=== PATIENT | male | born 1965 | race American Indian/Alaskan Native ===

== ENCOUNTER 2020-07-20 12:54 | Outpatient (REF) | payer OTHER, SELFPAY ==
--- NOTE | 2020-07-20 13:08 | XR_ITS ---
EXAMINATION: XR BILATERAL HIPS WITH AP PELVIS CLINICAL INFORMATION: Sacroiliac joint dysfunction of left side. COMPARISON: Lumbar spine x-rays of 03/18/2020, pelvic x-ray of 12/07/2019 and 08/21/2019. TECHNIQUE: AP view of the pelvis and AP and frog-lateral views of each hip were obtained. FINDINGS: Surgical hardware bridging the left sacroiliac joint is stable in appearance without evidence of hardware loosening or fracture. Right sacroiliac joint is stable in appearance without significant abnormality. Symphysis pubis is intact. Femoral heads are well seated in the respective acetabula. Hip joint spaces are preserved. Subarticular sclerosis is noted in the bilateral femoral heads, right greater than left, similar to previous studies. XR/XR hip BI w PEL1V IMPRESSION: Stable appearance of the surgical hardware along the left sacroiliac joint without evidence of loosening or hardware fracture. No acute osseous abnormality in the pelvis and bilateral hips. Bilateral hip degenerative changes, right greater than left.
== END 2020-07-20 12:55 | disposition home or self-care (01) ==
LOC: HO.XRAY 12:54
PROVIDERS: Visit Provider Physician Assistant
DX: M53.3 Sacrococcygeal disorders, not elsewhere classified (principal)
CPT/HCPCS: 73521

== ENCOUNTER 2021-01-08 10:45 | Emergency (ER) | payer OTHER, SELFPAY ==
[2021-01-08 11:49] VITALS: BP 172/78; PULSE 73; RESP 18; TEMP 36.7; O2SAT 97; BMI 28.6
--- NOTE | 2021-01-08 13:49 | ED.GENADULT ---
HPI - General Adult General Chief complaint: Back Pain/Injury Stated complaint: LOWER BACK PAIN - WORK RELATED Time Seen by Provider: 01/08/21 13:26 Source: patient Mode of arrival: ambulatory Limitations: no limitations History of Present Illness HPI narrative: 55-year-old male who presents emergency department for evaluation of lower back pain. Patient states that he has chronic back pain secondary to work related injury 3 years prior. 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 He states that before he started working was having pain but the pain got worse by the end of his workday. Since that time he has been having constant, twisting pain in his left lower back which is 10/10. The pain is worse with movement. He states the pain does radiate to his left hip into his left thigh. He denies any numbness or weakness. Denies any loss of bowel or bladder control. Patient states that he has seen Dr. Brett Mackenzie in the past for his back pain. He states that he has had left SI joint effusion, L4-L5 disc disease and cervical disc disease. He denied fever, chills, chest pain, shortness of breath. He states that in the past he has gotten relief his pain with Toradol and Robaxin. He states that NSAIDs hurt his stomach but he can take Tylenol for pain. Related Data Previous Rx's Medication Instructions Recorded methocarbamol [Robaxin-750] 750 mg PO BID #20 tab 01/08/21 tramadol 50 mg PO Q4-6H PRN 3 Days #14 tab 01/08/21 Allergies Allergy/AdvReac Type Severity Reaction Status Date / Time codeine [Codeine] AdvReac Unknown HEADACHE Unverified 06/16/20 17:25 Review of Systems Review of Systems: Yes all other systems are reviewed and are negative [facility] Past Medical History [facility] Narrative: Patient has a history of diabetes mellitus and chronic neck and back pain. He denies tobacco, alcohol and drug use. Medical History (Updated 01/08/21 @ 13:58 by Gabe Jolly MD) Back injury Diabetes Fusion of joint Social History Social History Advance Directives: No Advance Directives Information Provided: Yes Physical Exam Vital Signs: Vital Signs: Last Vital Signs Temp 98.1 F 01/08/21 11:49 Pulse 73 01/08/21 11:49 Resp 18 01/08/21 11:49 BP 172/78 H 01/08/21 11:49 Pulse Ox 97 01/08/21 11:49 Body Mass Index 28.6 Const: General: cooperative Orientation/consciousness: oriented to person and oriented to place Limitations: no limitations HENMT: Head: Yes normal to inspection, Yes normocephalic and Yes atraumatic Ears: external ears normal General nose exam: Normal external nose present Face and sinus: Yes normal facial exam Mouth: Normal oral and palatal mucosa present Throat: Yes posterior oropharynx normal Eyes: Periorbital: periorbital findings normal Eyelids: Yes eyelids normal Conjunctivae: conjunctivae normal Sclerae: sclerae normal Corneas: corneas normal Pupils: Equal, round and reactive pupils present Direct Ophthalmoscopy: normal light reflex Neck: Neck: Yes full ROM, Yes no lymphadenopathy, Yes no meningeal signs, Yes trachea midline and Yes supple Chest: Chest palpation & inspection: normal inspection of the chest and normal palpation of entire chest wall Resp: Effort & Inspection: normal respiratory effort and able to speak in complete sentences Auscultation: clear to auscultation bilaterally Cardio: Rate: regular rate Rhythm: regular rhythm Heart sounds: S1 normal heart sound present, S2 normal heart sound present and no murmurs GI: Inspection: Yes normal to inspection Palpation (GI): Soft to palpation, nontender, no guarding, not rigid and No hepatosplenomegaly present : General: Yes no CVA tenderness Back/Spine/Pelvis: Back: no CVA tenderness Cervical Spine: normal cervical lordosis Thoracic/Lumbar Spine: thoracic and lumbar spine normal to inspection, paraspinal muscle tenderness (Left lumbar sacral paraspinal muscle tenderness) on the left (Moderate), thoraco-lumbar spasm on the left (Moderate) and lumbar spinal tenderness at L1, at L2, at L3, at L4 and at L5 Skin: Lesions: no lesions Rashes: no rashes Wounds: no wounds Neuro: General: oriented to person, oriented to place and no meningeal signs Cranial nerves: Yes CN's II-XII intact bilaterally and Yes Equal, round and reactive pupils present Cognition (Neuro): normal cognition Motor exam (neuro): 5/5 motor strength present throughout Extrem: General: Yes normal to inspection and Yes full ROM Psych: Appearance: well kempt Mental Status: mental status grossly normal Speech and movement: Normal speech and movement present Affect: normal affect Attitude: cooperative Thought process: Normal thought process present Thought content: Normal thought content present Course Course Course Narrative: 55-year-old male who presents emergency department for evaluation of left lower back pain x3 days. 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 The patient's examination did reveal tenderness with palpation of his lumbar cervical spine and lumbar sacral paraspinal muscles. Neurologic exam is otherwise unremarkable. Patient's presentation is consistent with musculoskeletal strain. The patient was advised to take Tylenol for his pain. He is also given a prescription for Robaxin 750 mg twice a day and tramadol 50 mg, 1 pill every 4-6 hours as needed for pain. I did discuss the use and side effects these medications with the patient. The patient will be given time off from work until he can be re-evaluated by his occupational health physician to determine when he can return to work safely. Discharge Plan Discharge Clinical Impression: Strain of lumbar region Patient Disposition: Home, Self-Care Instructions: Low Back Strain (ED) Additional Instructions: Back Pain Discharge Instructions: Take Tyleno(acetaminophen) 325 mg pills, 2 pills every 4 hours as needed for pain. Take Robaxin 750 mg, 1 pill every 12 hours as needed for pain or muscle spasm. This is a prescription medication. This medication will make you sleepy, therefore do not drive or work while taking this medication. Take tramadol 50 mg pills, 1 pill every 4-6 hours as needed for pain. This medication will make you sleepy. This medication can be addicting and if you worried about addiction do not get this pain medication filled or ask the pharmacist for less pills than prescribed. Apply ice for 15 minutes to the area that hurts on your back, then apply a heating a pad on low for 15 minutes. Do this 4-6 times a day to help reduce the pain in your back. Continue with normal activities as tolerated since staying in bed and not moving around will make your pain worse. You can also try over the counter lidocaine patches as directed on the box to help with the pain. Please return to the Emergency Department or see your doctor immediately if your symptoms get worse or if you develop any new symptoms that are concerning you. Follow up with Dr. Brett Mackenzie within 3 days for re-evaluation to determine when you can return to work.. Please read the other printed discharge instructions on back pain. Prescriptions: New methocarbamol [Robaxin-750] 750 mg tablet 750 mg PO BID Qty: 20 RF: 0 tramadol 50 mg tablet 50 mg PO Q4-6H PRN (Reason: pain) 3 Days Qty: 14 RF: 0
== END 2021-01-08 14:12 | disposition home or self-care (01) ==
PROVIDERS: Emergency Provider Emergency Medicine Emergency Medical Services
DX: S39.012A Strain of muscle, fascia and tendon of lower back, initial encounter (principal); X50.1XXA Overexertion from prolonged static or awkward postures, initial encounter; Y93.H3 Activity, building and construction; Y92.61 Building [any] under construction as the place of occurrence of the external cause; Y99.0 Civilian activity done for income or pay
CPT/HCPCS: 99283

== ENCOUNTER 2021-07-13 12:10 | Outpatient (REF) | payer OTHER, SELFPAY ==
[2021-07-13 13:56] LABS: Estimated Average Glucose 203 mg/dL; Hemoglobin A1c % 8.7 %
[2021-07-13 14:19] LABS: Creatinine Urine 25.63 mg/dL; Microalbumin Urine < 5.0 mg/L
[2021-07-13 14:24] LABS: Alanine Aminotransferase 96 U/L (0-40); Albumin Level 4.1 g/dL (3.5-5.0); Alkaline Phosphatase 208 U/L (39-117); Anion Gap 20 (12-20); Aspartate Amino Transferase 51 U/L (5-37); Bilirubin Total 0.7 mg/dL (0.0-1.0); Blood Urea Nitrogen 13 mg/dL (9-16); Calcium 9.7 mg/dL (8.4-10.2); Carbon Dioxide 22 mmol/L (22-29); Chloride 101 mmol/L (96-108); Cholesterol 270 mg/dL; Estimated Glomerular Filt Rate > 60; Glucose Fasting 279 mg/dL (60-99); HDL Cholesterol 74 mg/dL; LDL Cholesterol Calculated 159 mg/dl; Potassium 4.7 mmol/L (3.3-5.1); Sodium 138 mmol/L (135-145); Triglycerides 187 mg/dL
[2021-07-13 15:21] LABS: Prostate Specific Antigen Scr 2.22 ng/mL (<0.05-4.0)
== END 2021-07-13 12:11 | disposition home or self-care (01) ==
LOC: HO.HMGCLDS 12:10
PROVIDERS: PCP Nurse Practitioner Family; Visit Provider Nurse Practitioner Family
DX: E10.9 Type 1 diabetes mellitus without complications (principal); Z12.5 Encounter for screening for malignant neoplasm of prostate
CPT/HCPCS: 36415; 80053; 80061; 82043; 83036; 84153; 84443

== ENCOUNTER 2021-08-02 08:21 | Outpatient (REF) | payer OTHER, SELFPAY ==
--- NOTE | ~2021-08-02 | US_ITS ---
EXAMINATION: US ABDOMEN COMPLETE CLINICAL INFORMATION: Elevated liver enzymes. COMPARISON: None TECHNIQUE: Real-time imaging of the abdominal viscera. FINDINGS: PANCREAS: Normal. ABDOMINAL AORTA: The proximal, mid, and distal segments are normal in caliber. INFERIOR VENA CAVA: Visualized portions are normal. LIVER: Liver echotexture is increased. The liver is normal in size. The liver contour is normal. No focal hepatic lesion. There is no intrahepatic biliary duct dilatation seen. GALLBLADDER: Normal The gallbladder is physiologically distended without evidence of stones, sludge, polyps, wall thickening or pericholecystic fluid. COMMON BILE DUCT: Normal in caliber measuring 0.5 cm in diameter. RIGHT KIDNEY: Normal. No hydronephrosis. No renal calculi or focal parenchymal lesions. The kidney measures 12 cm in maximum dimension. LEFT KIDNEY: There are 3 stones, largest measuring 8 x 4 x 4 mm in the lower pole. No hydronephrosis. No renal calculi or focal parenchymal lesions. The kidney measures cm in maximum dimension. SPLEEN: Normal. The spleen measures 11 cm in maximum dimension. FREE FLUID: None. US/US abdomen complete IMPRESSION: Echogenic liver. Left renal stones.
[2021-08-02 12:22] LABS: Gamma Glutamyl Transpeptidase 94 U/L (11-51)
[2021-08-03 04:32] LABS: HBS Num1 1.01 mIU/mL (0-7.99); HBsAGNum1 0.16 S/CO (0.00-0.99); Hepatitis B Core Antibody Nonreactive (Nonreactive); Hepatitis B Surface Antigen Negative (Negative); ~HepC Num1 0.16 S/CO (0.00-0.79); ~Hepatitis B Surface Antibody NONREACTIVE (Nonreactive); ~Hepatitis C Antibody Nonreactive (Nonreactive)
[2021-08-04 03:59] LABS: Hepatitis A Antibody IgM 0.11 Index (0-0.79); ~Hepatitis A Antibody IgM Nonreactive (Nonreactive)
== END 2021-08-02 08:22 | disposition home or self-care (01) ==
LOC: HO.HMGCX 08:21
PROVIDERS: PCP Nurse Practitioner Family; Visit Provider Nurse Practitioner Family
DX: R74.8 Abnormal levels of other serum enzymes (principal)
CPT/HCPCS: 36415; 76700; 82977; 86704; 86706; 86709; 86803; 87340

== ENCOUNTER 2021-11-05 20:39 | Emergency (ER) | payer SELFPAY ==
--- NOTE | ~2021-11-05 | CT_ITS ---
EXAMINATION: CT ABDOMEN AND PELVIS WITH CONTRAST CLINICAL INFORMATION: Abdominal pain COMPARISON: Abdominal ultrasound 08/02/2021, CT abdomen 01/22/2010 TECHNIQUE: Multidetector volumetric images were obtained from the superior aspect of the liver through the pubic symphysis following administration 85 mL of Omnipaque 350 intravenous contrast. Sagittal and coronal reformatted images were obtained on the technologist's workstation. Oral contrast: No This CT examination was performed using dose optimization techniques as appropriate, variously including the following: *Automated exposure control *Adjustment of mA and/or kV according to patient size (this includes techniques or standardized protocols for targeted exams where dose is matched to indication/reason for exam; i.e. extremities or head) *Use of iterative reconstruction technique DLP: 514 mGy-cm FINDINGS: LUNG BASES: The visualized lung bases are unremarkable. LIVER, GALLBLADDER, AND BILIARY TREE: The liver is normal in size, shape, and attenuation. No focal hepatic lesion or biliary ductal dilatation is present. The gallbladder is unremarkable with no evidence of radiopaque gallstones, gallbladder wall thickening, or obvious pericholecystic inflammatory changes. PANCREAS: Unremarkable. SPLEEN: Unremarkable. ADRENAL GLANDS: Unremarkable. KIDNEYS AND URETERS: The kidneys are normal in size, shape, and attenuation. Some tiny subcentimeter hypodensities are seen the largest measuring 4 mm at the left lower pole measuring water density. These are all probably benign Bosniak class I renal cysts but most are indeterminate because of their small size. No suspicious solid renal masses are seen. No hydronephrosis, hydroureter, or calculi seen. No perinephric stranding. BLADDER: Unremarkable. GASTROINTESTINAL TRACT: Significant fluid is present in the colon especially on the right. No definite evidence of structure and is seen. No small bowel dilatation is present. The appendix is normal. ABDOMINAL WALL: Small inguinal hernias are present containing only fat. There is some mild diastases of the rectus muscles above the umbilicus. LYMPH NODES: No retroperitoneal lymphadenopathy. VASCULAR: Calcific atherosclerotic plaque present in the infrarenal aorta and iliofemoral vessels without aneurysm. PELVIC VISCERA: No gross prostatic enlargement. OSSEOUS STRUCTURES: Mild degenerative changes seen most prominent at L4-L5. CT/CT abdomen pelvis w con IMPRESSION: A cause for the patient's abdominal pain is not seen with certainty. Fluid and air-fluid levels is present in the colon without evidence of obstruction. Findings could represent colitis. Fleischner guidelines were followed.
[2021-11-05 20:42] VITALS: BP 148/87; PULSE 100; RESP 18; TEMP 36.9; O2SAT 98; BMI 27.4
[2021-11-05 20:53] LABS: Glucose, Whole Blood 124 mg/dL (60-115)
[2021-11-05 21:07] VITALS: BP 171/76; PULSE 98; RESP 22; TEMP 36.9; O2SAT 100
--- NOTE | 2021-11-05 21:50 | ECG_ITS ---
Test Reason : SOB Blood Pressure : / mmHG Vent. Rate : 085 BPM Atrial Rate : 085 BPM P-R Int : 128 ms QRS Dur : 086 ms QT Int : 370 ms P-R-T Axes : 073 064 047 degrees QTc Int : 440 ms Normal sinus rhythm Normal ECG When compared with ECG of 16-JUN-2010 18:06, T wave amplitude has decreased in Anterolateral leads Referred By: Margo Garces Electronically Signed By:Tyree Kessler
--- NOTE | 2021-11-05 21:52 | ED_ITS ---
HPI - General Adult General Chief complaint: General Medical Stated complaint: low blood sugar, constipated, severe pain Time Seen by Provider: 11/05/21 21:34 History of Present Illness HPI narrative: Patient is a 56-year-old male presented today with having diffuse abdominal pain, no bowel movement for the last 5 days. Passing gas. No abdominal surgery in the past. No fever no chills. No coughing or congestion or upper respiratory symptoms. Patient immunized for COVID. Positive nausea. Positive generalized malaise. no actual vomiting. Related Data Home Medications Medication Instructions Recorded Confirmed fluoxetine 40 mg capsule 40 mg PO DAILY 04/13/21 07/13/21 Previous Rx's Medication Instructions Recorded tramadol 50 mg tablet 50 mg PO Q4-6H PRN 3 Days #14 tab 01/08/21 insulin glargine 100 unit/mL (3 36 unit (0.36 mL) SUBCUT QAM 30 07/13/21 mL) subcutaneous pen (Basaglar Days #10.8 ml KwikPen U-100 Insulin) insulin lispro 100 unit/mL 12 unit (0.12 mL) SUBCUT TID 30 07/13/21 subcutaneous pen (Humalog KwikPen Days #10.8 ml (U-100) Insulin) Allergies Allergy/AdvReac Type Severity Reaction Status Date / Time latex AdvReac Mild skin Verified 07/13/21 11:24 bubbles codeine [Codeine] AdvReac Unknown HEADACHE Verified 07/13/21 11:24 Review of Systems Verdana 4l Review of Systems: Verdana 4d Positive abdominal Verdana 4d pain Positive nausea All system reviewed otherwise negative Verdana 4d Yes all other systems are reviewed and are negative [facility] Past Medical History Attestation statement: The following information was validated with the patient. Medical History Back injury Diabetes Fusion of joint Surgical History History of shoulder surgery Family History Family History Father Diabetes Brother Diabetes Other Mental health disorder Social History Social History Housing: [facility] Alcohol intake: current Alcohol intake frequency: holidays/special occasions only Alcohol type: beer Patient Tobacco Use Status: Former Tobacco user Quit Date: 2009 Tobacco use type: Cigarette Years Smoked: since age 16 Advance Directives: No Advance Directives Information Provided: No Current occupational status: unemployed Physical Exam Verdana 4l Vital Signs: Verdana 4d Verdana 4d Vital Signs: Verdana 4d Verdana 4Bd Last Vital Signs Verdana 4d Material Damage Appraiser New 4d Material Damage Appraiser New 4d Temp 98.4 F 11/05/21 21:07 Material Damage Appraiser New 4d Pulse 98 11/05/21 21:07 Material Damage Appraiser New 4d Resp 22 H 11/05/21 21:07 BP 171/76 H 11/05/21 21:07 Pulse Ox 100 11/05/21 21:07 BMI result Body Mass Index 27.4 Appearance: Alert. Oriented X3. No acute distress. Eyes: Pupils equal, round and reactive to light. ENT: Pharynx normal. Neck: Normal inspection. Neck supple. No lymph nodes noted. No crepitus CVS: Normal heart rate and rhythm. Pulses normal. Normal S1 and S2 Respiratory: No respiratory distress. Breath sounds normal. No Wheezing. No rales Abdomen: Soft and nontender. No rigidity. No distention. good BS x4 Skin: Skin warm and dry. Normal skin color. Normal skin turgor. Extremities: No lower extremity edema. Neurovascular intact to all extremities. No Lacerations. No Rash Neuro: Oriented X 3. No motor deficit. No sensory deficit. Moving all extermities. No slurred speech Medical Decision Making MDM Narrative Medical decision making narrative: Rectal exam done with nursing present. Large amount of impacted stool. Patient was manually disimpacted by myself. Moderate amount of stool resulted. A Fleet enema was given. Moderate results. Will get labs and CT scan of the abdomen. Patient's symptom improved after disimpaction. CT scan of the abdomen showed no overt obstruction no abscess no perforation no evidence for diverticulitis. Electrolytes are baseline. CBC was drawn after the disimpaction could be secondary to stress causing the elevated white count in the setting of negative CT findings symptom improving will discharge patient home. Told to use MiraLax, lots of vegetables. Currently in stable condition with discharge Patient's EKG showed a sinus pattern heart rate is 90 KS QRS QT within normal limits, no acute ST segment elevation. Lab Data Lab results reviewed: Yes I reviewed the patient's lab results. Result diagrams: 11/05/21 22:00 11/05/21 22:00 Labs: Lab Results 11/05/21 11/05/21 11/05/21 Range/Units 20:43 22:00 22:00 WBC 14.8 H (4.8-10.8) X10*3/uL RBC 4.55 L (4.60-5.80) X10*6/uL Hgb 15.0 (14.0-18.0) g/dl Hct 43.6 (42.0-52.0) % MCV 95.8 (80.0-98.0) fL MCH 33.0 (27.0-33.0) pg MCHC 34.4 (31.0-36.0) g/dl RDW 12.2 (11.0-16.0) % Plt Count 370 (160-400) X10*3/uL MPV 9.2 L (9.4-12.4) fL Immature Gran % (Auto) 0.3 (0.0-0.4) % Neut % (Auto) 87.8 H (45-73) % Lymph % (Auto) 5.9 L (20-40) % Cla[place]orne % (Auto) 5.5 (2-11) % Eos % (Auto) 0.1 (0-4) % Baso % (Auto) 0.4 (0-2) % Lymph # (Auto) 0.9 L (1.2-4.9) X10*3/uL [place]orne # (Auto) 0.8 (0.1-1.2) X10*3/uL Eos # (Auto) 0.0 (0.0-0.4) X10*3/uL Baso # (Auto) 0.1 (0.0-0.2) X10*3/uL Abs Immat Gran (auto) 0.05 H (0.00-0.03) X10*3/uL Absolute Neuts (auto) 13.0 H (2.0-8.3) x10*3/uL Absolute Nucleated RBC 0.000 (0.0-0.012) X10*3/uL Nucleated RBC % (auto) 0.0 (0.0-0.2) /100WBC Sodium 140 (135-145) mmol/L Potassium 4.6 (3.3-5.1) mmol/L Chloride 102 (96-108) mmol/L Carbon Dioxide 25 (22-29) mmol/L Anion Gap 18 (12-20) BUN 12 (9-16) mg/dL Creatinine 1.00 (0.5-1.4) mg/dL Estim Creat Clear Calc 76.2 Estimated GFR > 60 POC Glucose 124 H (60-115) mg/dL Random Glucose 192 H (60-115) mg/dL Calcium 9.7 (8.4-10.2) mg/dL Magnesium 2.3 (1.6-2.6) mg/dL Total Bilirubin 0.9 (0.0-1.0) mg/dL Direct Bilirubin 0.3 (0.0-0.5) mg/dL AST 27 D (5-37) U/L ALT 63 H (0-40) U/L Alkaline Phosphatase 143 H D (39-117) U/L Total Protein 7.3 (6.5-8.0) g/dL Albumin 4.2 (3.5-5.0) g/dL Lipase 5 L (8-78) U/L 11/05/21 Range/Units 22:00 WBC (4.8-10.8) X10*3/uL RBC (4.60-5.80) X10*6/uL Hgb (14.0-18.0) g/dl Hct (42.0-52.0) % MCV (80.0-98.0) fL MCH (27.0-33.0) pg MCHC (31.0-36.0) g/dl RDW (11.0-16.0) % Plt Count (160-400) X10*3/uL MPV (9.4-12.4) fL Immature Gran % (Auto) (0.0-0.4) % Neut % (Auto) (45-73) % Lymph % (Auto) (20-40) % Claiborne % (Auto) (2-11) % Eos % (Auto) (0-4) % Baso % (Auto) (0-2) % Lymph # (Auto) (1.2-4.9) X10*3/uL [place] # (Auto) (0.1-1.2) X10*3/uL Eos # (Auto) (0.0-0.4) X10*3/uL Baso # (Auto) (0.0-0.2) X10*3/uL Abs Immat Gran (auto) (0.00-0.03) X10*3/uL Absolute Neuts (auto) (2.0-8.3) x10*3/uL Absolute Nucleated RBC (0.0-0.012) X10*3/uL Nucleated RBC % (auto) (0.0-0.2) /100WBC Sodium (135-145) mmol/L Potassium (3.3-5.1) mmol/L Chloride (96-108) mmol/L Carbon Dioxide (22-29) mmol/L Anion Gap (12-20) BUN (9-16) mg/dL Creatinine (0.5-1.4) mg/dL Estim Creat Clear Calc Estimated GFR POC Glucose (60-115) mg/dL Random Glucose (60-115) mg/dL Calcium 10.0 (8.4-10.2) mg/dL Magnesium (1.6-2.6) mg/dL Total Bilirubin (0.0-1.0) mg/dL Direct Bilirubin (0.0-0.5) mg/dL AST (5-37) U/L ALT (0-40) U/L Alkaline Phosphatase (39-117) U/L Total Protein (6.5-8.0) g/dL Albumin (3.5-5.0) g/dL Lipase (8-78) U/L Discharge Plan Discharge Clinical Impression: Constipation Patient Disposition: Home, Self-Care Prescriptions: No Action tramadol 50 mg tablet 50 mg PO Q4-6H PRN (Reason: pain) 3 Days Qty: 14 0RF Rx Instructions: Patient may request partial fill fluoxetine 40 mg capsule 40 mg PO DAILY 0RF insulin lispro [Humalog KwikPen Insulin] 100 unit/mL insulin pen 12 unit subcut TID 30 Days Qty: 10.8 3RF Rx Instructions: 13-16 units daily Basaglar KwikPen U-100 Insulin 100 unit/mL (3 mL) insulin pen 36 unit subcut QAM 30 Days Qty: 10.8 2RF Referrals: Mariano Smith, [facility] [Primary Care Provider] - 2 days (Please use the MiraLax twice a day. Lots of vegetables.)
[2021-11-05] MEDS: 0.9 % Sodium Chloride 500 ML 999 ML IV (22:01)
[2021-11-05] MEDS: Sodium Phosphate,Mono-Dibasic 133 ML ENEMA PR (22:02)
[2021-11-05 22:06] LABS: MANUAL DIFF FLAG NO
[2021-11-05 22:09] LABS: Basophils Absolute Auto 0.1 X10*3/uL (0.0-0.2); Basophils Percent Auto 0.4 % (0-2); Eosinophils Percent Auto 0.1 % (0-4); Hematocrit 43.6 % (42.0-52.0); Imm Gran Abs Auto 0.05 X10*3/uL (0.00-0.03); Imm Gran Pct Auto 0.3 % (0.0-0.4); Lymphocytes Absolute Auto 0.9 X10*3/uL (1.2-4.9); Lymphocytes Percent Auto 5.9 % (20-40); Mean Corpuscular HGB Conc 34.4 g/dl (31.0-36.0); Mean Corpuscular Volume 95.8 fL (80.0-98.0); Mean Platelet Volume 9.2 fL (9.4-12.4); Monocytes Absolute Auto 0.8 X10*3/uL (0.1-1.2); Monocytes Percent Auto 5.5 % (2-11); Neutrophils Percent Auto 87.8 % (45-73); Platelet Count 370 X10*3/uL (160-400); Red Blood Count 4.55 X10*6/uL (4.60-5.80); Red Cell Distribution Width 12.2 % (11.0-16.0); White Blood Count 14.8 X10*3/uL (4.8-10.8)
[2021-11-05 22:22] LABS: Alanine Aminotransferase 63 U/L (0-40); Albumin Level 4.2 g/dL (3.5-5.0); Alkaline Phosphatase 143 U/L (39-117); Anion Gap 18 (12-20); Aspartate Amino Transferase 27 U/L (5-37); Bilirubin Direct 0.3 mg/dL (0.0-0.5); Bilirubin Total 0.9 mg/dL (0.0-1.0); Blood Urea Nitrogen 12 mg/dL (9-16); Calcium 9.7 mg/dL (8.4-10.2); Carbon Dioxide 25 mmol/L (22-29); Chloride 102 mmol/L (96-108); Creatinine Clr Calc Pharmacy 76.2; Estimated Glomerular Filt Rate > 60; Glucose Random 192 mg/dL (60-115); Lipase 5 U/L (8-78); Magnesium 2.3 mg/dL (1.6-2.6); Potassium 4.6 mmol/L (3.3-5.1); Sodium 140 mmol/L (135-145); Total Protein 7.3 g/dL (6.5-8.0)
[2021-11-05] MEDS: iohexoL 350 MG/ML 100 ML INFUS..BTL 85 ML IV (23:32)
== END 2021-11-06 00:18 | disposition home or self-care (01) ==
PROVIDERS: Emergency Provider Emergency Medicine Emergency Medical Services; PCP Nurse Practitioner Family
DX: K59.00 Constipation, unspecified (principal); R06.02 Shortness of breath; Z79.899 Other long term (current) drug therapy; Z87.891 Personal history of nicotine dependence
CPT/HCPCS: 36415; 74177; 80048; 80076; 82310; 82947; 83690; 83735; 85025; 93005; 99284; Q9967

== ENCOUNTER 2022-05-24 08:30 | Outpatient (REF) | payer OTHER, SELFPAY ==
[2022-05-24 11:21] LABS: MANUAL DIFF FLAG NO
[2022-05-24 11:34] LABS: Basophils Absolute Auto 0.1 X10*3/uL (0.0-0.2); Basophils Percent Auto 1.3 % (0-2); Eosinophils Absolute Auto 0.3 X10*3/uL (0.0-0.4); Eosinophils Percent Auto 4.1 % (0-4); Hemoglobin 15.1 g/dl (14.0-18.0); Imm Gran Abs Auto 0.02 X10*3/uL (0.00-0.03); Imm Gran Pct Auto 0.3 % (0.0-0.4); Lymphocytes Absolute Auto 1.6 X10*3/uL (1.2-4.9); Lymphocytes Percent Auto 23.4 % (20-40); Mean Corpuscular HGB Conc 34.3 g/dl (31.0-36.0); Mean Corpuscular Hemoglobin 32.4 pg (27.0-33.0); Mean Corpuscular Volume 94.4 fL (80.0-98.0); Mean Platelet Volume 10.2 fL (9.4-12.4); Monocytes Absolute Auto 0.7 X10*3/uL (0.1-1.2); Monocytes Percent Auto 9.7 % (2-11); Neutrophils Absolute Auto 4.3 x10*3/uL (2.0-8.3); Neutrophils Percent Auto 61.2 % (45-73); Platelet Count 329 X10*3/uL (160-400); Red Blood Count 4.66 X10*6/uL (4.60-5.80)
[2022-05-24 11:39] LABS: Estimated Average Glucose 183 mg/dL
[2022-05-24 12:11] LABS: Alanine Aminotransferase 13 U/L (0-40); Albumin Level 4.2 g/dL (3.5-5.0); Alkaline Phosphatase 72 U/L (39-117); Anion Gap 17 (12-20); Aspartate Amino Transferase 16 U/L (5-37); Bilirubin Total 0.7 mg/dL (0.0-1.0); Blood Urea Nitrogen 25 mg/dL (9-16); Calcium 9.7 mg/dL (8.4-10.2); Carbon Dioxide 28 mmol/L (22-29); Chloride 99 mmol/L (96-108); Cholesterol 197 mg/dL; Estimated Glomerular Filt Rate > 60; Glucose Fasting 195 mg/dL (60-99); HDL Cholesterol 60 mg/dL; LDL Cholesterol Calculated 114 mg/dl; Potassium 5.2 mmol/L (3.3-5.1); Sodium 139 mmol/L (135-145); Total Protein 7.2 g/dL (6.5-8.0); Triglycerides 119 mg/dL
[2022-05-24 12:12] LABS: Prostate Specific Antigen Scr 1.41 ng/mL (<0.05-4.0); TSH reflex Free T4 4.36 uIU/mL (0.32-4.0)
[2022-05-24 12:29] LABS: Creatinine Urine 165.22 mg/dL; Microalbum/Creatinine Ratio Ur 13.3 ug/mg cr
[2022-05-24 14:49] LABS: Free T4 (Free Thyroxine) 0.98 ng/dL (0.71-1.85)
[2022-05-24 16:21] LABS: Appearance Urine Clear; Color Urine Dark Yellow; Glucose Urine UA Negative (Negative); Leukocyte Esterase Urine Negative (Negative); Nitrite Urine Negative (Negative); PH 5.5 (5.0-8.0); Urine Blood Negative (Negative); Urine Ketones Negative (Negative); Urine Protein Negative (Neg-Trace)
== END 2022-05-24 08:31 | disposition home or self-care (01) ==
LOC: HO.HMGCLDS 08:30
PROVIDERS: PCP Nurse Practitioner Family; Visit Provider Nurse Practitioner Family
DX: Z12.5 Encounter for screening for malignant neoplasm of prostate (principal); E10.9 Type 1 diabetes mellitus without complications
CPT/HCPCS: 36415; 80053; 80061; 81003; 82043; 83036; 84153; 84439; 84443; 85025

== ENCOUNTER 2022-06-15 10:42 | Outpatient (REF) | payer OTHER, SELFPAY ==
[2022-06-15 14:14] LABS: Anion Gap 14 (12-20); Carbon Dioxide 28 mmol/L (22-29); Chloride 103 mmol/L (96-108); Potassium 4.9 mmol/L (3.3-5.1); Sodium 140 mmol/L (135-145)
[2022-06-15 14:41] LABS: TSH reflex Free T4 2.11 uIU/mL (0.32-4.0)
[2022-06-18 21:57] LABS: Thyroid Peroxidase Antibodies 4 IU/mL (<9)
== END 2022-06-15 10:43 | disposition home or self-care (01) ==
LOC: HO.HMGCLDS 10:42
PROVIDERS: PCP Nurse Practitioner Family; Visit Provider Nurse Practitioner Family
DX: R79.89 Other specified abnormal findings of blood chemistry (principal); E87.5 Hyperkalemia
CPT/HCPCS: 36415; 80051; 84443; 86376

== ENCOUNTER → 2022-07-27 10:34 | Outpatient (BNVA) | payer OTHER, SELFPAY | PROVIDERS: PCP Nurse Practitioner Family; Visit Provider Internal Medicine Endocrinology, Diabetes & Metabolism | DX: E10.9 Type 1 diabetes mellitus without complications (principal) | CPT/HCPCS: 82947 ==

== ENCOUNTER 2022-08-24 08:32 | Outpatient (REF) | payer OTHER, SELFPAY ==
--- NOTE | ~2022-08-24 | MR_ITS ---
EXAMINATION: MR LUMBAR SPINE WITHOUT CONTRAST CLINICAL INFORMATION: Low back pain. COMPARISON: MRI dated 12/17/2019 and x-ray of the lumbar spine from 03/18/2020. TECHNIQUE: Multiplanar, multisequence imaging was obtained. FINDINGS: VERTEBRAL BODIES AND PARASPINAL STRUCTURES: Following the counting on prior imaging studies, there are hypoplastic riblets at what is considered the T12 level. No marrow or soft tissue edema identified. Mild disc space narrowing again evident at the L4-L5 level. There are no compression fractures or new subluxations. The paraspinal soft tissues are unremarkable. Fusion hardware results in susceptibility artifacts in the left aspect of the pelvis across the sacroiliac joint. CONUS MEDULLARIS AND CAUDA EQUINE: The distal cord, conus tip, and cauda equina nerve roots are normal. SPINAL LEVELS: L1-L2: No significant disc pathology, central canal stenosis, or foraminal narrowing. L2-L3: Mild diffuse disc bulge without central canal stenosis or significant foraminal encroachment. L3-L4: Diffuse disc bulge with a small central disc protrusion, also visible on prior imaging. Mild facet arthropathy slightly encroaching upon the central canal. Bulging disc also results in mild bilateral foraminal encroachment, similar to prior imaging. L4-L5: Very mild anterior subluxation and diffuse disc bulge again evident with a broad-based central disc protrusion in combination with hypertrophic facet arthropathy encroaching upon the subarticular zones with chronic mass effect upon both L5 nerve roots. A previous left-sided disc extrusion has otherwise resorbed. Stable [id number] central canal stenosis. Very mild left foraminal narrowing. Right foraminal disc protrusion with further encroachment and mass effect upon the exiting right L4 nerve root. L5-S1: No disc pathology, central canal stenosis, or foraminal narrowing. MR/MR lumbar spine wo con IMPRESSION: 1. 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 If future surgery or a percutaneous procedure is contemplated, recommend correlation with plain film evaluation in order to ensure correct enumeration. 2. Stable mild anterolisthesis at the L4-L5 level with a broad-based central disc protrusion and facet arthropathy encroaching upon the subarticular zones with chronic mass effect upon both L5 nerve roots. [id number] central canal stenosis. Right foraminal disc protrusion with further encroachment and mass effect upon the right L4 nerve root.
== END 2022-08-24 08:33 | disposition home or self-care (01) ==
LOC: HO.MRI 08:32
PROVIDERS: Visit Provider Nurse Practitioner Family
DX: G89.29 Other chronic pain (principal); M54.16 Radiculopathy, lumbar region; M54.50 Low back pain, unspecified
CPT/HCPCS: 72148

== ENCOUNTER → 2022-10-19 09:01 | Outpatient (BNVA) | payer OTHER, SELFPAY | PROVIDERS: PCP Nurse Practitioner Family; Visit Provider Registered Nurse Diabetes Educator | DX: Z13.89 Encounter for screening for other disorder (principal) ==

== ENCOUNTER 2022-10-29 14:53 | Outpatient (REF) | payer OTHER, SELFPAY ==
[2022-10-29 16:38] LABS: MANUAL DIFF FLAG NO
[2022-10-29 16:47] LABS: Basophils Absolute Auto 0.1 X10*3/uL (0.0-0.2); Basophils Percent Auto 1.3 % (0-2); Eosinophils Absolute Auto 0.3 X10*3/uL (0.0-0.4); Eosinophils Percent Auto 3.1 % (0-4); Hematocrit 43.3 % (42.0-52.0); Hemoglobin 14.8 g/dl (14.0-18.0); Imm Gran Abs Auto 0.02 X10*3/uL (0.00-0.03); Imm Gran Pct Auto 0.2 % (0.0-0.4); Lymphocytes Absolute Auto 1.8 X10*3/uL (1.2-4.9); Lymphocytes Percent Auto 21.5 % (20-40); Mean Corpuscular HGB Conc 34.2 g/dl (31.0-36.0); Mean Corpuscular Hemoglobin 31.6 pg (27.0-33.0); Mean Corpuscular Volume 92.5 fL (80.0-98.0); Monocytes Absolute Auto 0.6 X10*3/uL (0.1-1.2); Monocytes Percent Auto 7.2 % (2-11); Neutrophils Absolute Auto 5.5 x10*3/uL (2.0-8.3); Neutrophils Percent Auto 66.7 % (45-73); Platelet Count 262 X10*3/uL (160-400); Red Blood Count 4.68 X10*6/uL (4.60-5.80); Red Cell Distribution Width 12.3 % (11.0-16.0); White Blood Count 8.3 X10*3/uL (4.8-10.8)
[2022-10-29 16:55] LABS: Appearance Urine Clear; Color Urine Yellow; Glucose Urine UA 100 mg/dL (Negative); Leukocyte Esterase Urine Negative (Negative); Nitrite Urine Negative (Negative); Urine Blood Negative (Negative); Urine Ketones Negative (Negative); Urine Protein Negative (Neg-Trace)
[2022-10-29 17:19] LABS: Alanine Aminotransferase 25 U/L (0-40); Albumin Level 4.2 g/dL (3.5-5.0); Alkaline Phosphatase 81 U/L (39-117); Anion Gap 14 (12-20); Aspartate Amino Transferase 28 U/L (5-37); Bilirubin Total 0.7 mg/dL (0.0-1.0); Blood Urea Nitrogen 16 mg/dL (9-16); Calcium 9.7 mg/dL (8.4-10.2); Carbon Dioxide 29 mmol/L (22-29); Chloride 105 mmol/L (96-108); Cholesterol 175 mg/dL; Estimated Glomerular Filt Rate > 60; Glucose Fasting 178 mg/dL (60-99); HDL Cholesterol 55 mg/dL; LDL Cholesterol Calculated 88 mg/dl; Potassium 5.1 mmol/L (3.3-5.1); Sodium 143 mmol/L (135-145); Total Protein 6.9 g/dL (6.5-8.0); Triglycerides 163 mg/dL
[2022-10-29 17:47] LABS: TSH reflex Free T4 3.37 uIU/mL (0.32-4.0)
== END 2022-10-29 14:54 | disposition home or self-care (01) ==
LOC: HO.HMGCLDS 14:53
PROVIDERS: Absent Provider Internal Medicine Endocrinology, Diabetes & Metabolism; Visit Provider Nurse Practitioner Family
DX: Z00.00 Encounter for general adult medical examination without abnormal findings (principal); E10.9 Type 1 diabetes mellitus without complications
CPT/HCPCS: 36415; 80053; 80061; 81003; 84443; 85025

== ENCOUNTER → 2022-10-31 09:41 | Outpatient (BNVA) | payer OTHER, SELFPAY | PROVIDERS: PCP Nurse Practitioner Family; Visit Provider Internal Medicine Endocrinology, Diabetes & Metabolism | DX: E10.9 Type 1 diabetes mellitus without complications (principal) ==

== ENCOUNTER → 2022-11-14 09:09 | Outpatient (BNVA) | payer OTHER, SELFPAY | PROVIDERS: PCP Nurse Practitioner Family; Visit Provider Dietitian, Registered | DX: E10.9 Type 1 diabetes mellitus without complications (principal) | CPT/HCPCS: 97802 ==

== ENCOUNTER 2023-05-03 10:01 | Outpatient (AMB) | payer OTHER, SELFPAY ==
--- NOTE | 2023-05-03 10:10 | MHC.OFFVIS ---
Intake Vital Signs 05/03/23 10:14 Height 5 ft 4 in Weight 174 lb 6.17 oz BMI 29.9 BP 122/58 L Blood Pressure Location Lt brachial Position Sitting Pulse 80 Intake Visit Reasons: DM Intake Note: Patient present today to follow up on Type 2 Diabetes Mellitus. Last Diabetic Eye exam: Last Podiatry Visit: Random Glucose: 243mg/dl HgA1C: 6.7 Healthcare Account Manager Required: No Accompanied by: Self / Same As Patient Allergies latex Adverse Reaction (Mild, Verified 05/03/23 10:18) skin bubbles codeine [Codeine] Adverse Reaction (Unknown, Verified 05/03/23 10:18) HEADACHE HPI HPI Comments History of Present Illness Details 58 YO M with is seen in consultation for T1DM at the request of PCP. Initially diagnosed with T1DM in age 5 when presented with illness . Was initially started on treatment with insulin . Currently being managed with AT-slim pump with control IQ Pump settings 00:00 basal equals 2 units/hour Insulin: Equals 01:50 Sensitivity is 37. Target range is 00:00 120 Total daily dose is 67.4 with 75% basal and 25% bolus. There is 5.3 suspensions per day for total of 2 hours and 44 minutes Control IQ is being used 89% of the time Sensor download shows average glucose to be 174 with G mi of 7.5%. 51% range with 43% hyperglycemia, 5% hypoglycemia and 1% very hyperglycemic. Hypoglycemia is occurring overnight and between meals with trend for post-meal hyperglycemia Has hypos after dinner occasionally and overnight Family history of autoimmunity in Type 1 DM Has eyes checked yearly,has optho in 11/2022 , has retinopathy. Denies neuropathy, Not sees podiatry. Denies nephropathy, Not on PENNIE/ARB. Not Has HLD,Not on statin. Denies history of CAD. 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 Diet/Carb counting: No Denies prior episodes of DKA. had prior severe episodes of hypoglycemia requiring help or hospitalization yrs ago Labs: [facility] Medical History (Updated 09/12/22 @ 18:20 by Mariano Smith [facility]) Back injury Diabetes Fusion of joint Surgical History History of shoulder surgery History of surgery Family History Father Diabetes Brother Diabetes Other Mental health disorder Social History Household Members: Spouse and Family Household Members Other:: , grandchild Housing: Condominium Alcohol intake: current Alcohol intake frequency: holidays/special occasions only Alcohol type: beer Patient Tobacco Use Status: Former Tobacco user Quit Date: 2009 Tobacco use type: Cigarette Years Smoked: since age 16 e-Cigarette/Vaping Use: Never Used Second Hand Smoke Exposure: No Substance Use Type: Marijuana Current occupational status: unemployed Cognitive needs: No Hearing needs: No Vision needs: No Physical Exam Vital Signs: Last Vital Signs Pulse 80 05/03/23 10:14 BP 122/58 L 05/03/23 10:14 BMI result Body Mass Index 29.9 Absence of Cushingoid features. Absence of acromegalic features. Neck exam reveals nl size thyroid about 15 gms. No thyroid nodules palpable. No carotid bruits present. Lungs CTA. Heart S1 S2, Reg R/R. No M/R/ G. Skin exam reveals absence of vitiligo or acanthosis nigricans. Abdominal exam reveals Soft NT/ND with NA BS. No organomegaly present. Extrem Other: Visual exam of foot performed. No ulcerations or open lesions. No onchomycosis, no callouses.Pulses 2 + distally. Sensation intact to monofilament exam. Vibratory sensation sensed 10 seconds in right, 10 seconds in left with 128 Hz tuning fork Results AMB Hemoglobin A1c AMB Hemoglobin A1c 6.7 % Last Edit by Karen Rios on 05/03/23 10:35 Results Reviewed Results Reviewed: 05/03/23 10:22 Glucose, Whole Blood Routine Laboratory Last Values Glucose (Clinic) 243 mg/dL (60-115) H 05/03/23 10:22 Assessment & Plan Assessment & Plan (1) Type 1 diabetes: Code(s): E10.9 - Type 1 diabetes mellitus without complications Plan: This 58-year-old white male with a history of type 1 diabetes being treated with basal-bolus insulin with excellent improved glycemic control and no known microvascular or macrovascular complications. He is also having morning hypoglycemia as well as late afternoon hypoglycemia. Plan is decrease the overnight basal from 2 units per hour to 1.6 units/hour from 00:00AM to 6 AM. Patient should follow-up with the pen or pencil assembly machine operator and motel maid to fine tune carbohydrate counting. He will be with the pen or pencil assembly machine operator next week to make a adjustments to overnight basal. Would also suggest possibly using a 2nd basal rate in the afternoon when patient is engaging in heavy exertion for work. Orders: Orders AMB Hemoglobin A1c Today E11.9 - Type 2 diabetes mellitus without complications Coding Level of Care Code Est Pt Level 4 (60574) Diagnoses Type 1 diabetes E10.9
[2023-05-03 10:14] VITALS: BP 122/58; PULSE 80; BMI 29.9
[2023-05-03 10:27] LABS: Glucose, Whole Blood 243 mg/dL (60-115)
== END 2023-05-03 11:05 | disposition home or self-care (01) ==
PROVIDERS: PCP Nurse Practitioner Family; Visit Provider Internal Medicine Endocrinology, Diabetes & Metabolism
DX: E11.9 Type 2 diabetes mellitus without complications (principal); E10.9 Type 1 diabetes mellitus without complications
CPT/HCPCS: 99214

== ENCOUNTER → 2023-05-03 10:01 | Outpatient (BNVA) | payer OTHER, SELFPAY | PROVIDERS: Visit Provider Internal Medicine Endocrinology, Diabetes & Metabolism | DX: E10.9 Type 1 diabetes mellitus without complications (principal); Z86.73 Personal history of transient ischemic attack (TIA), and cerebral infarction without residual deficits; Z96.41 Presence of insulin pump (external) (internal); Z79.4 Long term (current) use of insulin | CPT/HCPCS: 82947; 83036 ==

== ENCOUNTER 2023-05-13 07:41 | Outpatient (AMB) | payer OTHER, SELFPAY ==
--- NOTE | 2023-05-13 08:41 | MHC.AMDMED ---
Intake Intake Visit Reasons: DM, reset pump Referral Manager Required: No Accompanied by: Self / Same As Patient Allergies latex Adverse Reaction (Mild, Verified 05/03/23 10:18) skin bubbles codeine [Codeine] Adverse Reaction (Unknown, Verified 05/03/23 10:18) HEADACHE HPI Comprehensive Diabetes Asmnt Most Recent Diabetes Results: Cholesterol 175 mg/dL 10/29/22 HDL Cholesterol 55 mg/dL 10/29/22 Triglycerides 163 mg/dL 10/29/22 Creatinine 1.02 mg/dL (0.5-1.4) 10/29/22 Blood Urea Nitrogen 16 mg/dL (9-16) 10/29/22 Sodium 143 mmol/L (135-145) 10/29/22 Potassium 5.1 mmol/L (3.3-5.1) 10/29/22 Chloride 105 mmol/L (96-108) 10/29/22 Carbon Dioxide 29 mmol/L (22-29) 10/29/22 Calcium 9.7 mg/dL (8.4-10.2) 10/29/22 AST 28 U/L (5-37) 10/29/22 ALT 25 U/L (0-40) 10/29/22 Total Protein 6.9 g/dL (6.5-8.0) 10/29/22 Albumin 4.2 g/dL (3.5-5.0) 10/29/22 [facility] Medical History (Updated 09/12/22 @ 18:20 by Mariano Smith, [facility]) Back injury Diabetes Fusion of joint Surgical History History of shoulder surgery History of surgery Family History Father Diabetes Brother Diabetes Other Mental health disorder Social History Household Members: Spouse and Family Household Members Other:: , grandchild Housing: Condominium Alcohol intake: current Alcohol intake frequency: holidays/special occasions only Alcohol type: beer Patient Tobacco Use Status: Former Tobacco user Quit Date: 2009 Tobacco use type: Cigarette Years Smoked: since age 16 e-Cigarette/Vaping Use: Never Used Second Hand Smoke Exposure: No Substance Use Type: Marijuana Current occupational status: unemployed Cognitive needs: No Hearing needs: No Vision needs: No Assessment & Plan Assessment & Plan (1) Type 1 diabetes: Code(s): E10.9 - Type 1 diabetes mellitus without complications Plan: Patient presents for pump training for T-Slim pump and CGM training today. The following topics were reviewed today: -Pump therapy basic concepts: Basal/bolus, insulin to carb ratio, correction factor, insulin on board -Device settings: Bluetooth/mobile connection (if applicable), correct date and time, sound volume -CGM settings(if integrated system): CGM graft views and trend arrows, alerts and alarms, Start new sensor ??? High Alert: 310 mg/dl ??? Low Alert: 60 mg/dl Patient's average blood sugar for the past 2 weeks 178 mg/dL Patient above target 43% Patient in range 53% Patient below target 4% Patient set up 2nd profile in pump set, programmed insulin to carb ratio 1-50, programmed sensitivity factor 522 mg/dL This led patient to start adding between 200-500 carbs per meal in order to get adequate mealtime insulin Insulin delivery settings Changed profile back to profile 1, with original pump setting Inserting infusion set or starting pod Troubleshooting after starting new pod or inserting new insulin set: Occlusion, adhesive tape sensitivity, redness Check BG 2 hours after site change Patient was able to insert insulin set today without difficulty. Patient understands the basic concepts of pump therapy, how to give insulin for meals and snacks, how to troubleshoot for hyper and hypoglycemia. Setting verified by CDCES Basal rate(s) (units/hour) : 12 AM to 12 AM? 0.97 units / hr Bolus setting Insulin Carbohydrate Ratio (s) 12 AM to 12 AM 1:9.7 Correction Factor / Sensitivity Factor 12 AM to 12 AM? 1:37 Active Insulin Time:? 5 hours Target(s): 12 AM to 12 AM 110 mg/dL Patient will follow up with CDE as instructed Patient will contact CDE with questions or concerns, patient given IT number to support in any technical issues related to insulin pump Patient Instructions: Patient will follow-up with tobacco educator in 1 month Coding Level of Care Code Est Pt Level 1 (74930) Diagnoses Type 1 diabetes E10.9
== END 2023-05-13 09:03 | disposition home or self-care (01) ==
PROVIDERS: PCP Nurse Practitioner Family; Visit Provider Registered Nurse Diabetes Educator
DX: E10.9 Type 1 diabetes mellitus without complications (principal)
CPT/HCPCS: 99211

== ENCOUNTER → 2023-05-13 07:41 | Outpatient (BNVA) | payer OTHER, SELFPAY | PROVIDERS: PCP Nurse Practitioner Family; Visit Provider Registered Nurse Diabetes Educator ==

== ENCOUNTER 2023-07-19 12:22 | Outpatient (AMB) | payer OTHER, SELFPAY ==
[2023-07-19 13:38] VITALS: BP 132/60; PULSE 68; TEMP 36.6; O2SAT 98; BMI 28.1
--- NOTE | 2023-07-19 13:38 | AM.OFFWIN_ITS ---
Intake Vital Signs 07/19/23 13:38 Height 5 ft 4 in Weight 164 lb BMI 28.1 BP 132/60 Blood Pressure Location Lt brachial Position Sitting Pulse 68 Pulse Source Pulse Oximeter Temp 97.9 F Temp Source Temporal Artery Scan Pulse Oximetry (%) 98 Oxygen Delivery Method Room Air Intake Visit Reasons: back pain, tetanus shot Intake Note: pt is here for c/o back pain, requesting tetanus shot, last tetanus was 2013 Patient Tobacco Use Status: Former Tobacco user Quit Date: 2009 Allergies latex Adverse Reaction (Mild, Verified 07/19/23 13:38) skin bubbles codeine [Codeine] Adverse Reaction (Unknown, Verified 07/19/23 13:38) HEADACHE Do you need a note to return to daycare/school/sports/work: Yes HPI back pain, tetanus shot HPI Details 58-year-old male presents to the office for a sick visit. Patient has chronic pain and is seeing Interventional Pain Management at [facility]. According to the patient and according to the note, narcotic prescriptions are not filled by them. Patient is having lower back pain and would like a refill on his tramadol. The last refill for tramadol came from his pain doctor in [place] who has since retired. Patient would like some tramadol till the next procedure. [facility] Medical History (Updated 09/12/22 @ 18:20 by Mariano Smith [facility]) Fusion of joint Diabetes Back injury Surgical History History of shoulder surgery History of surgery Family History Father Diabetes Brother Diabetes Other Mental health disorder Social History Household Members: Spouse and Family Household Members Other:: , grandchild Housing: Condominium Alcohol intake: current Alcohol intake frequency: holidays/special occasions only Alcohol type: beer Patient Tobacco Use Status: Former Tobacco user Quit Date: 2009 Tobacco use type: Cigarette Years Smoked: since age 16 e-Cigarette/Vaping Use: Never Used Second Hand Smoke Exposure: No Substance Use Type: Marijuana Current occupational status: unemployed Cognitive needs: No Hearing needs: No Vision needs: No Physical Exam Vital Signs: Last Vital Signs Temp 97.9 F 07/19/23 13:38 Pulse 68 07/19/23 13:38 BP 132/60 07/19/23 13:38 Pulse Ox 98 07/19/23 13:38 Oxygen Delivery Method Room Air 07/19/23 13:38 BMI result Body Mass Index 28.1 Const General: cooperative and healthy appearing Nutritional Appearance: well nourished Orientation/consciousness: patient oriented x3 Limitations: no limitations HEENT Head: Yes normal to inspection Eyes General: appearance normal, both eyes and all related structures Neck Neck: Yes normal visual inspection Chest Chest palpation & inspection: normal palpation of entire chest wall Resp Effort & Inspection: normal respiratory effort Neuro General: patient oriented x3 Assessment & Plan Assessment & Plan (1) Lumbar back pain with radiculopathy affecting lower extremity: Code(s): M54.16 - Radiculopathy, lumbar region Plan: Pain note from the clinic reviewed. Tramadol for 7 days has been prescribed. Tramadol has been prescribed at 50 mg once a day. A note to his primary care provider has been sent suggesting further management. Medications: New tramadol 50 mg PO DAILY 7 tabs 0RF Coding Level of Care Code Est Pt Level 3 (25326) Diagnoses Lumbar back pain with radiculopathy affecting lower extremity M54.16
== END 2023-07-19 14:29 | disposition home or self-care (01) ==
PROVIDERS: PCP Nurse Practitioner Family; Visit Provider Internal Medicine
DX: M54.16 Radiculopathy, lumbar region (principal)
CPT/HCPCS: 99213

== ENCOUNTER 2023-08-17 09:09 | Outpatient (AMB) | payer OTHER, SELFPAY ==
--- NOTE | 2023-08-17 09:10 | MHC.OFFWIV ---
Intake Vital Signs 08/17/23 09:24 BP 130/60 Blood Pressure Location Rt brachial Position Sitting Pulse 76 Pulse Source Pulse Oximeter Temp 98.1 F Temp Source Oral Pulse Oximetry (%) 98 Oxygen Delivery Method Room Air Intake Visit Reasons: EST/sinus head ache/congestion [id number] Intake Note: Pt c/o of headache and sinus pain x 3 weeks that has become progressively worse. Has been coughing and difficulty sleeping. Patient Tobacco Use Status: Former Tobacco user Quit Date: 2009 Allergies latex Adverse Reaction (Mild, Verified 09/03/23 08:07) skin bubbles codeine [Codeine] Adverse Reaction (Unknown, Verified 09/03/23 08:07) HEADACHE HPI EST/sinus head ache/congestion [id number] HPI Details Patient is a 58-year-old male comes to the walk-in clinic complaining of 3 weeks of respiratory complaints including postnasal drip and nasal congestion, cough, and now with headache and sinus pressure. He states that his cough is aggravated when he lies supine, and he has trouble breathing until he sits up again. He had multiple sick contacts at work. Takes NyQuil with limited relief. Initial home COVID test negative [facility] Medical History Fusion of joint Diabetes Back injury Surgical History History of surgery History of shoulder surgery Family History Father Diabetes Brother Diabetes Other Mental health disorder Social History Household Members: Spouse and Family Household Members Other:: , grandchild Housing: Condominium Alcohol intake: current Alcohol intake frequency: holidays/special occasions only Alcohol type: beer Patient Tobacco Use Status: Former Tobacco user Quit Date: 2009 Tobacco use type: Cigarette Years Smoked: since age 16 e-Cigarette/Vaping Use: Never Used Second Hand Smoke Exposure: No Substance Use Type: Marijuana Current occupational status: unemployed Cognitive needs: No Hearing needs: No Vision needs: No Physical Exam Vital Signs: Last Vital Signs Temp 98.1 F 08/17/23 09:24 Pulse 76 08/17/23 09:24 BP 130/60 08/17/23 09:24 Pulse Ox 98 08/17/23 09:24 Oxygen Delivery Method Room Air 08/17/23 09:24 Const General: cooperative, healthy appearing, comfortable, no acute distress, alert, awake, Physically active and well groomed; No anxious, diaphoretic, intoxicated appearing, poor hygiene or tired appearing Nutritional Appearance: average body habitus Orientation/consciousness: oriented to person Limitations: no limitations HEENT Head: Yes normal to inspection, Yes normocephalic and Yes atraumatic Ears: hearing grossly normal bilaterally and external ears normal General nose exam: Normal external nose present, No nasal polyps present, Abnormal mucous membranes and turbinates present and Nasal discharge present Face and sinus: Yes face symmetric, No erythema, No edema, No fluctuance and Yes sinus tenderness Mouth: Normal oral and palatal mucosa present, lip normal and tongue normal Throat: Yes abnormal tonsil (mildly erythematous bilaterally), No peritonsillar mass, No uvular edema and No cobblestoning Eyes General: appearance normal, both eyes and all related structures Neck Neck: Yes normal visual inspection, Yes trachea midline, Yes supple and No anterior neck swelling Chest Chest palpation & inspection: normal palpation of entire chest wall Resp Effort & Inspection: normal respiratory effort, able to speak in complete sentences (Coughing caused disjointed sentences at times), Actively coughing (Frequent reactive cough), no grunting, not labored, no nasal flaring, no respiratory distress, no retractions, no stridor, not tachypneic, no tripod positioning, no use of accessory muscles and symmetric chest movement Auscultation: clear to auscultation bilaterally, no crackles, no rales, no rhonchi, no wheezes and lung sounds not diminished Cardio Palpation: normal PMI Rate: regular rate Rhythm: regular rhythm Heart sounds: S1 normal heart sound present and S2 normal heart sound present Skin Other: Good color, warm and dry Neuro General: oriented to person Psych Appearance: grossly normal Mental Status: mental status grossly normal Speech and movement: Normal speech and movement present Affect: normal affect Attitude: cooperative Thought process: Normal thought process present Insight: Good insight present (Psych) Judgement: Good judgement present (Psych) Results Reviewed Results Reviewed: Two-view plain film chest x-ray today shows some haziness on wet read, but no obvious acute cardiopulmonary disease. Assessment & Plan Assessment & Plan (1) Viral syndrome: Code(s): B34.9 - Viral infection, unspecified Plan: Patient likely with recurrence viral syndromes, and now having reactive cough and some shortness of breath when supine. Two-view chest x-ray today shows no obvious acute cardiopulmonary disease. Rapid testing today shows. Pending flu COVID and RSV PCR testing. Discussed with patient that likely his infection is starting to aggravate his lower airways, and he is getting a reactive cough that I think would benefit with moderate course of oral steroids. I will also write him for a course of antibiotics. He knows to follow up if symptoms persist or worsen, or go to the emergency department with worrisome symptoms. Orders: Orders XR chest 2V 08/17/23 R05.9 - Cough, unspecified [employer] Covid-19 Ag 08/17/23 Z20.822 - Contact with and (suspected) exposure to COVID-19 SARS-CoV2/FLU/RSV 08/17/23 R05.9 - Cough, unspecified Medications: New doxycycline hyclate 100 mg PO BID 20 caps 0RF 10 days prednisone then take 2 and half tabs daily for 3 days, then take 2 tabs daily for 3 days, then take 1 and half tabs daily for 3 days, and then take 1 tab daily for 3 days 60 mg (3 x 20 mg) PO DAILY 30 tabs 0RF 3 days Coding Level of Care Code Est Pt Level 4 (48628) Diagnoses Viral syndrome B34.9
[2023-08-17 09:24] VITALS: BP 130/60; PULSE 76; TEMP 36.7; O2SAT 98
== END 2023-08-17 11:21 | disposition home or self-care (01) ==
PROVIDERS: PCP Nurse Practitioner Family; Visit Provider Physician Assistant Medical
DX: B34.9 Viral infection, unspecified (principal)
CPT/HCPCS: 99051; 99214

== ENCOUNTER 2023-08-17 09:51 | Outpatient (REF) | payer OTHER, SELFPAY ==
--- NOTE | ~2023-08-17 | XR_ITS ---
EXAMINATION: XR CHEST CLINICAL INFORMATION: Cough COMPARISON: Chest x-ray of 06/17/2010 TECHNIQUE: 2 views of the chest were obtained. FINDINGS: Cardiomediastinal silhouette is normal. No abnormal tracheal deviation is seen. The lungs are mildly hyperinflated. No focal consolidation, changes of congestion, pleural effusions or pneumothorax are seen. Regional skeleton is intact. Visualized upper abdomen is unremarkable. XR/XR chest 2V IMPRESSION: No radiographic evidence of pneumonia. No acute pulmonary process.
[2023-08-17 10:32] LABS: Binax Internal Control QC Valid; Binax Now Covid-19 Ag Negative (Negative); Binax Performed by: PAULP
== END 2023-08-17 09:52 | disposition home or self-care (01) ==
LOC: HO.HMGCX 09:51
PROVIDERS: PCP Nurse Practitioner Family; Visit Provider Physician Assistant Medical
DX: R05.9 Cough, unspecified (principal); Z20.822 Contact with and (suspected) exposure to COVID-19
CPT/HCPCS: 71046; 87811; C9803

== ENCOUNTER 2023-08-17 09:57 | Outpatient (REF) | payer OTHER, SELFPAY ==
[2023-08-17 12:09] LABS: Influenza A PCR NEGATIVE (Negative); Influenza B PCR NEGATIVE (Negative); Resp Syncy Virus RNA Qual PCR NEGATIVE (Negative); SARS COV2 PCR INHOUSE NEGATIVE (Negative)
== END 2023-08-17 09:58 | disposition home or self-care (01) ==
LOC: HO.LAB 09:57
PROVIDERS: Visit Provider Physician Assistant Medical
DX: R05.9 Cough, unspecified (principal); Z11.52 Encounter for screening for COVID-19
CPT/HCPCS: 0241U

== ENCOUNTER 2023-09-03 08:03 | Outpatient (AMB) | payer OTHER, SELFPAY ==
[2023-09-03 08:07] VITALS: BP 170/70; PULSE 68; TEMP 36.4; O2SAT 98; BMI 29.0
--- NOTE | 2023-09-03 08:07 | AM.OFFWIN_ITS ---
Intake Vital Signs 09/03/23 08:07 Height 5 ft 4 in Weight 76.657 kg BMI 29.0 BP 170/70 H Blood Pressure Location Rt brachial Position Sitting Pulse 68 Pulse Source Pulse Oximeter Temp 97.6 F Temp Source Temporal Artery Scan Pulse Oximetry (%) 98 Oxygen Delivery Method Room Air Intake Visit Reasons: EP ?Cough, Mucus (Masked) Intake Note: pt is here for c/o cough and mucus Patient Tobacco Use Status: Former Tobacco user Quit Date: 2009 Allergies latex Adverse Reaction (Mild, Verified 09/03/23 08:07) skin bubbles codeine [Codeine] Adverse Reaction (Unknown, Verified 09/03/23 08:07) HEADACHE Do you need a note to return to daycare/school/sports/work: Yes HPI HPI Comments History of Present Illness Details [id number] 58-year-old male presents with fatigue, malaise, shortness of breath, cough with productive white/yellow/ frothy stuff , sinus congestion, myalgias times 2-3 weeks not improving. Patient reports he was seen here on 08/17/2023 was prescribed doxycycline and prednisone he took these conditions in a few days ago however still not much improvement. He reports multiple sick contacts. He has a past medical history of diabetes. He denies chest pain, nausea, vomiting, abdominal pain, diarrhea, chest vision changes, dizziness, weakness, headache. Physical exam sinus pressure to face with forward bending and discomfort with palpation of facial sinuses Concern for sinusitis versus bronchitis versus viral illness versus pneumonia. Unlikely pulmonary embolism, ACS, dissection, acute respiratory distress. Plan at this time antibiotics, chest x-ray, viral testing. Educated patient on diagnosis and treatment plan, answered all question, patient verbalizes understanding. At this time patient will be discharged home, advised to return with new or worsening symptoms. Educated on worrisome signs and symptoms and when to return. At this time I feel comfortable discharge home. [facility] Medical History Fusion of joint Diabetes Back injury Surgical History History of surgery History of shoulder surgery Family History Father Diabetes Brother Diabetes Other Mental health disorder Social History Household Members: Spouse and Family Household Members Other:: , grandchild Housing: Condominium Alcohol intake: current Alcohol intake frequency: holidays/special occasions only Alcohol type: beer Patient Tobacco Use Status: Former Tobacco user Quit Date: 2009 Tobacco use type: Cigarette Years Smoked: since age 16 e-Cigarette/Vaping Use: Never Used Second Hand Smoke Exposure: No Substance Use Type: Marijuana Current occupational status: unemployed Cognitive needs: No Hearing needs: No Vision needs: No Review of Systems Const Details: Constitutional : No Weight loss, No Fever, No Chills, + Fatigue, + Malaise ENT/Mouth : No sore throat, No Rhinorrhea, + congestion Eyes: No Eye Pain, No Swelling, No Redness Cardiovascular : No Chest Pain, No SOB, No Dyspnea on Exertion, No Orthopnea, No Edema, No Palpitations Respiratory : + Cough, + Sputum, No Wheezing Gastrointestinal : No Nausea, No Vomiting, No Diarrhea, No Constipation, No abdominal Pain, No Hematochezia, No Melena Genitourinary : No Dysuria, No Urinary Frequency, No Hematuria, Musculoskeletal : No joint pain, No Myalgias, No Joint Swelling Skin : No Skin Lesions, No rash Neuro : No Weakness, No Numbness, No Dizziness, No Headache Psych : No Anxiety/Panic, No Depression All other systems reviewed and are negative All systems reviewed & are unremarkable except as noted in HPI and below Physical Exam Vital Signs: Last Vital Signs Temp 97.6 F 09/03/23 08:07 Pulse 68 09/03/23 08:07 BP 170/70 H 09/03/23 08:07 Pulse Ox 98 09/03/23 08:07 Oxygen Delivery Method Room Air 09/03/23 08:07 BMI result Body Mass Index 29.0 vss Appearance: Alert.? Oriented X3.? No acute distress.? Head: Normocephalic, atraumatic, no step-offs or deformities + discomfort with palpation of facial sinuses and pressure to face with forward bending. Eyes: Pupils equal, round and reactive to light.? Neck: Normal inspection.? Neck supple.? CVS: Normal heart rate and rhythm.? Pulses normal.? Respiratory: No respiratory distress.? Breath sounds normal.? Abdomen: Soft and nontender.? Skin: Skin warm and dry.? Normal skin color.? Normal skin turgor.? Extremities: No lower extremity edema.? No calf ttp. 5/5 strength to bilateral upper and lower extremities Neuro: Oriented X 3.? No motor deficit.? No sensory deficit. CN 2-12 intact Assessment & Plan Assessment & Plan (1) Bronchitis: Code(s): J40 - Bronchitis, not specified as acute or chronic (2) Sinusitis: Code(s): J32.9 - Chronic sinusitis, unspecified Plan Take your medications as prescribed. If you were prescribed antibiotics today, it is important that you take your medication to their entirety, do not skip any doses, do not finish them early. Follow-up with your primary care provider this week. Return to the emergency department with new or worsening symptoms. Such as fevers, chills, chest pain, shortness of breath, nausea, vomiting, dizziness, headache, vision changes, lethargy In case of emergency call 911 Orders: Orders SARS-CoV2/FLU/RSV Today J40 - Bronchitis, not specified as acute or chronic Medications: New amoxicillin-pot clavulanate 875-125 mg 1 tab PO BID 10 days 20 tabs 0RF albuterol sulfate 90 mcg/actuation 2 puffs inhalation Q6H PRN 6.7 grams 0RF shortness of breath or wheezing prednisone 20 mg PO DAILY 5 days 5 tabs 0RF benzonatate 100 mg PO BID PRN 14 caps 0RF cough Coding Level of Care Code Est Pt Level 4 (35585) Diagnoses Bronchitis J40 Sinusitis J32.9
== END 2023-09-03 09:17 | disposition home or self-care (01) ==
PROVIDERS: PCP Nurse Practitioner Family; Visit Provider Physician Assistant
DX: J40 Bronchitis, not specified as acute or chronic (principal); J32.9 Chronic sinusitis, unspecified
CPT/HCPCS: 99214

== ENCOUNTER 2023-09-03 08:39 | Outpatient (REF) | payer OTHER, SELFPAY ==
--- NOTE | ~2023-09-03 | XR_ITS ---
EXAMINATION: XR CHEST 2 VIEW CLINICAL INFORMATION: Bronchitis COMPARISON: 08/17/2023 TECHNIQUE: PA and lateral views of the chest obtained. FINDINGS: The lungs are clear. There are no pleural effusions. The cardiomediastinal silhouette is normal. XR/XR chest 2V IMPRESSION: No acute cardiopulmonary disease or interval change.
== END 2023-09-03 08:40 | disposition home or self-care (01) ==
LOC: HO.HMGCX 08:39
PROVIDERS: Visit Provider Physician Assistant
DX: J40 Bronchitis, not specified as acute or chronic (principal)
CPT/HCPCS: 71046

== ENCOUNTER 2023-10-15 09:20 | Outpatient (AMB) | payer OTHER, SELFPAY ==
--- NOTE | 2023-10-15 09:09 | MHC.PC.OV ---
Vital Signs 10/15/23 09:11 Height 5 ft 4 in Weight 171 lb BMI 29.3 BP 132/78 Blood Pressure Location Rt brachial Position Sitting Pulse 88 Pulse Source Pulse Oximeter Pulse Oximetry (%) 98 Oxygen Delivery Method Room Air Intake Visit Reasons: PE Intake Note: Patient here for physical exam. Pt states his back is still in pain and would like to talk about getting Tramadol again. Cologuard: 2022 Allergies latex Adverse Reaction (Mild, Verified 10/15/23 09:18) skin bubbles codeine [Codeine] Adverse Reaction (Unknown, Verified 10/15/23 09:18) HEADACHE Medication List - Last Reconciled 10/15/23 by Mariano Smith, COMPUTER TRAINING SPECIALIST-BC albuterol sulfate 90 mcg/actuation 2 puffs inhalation Q6H PRN amoxicillin-pot clavulanate 875-125 mg 1 tab PO BID 10 days blood sugar diagnostic (FreeStyle Lite Strips) test blood sugar 4 times per day blood-glucose meter,continuous (Dexcom G6 Government Teacher) As directed blood-glucose sensor (Dexcom G6 Sensor device) As directed blood-glucose transmitter (Dexcom G6 Transmitter device) As directed FreeStyle Gwendolyn 2 [place] (flash glucose scanning reader) QID testing NS FreeStyle Gwendolyn 2 Sensor (flash glucose sensor) QID testing NS Humalog U-100 Insulin (insulin lispro) 70 units (0.7 mL) subcut DAILY NS insulin glargine (Lantus U-100 Insulin) 36 units (0.36 mL) subcut DAILY 30 days insulin glargine (Lantus Solostar U-100 Insulin) 36 units (0.36 mL) subcut DAILY insulin lispro (Humalog KwikPen (U-100) Insulin) 13-16 units daily subcutaneously 3 times a day 30 days insulin syringe-needle U-100 As directed four times a day lancets (FreeStyle Lancets) As directed four times a day omeprazole 20 mg PO DAILY pen needle, diabetic use to inject insulin 4 times per day tramadol 50 mg PO DAILY Tobacco use date assessed: 10/15/23 Dental Screening Dental Screen Date: 10/15/23 Did you have a dental visit in the last 12 months?: Yes Did you have a dental problem in the last 6 months where you did not have access to dental care?: No Was dental information given to patient?: Patient has dentist HPI PE HPI Details Pt is here for a PE. Will order labs. Cologuard is up to date. Due for PSA, will order. Denies dribbling with urination and frequent nocturia, does report intermittent weal stream. Pt is a type 1 diabetic, sees endo. Chronic lower back pain: Sending tramadol, cannot take everyday, only prn for severe pain. Educated pt on risk of addiction, this is not a long-term med. Pt understands that they can not drive while taking this med, share this med, and to only take as prescribed. Pt c/o intermittent upper chest discomfort. He reports that this mostly happens when he lies down. ? GERD. Will send omeprazole. Will also do an EKG in office. [facility] Medical History Fusion of joint Diabetes Back injury Surgical History History of surgery History of shoulder surgery Family History Father Diabetes Brother Diabetes Other Mental health disorder Social History Household Members: Spouse and Family Household Members Other:: , grandchild Housing: Condominium Alcohol intake: current Alcohol intake frequency: holidays/special occasions only Alcohol type: beer Patient Tobacco Use Status: Former Tobacco user Quit Date: 2009 Tobacco use type: Cigarette Years Smoked: since age 16 e-Cigarette/Vaping Use: Never Used Second Hand Smoke Exposure: No Substance Use Type: Marijuana Current occupational status: unemployed Cognitive needs: No Hearing needs: No Vision needs: No Questionnaire Thrive Questionnaire Date Thrive assessed: 05/24/22 HUEY-7 AMB Questionnaire HUEY-7 Date HUEY - 7 assessed: 05/24/22 Source: Developed by Drs. Travis Booth, Hattie Patel, Be Hernández and colleagues, with an educational camryn from [employer]. Review of Systems Const Denies chills and Denies fever(s) Eyes Denies blurry vision ENT Denies vertigo, Denies dizziness and Denies sore throat Card Reports chest pain, Denies diaphoresis, Denies dyspnea and Denies dyspnea on exertion Resp Denies cough, Denies dyspnea, Denies dyspnea on exertion and Denies wheezing GI Denies abdominal pain, Denies melena, Denies hematochezia, Denies constipation, Denies diarrhea and Denies loose stools Denies hematuria Musc Denies numbness and Denies tingling Skin/Breast Denies lesions Neuro Denies vertigo, Denies dizziness, Denies numbness and Denies tingling Psych Denies anxiety, Denies depression, Denies homicidal ideation, Denies suicidal ideation and Denies other (substance abuse) Aller/Immun Denies wheezing Physical exam (Primary Care) Vital Signs: Last Vital Signs Pulse 88 10/15/23 09:11 BP 132/78 10/15/23 09:11 Pulse Ox 98 10/15/23 09:11 Oxygen Delivery Method Room Air 10/15/23 09:11 BMI result Body Mass Index 29.3 Tobacco/Smoking Status: Tobacco use Status Tobacco use date assessed 10/15/23 10/15/23 09:22 Patient Tobacco Use Status Former Tobacco user 10/15/23 09:10 Tobacco use type Cigarette 10/15/23 09:10 e-Cigarette/Vaping Use Never Used 10/15/23 09:10 Thrive Assessment: Date of Thrive Assessment Date Thrive assessed 05/24/22 10/15/23 09:10 Const General: cooperative Nutritional Appearance: well nourished Orientation/consciousness: patient oriented x3 HENMT Head: Yes normal to inspection, Yes normocephalic and Yes atraumatic Ears: TM's normal bilaterally Eyes General: appearance normal, both eyes and all related structures Alignment and Position: alignment normal and position normal Neck Neck: Yes normal visual inspection and Yes no lymphadenopathy Thyroid: Thyroid normal Resp Effort & Inspection: normal respiratory effort Auscultation: clear to auscultation bilaterally Cardio Rate: regular rate Rhythm: regular rhythm Heart sounds: S1 normal heart sound present, S2 normal heart sound present and no murmurs GI Palpation (GI): Soft to palpation and nontender Auscultation: normal bowel sounds Male General Exam: Yes normal external exam Penis: normal penis Scrotum: scrotum normal, testes descended bilaterally and no inguinal hernias Testes: no testicular mass Skin Rashes: no rashes Neuro General: patient oriented x3, moves all extremities, no focal motor deficits and deep tendon reflexes 2+ bilaterally Romberg Test: Negative Extrem Other: bilat feet: + sensation with use of monofilament Psych Appearance: grossly normal Mental Status: mental status grossly normal Speech and movement: Normal speech and movement present Affect: normal affect Attitude: cooperative Thought process: Normal thought process present Thought content: Normal thought content present Insight: Good insight present (Psych) Judgement: Good judgement present (Psych) Immunizations pneumoc 20-sol conj-dip cr(PF) 0.5 mL IM syringe Performing Provider: CASSANDRA Prater Performing Location: [facility] Administered by: MYLES Cullen on 10/15/23 09:58 Dose Route Admin Location Dispensed Lot Number Expiration Date NDC Graphite Grinder 0.5 mL IM Right Deltoid 0.5 mL [id number] 11/28/24 9696-7325-31 [employer] VIS Given Date VIS Provided VIS Publication Date 10/15/23 Single Vaccine 21 Eligibility Eligibility Date Funding Source Not [facility] Eligible 10/15/23 Private Assessment and Plan Assessment & Plan (1) Screening PSA (prostate specific antigen): Code(s): Z12.5 - Encounter for screening for malignant neoplasm of prostate Plan: PSA ordered (2) Chest discomfort: Code(s): R07.89 - Other chest pain Plan: EKG was NSR, ? GERD, omeprazole sent, knows to go to the ER with worsening symptoms (3) Encounter for routine adult physical exam with abnormal findings: Code(s): Z00.01 - Encounter for general adult medical examination with abnormal findings Plan: Labs ordered (4) Chronic lower back pain: Code(s): M54.50 - Low back pain, unspecified; G89.29 - Other chronic pain Plan: tramadol, prn, not to be used daily Plan The patient agreed to the use of a medical transcription radiology for this encounter. Scribed for CASSANDRA Panchal by Alexandra Zambrano medical transcription radiology, on 10/15/2023 at 09:30 EST. Orders: Orders Comprehensive [place]. Panel Fast Today Z00.00 - Encounter for general adult medical examination without abnormal findings UA CC w/rflx Micro + Cult Today Z00.00 - Encounter for general adult medical examination without abnormal findings Lipid Panel Today Z00.00 - Encounter for general adult medical examination without abnormal findings Pneumococcal 20 Immunization Today Z23 - Encounter for immunization Complete Blood Count Auto Diff Today Z00.00 - Encounter for general adult medical examination without abnormal findings TSH reflex Free T4 Today Z00.00 - Encounter for general adult medical examination without abnormal findings Prostate Specific Antigen Scr Today Z12.5 - Encounter for screening for malignant neoplasm of prostate AMB EKG-In Office Today R07.89 - Other chest pain Medications: New omeprazole 20 mg PO DAILY 90 caps 0RF Changed From tramadol 50 mg PO DAILY 7 tabs 0RF To tramadol 50 mg PO DAILY 20 days 20 tabs 0RF Coding Level of Care Code Est Pt Prev Care 40-64y(74671) Diagnoses Screening PSA (prostate specific antigen) Z12.5 Chest discomfort R07.89 Encounter for routine adult physical exam with abnormal findings Z00.01 Chronic lower back pain M54.50; G89.29
[2023-10-15 09:11] VITALS: BP 132/78; PULSE 88; O2SAT 98; BMI 29.3
== END 2023-10-15 10:08 | disposition home or self-care (01) ==
PROVIDERS: Visit Provider Nurse Practitioner Family
DX: Z00.01 Encounter for general adult medical examination with abnormal findings (principal); R07.89 Other chest pain; M54.50 Low back pain, unspecified; Z23 Encounter for immunization; G89.29 Other chronic pain
CPT/HCPCS: 90471; 90677; 93000; 99213; 99396

== ENCOUNTER 2023-12-24 07:27 | Outpatient (AMB) | payer OTHER, SELFPAY ==
[2023-12-24 07:50] VITALS: BP 120/72; PULSE 71; BMI 29.7
--- NOTE | 2023-12-24 07:50 | A.OFFVIS_ITS ---
Intake Vital Signs 12/24/23 07:50 Height 5 ft 4 in Weight 173 lb 1.006 oz BMI 29.7 BP 120/72 Blood Pressure Location Lt brachial Position Sitting Pulse 71 Pulse Source Pulse Oximeter Intake Visit Reasons: DM-confirmed Intake Note: Patient present today to follow up on Type 2 Diabetes Mellitus. Patient receives DME supplies through: [employer] Last Diabetic Eye exam: Patient is unsure Last Podiatry Visit: Doesn't have one Random Glucose: 191 mg/dl HgA1C: 7.2% Tire Mounter Required: No Accompanied by: Self / Same As Patient Allergies latex Adverse Reaction (Mild, Verified 12/24/23 07:55) skin bubbles codeine [Codeine] Adverse Reaction (Unknown, Verified 12/24/23 07:55) HEADACHE HPI HPI Comments History of Present Illness Details 58 YO M with is seen in consultation fo r T1DM at the request of PCP. Initially diagnosed with T1DM in age 5 when presented with illness . Was initially started on treatment with insulin . Currently being managed with AT-slim pump with control IQ Pump settings Basal rate(s) (units/hour) : 12 AM to 12 AM? 0.97 units / hr Bolus setting Insulin Carbohydrate Ratio (s) 12 AM to 12 AM 1:9.7 Correction Factor / Sensitivity Factor 12 AM to 12 AM? 1:37 Active Insulin Time:? 5 hours Target(s): 12 AM to 12 AM 110 mg/dL Control IQ is being used 93% of the time Total daily dose of insulin is 51.5 units with 54% basal and 46% bolus. Sensor download shows average glucose to be179 with G mi of 7.6 %. 55% range with 52% hyperglycemia, 2% hypoglycemia and 1% very hyperglycemic. Hypoglycemia is occurring overnight and between meals with trend for post-meal hyperglycemia after lunch Has hypos after breakfast Family history of autoimmunity in Type 1 DM Has eyes checked yearly,has optho needs to make appt , has retinopathy. Denies neuropathy, Not sees podiatry. Denies nephropathy, Not on PENNIE/ARB. Not Has HLD,Not on statin. Denies history of CAD. 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 Diet/Carb counting: No Denies prior episodes of DKA. had prior severe episodes of hypoglycemia requiring help or hospitalization yrs ago Labs: Receiving steroid injections for past 2 mos . Steroid injections are chronic . Eating overnight [facility] Medical History Fusion of joint Diabetes Back injury Surgical History History of surgery History of shoulder surgery Family History Father Diabetes Brother Diabetes Other Mental health disorder Social History Household Members: Spouse and Family Household Members Other:: , grandchild Housing: Condominium Alcohol intake: current Alcohol intake frequency: holidays/special occasions only Alcohol type: beer Patient Tobacco Use Status: Former Tobacco user Quit Date: 2009 Tobacco use type: Cigarette Years Smoked: since age 16 e-Cigarette/Vaping Use: Never Used Second Hand Smoke Exposure: No Substance Use Type: Marijuana Current occupational status: unemployed Cognitive needs: No Hearing needs: No Vision needs: No Physical Exam Absence of Cushingoid features. Absence of acromegalic features. Neck exam reveals nl size thyroid about 15 gms. No thyroid nodules palpable. No carotid bruits present. Lungs CTA. Heart S1 S2, Reg R/R. No M/R/ G. Skin exam reveals absence of vitiligo or acanthosis nigricans. Abdominal exam reveals Soft NT/ND with NA BS. No organomegaly present. Extrem Other: Visual exam of foot performed. No ulcerations or open lesions. No onchomycosis, no callouses.Pulses 2 + distally. Sensation intact to monofilament exam. Vibratory sensation sensed 10 seconds in right, 10 seconds in left with 128 Hz tuning fork Results AMB Hemoglobin A1c AMB Hemoglobin A1c 7.2 % Last Edit by NE Garcia on 12/24/23 08:09 Assessment & Plan Assessment & Plan (1) Type 1 diabetes: Code(s): E10.9 - Type 1 diabetes mellitus without complications Plan: This 58-year-old white male with a history of type 1 diabetes being treated with with excellent improved glycemic control and no known microvascular or macrovascular complications. He is also having morning hypoglycemia as well as late afternoon hypoglycemia. Plan is tighten the insulin: Carbohydrate to 1:9 while patient receiving steroid boluses. Will have patient bolus overnight when eating. Will also set a alternate basal at 0.9 units/hour while patient was working and active Patient should follow-up with the telehealth nurse educator and park maintenance technician to fine tune carbohydrate counting. . Will check lipid profile microalbumin to creat inine ratio. Patient will alert us as to what channel man he wants to use and will make a referral once known Orders: Orders Microalbumin, Random (w Creat) Today E10.9 - Type 1 diabetes mellitus without complications AMB Hemoglobin A1c Today E10.9 - Type 1 diabetes mellitus without complications, Z13.9 - Encounter for screening, unspecified Lipid Panel Today E10.9 - Type 1 diabetes mellitus without complications Medications: Refilled Humalog U-100 Insulin (insulin lispro) 70 units (0.7 mL) subcut DAILY 30 mL 3RF NS E10.9 - Type 1 diabetes mellitus without complications Coding Level of Care Code Est Pt Level 4 (72078) Diagnoses Type 1 diabetes E10.9
[2023-12-24 08:03] LABS: Glucose, Whole Blood 191 mg/dL (60-115)
== END 2023-12-24 08:38 | disposition home or self-care (01) ==
PROVIDERS: PCP Nurse Practitioner Family; Visit Provider Internal Medicine Endocrinology, Diabetes & Metabolism
DX: Z13.9 Encounter for screening, unspecified (principal); E10.9 Type 1 diabetes mellitus without complications
CPT/HCPCS: 99214

== ENCOUNTER → 2023-12-24 07:27 | Outpatient (BNVA) | payer OTHER, SELFPAY | PROVIDERS: PCP Nurse Practitioner Family; Visit Provider Internal Medicine Endocrinology, Diabetes & Metabolism | DX: E10.9 Type 1 diabetes mellitus without complications (principal) | CPT/HCPCS: 82947; 83036 ==

== ENCOUNTER 2024-01-07 07:01 | Outpatient (AMB) | payer OTHER, SELFPAY ==
--- NOTE | 2024-01-07 07:36 | MHC.AMDMED ---
Intake Intake Visit Reasons: f/u Type 1 DM Flowers Salesperson Required: No Accompanied by: Self / Same As Patient Allergies latex Adverse Reaction (Mild, Verified 12/24/23 07:55) skin bubbles codeine [Codeine] Adverse Reaction (Unknown, Verified 12/24/23 07:55) HEADACHE HPI Comprehensive Diabetes Asmnt Most Recent Diabetes Results: No Data to Display [facility] Medical History Fusion of joint Diabetes Back injury Surgical History History of surgery History of shoulder surgery Family History Father Diabetes Brother Diabetes Other Mental health disorder Social History Household Members: Spouse and Family Household Members Other:: , grandchild Housing: Condominium Alcohol intake: current Alcohol intake frequency: holidays/special occasions only Alcohol type: beer Patient Tobacco Use Status: Former Tobacco user Quit Date: 2009 Tobacco use type: Cigarette Years Smoked: since age 16 e-Cigarette/Vaping Use: Never Used Second Hand Smoke Exposure: No Substance Use Type: Marijuana Current occupational status: unemployed Cognitive needs: No Hearing needs: No Vision needs: No Assessment & Plan Assessment & Plan (1) Type 1 diabetes: Code(s): E10.9 - Type 1 diabetes mellitus without complications Plan: Patient presents for pump training for T-Slim pump and CGM training today. The following topics were reviewed today: -Pump therapy basic concepts: Basal/bolus, insulin to carb ratio, correction factor, insulin on board -Device settings: Bluetooth/mobile connection (if applicable), correct date and time, sound volume -CGM settings(if integrated system): CGM graft views and trend arrows, alerts and alarms, Start new sensor ??? High Alert: 310 mg/dl ??? Low Alert: 60 mg/dl Patient's average blood sugar for the past 2 weeks 214 mg/dL Patient above target 54% Patient in range 45% Patient below target 1% Insulin delivery settings Patient has been entering phantom carbs in order to try and bring glucose levels down, ask patient to try and be as accurate as possible with carb counting. If glucose levels are high take manual correction, do not wait for pump to give automated correction. Pump only gives 60% for automated corrections of what is necessary. Inserting infusion set or starting pod Troubleshooting after starting new pod or inserting new insulin set: Occlusion, adhesive tape sensitivity, redness Check BG 2 hours after site change Patient was able to insert insulin set today without difficulty. Patient understands the basic concepts of pump therapy, how to give insulin for meals and snacks, how to troubleshoot for hyper and hypoglycemia. Setting verified by CDCES Basal rate(s) (units/hour) : 12 AM to 12 AM? 0.97 units / hr New 12 AM to 12 AM? 1.1 units / hr Bolus setting Insulin Carbohydrate Ratio (s) 12 AM to 12 AM 1:9 Correction Factor / Sensitivity Factor 12 AM to 12 AM? 1:37 New 12 AM to 12 AM? 1:25 Active Insulin Time:? 5 hours Target(s): 12 AM to 12 AM 110 mg/dL Patient will follow up with CDE as instructed Patient will contact CDE with questions or concerns, patient given IT number to support in any technical issues related to insulin pump Patient Instructions: Patient will follow-up with certified diabetes educator in 2 weeks Coding Level of Care Code Est Pt Level 1 (14730) Diagnoses Type 1 diabetes E10.9
== END 2024-01-07 07:56 | disposition home or self-care (01) ==
PROVIDERS: PCP Nurse Practitioner Family; Visit Provider Registered Nurse Diabetes Educator
DX: E10.9 Type 1 diabetes mellitus without complications (principal)

== ENCOUNTER → 2024-01-07 07:01 | Outpatient (BNVA) | payer OTHER, SELFPAY | PROVIDERS: PCP Nurse Practitioner Family; Visit Provider Registered Nurse Diabetes Educator | DX: Z46.81 Encounter for fitting and adjustment of insulin pump (principal); E10.9 Type 1 diabetes mellitus without complications | CPT/HCPCS: 99211 ==

== ENCOUNTER 2024-01-21 06:56 | Outpatient (AMB) | payer OTHER, SELFPAY ==
--- NOTE | 2024-01-21 07:26 | A.OFFVIS_ITS ---
Intake Intake Visit Reasons: DM Magnetic Prospecting Supervisor Required: No Accompanied by: Self / Same As Patient Allergies latex Adverse Reaction (Mild, Verified 12/24/23 07:55) skin bubbles codeine [Codeine] Adverse Reaction (Unknown, Verified 12/24/23 07:55) HEADACHE HPI Comprehensive Diabetes Asmnt Most Recent Diabetes Results: Microalb/Creat Ratio 13.3 ug/mg cr 05/24/22 Cholesterol 175 mg/dL 10/29/22 HDL Cholesterol 55 mg/dL 10/29/22 Triglycerides 163 mg/dL 10/29/22 Creatinine 1.02 mg/dL (0.5-1.4) 10/29/22 Blood Urea Nitrogen 16 mg/dL (9-16) 10/29/22 Sodium 143 mmol/L (135-145) 10/29/22 Potassium 5.1 mmol/L (3.3-5.1) 10/29/22 Chloride 105 mmol/L (96-108) 10/29/22 Carbon Dioxide 29 mmol/L (22-29) 10/29/22 Calcium 9.7 mg/dL (8.4-10.2) 10/29/22 AST 28 U/L (5-37) 10/29/22 ALT 25 U/L (0-40) 10/29/22 Total Protein 6.9 g/dL (6.5-8.0) 10/29/22 Albumin 4.2 g/dL (3.5-5.0) 10/29/22 [facility] Medical History Fusion of joint Diabetes Back injury Surgical History History of surgery History of shoulder surgery Family History Father Diabetes Brother Diabetes Other Mental health disorder Social History Household Members: Spouse and Family Household Members Other:: , grandchild [facility] Alcohol intake: current Alcohol intake frequency: holidays/special occasions only Alcohol type: beer Patient Tobacco Use Status: Former Tobacco user Quit Date: 2009 Tobacco use type: Cigarette Years Smoked: since age 16 e-Cigarette/Vaping Use: Never Used Second Hand Smoke Exposure: No Substance Use Type: Marijuana Current occupational status: unemployed Cognitive needs: No Hearing needs: No Vision needs: No Assessment & Plan Assessment & Plan (1) Type 1 diabetes: Code(s): E10.9 - Type 1 diabetes mellitus without complications Plan: Patient presents for pump training for T-Slim pump and CGM training today. The following topics were reviewed today: -Pump therapy basic concepts: Basal/bolus, insulin to carb ratio, correction factor, insulin on board -Device settings: Bluetooth/mobile connection (if applicable), correct date and time, sound volume -CGM settings(if integrated system): CGM graft views and trend arrows, alerts and alarms, Start new sensor ??? High Alert: 310 mg/dl ??? Low Alert: 60 mg/dl Limited data at today's visit due to patient's T connect goldie losing connection with insulin pump Patient has stopped entering phantom carbs in order to try and bring glucose levels down. Reiterated if glucose levels are high take manual correction, do not wait for pump to give automated correction. Pump only gives 60% for automated corrections of what is necessary. Inserting infusion set or starting pod Troubleshooting after starting new pod or inserting new insulin set: Occlusion, adhesive tape sensitivity, redness Check BG 2 hours after site change Patient understands the basic concepts of pump therapy, how to give insulin for meals and snacks, how to troubleshoot for hyper and hypoglycemia. Setting verified by CDCES, no changes made to pump settings at today's visit Basal rate(s) (units/hour) : 12 AM to 12 AM? 1.1 units / hr Bolus setting Insulin Carbohydrate Ratio (s) 12 AM to 12 AM 1:9 Correction Factor / Sensitivity Factor 12 AM to 12 AM? 1:25 Active Insulin Time:? 5 hours Target(s): 12 AM to 12 AM 110 mg/dL Patient will follow up with CDE as instructed Patient will contact CDE with questions or concerns, patient given IT number to support in any technical issues related to insulin pump Patient Instructions: Patient will follow-up with personal development educator in 3 months Coding Level of Care Code Est Pt Level 1 (64143) Diagnoses Type 1 diabetes E10.9
== END 2024-01-21 08:46 | disposition home or self-care (01) ==
PROVIDERS: PCP Nurse Practitioner Family; Visit Provider Registered Nurse Diabetes Educator
DX: E10.9 Type 1 diabetes mellitus without complications (principal)

== ENCOUNTER → 2024-01-21 06:56 | Outpatient (BNVA) | payer OTHER, SELFPAY | PROVIDERS: PCP Nurse Practitioner Family; Visit Provider Registered Nurse Diabetes Educator | DX: Z46.81 Encounter for fitting and adjustment of insulin pump (principal); E10.9 Type 1 diabetes mellitus without complications | CPT/HCPCS: 99211 ==

== ENCOUNTER 2024-03-19 06:25 | Outpatient (REF) | payer OTHER, SELFPAY ==
[2024-03-19 10:27] LABS: Appearance Urine Turbid; Color Urine Dark Yellow; Glucose Urine UA Negative (Negative); Leukocyte Esterase Urine Negative (Negative); Nitrite Urine Negative (Negative); PH 5.5 (5.0-9.0); Specific Gravity - Urine 1.025 (1.005-1.025); Urine Blood Negative (Negative); Urine Ketones Negative (Negative); Urine Protein Negative (Neg-Trace)
[2024-03-19 10:28] LABS: MANUAL DIFF FLAG NO
[2024-03-19 10:35] LABS: Basophils Absolute Auto 0.1 X10*3/uL (0.0-0.2); Basophils Percent Auto 1.8 % (0-2); Eosinophils Absolute Auto 0.5 X10*3/uL (0.0-0.4); Eosinophils Percent Auto 6.6 % (0-4); Hematocrit 44.5 % (42.0-52.0); Hemoglobin 15.6 g/dl (14.0-18.0); Imm Gran Abs Auto 0.01 X10*3/uL (0.00-0.03); Imm Gran Pct Auto 0.1 % (0.0-0.4); Lymphocytes Absolute Auto 1.6 X10*3/uL (1.2-4.9); Lymphocytes Percent Auto 22.7 % (20-40); Mean Corpuscular HGB Conc 35.1 g/dl (31.0-36.0); Mean Corpuscular Hemoglobin 33.1 pg (27.0-33.0); Mean Corpuscular Volume 94.3 fL (80.0-98.0); Mean Platelet Volume 10.3 fL (9.4-12.4); Monocytes Absolute Auto 0.8 X10*3/uL (0.1-1.2); Monocytes Percent Auto 10.5 % (2-11); Neutrophils Absolute Auto 4.2 x10*3/uL (2.0-8.3); Neutrophils Percent Auto 58.3 % (45-73); Platelet Count 285 X10*3/uL (160-400); Red Blood Count 4.72 X10*6/uL (4.60-5.80); Red Cell Distribution Width 12.2 % (11.0-16.0); White Blood Count 7.1 X10*3/uL (4.8-10.8)
[2024-03-19 10:46] LABS: Alanine Aminotransferase 20 U/L (0-40); Albumin Level 4.1 g/dL (3.5-5.0); Alkaline Phosphatase 65 U/L (39-117); Anion Gap 10 (12-20); Aspartate Amino Transferase 23 U/L (5-37); Bilirubin Total 0.6 mg/dL (0.0-1.0); Blood Urea Nitrogen 28 mg/dL (9-16); Calcium 8.9 mg/dL (8.4-10.2); Carbon Dioxide 28 mmol/L (22-29); Chloride 104 mmol/L (96-108); Cholesterol 190 mg/dL (<200); Estimated Glomerular Filt Rate > 60; Glucose Fasting 110 mg/dL (60-99); HDL Cholesterol 62 mg/dL (>40); LDL Cholesterol Calculated 113 mg/dL (<100); Potassium 4.3 mmol/L (3.3-5.1); Sodium 138 mmol/L (135-145); Triglycerides 75 mg/dL (<150)
[2024-03-19 11:01] LABS: Prostate Specific Antigen Scr 1.88 ng/mL (<0.05-4.0)
[2024-03-19 11:05] LABS: TSH reflex Free T4 4.09 uIU/mL (0.32-4.0)
[2024-03-19 11:38] LABS: Creatinine Urine 223.68 mg/dL; Microalbum/Creatinine Ratio Ur 12.5 ug/mg cr (<30)
== END 2024-03-19 06:26 | disposition home or self-care (01) ==
LOC: HO.HMGCLDS 06:25
PROVIDERS: PCP Nurse Practitioner Family; Referring Provider Internal Medicine Endocrinology, Diabetes & Metabolism; Visit Provider Nurse Practitioner Family
DX: Z00.00 Encounter for general adult medical examination without abnormal findings (principal); E10.9 Type 1 diabetes mellitus without complications; Z12.5 Encounter for screening for malignant neoplasm of prostate
CPT/HCPCS: 36415; 80053; 80061; 81003; 82043; 82570; 84153; 84439; 84443; 85025

== ENCOUNTER 2024-04-09 07:18 | Outpatient (AMB) | payer OTHER, SELFPAY ==
[2024-04-09 07:52] VITALS: BP 120/62; PULSE 62; BMI 28.6
--- NOTE | 2024-04-09 07:52 | MHC.OFFVIS ---
Vital Signs 04/09/24 07:52 Height 5 ft 4 in Weight 166 lb 14.239 oz BMI 28.6 BP 120/62 Blood Pressure Location Lt brachial Position Sitting Pulse 62 Pulse Source Pulse Oximeter Intake Visit Reasons: f/u Type 1 DM-confirmed Intake Note: Patient presents today to follow up on D1MT. Last Diabetic Eye exam: Over one year ago. Last Podiatry Visit: Doesn't have one Random Glucose: 158 mg/dl HgA1c: 7.0% Financial Compliance Examiner Required: No Accompanied by: Self / Same As Patient Allergies latex Adverse Reaction (Mild, Verified 04/09/24 07:58) skin bubbles codeine [Codeine] Adverse Reaction (Unknown, Verified 04/09/24 07:58) HEADACHE HPI Comments Details: 59 YO M with is seen in consultation for T1DM at the request of PCP. Initially diagnosed with T1DM in age 5 when presented with illness . Was initially started on treatment with insulin . Currently being managed with AT-slim pump with control IQ Pump settings Basal rate(s) (units/hour) : 12 AM to 12 AM? 1.2 units / hr Bolus setting Insulin Carbohydrate Ratio (s) 12 AM to 12 AM 1:9.0 Correction Factor / Sensitivity Factor 12 AM to 12 AM? 1:25 Active Insulin Time:? 5 hours Target(s): 12 AM to 12 AM 110 mg/dL Control IQ is being used 93% of the time Total daily dose of insulin is 46.43 units with 59% basal and 41% bolus. Sensor download shows average glucose to be151 with G mi of 6.9 %. 65% range with 29.3% hyperglycemia, 2.9% hypoglycemia and 1.9% very hyperglycemic. Hypoglycemia is occurring overnight and between meals with trend for post-meal hyperglycemia after lunch. Has hypos afterlunch seems be bolusing after meal at dinner causing post-dinner hypoglycemia Family history of autoimmunity in Type 1 DM Has eyes checked yearly, last appt last yr has optho needs to make appt , has retinopathy. Denies neuropathy, Not sees podiatry. Denies nephropathy, Not on PENNIE/ARB. Not Has HLD,Not on statin. Denies history of CAD. 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 Diet/Carb counting: No Denies prior episodes of DKA. had prior severe episodes of hypoglycemia requiring help or hospitalization yrs ago Labs: Receiving steroid injections for past 2 mos . Steroid injections are chronic . Eating overnight [facility] Medical History Fusion of joint Diabetes Back injury Surgical History History of surgery History of shoulder surgery Family History Father Diabetes Brother Diabetes Other Mental health disorder Social History Household Members: Spouse and Family Household Members Other:: , grandchild Housing: Condominium Alcohol intake: current Alcohol intake frequency: holidays/special occasions only Alcohol type: beer Patient Tobacco Use Status: Former Tobacco user Tobacco use type: Cigarette Years Smoked: since age 16 e-Cigarette/Vaping Use: Never Used Second Hand Smoke Exposure: No Substance Use Type: Marijuana Current occupational status: unemployed Cognitive needs: No Hearing needs: No Vision needs: No Physical Exam Vital Signs: Last Vital Signs Pulse 62 04/09/24 07:52 BP 120/62 04/09/24 07:52 BMI result Body Mass Index 28.6 Absence of Cushingoid features. Absence of acromegalic features. Neck exam reveals nl size thyroid about 15 gms. No thyroid nodules palpable. No carotid bruits present. Lungs CTA. Heart S1 S2, Reg R/R. No M/R/ G. Skin exam reveals absence of vitiligo or acanthosis nigricans. Abdominal exam reveals Soft NT/ND with NA BS. No organomegaly present. Extrem Other: Visual exam of foot performed. No ulcerations or open lesions. No onchomycosis, no callouses.Pulses 2 + distally. Sensation intact to monofilament exam. Vibratory sensation sensed 10 seconds in right, 10 seconds in left with 128 Hz tuning fork Results AMB Hemoglobin A1c AMB Hemoglobin A1c 7.0 % Last Edit by NE Garcia on 04/09/24 08:11 Results Reviewed Results Reviewed: Laboratory Last Values Glucose (Clinic) 158 mg/dL (60-115) H 04/09/24 08:00 Assessment & Plan Assessment & Plan (1) Type 1 diabetes: Code(s): E10.9 - Type 1 diabetes mellitus without complications Category: Medical Plan: This 58-year-old white male with a history of type 1 diabetes being treated with with excellent improved glycemic control and no known microvascular or macrovascular complications. He is also having overnight hypoglycemia which we think may be a reflection of bolusing after meal initiation at dinner and strong correction factor Plan is stressed to the patient to bolus prior to dinner. If they are still result in hypoglycemia post-dinner, correction factor dinner may need to be adjusted. Orders: Orders AMB Hemoglobin A1c Today E10.9 - Type 1 diabetes mellitus without complications, Z13.9 - Encounter for screening, unspecified Lipid Panel 2 Months E78.5 - Hyperlipidemia, unspecified Medications: New atorvastatin 10 mg PO DAILY 30 tabs 5RF Coding Level of Care Code Est Pt Level 4 (21288) Diagnoses Type 1 diabetes E10.9
[2024-04-09 08:04] LABS: Glucose, Whole Blood 158 mg/dL (60-115)
== END 2024-04-09 09:22 | disposition home or self-care (01) ==
PROVIDERS: PCP Nurse Practitioner Family; Visit Provider Internal Medicine Endocrinology, Diabetes & Metabolism
DX: Z13.9 Encounter for screening, unspecified (principal); E10.9 Type 1 diabetes mellitus without complications
CPT/HCPCS: 99214

== ENCOUNTER → 2024-04-09 07:18 | Outpatient (BNVA) | payer OTHER, SELFPAY | PROVIDERS: PCP Nurse Practitioner Family; Visit Provider Internal Medicine Endocrinology, Diabetes & Metabolism | DX: E10.9 Type 1 diabetes mellitus without complications (principal); Z96.41 Presence of insulin pump (external) (internal) | CPT/HCPCS: 82947; 83036; 99212 ==

== ENCOUNTER 2024-04-14 07:43 | Outpatient (AMB) | payer OTHER, SELFPAY ==
--- NOTE | 2024-04-14 08:16 | A.OFFPC_ITS ---
Vital Signs 04/14/24 08:19 Height 5 ft 4 in Weight 164 lb 8 oz BMI 28.2 BP 130/78 Blood Pressure Location Lt brachial Position Sitting Pulse 62 Pulse Source Pulse Oximeter Pulse Oximetry (%) 98 Oxygen Delivery Method Room Air Intake Visit Reasons: 6 Month follow up Intake Note: Patient here to follow up on bilat shoulder pain and pain & numbness in bilat hands. Allergies latex Adverse Reaction (Mild, Verified 04/14/24 08:20) skin bubbles codeine [Codeine] Adverse Reaction (Unknown, Verified 04/14/24 08:20) HEADACHE Medication List - Last Reconciled 04/14/24 by CASSANDRA Prater atorvastatin 10 mg PO DAILY blood sugar diagnostic (FreeStyle Lite Strips) test blood sugar 4 times per day blood-glucose meter,continuous (DexA2B G6 [facility]) As directed blood-glucose sensor (Dexcom G6 Sensor device) USE DIRECTED FOR CONTINUOUS BLOOD GLUCOSE MONITORING CHANGE EVERY 10 DAYS blood-glucose transmitter (Dexcom G6 Transmitter device) USE DIRECTED FreeStyle Gwendolyn 2 New Era (flash glucose scanning reader) QID testing NS FreeStyle Gwendolyn 2 Sensor (flash glucose sensor) QID testing NS Humalog U-100 Insulin (insulin lispro) 70 units (0.7 mL) subcut DAILY NS insulin syringe-needle U-100 As directed four times a day lancets (FreeStyle Lancets) As directed four times a day omeprazole 20 mg PO DAILY pen needle, diabetic use to inject insulin 4 times per day tramadol 50 mg PO DAILY 20 days Tobacco use date assessed: 10/15/23 Dental Screening Dental Screen Date: 10/15/23 HPI 6 Month follow up HPI Details right hand, 4th finger, trigger finger described, snaps back , describing extension. Will refer to ortho. Dyslipidemia: recently sent atorvastatin, pt will pick this up in the near future. Denies any CP, SOB, N/V, PALMA, or blurred vision. WIll cont to monitor lipids. Pt goes to [facility] pain management and also to [facility] for diabetes. [facility] Medical History Hyperlipemia Fusion of joint Diabetes Back injury Surgical History History of surgery History of shoulder surgery Family History (Reviewed 04/14/24 @ 09:[address] [facility] [place]) Father Diabetes Brother Diabetes Other Mental health disorder Social History (Reviewed 04/14/24 @ 09:[address] [facility] [place]) Household Members: Spouse and Family Household Members Other:: , grandchild Housing: Condominium Alcohol intake: current Alcohol intake frequency: holidays/special occasions only Alcohol type: beer Patient Tobacco Use Status: Former Tobacco user Tobacco use type: Cigarette Years Smoked: since age 16 e-Cigarette/Vaping Use: Never Used Second Hand Smoke Exposure: No Substance Use Type: Marijuana Current occupational status: unemployed Cognitive needs: No Hearing needs: No Vision needs: No Questionnaire PHQ-9 Over the last 2 weeks, how often have you been bothered by any of the following problems? 10029 - PHQ-9 Billing: Patient declined-do not bill Source: Developed by Drs. Travis Booth, Hattie Patel, Be Hernández and colleagues, with an educational camryn from [employer]. Thrive Questionnaire Date Thrive assessed: 04/14/24 I am a: Patient What is your living situation today?: I choose not to answer this question Within the past 12 months, did the food you bought not last and you didn't have the money to get more?: I choose not to answer this question Within the past 12 months, did you worry whether your food would run out before you got money to buy more?: I choose not to answer this question Do you have trouble paying for medicines?: I choose not to answer this question Do you have trouble getting transportation to medical appointments?: I choose not to answer this question Do you have trouble paying your heating and electricity bill?: I choose not to answer this question Do you have trouble taking care of your child, family member or friend?: I choose not to answer this question Do you have trouble with day-to-day activities such as bathing, preparing meals, shopping, managing finances, etc.?: I choose not to answer this question Are you currently unemployed and looking for a job?: I choose not to answer this question Are you interested in more education?: I choose not to answer this question Currently or been in a relationship where the following occur: I choose not to answer THRIVE Score: 0 HUEY-7 AMB Questionnaire HUEY-7 Date HUEY - 7 assessed: 04/14/24 Source: Developed by Drs. Travis Booth, Hattie Patel, Be Hernández and colleagues, with an educational camryn from [employer]. HUEY-7 Assessment Billing HUEY-7 Assessment Tool: pt declined-do not bill Physical exam (Primary Care) Vital Signs: Last Vital Signs Pulse 62 04/14/24 08:19 BP 130/78 04/14/24 08:19 Pulse Ox 98 04/14/24 08:19 Oxygen Delivery Method Room Air 04/14/24 08:19 BMI result Body Mass Index 28.2 Tobacco/Smoking Status: Tobacco use Status Tobacco use date assessed 10/15/23 04/14/24 08:18 Patient Tobacco Use Status Former Tobacco user 04/14/24 08:18 Tobacco use type Cigarette 04/14/24 08:18 e-Cigarette/Vaping Use Never Used 04/14/24 08:18 Thrive Assessment: Date of Thrive Assessment Date Thrive assessed 04/14/24 04/14/24 08:24 Currently or been in a relationship where the following occur: I choose not to answer Resp Effort & Inspection: normal respiratory effort Auscultation: clear to auscultation bilaterally Cardio Rate: regular rate Rhythm: regular rhythm Heart sounds: S1 normal heart sound present and S2 normal heart sound present Neuro Cranial nerves: Yes CN's II-XII intact bilaterally Assessment and Plan Assessment & Plan (1) Trigger finger: Code(s): M65.30 - Trigger finger, unspecified finger Plan: referred to ortho (2) Hyperlipemia: Code(s): E78.5 - Hyperlipidemia, unspecified Plan: starting atorvastatin, repeat lipids in 2 months Plan referred to ortho. Orders: Orders Lipid Panel 2 Months E78.5 - Hyperlipidemia, unspecified Complete Blood Count Auto Diff 2 Months E78.5 - Hyperlipidemia, unspecified Comprehensive [place]. Panel Fast 2 Months E78.5 - Hyperlipidemia, unspecified Referrals Orthopedics Referral M65.30 - Trigger finger, unspecified finger Coding Level of Care Code Est Pt Level 3 (02978) Diagnoses Trigger finger M65.30 Hyperlipemia E78.5
[2024-04-14 08:19] VITALS: BP 130/78; PULSE 62; O2SAT 98; BMI 28.2
== END 2024-04-14 10:46 | disposition home or self-care (01) ==
PROVIDERS: Visit Provider Nurse Practitioner Family
DX: M65.30 Trigger finger, unspecified finger (principal); E78.5 Hyperlipidemia, unspecified
CPT/HCPCS: 99213

== ENCOUNTER 2024-05-04 07:37 | Outpatient (AMB) | payer OTHER, SELFPAY ==
--- NOTE | 2024-05-04 07:58 | A.OFFVIS_ITS ---
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 No hx of previous treatment. He states that his hand hand pain/right ring trigger finger has been going on for many months. He has a hard time to gripping small things. He mentioned his right hand is worse than the left. He notices a lump on his left middle finger knuckle for about 3 months ago and he tried popping it and clear liquid came out. 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 Patient reports that these symptoms have been ongoing since approximately August of 2023. The patient reports that he has noticed that the locking and catching has gotten much more consistent since this time, and is now accompanied by significant pain when he attempts to release the trigger finger. The patient also complains of bilateral numbness and tingling in his hands, worse at night, that has been ongoing for ?years?. Patient previously had a nerve conduction study done at [facility] ?a few years ago? that revealed bilateral carpal tunnel syndrome, but he does not have access to those results. Patient reports no numbness or tingling at this time. Of note, the patient also has a significant history of cervical radiculopathy, which may also be contributing to his numbness and tingling, per the patient. The patient also reports stiffness and pain in the volar aspect of the left 3rd and 4th MCP joints. Lastly, the patient also reports that he has a small bump on the 3rd MCP joint of the left hand, which he has previously lanced and clear fluid was removed from it. The patient reports that this does not bother him at this time, and then he feels no discomfort in this area [facility] Medical History Hyperlipemia Fusion of joint Diabetes Back injury Surgical History History of surgery History of shoulder surgery Family History Father Diabetes Brother Diabetes Other Mental health disorder Social History (Updated 05/04/24 @ 08:04 by Millie Doe) Household Members: Spouse and Family Household Members Other:: , grandchild Housing: Condominium Alcohol intake: current Alcohol intake frequency: holidays/special occasions only Alcohol type: beer Patient Tobacco Use Status: Former Tobacco user Tobacco use type: Cigarette Years Smoked: since age 16 e-Cigarette/Vaping Use: Never Used Second Hand Smoke Exposure: No Substance Use Type: Marijuana Current occupational status: employed 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 Neuro: Median, ulnar, radial nerves motor and sensory intact and sensation is normal to the tips of all digits at this time. Vascular: Cap refill brisk Pain: Patient reports significant pain to palpation of the A1 kathy of the right hand Patient reports significant pain with release of caught right ring finger trigger finger No tenderness to palpation of small mass of the left dorsal 3rd MCP joint Pain with range of motion testing of the volar aspect of the 3rd and 4th MCP joints of the left hand ROM: Visible and palpable locking and catching of the right ring finger Range of motion of all other digits full and intact Skin: No lacerations or abrasions. General: No ecchymosis, erythema, or evidence of infection. Small, approximately 0.5 cm fluid filled mass noted on the dorsal aspect of the left 3rd MCP joint and webspace Negative bilateral Tinel's at the wrist. Psych: Appears grossly normal Affect normal Attitude cooperative Assessment & Plan Assessment & Plan (1) Numbness and tingling in both hands: Code(s): R20.0 - Anesthesia of skin; R20.2 - Paresthesia of skin Category: Medical (2) Stiffness of left hand joint: Code(s): M25.642 - Stiffness of left hand, not elsewhere classified Category: Medical (3) Left hand pain: Code(s): M79.642 - Pain in left hand Category: Medical (4) Trigger finger, right ring finger: Code(s): M65.341 - Trigger finger, right ring finger Category: Medical (5) Ganglion cyst of finger of left hand: Code(s): M67.442 - Ganglion, left hand Category: Medical Plan 1. Numbness and tingling of bilateral hands Symptoms intermittent, but daily, worse at night No current EMG or nerve conduction study done New nerve conduction study ordered today Patient will follow-up after nerve conduction study for discussion of further treatment options at that time 2. Right ring finger trigger finger Patient would like to proceed with surgical intervention at this time, as he would rather have a more definitive option as opposed to injections We will defer scheduling right ring finger trigger finger release until we have the results of nerve conduction study, as we could potentially perform both trigger finger release and carpal tunnel release on the same day if necessary Patient is amenable to this plan Patient will follow-up after nerve conduction study for discussion of treatment options of both trigger finger and numbness and tingling of bilateral hands 3. Ganglion cyst of left 3rd MCP joint Cyst is not bothersome to the patient at this time Patient reports he would like to defer any further treatment of this mass at this time 4. Pain and stiffness of 3rd and 4th MCP joints of left hand Patient referred to occupational hand therapy for strengthening and range of motion of the left hand Patient is amenable to this plan At follow-up appointment after nerve conduction study, we will discuss if he is noticing any relief with occupational hand therapy, and can discuss further treatment options if necessary at that time Orders: Orders NE electromyogram (EMG) Today R20.0 - Anesthesia of skin, R20.2 - Paresthesia of skin OT Evaluation and Treatment Today M25.642 - Stiffness of left hand, not elsewhere classified, M79.642 - Pain in left hand NE nerve conduction velocity Today R20.0 - Anesthesia of skin, R20.2 - Paresthesia of skin Coding Level of Care Code New Pt Level 4 (66014) Diagnoses Numbness and tingling in both hands R20.0; R20.2 Stiffness of left hand joint M25.642 Left hand pain M79.642 Trigger finger, right ring finger M65.341 Ganglion cyst of finger of left hand M67.442
[2024-05-04 08:06] VITALS: BMI 28.1
== END 2024-05-04 08:31 | disposition home or self-care (01) ==
PROVIDERS: PCP Nurse Practitioner Family
DX: R20.0 Anesthesia of skin (principal); R20.2 Paresthesia of skin; M65.341 Trigger finger, right ring finger; M25.642 Stiffness of left hand, not elsewhere classified; M79.642 Pain in left hand; M67.442 Ganglion, left hand
CPT/HCPCS: 99204

== ENCOUNTER → 2024-05-04 07:37 | Outpatient (BNVA) | payer OTHER, SELFPAY | PROVIDERS: PCP Nurse Practitioner Family | DX: M79.642 Pain in left hand (principal); M79.641 Pain in right hand; M65.341 Trigger finger, right ring finger; N20.0 Calculus of kidney; R20.2 Paresthesia of skin; M25.642 Stiffness of left hand, not elsewhere classified; M67.442 Ganglion, left hand | CPT/HCPCS: 99202 ==

== ENCOUNTER 2024-05-08 09:13 | Outpatient (REF) | payer OTHER, SELFPAY ==
--- NOTE | 2024-05-08 09:17 | EMG_ITS ---
Chief complaint: Bilateral hand numbness, trigger finger, history of type 1 diabetes, denies history of neuropathy Reason for referral: Evaluate for Carpal Tunnel Syndrome Referred by: Mariusz FLORES Procedure done: Bilateral upper extremities NCS/EMG Precautions and/or limitations: None The limb temperature was monitored continuously and remained between 32-36 degrees C during the performance of the NCS. Nerve Conduction Studies Anti Sensory Summary Table ?Stim Site NR Onset (ms) Norm Onset (ms) Peak (ms) Norm Peak (ms) O-P Amp (?V) Norm O-P Amp Site1 Site2 Delta-0 (ms) Dist (cm) Wilfrido (m/s) Norm Wilfrido (m/s) Left Median Anti Sensory (2nd Digit) Wrist ? 3.4 4.0 <3.6 11.5 >10 Wrist 2nd Digit 3.4 14.0 41 Right Median Anti Sensory (2nd Digit) Wrist NR <3.6 >10 Wrist 2nd Digit 14.0 Right Radial Anti Sensory (Thumb) Forearm ? 1.7 2.4 <3.1 20.5 Forearm Thumb 1.7 0.0 Left Ulnar Anti Sensory (5th Digit) Wrist ? 2.7 3.3 <3.7 13.3 >15.0 Wrist 5th Digit 2.7 14.0 52 Right Ulnar Anti Sensory (5th Digit) Wrist ? 2.1 3.3 <3.7 16.3 >15.0 Wrist 5th Digit 2.1 14.0 67 Motor Summary Table ?Stim Site NR Onset (ms) Norm Onset (ms) O-P Amp (mV) Norm O-P Amp iAmp (mV) Amp (1st) (%) Site1 Site2 Delta-0 (ms) Dist (cm) Wilfrido (m/s) Norm Wilfrido (m/s) Left Median Motor (Abd Poll Brev) Wrist ? 4.5 <3.9 6.5 >4.5 7.3 100.0 Elbow Wrist 4.2 18.5 44 >45 Elbow ? 8.7 5.9 6.6 90.8 Right Median Motor (Abd Poll Brev) Wrist ? 6.6 <3.9 6.1 >4.5 7.2 100.0 Elbow Wrist 4.4 19.0 43 >45 Elbow ? 11.0 5.7 6.8 93.4 Left Ulnar Motor (Abd Dig Minimi) Wrist ? 3.0 <3.0 8.2 >5 9.7 100.0 B Elbow Wrist 3.3 17.0 52 >45 B Elbow ? 6.3 7.7 9.2 93.9 A Elbow B Elbow 1.9 10.0 53 >45 A Elbow ? 8.2 7.7 9.1 93.9 Right Ulnar Motor (Abd Dig Minimi) Wrist ? 2.7 <3.0 6.3 >5 7.6 100.0 B Elbow Wrist 3.6 19.5 54 >45 B Elbow ? 6.3 5.9 7.3 93.7 A Elbow B Elbow 1.4 10.0 71 >45 A Elbow ? 7.7 5.9 7.4 93.7 EMG Muscle Nerve Root Ins Act Fibs Psw Amp Dur Poly Recrt Int Pat Comment Right 1stDorInt Ulnar C8-T1 Nml Nml Nml Nml Nml 0 Nml Complete Right FlexCarRad Median C6-7 Nml Nml Nml Nml Nml 0 Nml Complete Right Biceps Musculocut C5-6 Nml Nml Nml Nml Nml 0 Nml Complete Right Triceps Radial C6-7-8 Nml Nml Nml Nml Nml 0 Nml Complete Right Deltoid Axillary C5-6 Nml Nml Nml Nml Nml 0 Nml Complete Left 1stDorInt Ulnar C8-T1 Nml Nml Nml Nml Nml 0 Nml Complete Left FlexCarRad Median C6-7 Nml Nml Nml Nml Nml 0 Nml Complete Left Biceps Musculocut C5-6 Nml Nml Nml Nml Nml 0 Nml Complete Left Triceps Radial C6-7-8 Nml Nml Nml Nml Nml 0 Nml Complete Left Deltoid Axillary C5-6 Nml Nml Nml Nml Nml 0 Nml Complete FINDINGS: Bilateral median motor nerves showed prolonged distal latency, normal amplitude and slow conduction velocity. Right median sensory nerve showed absent response. Left median sensory nerve showed prolonged peak latency. All other nerves tested were within normal. Concentric needle EMG was performed in selected muscles of the bilateral upper extremities. Study did not reveal signs of electric abnormalities as shown in the table above. IMPRESSION: 1. This is an abnormal study. 2. There is electrodiagnostic evidence for bilateral moderate-severe median neuropathy at the wrist, consistent with carpal tunnel syndrome, right worse than left. 3. There is no electrodiagnostic evidence for ulnar neuropathy, brachial plexopathy, or cervical radiculopathy. Thank you for your kind referral. Kimberlee Monroy MD, GRIS Board Certified, [place] [employer] and Rehabilitation (ABPMR) Board Certified, [place] Board of Electrodiagnostic Medicine (ABEM) CODIN [id number] x 2 MTDD
== END 2024-05-08 09:14 | disposition home or self-care (01) ==
LOC: HO.NEURO 09:13
PROVIDERS: PCP Nurse Practitioner Family
DX: R20.0 Anesthesia of skin (principal); R20.2 Paresthesia of skin
CPT/HCPCS: 95886; 95911

== ENCOUNTER → 2024-05-08 09:17 | Outpatient (BNV) | payer OTHER, SELFPAY | PROVIDERS: PCP Nurse Practitioner Family; Visit Provider Physical Medicine & Rehabilitation | DX: G56.03 Carpal tunnel syndrome, bilateral upper limbs (principal) | CPT/HCPCS: 95886; 95911 ==

== ENCOUNTER 2024-05-29 07:53 | Outpatient (AMB) | payer OTHER, SELFPAY ==
--- NOTE | 2024-05-29 08:03 | A.OFFVIS_ITS ---
Intake Visit Reasons: OV-EMG B/L hand review Intake Note: Raymond is a 59 year old male who presents today for an EMG review done on 05/08/24 of his bilateral hands. Patient reports he would like to discuss surgery and he would like to do right hand first. Pt reports he has DM and his last A1c was 6.8. Allergies latex Adverse Reaction (Mild, Verified 05/29/24 08:05) skin bubbles codeine [Codeine] Adverse Reaction (Unknown, Verified 05/29/24 08:05) HEADACHE HPI HPI OV-EMG B/L hand review: Details: Patient is a 59-year-old male who presents for EMG follow-up. Patient reports that he continues to experience dense numbness in bilateral hands in the median nerve distribution. The patient states that he knows that his EMG was positive for moderate to severe carpal tunnel bilaterally, with the right worse on the left. Of note, the patient reports that he does continue to experience locking and catching of the right ring finger, and that this has worsened since last visit. Patient has no other acute complaints or concerns at this time. [facility] Medical History Hyperlipemia Fusion of joint Diabetes Back injury Surgical History History of surgery History of shoulder surgery Family History Father Diabetes Brother Diabetes Other Mental health disorder Social History Household Members: Spouse and Family Household Members Other:: , grandchild Housing: Condominium Alcohol intake: current Alcohol intake frequency: holidays/special occasions only Alcohol type: beer Patient Tobacco Use Status: Former Tobacco user Tobacco use type: Cigarette Years Smoked: since age 16 e-Cigarette/Vaping Use: Never Used Second Hand Smoke Exposure: No Substance Use Type: Marijuana Current occupational status: employed 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 Neuro: Patient reports diminished sensation in the median nerve distribution of bilateral hands Normal sensation in the small fingers bilaterally Slightly weakened APB muscle belly firing bilaterally Good Finger cross Vascular: Cap refill brisk Pain: The patient experiences pain with the locking and catching of his right ring finger Tenderness to palpation of the A1 kathy of the right ring finger No other pain or tenderness to palpation noted at this time ROM: There is visible and palpable locking and catching of the right ring finger Patient is able to make a closed fist and extend all other fingers fully Skin: No lacerations or abrasions. General: No ecchymosis, erythema, or evidence of infection. Psych: Appears grossly normal Affect normal Attitude cooperative Results Reviewed Results Reviewed: IMPRESSION: 1. This is an abnormal study. 2. There is electrodiagnostic evidence for bilateral moderate-severe median neuropathy at the wrist, consistent with carpal tunnel syndrome, right worse than left. 3. There is no electrodiagnostic evidence for ulnar neuropathy, brachial plexopathy, or cervical radiculopathy. Kimberlee Monroy MD, GRIS 05/08/24 1156 Assessment & Plan Assessment & Plan (1) Trigger finger, right ring finger: Code(s): M65.341 - Trigger finger, right ring finger Category: Medical (2) Bilateral carpal tunnel syndrome: Code(s): G56.03 - Carpal tunnel syndrome, bilateral upper limbs Category: Medical Plan 1. Carpal tunnel syndrome, right, moderate to severe Symptoms constant, daily, worse at night 2. Trigger finger, right ring finger I educated the patient about the condition. I discussed both operative and nonoperative treatment options. The patient would like to proceed with surgery. The risks and benefits of operative treatment were discussed with the patient and the patient wishes to proceed with surgery. These risks include, but are not limited to, risk of damage to blood vessels, nerves, tendons, infection, recurrence, incomplete relief of preoperative symptoms, persistent pain, possible need for further surgery, and the risks associated with regional blocks and/or anesthesia. Plan is to take the patient to the operating room at some point in the next few weeks for the following procedures: 1. Right carpal tunnel release under local anesthesia 2. Right ring finger trigger release under local anesthesia All of the preoperative paperwork including the consent was discussed today. All of the patient's questions were answered in the clinic today. The patient understands that they will be in contact with our surgical services assistant to discuss scheduling their procedure. The patient states that he can not be scheduled until June due to having an incredibly busy May. Patient denies diabetes, blood thinners, asthma, heart issues, lung issues, kidney issues, or current smoking. 3. Carpal tunnel syndrome, left, moderate to severe Symptoms constant, daily, worse at night Patient would like to proceed with operative treatment on the right 1st, as he feels this and is more bothersome Patient would like to proceed with surgical intervention on the left once the right has recovered We will discuss signing up for left carpal tunnel release at postop visit for right carpal tunnel release if patient is recovering well Coding Level of Care Code Est Pt Level 4 (29629) Diagnoses Trigger finger, right ring finger M65.341 Bilateral carpal tunnel syndrome G56.03
== END 2024-05-29 08:27 | disposition home or self-care (01) ==
PROVIDERS: PCP Nurse Practitioner Family
DX: M65.341 Trigger finger, right ring finger (principal); G56.03 Carpal tunnel syndrome, bilateral upper limbs
CPT/HCPCS: 99214

== ENCOUNTER → 2024-05-29 07:53 | Outpatient (BNVA) | payer OTHER, SELFPAY | PROVIDERS: PCP Nurse Practitioner Family | DX: G56.03 Carpal tunnel syndrome, bilateral upper limbs (principal); M65.341 Trigger finger, right ring finger | CPT/HCPCS: 99212 ==

== ENCOUNTER 2024-07-27 12:00 | Day surgery (SDC) | payer OTHER, SELFPAY ==
[2024-07-27 12:12] VITALS: BMI 27.8
[2024-07-27 12:18] VITALS: BP 141/66; PULSE 83; RESP 16; TEMP 36.6; O2SAT 97
--- NOTE | 2024-07-27 13:07 | MHC.SHP ---
Pre-Procedural Eval Section A - 24 Hr Update-Section A only Date of Service: 07/27/24 The patient is an INPATIENT: No Changes since office visit: No Cold of Flu in the past 2 weeks, No New Medical Problems, No Changes in Medication and No Patient answered all questions The patient has been examined within 24 hours of the surgical procedure. The History & Physical has been completed within 30 days and I have reviewed it.: Yes Section B - Complete if H&P > 30 days Chief Complaint: carpal tunner and trigger finger Allergies: Allergies Allergy/AdvReac Type Severity Reaction Status Date / Time latex AdvReac Mild skin Verified 05/29/24 08:05 bubbles codeine [Codeine] AdvReac Unknown HEADACHE Verified 05/29/24 08:05 Plan Diagnosis/Plan: Unchanged I have reviewed the history and physical and performed a pertinent physical examination on my patient. No changes have occurred unless specified. Time Spent With Patient Time: Total time managing care of this patient today ____ minutes.
--- NOTE | 2024-07-27 13:08 | W.PM.OPN ---
Operative Note Operative Note Date of Service: 07/27/24 Narrative: Preop diagnosis: 1. Right Carpal tunnel syndrome 2. Right ring finger trigger finger Postop diagnosis: same Procedure: 1. Right Carpal tunnel release 2. Right ring finger trigger release Surgeon: Lola Lauren MD Personnel Associate: None Anesthesia: local block using 1% lidocaine with epinephrine Findings: Thickened transverse carpal ligament. EBL: Less than 5 mL Specimens: None Complications: None Disposition: Brought to recovery room in stable condition Plan: Follow-up for 10-14 days for wound check and suture removal Indications: The patient is 59 years old, with right carpal tunnel syndrome and a right ring finger trigger finger that have been unresponsive to nonoperative management. The risks and benefits of operative treatment including but not limited to risk of damage to blood vessels, nerves, tendons, infection, persistent pain, persistent symptoms, or possible need for additional surgery were discussed with the patient and the patient wishes to proceed with surgery. Procedure: Once consent was obtained a local block was performed using a combination of 1% lidocaine with epinephrine. The patient was then brought back to the operating suite and placed on the operative table in supine position. The right upper extremity was prepped and draped in a standard surgical fashion. Once assured that we had a good block, a 1.5 cm oblique incision was made centered over the A1 kathy of the right ring finger . The incision was made through the skin to the subcutaneous tissues using a #15 blade. Careful dissection was made down to the level of the A1 kathy using tenotomy scissors, with care being taken to protect the nearby neurovascular structures. A longitudinal incision was made in the A1 kathy 1st using a #15 blade, then using tenotomy scissors under direct visualization. The A1 kathy was noted to be thickened. Following our A1 kathy release, we no longer saw any locking or catching of the digit with flexion and extension. Once assured that we had a good block, a 2.0 cm longitudinal incision was made centered over the carpal tunnel. The incision was made through the skin to the subcutaneous tissues using a #15 blade. Dissection was made down to the level of the transverse carpal ligament with care being taken to protect the palmar cutaneous nerve. Once the transverse carpal ligament was clearly visualized, a longitudinal incision was made in the transverse carpal ligament 1st using a #15 blade, then using tenotomy scissors under direct visualization. Care was taken to look for and protect the motor branch of the median nerve when seen in this area. Once satisfied with our carpal tunnel release the wound was copiously irrigated with normal saline and hemostasis was obtained with a brief period of local pressure. The skin edges were reapproximated with some 5.0 nylon suture material and a sterile dressing was applied. The patient appears to have tolerated the procedure well and with no complications. All digits were well vascularized at the conclusion of the case.
[2024-07-27 14:23] VITALS: BP 157/63; PULSE 78; RESP 18; O2SAT 99
== END 2024-07-27 14:26 | disposition home or self-care (01) ==
PROVIDERS: PCP Nurse Practitioner Family; Visit Provider Orthopaedic Surgery
PROC: (CPT 64721; principal; 2024-07-27 12:10)
PROC: (CPT 26055; 2024-07-27 12:10)
DX: G56.01 Carpal tunnel syndrome, right upper limb (principal); M65.341 Trigger finger, right ring finger; R20.0 Anesthesia of skin; E11.9 Type 2 diabetes mellitus without complications; Z88.5 Allergy status to narcotic agent; Z91.040 Latex allergy status; E78.5 Hyperlipidemia, unspecified; Z98.890 Other specified postprocedural states; Z87.891 Personal history of nicotine dependence
CPT/HCPCS: 64721; 26055; J0171; J2003

== ENCOUNTER → 2024-07-27 12:00 | Outpatient (BNV) | payer OTHER, SELFPAY | PROVIDERS: PCP Nurse Practitioner Family; Visit Provider Orthopaedic Surgery | DX: G56.01 Carpal tunnel syndrome, right upper limb (principal); M65.341 Trigger finger, right ring finger | CPT/HCPCS: 26055; 64721 ==

== ENCOUNTER 2024-08-11 07:32 | Outpatient (AMB) | payer OTHER, SELFPAY ==
--- NOTE | 2024-08-11 08:15 | MHC.OFFVIS ---
Vital Signs 08/11/24 08:16 Height 5 ft 5 in Weight 167 lb BMI 27.8 Handedness Right Intake Visit Reasons: PO RT CTR/RF trigger 07/27/24 AR Intake Note: Raymond is a 59 year old right hand dominant male who presents today post operatively s/p Right Carpal tunnel release and right ring finger trigger release w/ Dr Lauren DOS: 07/27/24. Patient reports he started having discharge pus from his incision site. He says he got out of work and noticed pus so he flushed it with hydrogen peroxide. He does admit to being in a dirty environment. He sys he has not been lifting heavy however he has shut a few doors and felt a twinge in his right wrist. He says his 4th right digit has been stiff. He says he has been stretching it however this causes him pain and it has not resolved. He expresses he no longer is having numbness and tingling. He would like to operate on his left hand in the furture. Allergies latex Adverse Reaction (Mild, Verified 08/11/24 08:17) skin bubbles codeine [Codeine] Adverse Reaction (Unknown, Verified 08/11/24 08:17) HEADACHE HPI HPI PO RT CTR/RF trigger 07/27/24 AR: Details: Patient is a 59-year-old male presents for postoperative evaluation status post right carpal tunnel release and right ring finger trigger release, DOS 07/27/2024. Patient states that feels he is recovering moderately well, but does state that a few days ago he noticed some drainage coming from the incision site for the carpal tunnel release. Of note, the patient does work for [employer], and frequently needs to deal with things that have mold or other infectious sources on them. The patient states that he did not put any large dressing or anything on his right wrist while working, but rather covered it with a rubber glove. The patient states that as soon as he noticed some drainage coming from the incision site, he began treating with peroxide and water. Patient states that he does feel the condition of the incision site has improved. Of note, the patient also does report that he is very stiff in his right ring finger, and is unable to make a closed fist or extend fully. Patient denies any ongoing numbness or tingling in the right hand. No other acute complaints or concerns at this time. [facility] Medical History Stroke Hyperlipemia Fusion of joint Diabetes Back injury Surgical History History of surgery History of shoulder surgery Family History Father Diabetes Brother Diabetes Other Mental health disorder Social History Household Members: Spouse and Family Household Members Other:: , grandchild Housing: Condominium Alcohol intake: current Alcohol intake frequency: holidays/special occasions only Alcohol type: beer Patient Tobacco Use Status: Former Tobacco user Tobacco use type: Cigarette Years Smoked: since age 16 e-Cigarette/Vaping Use: Never Used Second Hand Smoke Exposure: No Substance Use Type: Marijuana Current occupational status: employed 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 Neuro: Normal sensation of the tips of all digits of the right hand at this time Vascular: Cap refill brisk Pain: Patient reports mild tenderness to palpation about the incision site on the right volar wrist Pain when attempting to make a closed fist in all digits of the right hand, worst in the ring finger Pain when attempted to be passively extended fully in the right ring finger ROM: Patient was unable to make a closed fist or extend all digits fully Skin: Well-approximated incision site noted on the volar right wrist There is noted to be mild surrounding erythema and evidence of drainage, no active drainage at this time Well approximated and well healing incision site over the A1 kathy of the right ring finger Psych: Appears grossly normal Affect normal Attitude cooperative Assessment & Plan Assessment & Plan (1) Trigger finger, right ring finger: Code(s): M65.341 - Trigger finger, right ring finger Category: Medical (2) Right carpal tunnel syndrome: Code(s): G56.01 - Carpal tunnel syndrome, right upper limb Category: Medical Plan 1. Right carpal tunnel syndrome status post carpal tunnel release Due to mild erythema and evidence of drainage from the incision site, patient was placed in a one-week course of Augmentin Patient is advised to take Augmentin twice a day Patient is also advised he should continue to keep the area clean, dry, intact, dressed while at work Patient is also advised that he should keep the incision site clean at all times, and is given a work note also stating this Patient is advised he should also continue with a strict 2 lb weight limit for at least another 2 weeks in the right 2. Right ring finger trigger finger status post trigger release Patient appears to be recovering well postoperatively Patient is educated about the typical recovery course Patient is advised that this incision appears to be healing well without any concern for infection Patient will acute this, but it is advised he should continue to his site clean Patient will follow-up in 1 week for wound check, sooner any acute concerns Medications: New amoxicillin-pot clavulanate 875-125 mg 1 tab PO BID 7 days 14 tabs 0RF Coding Level of Care Code Global (45534) Diagnoses Trigger finger, right ring finger M65.341 Right carpal tunnel syndrome G56.01
[2024-08-11 08:16] VITALS: BMI 27.8
== END 2024-08-11 09:04 | disposition home or self-care (01) ==
PROVIDERS: PCP Nurse Practitioner Family
DX: M65.341 Trigger finger, right ring finger (principal); G56.01 Carpal tunnel syndrome, right upper limb
CPT/HCPCS: 99024

== ENCOUNTER → 2024-08-11 07:32 | Outpatient (BNVA) | payer OTHER, SELFPAY | PROVIDERS: PCP Nurse Practitioner Family | DX: M25.641 Stiffness of right hand, not elsewhere classified (principal); Z09 Encounter for follow-up examination after completed treatment for conditions other than malignant neoplasm; Z86.69 Personal history of other diseases of the nervous system and sense organs | CPT/HCPCS: 99212 ==

== ENCOUNTER 2024-08-18 07:23 | Outpatient (AMB) | payer OTHER, SELFPAY ==
--- NOTE | 2024-08-18 08:12 | A.OFFVIS_ITS ---
Vital Signs 08/18/24 08:14 Height 5 ft 5 in Weight 167 lb BMI 27.8 Handedness Right Intake Visit Reasons: PO RT CTR/RF trigger 07/27/24 AR Intake Note: Raymond is a 59 year old right hand dominant male who presents today post operatively s/p Right Carpal tunnel release and right ring finger trigger release w/ Dr Lauren DOS: 07/27/24. Prescribed antibiotics at last visit on 08/11/24 and he expresses he has two left. He says the top layer over his incision came off and he had a small amount of bleeding. He denies any drainage. He reports pain depending on what he does. He has sharp pain at his right CTR incision when he does gripping activities and reports pain in the right middle finger. He has been stretching his fingers more at home and expresses this helps his stiffness. He also says he uses a TENs unit and muscle massager. Allergies latex Adverse Reaction (Mild, Verified 08/18/24 08:14) skin bubbles codeine [Codeine] Adverse Reaction (Unknown, Verified 08/18/24 08:14) HEADACHE HPI Comments Details: Patient is a 59-year-old male who presents for postop follow-up evaluation of right carpal tunnel release and right ring finger trigger release, DOS 07/27/2024. Patient reports that his symptoms have improved significantly since previous evaluation, and then he is experiencing no further redness or discharge from the carpal tunnel site at this time. The patient does report that he does experience some hypersensitivity about both incision sites, but he has been massaging them and this is improving. The patient also states that he has been doing stretching exercises with his hands, and he feels that this is i mproved his range of motion significantly. The patient states that he understands he has carpal tunnel on the left, but would like to hold off on any surgical intervention at this time due to not being able to get any more time off of work, as well as his symptoms being far less severe on the left. No other acute complaints or concerns at this time. [facility] Medical History Stroke Hyperlipemia Fusion of joint Diabetes Back injury Surgical History History of surgery History of shoulder surgery Family History Father Diabetes Brother Diabetes Other Mental health disorder Social History Household Members: Spouse and Family Household Members Other:: , grandchild Housing: Condominium Alcohol intake: current Alcohol intake frequency: holidays/special occasions only Alcohol type: beer Patient Tobacco Use Status: Former Tobacco user Tobacco use type: Cigarette Years Smoked: since age 16 e-Cigarette/Vaping Use: Never Used Second Hand Smoke Exposure: No Substance Use Type: Marijuana Current occupational status: employed 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 Neuro: Normal sensation of the tips of all digits of the right hand at this time Vascular: Cap refill brisk Pain: Patient reports no tenderness to palpation about either incision site on the volar aspect of the right hand this time ROM: Patient is able to make a closed fist and extend all digits of the right hand fully Skin: Well approximated and well healing incision sites noted on both the volar aspect of the patient's right wrist and over the A1 kathy of the patient's right ring finger No evidence of infection at this time Psych: Appears grossly normal Affect normal Attitude cooperative Assessment & Plan Assessment & Plan (1) Bilateral carpal tunnel syndrome: Code(s): G56.03 - Carpal tunnel syndrome, bilateral upper limbs Category: Medical (2) Trigger finger, right ring finger: Code(s): M65.341 - Trigger finger, right ring finger Category: Medical Plan 1. Carpal tunnel syndrome, right, status post carpal tunnel release 2. Right ring finger trigger finger status post trigger release DOS 07/27/2024 Patient appears to be recovering well postoperatively Patient is educated about the typical recovery course At this time, patient was informed that he no longer needs to take antibiotics, as this infection appears to have cleared Patient was offered OT, but states that he feels he can get the stiffness and hypersensitivity taken care of himself Patient was amenable to this plan Patient will follow-up as needed with any acute concerns 2. Carpal tunnel syndrome, left Symptoms intermittent, not daily, worse at night Patient would like to hold off on any surgical intervention at this time, as he does not have any time off of work in his symptoms are less severe Patient will call to book an appointment when he is ready to discuss left-sided surgery Coding Level of Care Code Global (55957) Diagnoses Bilateral carpal tunnel syndrome G56.03 Trigger finger, right ring finger M65.341
[2024-08-18 08:14] VITALS: BMI 27.8
== END 2024-08-18 08:29 | disposition home or self-care (01) ==
PROVIDERS: PCP Nurse Practitioner Family
DX: G56.03 Carpal tunnel syndrome, bilateral upper limbs (principal); M65.341 Trigger finger, right ring finger
CPT/HCPCS: 99024

== ENCOUNTER → 2024-08-18 07:23 | Outpatient (BNVA) | payer OTHER, SELFPAY | PROVIDERS: PCP Nurse Practitioner Family | DX: Z47.89 Encounter for other orthopedic aftercare (principal); M65.341 Trigger finger, right ring finger; G56.02 Carpal tunnel syndrome, left upper limb; Z98.890 Other specified postprocedural states | CPT/HCPCS: 99212 ==

== ENCOUNTER 2024-10-14 08:07 | Outpatient (AMB) | payer OTHER, SELFPAY ==
--- NOTE | 2024-10-14 07:01 | A.OFFVIS_ITS ---
Vital Signs 10/14/24 08:11 Height 5 ft 5 in Weight 169 lb 12.095 oz BMI 28.2 BP 132/78 Blood Pressure Location Rt brachial Position Sitting Pulse 74 Pulse Source Pulse Oximeter Intake Visit Reasons: T1DM Intake Note: Patient presents today to re-establish treatment for Type 1 Diabetes Mellitus: Last Diabetic eye exam was on: Within the year Last Podiatry exam was on: Patient does not see a [employer] Sander Most recent HbA1c: 6.7%, 10/14/2023 Random Glucose- 183 mg/dL, Today Motion Picture Printer Required: No Accompanied by: Self / Same As Patient Allergies latex Adverse Reaction (Mild, Verified 10/14/24 08:22) skin bubbles codeine [Codeine] Adverse Reaction (Unknown, Verified 10/14/24 08:22) HEADACHE Medication List - Last Reconciled 10/14/24 by Cathy Engle NP acetone (urine) test (Ketone Urine Test strips) As directed p.r.n. illness or glucose over 250 atorvastatin 10 mg PO DAILY 30 days blood sugar diagnostic (FreeStyle Lite Strips) test blood sugar 4 times per day blood-glucose meter,continuous (Dexcom G6 Weight Count Operator) As directed blood-glucose sensor (Dexcom G6 Sensor device) USE DIRECTED FOR CONTINUOUS BLOOD GLUCOSE MONITORING CHANGE EVERY 10 DAYS blood-glucose sensor (Dexcom G7 Sensor device) continous use for 10 days blood-glucose transmitter (Dexcom G6 Transmitter device) USE DIRECTED Humalog U-100 Insulin (insulin lispro) 70 units (0.7 mL) subcut DAILY 30 days NS insulin glargine (Lantus Solostar U-100 Insulin) 30 units subcut QAM insulin syringe-needle U-100 As directed four times a day prn pump failure lancets (FreeStyle Lancets) As directed four times a day omeprazole 20 mg PO DAILY pen needle, diabetic (BD Pamela 2nd Gen Pen Needle) once daily prn pump failure tramadol 50 mg PO DAILY 20 days HPI Comments Details: 59 YO M with is seen in f/u for T1DM. He was last seen by Samantha MAY 01/21/[address] Crews 04/09/2024 at which time he was restarted on atorvastatin for an LDL of 118. Hemoglobin A1c 10/14/2024 6.7%. Previous 04/09/2024 7%. Initially diagnosed with T1DM at age 5 when he presented with illness Was initially started on treatment with insulin . BAck up for pump failure: Lantus 30 uits plus usual dose of humalog Currently being managed with T-slim pump with control IQ Pump settings Basal rate(s) (units/hour) : 12 AM to 12 AM? 1.2 units / hr Bolus setting Insulin Carbohydrate Ratio (s) 12 AM to 12 AM 1:9.0 Correction Factor / Sensitivity Factor 12 AM to 12 AM? 1:25 Active Insulin Time:? 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 Does not see podiatry. No nephropathy, Not on PENNIE/ARB. 03/23 eGFR>60 microalbumin 28 Has HLD,hasn't restarted on statin due for LDL advised to wait for 6 weeks Denies history of CAD. hx of CVA hemmoraghic 06/16/2010 Diet/Carb counting: Enters carbs into pump Denies prior episodes of DKA. Has had prior severe episodes of hypoglycemia requiring help or hospitalization yrs ago Was on chronic steroid in the past for back Under increased stress with pending divorce [facility] Medical History Stroke Hyperlipemia Fusion of joint Diabetes Back injury Surgical History History of surgery History of shoulder surgery Family History Father Diabetes Brother Diabetes Other Mental health disorder Social History Household Members: Spouse and Family Household Members Other:: , grandchild Housing: Condominium Alcohol intake: current Alcohol intake frequency: holidays/special occasions only Alcohol type: beer Patient Tobacco Use Status: Former Tobacco user Tobacco use type: Cigarette Years Smoked: since age 16 e-Cigarette/Vaping Use: Never Used Second Hand Smoke Exposure: No Substance Use Type: Marijuana Current occupational status: employed 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 Absence of acromegalic features. Neck exam reveals nl size thyroid about 15 gms. No thyroid nodules palpable. No carotid bruits present. Lungs CTA. Heart S1 S2, Reg R/R. No M/R G. Skin exam reveals absence of vitiligo or acanthosis nigricans. No edema Visual exam of foot performed. No ulcerations or open lesions. No inter digit maceration or fissuring. + onychomycosis, nails slight elongated, thickened and yellowed no callouses. Sensation intact to monofilament exam. Vibratory sensation is normal with 128 Hz tuning fork. Office Procedures Glucose Monitoring Details Details: see hpi [id number] - Glucose monitoring, continuous-physician I&R Procedure code (CPT) selection complete Results AMB Hemoglobin A1c AMB Hemoglobin A1c 6.7 % Last Edit by EN Almaguer on 10/14/24 08:56 Results Reviewed Results Reviewed: Laboratory Last Values Glucose (Clinic) 183 mg/dL (60-115) H 10/14/24 08:24 Hgb A1c (Clinic) 6.7 % (4.0-6.0) H 10/14/24 08:55 Assessment & Plan Assessment & Plan (1) Type 1 diabetes: Code(s): E10.9 - Type 1 diabetes mellitus without complications Category: Medical Plan: This 59-year-old white male with a history of type 1 diabetes being treated with with excellent improved glycemic control and known microvascular or macrovascular complication of retinopathy and CVA on a T slim pump. 10/14/2024 6.7% hemoglobin A1c. Check lipids in 6 weeks. The patient had an opportunity to ask questions regarding treatment plan. The patient expressed understanding and agreement with the above treatment plan. The patient is aware they should contact our office by phone for worsening glucose readings or for any low blood sugars which may warrant a change in diabetes medication. Compliance is encouraged with medications and any followup testing/consults which may have been ordered. (2) Elevated TSH: Code(s): R79.89 - Other specified abnormal findings of blood chemistry Category: Medical Plan: Check TSH, free T4 and microsomal antibodies. Orders: Orders Thyroid Stimulating Hormone Today R79.89 - Other specified abnormal findings of blood chemistry Free T4 (Free Thyroxine) Today R79.89 - Other specified abnormal findings of blood chemistry Thyroid Peroxidase Antibodies Today R79.89 - Other specified abnormal findings of blood chemistry AMB Glucose Monitoring Today E10.9 - Type 1 diabetes mellitus without complications AMB Hemoglobin A1c Today E10.9 - Type 1 diabetes mellitus without complications Medications: New blood-glucose sensor (Dexcom G7 Sensor device) continous use for 10 days 3 ea 11RF acetone (urine) test (Ketone Urine Test strips) As directed p.r.n. illness or glucose over 250 25 ea 1RF pen needle, diabetic (BD Pamela 2nd Gen Pen Needle) once daily prn pump failure 50 ea 6RF Changed From Humalog U-100 Insulin (insulin lispro) 70 units (0.7 mL) subcut DAILY 30 mL 3RF NS E10.9 - Type 1 diabetes mellitus without complications To Humalog U-100 Insulin (insulin lispro) continous via pump 70 units (0.7 mL) subcut DAILY 30 days 21 mL 11RF NS E10.9 - Type 1 diabetes mellitus without complications From insulin syringe-needle U-100 As directed four times a day 10 ea E10.9 - Type 1 diabetes mellitus without complications To insulin syringe-needle U-100 As directed four times a day prn pump failure 100 ea 0RF E10.9 - Type 1 diabetes mellitus without complications From atorvastatin 10 mg PO DAILY 30 tabs 5RF To atorvastatin 10 mg PO DAILY 30 days 30 tabs 11RF Refilled Humalog U-100 Insulin (insulin lispro) continous via pump 70 units (0.7 mL) subcut DAILY 30 days 21 mL 11RF NS E10.9 - Type 1 diabetes mellitus without complications Discontinued pen needle, diabetic Discontinued Reason: Duplicate use to inject insulin 4 times per day 400 ea 1RF E10.9 - Type 1 diabetes mellitus without complications FreeStyle Gwendolyn 2 Donnelly (flash glucose scanning reader) Discontinued Reason: No Longer Medically Relevant QID testing 1 ea 5RF NS FreeStyle Gwendolyn 2 Sensor (flash glucose sensor) Discontinued Reason: No Longer Medically Relevant QID testing 1 ea 4RF NS E10.9 - Type 1 diabetes mellitus without complications Patient Instructions: The patient was counseled to always carry a source of sugar and on the rule of 15's: Take 3 glucose tablets and repeat again in 15 minutes if blood sugar is not in normal range. Continue to repeat every 15 minutes until blood sugar is normal. Symptoms of DKA (diabetic ketoacidosis): early: frequent urination, dry mouth, fatigue, feeling ill, severe symptoms: ketones in the urine, abdominal pain, nausea, vomiting and weakness. It is important to hydrate with sugar free liquids every 15-30 minutes and bring the sugars down to normal levels. If you are moderate or severe with ketones or unable to bring glucose to less than 200, go to the emergency room. Troubleshooting after starting new pod or inserting new insulin set: Occlusion, adhesive tape sensitivity, redness Check BG 2 hours after site change Safety information: Importance of a backup plan, for manual injections, proper prescriptions and emergency supplies ketone strips, and rules for testing for ketones Check your feet daily looking for any signs of infection, ulceration and seek medical attention if this occurs. Break in shoes gradually and do not wear open-toed shoes or walk barefooted. The patient was counseled to achieve a target A1C of 7% (154 avg). Fasting blood sugars should be 90-130 in the morning and less than 180 two hours after meals. Reviewed the relationship between poor diabetic control and the development of complications. Coding Level of Care Code Est Pt Level 5 (24929) Diagnoses Type 1 diabetes E10.9 Elevated TSH R79.89 CPT Codes Details - CPT: 98525 - Glucose monitoring, continuous-physician I&R ([id number]) Time Spent (min) 50 Comment Reviewing labs/provider notes, glucose sensor/pump reports, face to face, chart doc
[2024-10-14 08:11] VITALS: BP 132/78; PULSE 74; BMI 28.2
[2024-10-14 08:28] LABS: Glucose, Whole Blood 183 mg/dL (60-115)
== END 2024-10-14 08:55 | disposition home or self-care (01) ==
PROVIDERS: PCP Nurse Practitioner Family; Visit Provider Nurse Practitioner Adult Health
DX: E10.9 Type 1 diabetes mellitus without complications (principal); R79.89 Other specified abnormal findings of blood chemistry
CPT/HCPCS: 95251; 99215

== ENCOUNTER → 2024-10-14 08:07 | Outpatient (BNVA) | payer OTHER, SELFPAY | PROVIDERS: PCP Nurse Practitioner Family; Visit Provider Nurse Practitioner Adult Health | DX: E10.9 Type 1 diabetes mellitus without complications (principal); R79.89 Other specified abnormal findings of blood chemistry; Z79.4 Long term (current) use of insulin; Z96.41 Presence of insulin pump (external) (internal) | CPT/HCPCS: 82947; 83036; 99212 ==

== ENCOUNTER 2024-10-19 09:08 | Outpatient (AMB) | payer OTHER, SELFPAY ==
[2024-10-19 09:14] VITALS: BP 130/72; PULSE 82; O2SAT 97; BMI 28.3
--- NOTE | 2024-10-19 09:14 | A.OFFPC_ITS ---
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 illness or glucose over 250 atorvastatin 10 mg PO DAILY 30 days blood sugar diagnostic (FreeStyle Lite Strips) test blood sugar 4 times per day blood-glucose meter,continuous (Dexcom G6 Tool Room Supervisor) As directed blood-glucose sensor (Dexcom G6 Sensor device) USE DIRECTED FOR CONTINUOUS BLOOD GLUCOSE MONITORING CHANGE EVERY 10 DAYS blood-glucose sensor (Selleroutletcom G7 Sensor device) continous use for 10 days blood-glucose transmitter (Dexcom G6 Transmitter device) USE DIRECTED Humalog U-100 Insulin (insulin lispro) 70 units (0.7 mL) subcut DAILY 30 days NS insulin glargine (Lantus Solostar U-100 Insulin) 30 units subcut QAM insulin syringe-needle U-100 As directed four times a day prn pump failure lancets (FreeStyle Lancets) As directed four times a day omeprazole 20 mg PO DAILY pen needle, diabetic (BD Pamela 2nd Gen Pen Needle) once daily prn pump failure tramadol 50 mg PO DAILY 20 days Tobacco use date assessed: 10/19/24 Dental Screening Dental Screen Date: 10/19/24 Did you have a dental visit in the last 12 months?: Yes Did you have a dental problem in the last 6 months where you did not have access to dental care?: No Was dental information given to patient?: Patient has dentist HPI PE HPI Details History of Present Illness The patient is a 59-year-old male presenting with right shoulder pain and cervical neck pain. The symptoms started years ago with no specific inciting cause mentioned. He reports discomfort localized to his right shoulder and cervical spine without radiation. He describes the neck pain as not exacerbated by chin tucks and raises with neck flexion, and notes a negative Spurling's test, indicating it does not produce radicular symptoms. He denies any other associated symptoms such as fever or chest pain. The patient also has a history of Diabetes Mellitus for which he follows with an center administrator. Health Maintenance - Colon cancer screening up to date - Routine diabetes management ongoing [facility] center administrator Social History Review of Systems - Constitutional: Denies fevers or chill s. - Ophthalmologic: Denies blurred vision. - Cardiovascular: Denies chest pain. - Respiratory: Denies shortness of breat h. - Gastrointestinal: Denies abdominal sharif n, blood in stool, constipation, or diarrhea. - Genitourinary: Denies any urinary prob lems. - Psychiatric: Denies anxiety, depressio n, and homicidal ideation. Physical Exam General: Cooperative, healthy appearing, comfortable, no acute distress and well developed Orientation: Patient oriented x3 Limitations: No limitations Head: Normal to inspection Ears: Hearing grossly normal bilaterally Nose: Normal external nose present Face and sinus: Normal facial exam Eyes: Appearance normal, both eyes and all related structures Neck: Normal visual inspection and Yes full ROM, neg spurlings, neg chin tucks and chin raises, neg pain with neck flexion. Respiratory: Normal respiratory effort and able to speak in complete sentences. Clear to auscultation bilaterally Cardiovascular: Regular rate and rhythm. Normal S1 and S2 GI: Normal to inspection. Soft to palpation and nontender Skin: No rashes or lesions noted Neuro: Patient oriented x3 Extremities: Normal to inspection, ongoing right shoulder pain noted Results - Tests: Previous x-rays of cervical spi ne and right shoulder were negative for significant findings. Plan - Reinforce labs already obtained. - Order cervical spine x-ray to re-evalu ate potential sources of neck pain. - Order right shoulder x-ray to assess o ngoing shoulder discomfort. - Continue monitoring diabetes managemen t with center administrator. - Reassess musculoskeletal symptoms foll owing imaging results. Patient was informed and verbally consented to the use of an ambient scribe for clinic note documentation during this visit. Discussion Notes During our discussion, the patient declined a digital rectal exam today for prostate evaluation and reported an up-to-date colon cancer screening. I emphasized the importance of continuing routine diabetes management with his end ocrinologist. We discussed obtaining cervical spine and right shoulder x-rays to further investigate chronic pain. I provided reassurance regarding current management strategies and confirmed that no additional symptoms have developed that would indicate a more urgent condition. Patient Instructions - Continue with current diabetes managem ent under center administrator's care. - Obtain cervical spine and right should er x-rays as ordered. - Follow up with any new or worsening sy mptoms, particularly regarding neck and shoulder discomfort. - Keep track of symptoms and any changes that occur, reporting them to me or his center administrator as needed. [facility] Medical History Stroke Hyperlipemia Fusion of joint Diabetes Back injury Surgical History History of surgery History of shoulder surgery Family History Father Diabetes Brother Diabetes Other Mental health disorder Social History Household Members: Spouse and Family Household Members Other:: , grandchild Housing: Condominium Alcohol intake: current Alcohol intake frequency: holidays/special occasions only Alcohol type: beer Patient Tobacco Use Status: Former Tobacco user Tobacco use type: Cigarette Years Smoked: since age 16 e-Cigarette/Vaping Use: Never Used Second Hand Smoke Exposure: No Substance Use Type: Marijuana Current occupational status: employed 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 81106 - PHQ-9 Billing: Patient declined-do not bill Source: Developed by Drs. Travis Booth, Hattie Patel, Be Hernández and colleagues, with an educational camryn from [employer]. Thrive Questionnaire Date Thrive assessed: 10/19/24 I am a: Patient What is your living situation today?: I choose not to answer this question Within the past 12 months, did the food you bought not last and you didn't have the money to get more?: I choose not to answer this question Within the past 12 months, did you worry whether your food would run out before you got money to buy more?: I choose not to answer this question Do you have trouble paying for medicines?: I choose not to answer this question Do you have trouble getting transportation to medical appointments?: I choose not to answer this question Do you have trouble paying your heating and electricity bill?: I choose not to answer this question Do you have trouble taking care of your child, family member or friend?: I choose not to answer this question Do you have trouble with day-to-day activities such as bathing, preparing meals, shopping, managing finances, etc.?: I choose not to answer this question Are you currently unemployed and looking for a job?: I choose not to answer this question Are you interested in more education?: I choose not to answer this question Currently or been in a relationship where the following occur: I choose not to answer THRIVE Score: 0 AUDIT C Alcohol Use Questionnaire (AUDIT-C) 1. How often do you have a drink containing alcohol?: Monthly or less 2. How many drinks containing alcohol do you have on a typical day when you are drinking?: 1 or 2 3. How often do you have six or more drinks on one occasion?: Never Total Score: 1 Score Reviewed/Action Taken: Yes HUEY-7 AMB Questionnaire HUEY-7 Date HUEY - 7 assessed: 10/19/24 (patient declined) Source: Developed by Drs. Travis Booth, Hattie Patel, Be Hernández and colleagues, with an educational camryn from [employer]. Physical exam (Primary Care) Vital Signs: Last Vital Signs Pulse 82 10/19/24 09:14 BP 130/72 10/19/24 09:14 Pulse Ox 97 10/19/24 09:14 BMI result Body Mass Index 28.3 Tobacco/Smoking Status: Tobacco use Status Tobacco use date assessed 10/19/24 10/19/24 09:17 Patient Tobacco Use Status Former Tobacco user 10/19/24 09:17 Tobacco use type Cigarette 10/19/24 09:17 e-Cigarette/Vaping Use Never Used 10/19/24 09:17 Thrive Assessment: Date of Thrive Assessment Date Thrive assessed 10/19/24 10/19/24 09:17 Currently or been in a relationship where the following occur: I choose not to answer Coding Level of Care Code Est Pt Prev Care 40-64y(71662) Diagnoses Physical exam Z00.00 Right shoulder pain M25.511 Cervical pain (neck) M54.2 Assessment & Plan Assessment & Plan (1) Physical exam: Code(s): Z00.00 - Encounter for general adult medical examination without abnormal findings Category: Medical (2) Right shoulder pain: Code(s): M25.511 - Pain in right shoulder Category: Medical (3) Cervical pain (neck): Code(s): M54.2 - Cervicalgia Category: Medical Plan . Orders: Orders XR shoulder RT min 2V Today M25.511 - Pain in right shoulder Complete Blood Count Auto Diff Today Z00.00 - Encounter for general adult medical examination without abnormal findings Comprehensive [place]. Panel Fast Today Z00.00 - Encounter for general adult medical examination without abnormal findings TSH reflex Free T4 Today Z00.00 - Encounter for general adult medical examination without abnormal findings UA CC w/rflx Micro + Cult Today Z00.00 - Encounter for general adult medical examination without abnormal findings Lipid Panel Today Z00.00 - Encounter for general adult medical examination without abnormal findings XR cervical spine 2V Today M54.2 - Cervicalgia TDaP Immunization Today Z23 - Encounter for immunization Medications: New Boostrix Tdap (diphth,pertus(acell),tetanus) 0.5 mL IM ONCE 0.5 mL 0RF NS Z23 - Encounter for immunization
== END 2024-10-19 09:46 | disposition home or self-care (01) ==
PROVIDERS: PCP Nurse Practitioner Family; Visit Provider Nurse Practitioner Family
DX: Z00.00 Encounter for general adult medical examination without abnormal findings (principal); M25.511 Pain in right shoulder; M54.2 Cervicalgia; Z23 Encounter for immunization

== ENCOUNTER → 2024-10-19 09:09 | Outpatient (BNVA) | payer OTHER, SELFPAY | PROVIDERS: PCP Nurse Practitioner Family; Visit Provider Nurse Practitioner Family | DX: Z00.00 Encounter for general adult medical examination without abnormal findings (principal); Z23 Encounter for immunization; M54.2 Cervicalgia; M25.511 Pain in right shoulder | CPT/HCPCS: 90471; 90715; 99396 ==

== ENCOUNTER 2024-12-02 06:54 | Outpatient (AMB) | payer OTHER, SELFPAY ==
--- OUTSIDE RECORDS SUMMARY | 2024-12-02 06:57 | XMS_ITS | Encounter Summary ---
Author Organization [facility] Address [address] [place] [address] Care Team Providers Care Telemarketer Name Role Phone Brett Mackenzie MD Primary Care Provider [phone] Brett Mackenzie MD Unavailable [phone] Aston Yañez MD Primary Care Provider [phone] Encounter Details Date Type Department Care Team (Late st Contact Info) Description 04/20/2019 Scanned Document [facility] Neurosurgery [place] [address] [facility] [address] [place] [id number] Osvaldo Coleman MD [address] [facility] [address] [place] [address] Social History Tobacco Use Types Packs/Day Years Used Date Smoking Tobacco: Former Smokeless Tobacco: Never Sex and Gender Information Value Date Recorded Sex Assigned at Not on file Gender Identity Not on file Sexual Orientation Not on file documented as of this encounter Plan of Treatment Not on file documented as of this encounter Visit Diagnoses Not on filedocumented in this encounter Care Teams Telemarketer Relationship Specialty Start Date End Date Brett Mackenzie MD [address] [place] [address] [id number] PCP - General General Medicine 10/01/18 07/30/19 Aston Yañez MD [address] [place] [address] [id number] PCP - General Endocrinology 07/31/19 Brett Mackenzie MD [address] [place] [id number] Psychiatry, General 10/01/18 documented as of this encounter
--- OUTSIDE RECORDS SUMMARY | 2024-12-02 06:57 | XMS_ITS | Encounter Summary ---
Author Organization [facility] Address [address] [place] [address] Care Team Providers Care Change Coordinator Name Role Phone Brett Mackenzie MD Unavailable [phone] Aston Yañez MD Primary Care Provider [phone] Encounter Details Date Type Department Care Team (Late st Contact Info) Description 04/28/2020 Scanned Document [facility] Neurosurgery [address] [phone] Social History Tobacco Use Types Packs/Day Years Used Date Smoking Tobacco: Former Cigarettes Q uit: 06/16/2010 Smokeless Tobacco: Never Alcohol Use Standard Drinks/Week Comments Yes 0 (1 standard drink = 0.6 oz pur e alcohol) rarely Sex and Gender Information Value Date Recorded Sex Assigned at Not on file Gender Identity Not on file Sexual Orientation Not on file COVID-19 Exposure Response Date Recorded In the last month, have you been in contact with someone who was confirmed or suspected to have Coronavirus / COVID-19? No / Unsure 04/29/2020 8:57 AM EDT documented as of this encounter Plan of Treatment Not on file documented as of this encounter Visit Diagnoses Not on filedocumented in this encounter Care Teams Change Coordinator Relationship Specialty Start Date End Date Aston Yañez MD [address] [place] [address] [place] [id number] PCP - General Endocrinology 07/31/19 Brett Mackenzie MD [address] [place] [id number] Psychiatry, General 10/01/18 documented as of this encounter
--- OUTSIDE RECORDS SUMMARY | 2024-12-02 06:57 | XMS_ITS | Encounter Summary ---
Author Organization [facility] Address [address] [place] [address] Care Team Providers Care Forensic Analyst Name Role Phone Brett Mackenzie MD Unavailable [phone] Aston Yañez MD Primary Care Provider [phone] Encounter Details Date Type Department Care Team (Late st Contact Info) Description 04/29/[address] [facility] Neurosurgery [address] [phone] Social History Tobacco Use Types Packs/Day Years [...] on filedocumented in this encounter Care Teams Forensic Analyst Relationship Specialty Start Date End Date Aston Yañez MD [address] [place] [address] [place] [address] PCP - General Endocrinology 07/31/19 Brett Mackenzie MD [address] [place] [address] Psychiatry, General 10/01/18 documented as of this encounter
--- OUTSIDE RECORDS SUMMARY | 2024-12-02 06:57 | XMS_ITS | Encounter Summary ---
Author Organization [facility] Address [address] [place] [address] Care Team Providers Care Link Trainer Teacher Name Role Phone Brett Mackenzie MD Unavailable [phone] Aston Yañez MD Primary Care Provider [phone] Encounter Details Date Type Department Care Team (Late st Contact Info) Description 03/22/2020 Scanned Document [facility] Neurosurgery [address] [phone] Social History Tobacco Use Types Packs/Day Years [...] have Coronavirus / COVID-19? No / Unsure 03/24/2020 10:09 AM EDT documented as of this encounter Plan of Treatment Not on file documented as of this encounter Visit Diagnoses Not on filedocumented in this encounter Care Teams Link Trainer Teacher Relationship Specialty Start Date End Date Aston Yañez MD [address] [place] [address] [place] [address] PCP - General Endocrinology 07/31/19 Brett Mackenzie MD [address] [place] [address] Psychiatry, General 10/01/18 documented as of this encounter
--- OUTSIDE RECORDS SUMMARY | 2024-12-02 06:57 | XMS_ITS | Encounter Summary ---
Author Organization [facility] Address [address] [place] [address] Care Team Providers Care Chief Procurement Officer Name Role Phone Brett Mackenzie MD Primary Care Provider Brett Mackenzie MD Unavailable [phone] Aston Yañez MD Primary Care Provider [phone] Encounter Details Date Type Department Care Team (Late st Contact Info) Description 02/16/2019 Scanned Document [facility] Neurosurgery [place] [address] [place] [address] Osvaldo Coleman MD 35 [facility] 5 [place] [address] Social History Tobacco Use Types Packs/Day Years Used Date Smoking Tobacco: Former Sex and Gender Information Value Date Recorded Sex Assigned at Not on file Gender Identity Not on file Sexual Orientation Not on file documented as of this encounter Plan of Treatment Not on file documented as of this encounter Visit Diagnoses Not on filedocumented in this encounter Care Teams Chief Procurement Officer Relationship Specialty Start Date End Date Brett Mackenzie MD [address] [place] [address] [phone] PCP - General General Medicine 10/01/18 07/30/19 Aston Yañez MD [address] [place] [address] [phone] PCP - General Endocrinology 07/31/19 Brett Mackenzie MD [address] [place] [address] Psychiatry, General 10/01/18 documented as of this encounter
--- OUTSIDE RECORDS SUMMARY | 2024-12-02 06:57 | XMS_ITS | Encounter Summary ---
Author Organization [facility] Address [address] [place] [address] Care Team Providers Care Clinical Product Manager Name Role Phone Brett Mackenzie MD Unavailable [phone] Aston Yañez MD Primary Care Provider [phone] Encounter Details Date Type Department Care Team (Late st Contact Info) Description 08/03/[address] [facility] Neurosurgery [address] [phone] Neurosurgery, Scan Social History Tobacco Use Types Packs/Day Years [...] on filedocumented in this encounter Care Teams Clinical Product Manager Relationship Specialty Start Date End Date Aston Yañez MD [address] [place] [address] PCP - General Endocrinology 07/31/19 Brett Mackenzie MD [address] [place] [address] Psychiatry, General 10/01/18 documented as of this encounter
--- OUTSIDE RECORDS SUMMARY | 2024-12-02 06:57 | XMS_ITS | Encounter Summary ---
Author Organization [facility] Address [address] [place] [address] Care Team Providers Care Attendant Child Activity Name Role Phone Brett Mackenzie MD Unavailable [phone] Aston Yañez MD Primary Care Provider [phone] Encounter Details Date Type Department Care Team (Late st Contact Info) Description 01/07/2020 Scanned Document [facility] Neurosurgery [address] [phone] Social History Tobacco Use Types Packs/Day Years [...] on filedocumented in this encounter Care Teams Attendant Child Activity Relationship Specialty Start Date End Date Aston Yañez MD [address] [place] [address] PCP - General Endocrinology 07/31/19 Brett Mackenzie MD [address] [place] [address] Psychiatry, General 10/01/18 documented as of this encounter
--- OUTSIDE RECORDS SUMMARY | 2024-12-02 06:57 | XMS_ITS | Encounter Summary ---
Author Organization [facility] Address [address] [place] [address] Care Team Providers Care Literacy Tutor Name Role Phone Brett Mackenzie MD Unavailable [phone] Aston Yañez MD Primary Care Provider [phone] Encounter Details Date Type Department Care Team (Late st Contact Info) Description 10/07/2019 Scanned Document [facility] Neurosurgery [address] [phone] Social History Tobacco Use Types Packs/Day Years [...] on filedocumented in this encounter Care Teams Literacy Tutor Relationship Specialty Start Date End Date Aston Yañez MD [address] [place] [address] PCP - General Endocrinology 07/31/19 Brett Mackenzie MD [address] [place] [address] Psychiatry, General 10/01/18 documented as of this encounter
--- OUTSIDE RECORDS SUMMARY | 2024-12-02 06:57 | XMS_ITS | Clinical Summary ---
Author Organization [facility] Address [address] [place] [address] Care Team Providers Care Sales Office Assistant Name Role Phone Brett Mackenzie MD Unavailable [phone] Aston Yañez MD Primary Care Provider [phone] Allergies Active Allergy Reactions Criticality Noted Date Comments Codeine Other (See Comments) 04/29/2018 headche Latex Other (See Comments) High 08/05/2019 blisters Medications Medication Sig Dispensed Refills Start Date End Date Status FLUoxetine (PROzac) 40 MG capsule TK 1 C PO D 0 09/16/2018 Active LANTUS SOLOSTAR 100 UNIT/ML pen injection ADM 36 UNI SC D UTD 1 09/24/2018 Active insulin lispro (HumaLOG KWIKPEN) 100 UNIT/ML pen injection Inject 14 Units under the skin 3 (three) times a day before meals. Active multivitamin (multivitamin) Tab tablet Take 1 tablet by mouth daily. Active fluticasone (FloNASE) 50 mcg/spray nasal spray SHAKE LQ AND U 1 SPR IEN QD PRN 1 05/18/2019 Active acetaminophen (TYLENOL) 325 MG tabletIndications:Sac roiliac joint dysfunction of left side Take 3 tablets (975 mg total) by mouth 4 times daily (every 6 hours) as needed (fever greater than 101.5). 90 tablet 08/07/2019 Active senna-docusate (SENNA-S) 8.6-50 MGIndications:Sacroil iac joint dysfunction of left side Take 2 tablets by mouth nightly. 60 tablet 08/07/2019 Active B-D ULTRAFINE III SHORT PEN 31G X 8 MM Misc USE 1 NEEDLE QID 0 08/21/2019 Active methocarbamol (ROBAXIN) 750 MG tabletIndications:Sac roiliac joint dysfunction of left side Take 1 tablet (750 mg total) by mouth 4 (four) times a day as needed for muscle spasms. 60 tablet 09/21/2019 Active traMADol (ULTRAM) 50 MG tabletIndications:Sac roiliac joint dysfunction of left side Take 1 tablet (50 mg total) by mouth 3 times daily (every 8 hours) as needed for moderate pain or severe pain. 40 tablet 09/21/2019 Active gabapentin (NEURONTIN) 100 MG capsule take 2 capsules by mouth at bedtime for 10 days 10/22/2019 Active iohexol (Omnipaque) 300 mg/mL Inject 2 mL into the joint Once before discharge. 02/04/2020 Active B Complex Vitamins (VITAMIN B COMPLEX PO) Take by mouth. Active SUPPLY DME MISCIndications:Sacro iliitis Tens Unit 1 Device 05/02/2020 Active loratadine (CLARITIN) 10 MG tablet Take 10 mg by mouth Once before discharge. Active FreeStyle Lancets lancet 06/08/2020 Active Glucagon Emergency 1 MG injection 06/07/2020 Active Active Problems Problem Noted Date Diagnosed Date Sacroiliac joint dysfunction of left side 2018 Spinal stenosis, lumbar bisi on, without neurogenic claudication 12/08/2018 Sacroiliitis 11/06/2018 Immunizations Name Administration Dates Next Due Influenza Inactivated/Split Preservative Free IM 08/05/2019() Social History Tobacco Use Types Packs/Day Years Used Date Smoking Tobacco: Former Cigarettes Q uit: 06/16/2010 Smokeless Tobacco: Never Alcohol Use Standard Drinks/Week Comments Yes 0 (1 standard drink = 0.6 oz pur e alcohol) rarely Sex and Gender Information Value Date Recorded Sex Assigned at Not on file Gender Identity Not on file Sexual Orientation Not on file Last Filed Vital Signs Vital Sign Reading Time Taken Comments Blood Pressure 164/76 12/07/2019 8:55 AM EDT Pulse 71 12/07/2019 8:55 AM EDT Temperature 37.2 ??C (98.9 ??F) 08/07/2019 9:15 AM ES T Respiratory Rate 16 08/07/2019 9:15 AM EST Oxygen Saturation 97% 09/21/2019 10:46 AM EST Inhaled Oxygen Concentration - - Weight 76.2 kg (168 lb) 08/18/2020 9:25 AM EST Height 162.6 cm (5' 4 ) 08/18/2020 9:25 AM EST Body Mass Index 28.84 08/18/2020 9:25 AM EST Plan of Treatment Health Maintenance Due Date Last Done Comments Hepatitis C Virus Screening 1966 HIV Screening 1979 DTaP/Tdap/Td Vaccines (1 - Tdap) 1985 Hepatitis B Vaccines (1 of 3 - 19+ 3-dose series) 1985 Colonoscopy 2011 Pneumococcal Vaccines 50+ (1 of 1 - PCV) 2016 Zoster (Shingles) Vaccine (1 of 2) 2016 Influenza Vaccine 04/30/2024 COVID-19 Vaccine (1 - 2023-2 5 season) 2024 Pneumococcal Vaccine: Pediat rebeca (0-5 Years) and At-Risk Patients (6 to 49 Years) Aged Out No longer eligible b ased on patient's age to complete this topic Medical Devices Implanted Type Area Mirror Department Supervisor Device Identifier Shelf Expiration Date Model / Serial / Lot [id number] System Spinal Fixation 55mm 7mm Ifuse Implant System 3ang - Sn/A Implanted:Qty: 1 on 08/05/2019 by Osvaldo Coleman MD at [employer] 01/09/2024 [id number]-90 / N/A / [id number] System Spinal Fixation 45mm 7mm Ifuse Implant System 3ang - Sn/A Implanted:Qty: 1 on 08/05/2019 by Osvaldo Coleman MD at [employer] 04/10/2024 [id number]-90 / N/A / [id number] System Spinal Fixation 45mm 7mm Ifuse Implant System 3ang - Sn/A Implanted:Qty: 1 on 08/05/2019 by Osvaldo Coleman MD at [employer] 04/10/2024 [id number]-[id number] / N/A / [id number] Advance Directives * Full Code (Latest Code Status on File) Date Activated Date Inactivated Comments 08/05/2019 10:54 AM * Full Code Date Activated Date Inactivated Comments 08/05/2019 8:02 AM 08/05/2019 10:54 AM Care Teams Sales Office Assistant Relationship Specialty Start Date End Date Aston Yañez MD [address] [place] [address] [phone] PCP - General Endocrinology 07/31/19 Brett Mackenzie MD [address] [place] [address] Psychiatry, General 10/01/18
--- OUTSIDE RECORDS SUMMARY | 2024-12-02 06:57 | XMS_ITS | Encounter Summary ---
Author Organization [facility] Address [address] [place] [address] Care Team Providers Care Drapery Examiner Name Role Phone Brett Mackenzie MD Unavailable [phone] Aston Yañez MD Primary Care Provider [phone] Encounter Details Date Type Department Care Team (Late st Contact Info) Description 12/29/2019 Scanned Document [facility] Neurosurgery [address] [phone] Social History Tobacco Use Types Packs/Day Years [...] on filedocumented in this encounter Care Teams Drapery Examiner Relationship Specialty Start Date End Date Aston Yañez MD [address] [place] [address] PCP - General Endocrinology 07/31/19 Brett Mackenzie MD [address] [place] [address] Psychiatry, General 10/01/18 documented as of this encounter
--- OUTSIDE RECORDS SUMMARY | 2024-12-02 06:57 | XMS_ITS | Encounter Summary ---
Author Organization [facility] Address [address] [place] [address] Care Team Providers Care Car Audio Installer Name Role Phone rBett Mackenzie MD Unavailable Aston Yañez MD Primary Care Provider [phone] Encounter Details Date Type Department Care Team (Late st Contact Info) Description 07/31/2019 Scanned Document [facility] Neurosurgery [address] [phone] Social History Tobacco Use Types Packs/Day Years [...] on filedocumented in this encounter Care Teams Car Audio Installer Relationship Specialty Start Date End Date Aston Yañez MD [address] [place], [place] [address] [address] PCP - General Endocrinology 07/31/19 Brett Mackenzie MD [address] [place] [address] Psychiatry, General 10/01/18 documented as of this encounter
--- OUTSIDE RECORDS SUMMARY | 2024-12-02 06:57 | XMS_ITS | Encounter Summary ---
Author Organization [facility] Address [address] [place] [address] Care Team Providers Care Acid Loader Name Role Phone Brett Mackenzie MD Unavailable [phone] Aston Yañez MD Primary Care Provider [phone] Encounter Details Date Type Department Care Team (Late st Contact Info) Description 08/05/2020 Scanned Document [facility] Neurosurgery [address] [phone] Social History Tobacco Use Types Packs/Day Years [...] on filedocumented in this encounter Care Teams Acid Loader Relationship Specialty Start Date End Date Aston Yañez MD [address] [place] [address] PCP - General Endocrinology 07/31/19 Brett Mackenzie MD [address] [place] [address] Psychiatry, General 10/01/18 documented as of this encounter
--- OUTSIDE RECORDS SUMMARY | 2024-12-02 06:57 | XMS_ITS | Encounter Summary ---
Author Organization [facility] Address [address] [place] [address] Care Team Providers Care Air Intelligence Officer Name Role Phone Brett Mackenzie MD Primary Care Provider [phone] Brett Mackenzie MD Unavailable [phone] Aston Yañez MD Primary Care Provider [phone] Encounter Details Date Type Department Care Team (Late st Contact Info) Description 07/06/2019 Scanned Document [facility] Neurosurgery [address] [phone] Social History Tobacco Use Types [...] on filedocumented in this encounter Care Teams Air Intelligence Officer Relationship Specialty Start Date End Date Brett Mackenzie MD [address] [place] [address] PCP - General General Medicine 10/01/18 07/30/19 Aston Yañez MD [address] [place] [address] PCP - General Endocrinology 07/31/19 Brett Mackenzie MD [address] [place] [address] Psychiatry, General 10/01/18 documented as of this encounter
--- OUTSIDE RECORDS SUMMARY | 2024-12-02 06:57 | XMS_ITS | Encounter Summary ---
Author Organization [facility] Address [address] [place] [address] Care Team Providers Care Flame Hardening Machine Operator Name Role Phone Brett Mackenzie MD Unavailable [phone] Aston Yañez MD Primary Care Provider [phone] Encounter Details Date Type Department Care Team (Late st Contact Info) Description 12/29/2019 Scanned Document [facility] Neurosurgery [address] [phone] Social History Tobacco Use Types Packs/Day Years [...] on filedocumented in this encounter Care Teams Flame Hardening Machine Operator Relationship Specialty Start Date End Date Aston Yañez MD [address] [place] [address] PCP - General Endocrinology 07/31/19 Brett Mackenzie MD [address] [place] [address] Psychiatry, General 10/01/18 documented as of this encounter
--- OUTSIDE RECORDS SUMMARY | 2024-12-02 06:57 | XMS_ITS | Encounter Summary ---
Author Organization [facility] Address [address] [place] [address] Care Team Providers Care Lastex Thread Winder Name Role Phone Brett Mackenzie MD Primary Care Provider [phone] Brett Mackenzie MD Unavailable [phone] Aston Yañez MD Primary Care Provider [phone] Encounter Details Date Type Department Care Team (Late st Contact Info) Description 07/06/2019 Prep for Surgery [facility] Neurosurgery [address] [phone] Lizett Mensah PA [address] [address] Social History Tobacco Use Types Packs/Day Years [...] on filedocumented in this encounter Care Teams Lastex Thread Winder Relationship Specialty Start Date End Date Brett Mackenzie MD [address] [place] [address] [phone] PCP - General General Medicine 10/01/18 07/30/19 Aston Yañez MD [address] [place] [address] [phone] PCP - General Endocrinology 07/31/19 Brett Mackenzie MD [address] [place] [address] Psychiatry, General 10/01/18 documented as of this encounter
--- OUTSIDE RECORDS SUMMARY | 2024-12-02 06:57 | XMS_ITS | Encounter Summary ---
Author Organization [facility] Address [address] [place] [address] Care Team Providers Care Licensed Social Worker Name Role Phone Brett Mackenzie MD Unavailable Aston Yañez MD Primary Care Provider [phone] Encounter Details Date Type Department Care Team (Late st Contact Info) Description 03/24/2020 Scanned Document [facility] Neurosurgery [address] [phone] Social History Tobacco Use Types Packs/Day Years [...] on filedocumented in this encounter Care Teams Licensed Social Worker Relationship Specialty Start Date End Date Aston Yañez MD [address] [place] [address] [place] [address] PCP - General Endocrinology 07/31/19 Brett Mackenzie MD [address] [place] [address] Psychiatry, General 10/01/18 documented as of this encounter
--- OUTSIDE RECORDS SUMMARY | 2024-12-02 06:57 | XMS_ITS | Encounter Summary ---
Author Organization [facility] Address [address] [place] [address] Care Team Providers Care Condominium Manager Name Role Phone Brett Mackenzie MD Unavailable [phone] Aston Yañez MD Primary Care Provider [phone] Encounter Details Date Type Department Care Team (Late st Contact Info) Description 03/11/2020 Scanned Document [facility] Neurosurgery [address] [phone] Social History Tobacco Use Types Packs/Day Years [...] have Coronavirus / COVID-19? No / Unsure 02/18/2020 1:09 PM EDT documented as of this encounter Plan of Treatment Not on file documented as of this encounter Visit Diagnoses Not on filedocumented in this encounter Care Teams Condominium Manager Relationship Specialty Start Date End Date Aston Yañez MD [address] [place] [address] [place] [address] PCP - General Endocrinology 07/31/19 Brett Mackenzie MD [address] [place] [address] Psychiatry, General 10/01/18 documented as of this encounter
--- OUTSIDE RECORDS SUMMARY | 2024-12-02 06:57 | XMS_ITS | Encounter Summary ---
Author Organization [facility] Address [address] [place] [address] Care Team Providers Care Interior Systems Carpenter Name Role Phone Brett Mackenzie MD Unavailable [phone] Aston Yañez MD Primary Care Provider [phone] Encounter Details Date Type Department Care Team (Late st Contact Info) Description 08/03/2019 Scanned Document [facility] Neurosurgery [address] [phone] Neurosurgery, Scan Social History Tobacco Use Types [...] on filedocumented in this encounter Care Teams Interior Systems Carpenter Relationship Specialty Start Date End Date Aston Yañez MD [address] [place] [address] PCP - General Endocrinology 07/31/19 Brett Mackenzie MD [address] [place] [address] Psychiatry, General 10/01/18 documented as of this encounter
--- OUTSIDE RECORDS SUMMARY | 2024-12-02 06:57 | XMS_ITS | Encounter Summary ---
Author Organization [facility] Address [address] [place] [address] Care Team Providers Care Contract Lead Name Role Phone Brett Mackenzie MD Unavailable [phone] Aston Yañez MD Primary Care Provider [phone] Encounter Details Date Type Department Care Team (Late st Contact Info) Description 06/24/2020 Scanned Document [facility] Neurosurgery [address] [phone] Social History Tobacco Use Types Packs/Day Years [...] have Coronavirus / COVID-19? No / Unsure 06/15/2020 9:28 AM EDT documented as of this encounter Plan of Treatment Not on file documented as of this encounter Visit Diagnoses Not on filedocumented in this encounter Care Teams Contract Lead Relationship Specialty Start Date End Date Aston Yañez MD [address] [place] [address] [place] [address] PCP - General Endocrinology 07/31/19 Brett Mackenzie MD [address] [place] [address] Psychiatry, General 10/01/18 documented as of this encounter
--- OUTSIDE RECORDS SUMMARY | 2024-12-02 06:57 | XMS_ITS | Encounter Summary ---
Author Organization [facility] Address [address] [place] [address] Care Team Providers Care Utilization Review Coordinator Name Role Phone Brett Mackenzie MD Unavailable [phone] Aston Yañez MD Primary Care Provider [phone] Encounter Details Date Type Department Care Team (Late st Contact Info) Description 12/18/2019 Scanned Document [facility] Neurosurgery [address] [phone] Social History Tobacco Use Types Packs/Day Years [...] on filedocumented in this encounter Care Teams Utilization Review Coordinator Relationship Specialty Start Date End Date Aston Yañez MD [address] [place] [address] PCP - General Endocrinology 07/31/19 Brett Mackenzie MD [address] [place] [address] Psychiatry, General 10/01/18 documented as of this encounter
--- OUTSIDE RECORDS SUMMARY | 2024-12-02 06:57 | XMS_ITS | Encounter Summary ---
Author Organization [facility] Address [address] [place] [address] Care Team Providers Care Outpatient Coordinator Name Role Phone Brett Mackenzie MD Primary Care Provider [phone] Brett Mackenzie MD Unavailable [phone] Aston Yañez MD Primary Care Provider Encounter Details Date Type Department Care Team (Late st Contact Info) Description 11/26/2018 Scanned Document [facility] Neurosurgery [place] [address] [facility] 5 [place] [address] Osvaldo Coleman MD 35 [facility] 5 [place] [address] Social History Tobacco Use Types Packs/Day Years Used Date Smoking Tobacco: Never Assessed Sex and Gender Information Value Date Recorded Sex Assigned at Not on file Gender Identity Not on file Sexual Orientation Not on file documented as of this encounter Plan of Treatment Not on file documented as of this encounter Visit Diagnoses Not on filedocumented in this encounter Care Teams Outpatient Coordinator Relationship Specialty Start Date End Date Brett Mackenzie MD [address] [place] [address] PCP - General General Medicine 10/01/18 07/30/19 Aston Yañez MD [address] [place] [address] PCP - General Endocrinology 07/31/19 Brett Mackenzie MD [address] [place] [address] Psychiatry, General 10/01/18 documented as of this encounter
--- OUTSIDE RECORDS SUMMARY | 2024-12-02 06:57 | XMS_ITS | Encounter Summary ---
Author Organization [facility] Address [address] [place] [address] Care Team Providers Care Senior Drupal Developer Name Role Phone Brett Mackenzie MD Primary Care Provider [phone] Brett Mackenzie MD Unavailable [phone] Aston Yañez MD Primary Care Provider [phone] Encounter Details Date Type Department Care Team (Late st Contact Info) Description 11/26/2018 Scanned Document [facility] Neurosurgery [place] 35 [facility] 5 [place] [address] Osvaldo Coleman MD 35 [facility] 5 [place] [address] Social History Tobacco Use Types Packs/Day Years Used Date Smoking Tobacco: Never Assessed Sex and Gender Information Value Date Recorded Sex Assigned at Not on file Gender Identity Not on file Sexual Orientation Not on file documented as of this encounter Plan of Treatment Not on file documented as of this encounter Visit Diagnoses Not on filedocumented in this encounter Care Teams Senior Drupal Developer Relationship Specialty Start Date End Date Brett Mackenzie MD [address] [place] [address] PCP - General General Medicine 10/01/18 07/30/19 Aston Yañez MD [address] [place] [address] PCP - General Endocrinology 07/31/19 Brett Mackenzie MD [address] [place] [address] Psychiatry, General 10/01/18 documented as of this encounter
--- OUTSIDE RECORDS SUMMARY | 2024-12-02 06:57 | XMS_ITS | Encounter Summary ---
Author Organization [facility] Address [address] [place] [address] Care Team Providers Care Manufacturing Helper Name Role Phone Brett Mackenzie MD Primary Care Provider [phone] Brett Mackenzie MD Unavailable [phone] Aston Yañez MD Primary Care Provider [phone] Encounter Details Date Type Department Care Team (Late st Contact Info) Description 03/25/2019 Scanned Document [facility] Neurosurgery [place] [address] [phone] [place], [place] [address] [address] Social History Tobacco Use Types Packs/Day Years [...] on filedocumented in this encounter Care Teams Manufacturing Helper Relationship Specialty Start Date End Date Brett Mackenzie MD [address] [place] [address] [phone] PCP - General General Medicine 10/01/18 07/30/19 Aston Yañez MD [address] [place] [address] [phone] PCP - General Endocrinology 07/31/19 Brett Mackenzie MD [address] [place] [address] Psychiatry, General 10/01/18 documented as of this encounter
--- OUTSIDE RECORDS SUMMARY | 2024-12-02 06:57 | XMS_ITS | Encounter Summary ---
Author Organization [facility] Address [address] [place] [address] Care Team Providers Care Fios Line Installer Name Role Phone Brett Mackenzie MD Unavailable [phone] Aston Yañez MD Primary Care Provider [phone] Encounter Details Date Type Department Care Team (Late st Contact Info) Description 08/03/2019 Scanned Document [facility] Neurosurgery [address] [phone] Social History Tobacco Use Types [...] on filedocumented in this encounter Care Teams Fios Line Installer Relationship Specialty Start Date End Date Aston Yañez MD [address] [place] [address] PCP - General Endocrinology 07/31/19 Brett Mackenzie MD [address] [place] [address] Psychiatry, General 10/01/18 documented as of this encounter
--- OUTSIDE RECORDS SUMMARY | 2024-12-02 06:57 | XMS_ITS | Encounter Summary ---
Author Organization [facility] Address [address] [place] [address] Care Team Providers Care Radio Television Announcer Name Role Phone Brett Mackenzie MD Unavailable [phone] Aston Yañez MD Primary Care Provider [phone] Encounter Details Date Type Department Care Team (Late st Contact Info) Description 03/17/2020 Scanned Document [facility] Neurosurgery [address] [phone] Social History Tobacco Use Types Packs/Day Years [...] on filedocumented in this encounter Care Teams Radio Television Announcer Relationship Specialty Start Date End Date Aston Yañez MD [address] [place] [address] [place] [address] PCP - General Endocrinology 07/31/19 Brett Mackenzie MD [address] [place] [address] Psychiatry, General 10/01/18 documented as of this encounter
--- OUTSIDE RECORDS SUMMARY | 2024-12-02 06:57 | XMS_ITS | Encounter Summary ---
Author Organization [facility] Address [address] [place] [address] Care Team Providers Care Senior Financial Accountant Name Role Phone Brett Mackenzie MD Primary Care Provider [phone] Brett Mackenzie MD Unavailable [phone] Aston Yañez MD Primary Care Provider [phone] Encounter Details Date Type Department Care Team (Late st Contact Info) Description 04/15/2019 Scanned Document [facility] Neurosurgery [address] [phone] Social History Tobacco Use Types [...] filedocumented in this encounter Care Teams Senior Financial Accountant Relationship Specialty Start Date End Date Brett Mackenzie MD [address] [place] [address] PCP - General General Medicine 10/01/18 07/30/19 Aston Yañez MD [address] [place] [address] PCP - General Endocrinology 07/31/19 Brett Mackenzie MD [address] [place] [address] Psychiatry, General 10/01/18 documented as of this encounter
--- OUTSIDE RECORDS SUMMARY | 2024-12-02 06:57 | XMS_ITS | Encounter Summary ---
Author Organization [facility] Address [address] [place] [address] Care Team Providers Care Master Tax Advisor Name Role Phone Brett Mackenzie MD Unavailable [phone] Aston Yañez MD Primary Care Provider [phone] Encounter Details Date Type Department Care Team (Late st Contact Info) Description 02/25/2020 Scanned Document [facility] Neurosurgery [address] [phone] Social History Tobacco Use Types Packs/Day Years [...] on filedocumented in this encounter Care Teams Master Tax Advisor Relationship Specialty Start Date End Date Aston Yañez MD [address] [place] [address] [place] [address] PCP - General Endocrinology 07/31/19 Brett Mackenzie MD [address] [place] [address] Psychiatry, General 10/01/18 documented as of this encounter
--- OUTSIDE RECORDS SUMMARY | 2024-12-02 06:57 | XMS_ITS | Encounter Summary ---
Author Organization [facility] Address [address] [place] [address] Care Team Providers Care Fur Glosser Name Role Phone Brett Mackenzie MD Unavailable [phone] Aston Yañez MD Primary Care Provider [phone] Encounter Details Date Type Department Care Team (Late st Contact Info) Description 07/31/2019 Scanned Document [facility] Neurosurgery [address] [phone] Social History Tobacco Use Types Packs/Day Years [...] on filedocumented in this encounter Care Teams Fur Glosser Relationship Specialty Start Date End Date Aston Yañez MD [address] [place], [place] [address] [address] PCP - General Endocrinology 07/31/19 Brett Mackenzie MD [address] [place] [address] Psychiatry, General 10/01/18 documented as of this encounter
--- NOTE | 2024-12-02 07:51 | A.OFFVIS_ITS ---
Intake Intake Visit Reasons: Pair CGM w pump Rn Obgyn Required: No Accompanied by: Self / Same As Patient Allergies latex Adverse Reaction (Mild, Verified 10/19/24 09:14) skin bubbles codeine [Codeine] Adverse Reaction (Unknown, Verified 10/19/24 09:14) HEADACHE HPI Comprehensive Diabetes Asmnt Most Recent Diabetes Results: Microalb/Creat Ratio 12.5 ug/mg cr (<30) 03/19/24 Cholesterol 190 mg/dL (<200) 03/19/24 HDL Cholesterol 62 mg/dL (>40) 03/19/24 Triglycerides 75 mg/dL (<150) 03/19/24 Creatinine 0.91 mg/dL (0.5-1.4) 03/19/24 Blood Urea Nitrogen 28 mg/dL (9-16) H 03/19/24 Sodium 138 mmol/L (135-145) 03/19/24 Potassium 4.3 mmol/L (3.3-5.1) 03/19/24 Chloride 104 mmol/L (96-108) 03/19/24 Carbon Dioxide 28 mmol/L (22-29) 03/19/24 Calcium 8.9 mg/dL (8.4-10.2) 03/19/24 AST 23 U/L (5-37) 03/19/24 ALT 20 U/L (0-40) 03/19/24 Total Protein 7.0 g/dL (6.5-8.0) 03/19/24 Albumin 4.1 g/dL (3.5-5.0) 03/19/24 [facility] History Stroke Hyperlipemia Fusion of joint Diabetes Back injury Surgical History History of surgery History of shoulder surgery Family History Father Diabetes Brother Diabetes Other Mental health disorder Social History Household Members: Spouse and Family Household Members Other:: , grandchild Housing: Condominium Alcohol intake: current Alcohol intake frequency: holidays/special occasions only Alcohol type: beer Patient Tobacco Use Status: Former Tobacco user Tobacco use type: Cigarette Years Smoked: since age 16 e-Cigarette/Vaping Use: Never Used Second Hand Smoke Exposure: No Substance Use Type: Marijuana Current occupational status: employed 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 Patient's insurance will no longer cover Dexcom G7 sensors, patient at today's visit to upgrade pump to connect to Gwendolyn 2+ sensor The following topics were reviewed today: Signed into patient's T connect account to complete tutorials regarding upgrading patient's T slim insulin pump to connect with Dexcom G7 or Freestyle gwendolyn 2+ Completed tutorial is a upgraded pump software, in office today. Patient is currently wearing Dexcom G7 sensor so we connected T slim to current sensor sess ion. Patient stated he understood once Dexcom G7 sensor expires he will connect insulin pump to Gwenodlyn 2+ sensor with T connect goldie on cell phone. Instructed patient on how to select new sensor type in T slim. How to insert and start Gwendolyn 2+ sensor ??? High Alert: 310 mg/dl ??? Low Alert: 60 mg/dl Patient has not had integrated T slim with sensor since 11/22/2024, today's visit we reconnected T slim to sensor. Instructed patient always to disconnect from insulin pump when changing cartridge and tubing Inserting infusion set or starting pod Troubleshooting after starting new pod or inserting new insulin set: Occlusion, adhesive tape sensitivity, redness Check BG 2 hours after site change Patient understands the basic concepts of pump therapy, how to give insulin for meals and snacks, how to troubleshoot for hyper and hypoglycemia. Setting verified by CDCES, no changes made to pump settings at today's visit Basal rate(s) (units/hour) : 12 AM to 12 AM? 1.2 units / hr Bolus setting Insulin Carbohydrate Ratio (s) 12 AM to 12 AM 1:9 Correction Factor / Sensitivity Factor 12 AM to 12 AM? 1:25 Active Insulin Time:? 5 hours Target(s): 12 AM to 12 AM 110 mg/dL Patient will follow up with CDE as instructed Patient will contact CDE with questions or concerns, patient given IT number to support in any technical issues related to insulin pump Patient Instructions: Patient reports he will follow-up as needed Coding Level of Care Code Est Pt Level 1 (86237) Diagnoses Type 1 diabetes E10.9
== END 2024-12-02 08:00 | disposition home or self-care (01) ==
PROVIDERS: PCP Nurse Practitioner Family; Visit Provider Registered Nurse Diabetes Educator
DX: E10.9 Type 1 diabetes mellitus without complications (principal)

== ENCOUNTER → 2024-12-02 06:54 | Outpatient (BNVA) | payer OTHER, SELFPAY | PROVIDERS: PCP Nurse Practitioner Family; Visit Provider Registered Nurse Diabetes Educator | DX: E10.9 Type 1 diabetes mellitus without complications (principal); Z96.41 Presence of insulin pump (external) (internal); Z79.4 Long term (current) use of insulin | CPT/HCPCS: 99211 ==

== ENCOUNTER 2025-01-12 11:16 | Outpatient (REF) | payer OTHER, SELFPAY ==
--- NOTE | ~2025-01-12 | XR_ITS ---
EXAMINATION: XR SHOULDER 2 OR MORE VIEWS RIGHT HISTORY: M25.511 - Pain in right shoulder COMPARISON: There are no prior studies available for comparison. FINDINGS: Three views of the right shoulder are submitted. Osseous mineralization is normal. There is no fracture or dislocation. The glenohumeral joint is maintained. There is moderate osteoarthritis of the AC joint, with joint space narrowing. There is soft tissue calcifications adjacent to the greater tuberosity of the humerus which are likely related to the rotator cuff. XR/XR shoulder RT min 2V IMPRESSION: Moderate osteoarthritis of the AC joint. Probable rotator cuff calcifications. Electronically signed by: Travis Smiley MD 01/13/2025 12:49 PM EDT
--- NOTE | ~2025-01-12 | XR_ITS ---
EXAMINATION: XR CERVICAL SPINE CLINICAL INFORMATION: M54.2 - Cervicalgia COMPARISON: March 19, 2018. TECHNIQUE: 3 views of the cervical spine were obtained. FINDINGS: Region osteophyte formation and endplate sclerosis and decreased intervertebral disc height C6-7. Grade 1 anterolisthesis C5-6. Craniocervical junction is intact. No lytic or blastic lesions. XR/XR cervical spine 2V IMPRESSION: Spondylosis C6-7. Grade 1 anterolisthesis at C5-6. Electronically signed by: Marc Garcia MD 01/13/2025 02:27 PM EDT
[2025-01-12 13:27] LABS: MANUAL DIFF FLAG NO
[2025-01-12 13:37] LABS: Basophils Absolute Auto 0.1 X10*3/uL (0.0-0.2); Basophils Percent Auto 1.5 % (0-2); Eosinophils Absolute Auto 0.3 X10*3/uL (0.0-0.4); Eosinophils Percent Auto 4.5 % (0-4); Hematocrit 42.7 % (42.0-52.0); Hemoglobin 15.2 g/dl (14.0-18.0); Imm Gran Abs Auto 0.04 X10*3/uL (0.00-0.03); Imm Gran Pct Auto 0.5 % (0.0-0.4); Lymphocytes Absolute Auto 1.8 X10*3/uL (1.2-4.9); Lymphocytes Percent Auto 23.2 % (20-40); Mean Corpuscular HGB Conc 35.6 g/dl (31.0-36.0); Mean Corpuscular Hemoglobin 33.3 pg (27.0-33.0); Mean Corpuscular Volume 93.6 fL (80.0-98.0); Mean Platelet Volume 10.1 fL (9.4-12.4); Monocytes Absolute Auto 0.7 X10*3/uL (0.1-1.2); Monocytes Percent Auto 8.9 % (2-11); Neutrophils Absolute Auto 4.7 x10*3/uL (2.0-8.3); Neutrophils Percent Auto 61.4 % (45-73); Platelet Count 258 X10*3/uL (160-400); Red Blood Count 4.56 X10*6/uL (4.60-5.80); Red Cell Distribution Width 12.1 % (11.0-16.0); White Blood Count 7.6 X10*3/uL (4.8-10.8)
[2025-01-12 13:52] LABS: Appearance Urine Clear; Color Urine Yellow; Glucose Urine UA Negative (Negative); Leukocyte Esterase Urine Negative (Negative); Nitrite Urine Negative (Negative); Specific Gravity - Urine 1.015 (1.005-1.025); Urine Blood Negative (Negative); Urine Ketones Negative (Negative); Urine Protein Negative (Neg-Trace)
--- OUTSIDE RECORDS SUMMARY | 2025-01-12 13:56 | XMS_ITS | Encounter Summary ---
Author Organization [facility] Address [address] [place] [address] Care Team Providers Care Casing Material Weigher Name Role Phone Brett Mackenzie MD Unavailable [phone] Aston Yañez MD Primary Care Provider [phone] Encounter Details Date Type Department Care Team (Late st Contact Info) Description 12/29/2019 Scanned Document [facility] Neurosurgery [address] [phone] Social History Tobacco Use Types Packs/Day Years [...] on filedocumented in this encounter Care Teams Casing Material Weigher Relationship Specialty Start Date End Date Aston Yañez MD [address] [place] [address] PCP - General Endocrinology 07/31/19 Brett Mackenzie MD [address] [place] [address] Psychiatry, General 10/01/18 documented as of this encounter
--- OUTSIDE RECORDS SUMMARY | 2025-01-12 13:56 | XMS_ITS | Encounter Summary ---
Author Organization [facility] Address [address] [place] [address] Care Team Providers Care Historian Dramatic Arts Name Role Phone Brett Mackenzie MD Unavailable [phone] Aston Yañez MD Primary Care Provider [phone] Encounter Details Date Type Department Care Team (Late st Contact Info) Description 03/15/2020 Scanned Document [facility] Neurosurgery [address] [phone] Social History Tobacco Use Types Packs/Day Years [...] on filedocumented in this encounter Care Teams Historian Dramatic Arts Relationship Specialty Start Date End Date Aston Yañez MD [address] [place] [address] [place] [address] PCP - General Endocrinology 07/31/19 Brett Mackenzie MD [address] [place] [address] Psychiatry, General 10/01/18 documented as of this encounter
--- OUTSIDE RECORDS SUMMARY | 2025-01-12 13:56 | XMS_ITS | Encounter Summary ---
Author Organization [facility] Address [address] [place] [address] Care Team Providers Care English Teacher Name Role Phone Brett Mackenzie MD Unavailable [phone] Aston Yañez MD Primary Care Provider [phone] Encounter Details Date Type Department Care Team (Late st Contact Info) Description 07/31/[address] [facility] Neurosurgery [address] [phone] Social History Tobacco Use Types Packs/Day Years [...] on filedocumented in this encounter Care Teams English Teacher Relationship Specialty Start Date End Date Aston Yañez MD [address] [place], [place] [address] [address] PCP - General Endocrinology 07/31/19 Brett Mackenzie MD [address] [place] [address] Psychiatry, General 10/01/18 documented as of this encounter
--- OUTSIDE RECORDS SUMMARY | 2025-01-12 13:56 | XMS_ITS | Encounter Summary ---
Author Organization [facility] Address [address] [place] [address] Care Team Providers Care Candy Spreader Helper Name Role Phone Brett Mackenzie MD Primary Care Provider Brett Mackenzie MD Unavailable [phone] Aston Yañez MD Primary Care Provider [phone] Encounter Details Date Type Department Care Team (Late st Contact Info) Description 04/20/2019 Scanned Document [facility] Neurosurgery [place] 35 [facility] 5 [place] [phone] Osvaldo Coleman MD 35 [facility] 5 [place] [address] Social History Tobacco Use Types Packs/Day Years [...] on filedocumented in this encounter Care Teams Candy Spreader Helper Relationship Specialty Start Date End Date Brett Mackenzie MD [address] [place] [address] [phone] PCP - General General Medicine 10/01/18 07/30/19 Aston Yañez MD [address] [place] [address] [phone] PCP - General Endocrinology 07/31/19 Brett Mackenzie MD [address] [place] [address] Psychiatry, General 10/01/18 documented as of this encounter
--- OUTSIDE RECORDS SUMMARY | 2025-01-12 13:56 | XMS_ITS | Encounter Summary ---
Author Organization [facility] Address [address] [place] [address] Care Team Providers Care Sharepoint Admin Name Role Phone Brett Mackenzie MD Unavailable [phone] Aston Yañez MD Primary Care Provider [phone] Encounter Details Date Type Department Care Team (Late st Contact Info) Description 03/17/2020 Scanned Document [facility] Neurosurgery [address] [phone] Social History Tobacco Use Types Packs/Day Years [...] on filedocumented in this encounter Care Teams Sharepoint Admin Relationship Specialty Start Date End Date Aston Yañez MD [address] [place] [address] [place] [address] PCP - General Endocrinology 07/31/19 Brett Mackenzie MD [address] [place] [address] Psychiatry, General 10/01/18 documented as of this encounter
--- OUTSIDE RECORDS SUMMARY | 2025-01-12 13:56 | XMS_ITS | Encounter Summary ---
Author Organization [facility] Address [address] [place] [address] Care Team Providers Care Taxation Economist Name Role Phone Brett Mackenzie MD Unavailable [phone] Aston Yañez MD Primary Care Provider [phone] Encounter Details Date Type Department Care Team (Late st Contact Info) Description 02/25/2020 Scanned Document [facility] Neurosurgery [address] [phone] Social History Tobacco Use Types Packs/Day Years [...] on filedocumented in this encounter Care Teams Taxation Economist Relationship Specialty Start Date End Date Aston Yañez MD [address] [place] [address] [place] [address] PCP - General Endocrinology 07/31/19 Brett Mackenzie MD [address] [place] [address] Psychiatry, General 10/01/18 documented as of this encounter
--- OUTSIDE RECORDS SUMMARY | 2025-01-12 13:56 | XMS_ITS | Encounter Summary ---
Author Organization [facility] Address [address] [place] [address] Care Team Providers Care Supervisor Housecleaner Name Role Phone Brett Mackenzie MD Unavailable [phone] Aston Yañez MD Primary Care Provider [phone] Encounter Details Date Type Department Care Team (Late st Contact Info) Description 04/29/2020 Scanned Document [facility] Neurosurgery [address] [place] [address] [phone] Social History Tobacco Use Types Packs/Day Years [...] on filedocumented in this encounter Care Teams Supervisor Housecleaner Relationship Specialty Start Date End Date Aston Yañez MD [address] [place] [address] [place] [address] PCP - General Endocrinology 07/31/19 Brett Mackenzie MD [address] [place] [address] Psychiatry, General 10/01/18 documented as of this encounter
--- OUTSIDE RECORDS SUMMARY | 2025-01-12 13:56 | XMS_ITS | Encounter Summary ---
Author Organization [facility] Address [address] [place] [address] Care Team Providers Care Boat Wrapper Name Role Phone Brett Mackenzie MD Unavailable [phone] Aston Yañez MD Primary Care Provider [phone] Encounter Details Date Type Department Care Team (Late st Contact Info) Description 03/11/2020 Scanned Document [facility] Neurosurgery [address] [phone] Social History Tobacco Use Types Packs/Day Years [...] on filedocumented in this encounter Care Teams Boat Wrapper Relationship Specialty Start Date End Date Aston Yañez MD [address] [place] [address] [place] [address] PCP - General Endocrinology 07/31/19 Brett Mackenzie MD [address] [place] [address] Psychiatry, General 10/01/18 documented as of this encounter
--- OUTSIDE RECORDS SUMMARY | 2025-01-12 13:56 | XMS_ITS | Encounter Summary ---
Author Organization [facility] Address [address] [place] [address] Care Team Providers Care Crepe Maker Name Role Phone Brett Mackenzie MD Unavailable [phone] Aston Yañez MD Primary Care Provider [phone] Encounter Details Date Type Department Care Team (Late st Contact Info) Description 01/07/2020 Scanned Document [facility] Neurosurgery [address] [phone] Social History Tobacco Use Types Packs/Day Years [...] on filedocumented in this encounter Care Teams Crepe Maker Relationship Specialty Start Date End Date Aston Yañez MD [address] [place] [address] PCP - General Endocrinology 07/31/19 Brett Mackenzie MD [address] [place] [address] Psychiatry, General 10/01/18 documented as of this encounter
--- OUTSIDE RECORDS SUMMARY | 2025-01-12 13:56 | XMS_ITS | Encounter Summary ---
Author Organization [facility] Address [address] [place] [address] Care Team Providers Care Blueprint Cutter Name Role Phone Brett Mackenzie MD Unavailable [phone] Aston Yañez MD Primary Care Provider [phone] Encounter Details Date Type Department Care Team (Late st Contact Info) Description 03/24/2020 Scanned Document [facility] Neurosurgery [address] [phone] Social History Tobacco Use Types Packs/Day Years [...] on filedocumented in this encounter Care Teams Blueprint Cutter Relationship Specialty Start Date End Date Aston Yañez MD [address] [place] [address] [place] [address] PCP - General Endocrinology 07/31/19 Brett Mackenzie MD [address] [place] [address] Psychiatry, General 10/01/18 documented as of this encounter
--- OUTSIDE RECORDS SUMMARY | 2025-01-12 13:56 | XMS_ITS | Encounter Summary ---
Author Organization [facility] Address [address] [place] [address] Care Team Providers Care Director Call Center Sales Name Role Phone Brett Mackenzie MD Primary Care Provider [phone] Brett Mackenzie MD Unavailable [phone] Aston Yañez MD Primary Care Provider [phone] Encounter Details Date Type Department Care Team (Late st Contact Info) Description 04/15/2019 Scanned Document [facility] Neurosurgery [address] [phone] Social History Tobacco Use Types [...] on filedocumented in this encounter Care Teams Director Call Center Sales Relationship Specialty Start Date End Date Brett Mackenzie MD [address] [place] [address] PCP - General General Medicine 10/01/18 07/30/19 Aston Yañez MD [address] [place] [address] PCP - General Endocrinology 07/31/19 Brett Mackenzie MD [address] [place] [address] Psychiatry, General 10/01/18 documented as of this encounter
--- OUTSIDE RECORDS SUMMARY | 2025-01-12 13:56 | XMS_ITS | Encounter Summary ---
Author Organization [facility] Address [address] [place] [address] Care Team Providers Care Supervisor Of Officials Name Role Phone Brett Mackenzie MD Primary Care Provider [phone] Brett Mackenzie MD Unavailable [phone] Aston Yañez MD Primary Care Provider [phone] Encounter Details Date Type Department Care Team (Late st Contact Info) Description 07/06/2019 Scanned Document [facility] Neurosurgery [address] [phone] Social History Tobacco Use Types [...] filedocumented in this encounter Care Teams Supervisor Of Officials Relationship Specialty Start Date End Date Brett Mackenzie MD [address] [place] [address] PCP - General General Medicine 10/01/18 07/30/19 Aston Yañez MD [address] [place] [address] PCP - General Endocrinology 07/31/19 Brett Mackenzie MD [address] [place] [address] Psychiatry, General 10/01/18 documented as of this encounter
--- OUTSIDE RECORDS SUMMARY | 2025-01-12 13:56 | XMS_ITS | Encounter Summary ---
Author Organization [facility] Address [address] [place] [address] Care Team Providers Care Education Program Specialist Name Role Phone Brett Mackenzie MD Unavailable [phone] Aston Yañez MD Primary Care Provider [phone] Encounter Details Date Type Department Care Team (Late st Contact Info) Description 12/18/2019 Scanned Document [facility] Neurosurgery [address] [phone] Social History Tobacco Use Types Packs/Day Years [...] on filedocumented in this encounter Care Teams Education Program Specialist Relationship Specialty Start Date End Date Aston Yañez MD [address] [place] [address] PCP - General Endocrinology 07/31/19 Brett Mackenzie MD [address] [place] [address] Psychiatry, General 10/01/18 documented as of this encounter
--- OUTSIDE RECORDS SUMMARY | 2025-01-12 13:56 | XMS_ITS | Encounter Summary ---
Author Organization [facility] Address [address] [place] [address] Care Team Providers Care Balance Recesser Name Role Phone Brett Mackenzie MD Unavailable [phone] Aston Yañez MD Primary Care Provider [phone] Encounter Details Date Type Department Care Team (Late st Contact Info) Description 04/28/2020 Scanned Document [facility] Neurosurgery [address] [phone] Social History Tobacco Use Types Packs/Day Years [...] on filedocumented in this encounter Care Teams Balance Recesser Relationship Specialty Start Date End Date Aston Yañez MD [address] [place] [address] [place] [address] PCP - General Endocrinology 07/31/19 Brett Mackenzie MD [address] [place] [address] Psychiatry, General 10/01/18 documented as of this encounter
--- OUTSIDE RECORDS SUMMARY | 2025-01-12 13:56 | XMS_ITS | Encounter Summary ---
Author Organization [facility] Address [address] [place] [address] Care Team Providers Care Manager Java Name Role Phone Brett Mackenzie MD Unavailable [phone] Aston Yañez MD Primary Care Provider [phone] Encounter Details Date Type Department Care Team (Late st Contact Info) Description 03/22/2020 Scanned Document [facility] Neurosurgery [address] [phone] Social History Tobacco Use Types Packs/Day Years [...] on filedocumented in this encounter Care Teams Manager Java Relationship Specialty Start Date End Date Aston Yañez MD [address] [place] [address] [place] [address] PCP - General Endocrinology 07/31/19 Brett aMckenzie MD [address] [place] [address] Psychiatry, General 10/01/18 documented as of this encounter
--- OUTSIDE RECORDS SUMMARY | 2025-01-12 13:56 | XMS_ITS | Encounter Summary ---
Author Organization [facility] Address [address] [place] [address] Care Team Providers Care Charging Car Operator Name Role Phone Brett Mackenzie MD Primary Care Provider [phone] Brett Mackenzie MD Unavailable [phone] Aston Yañez MD Primary Care Provider [phone] Encounter Details Date Type Department Care Team (Late st Contact Info) Description 07/06/2019 Prep for Surgery [facility] Neurosurgery [address] [phone] Lizett Mensah PA [address] [address] Social History Tobacco Use Types Packs/Day Years [...] on filedocumented in this encounter Care Teams Charging Car Operator Relationship Specialty Start Date End Date Brett Mackenzie MD [address] [place] [address] [phone] PCP - General General Medicine 10/01/18 07/30/19 Aston Yañez MD [address] [place] [address] [phone] PCP - General Endocrinology 07/31/19 Brett Mackenzie MD [address] [place] [address] Psychiatry, General 10/01/18 documented as of this encounter
--- OUTSIDE RECORDS SUMMARY | 2025-01-12 13:57 | XMS_ITS | Encounter Summary ---
Author Organization [facility] Address [address] [place] [address] Care Team Providers Care Health Care Analyst Name Role Phone Brett Mackenzie MD Unavailable [phone] Aston Yañez MD Primary Care Provider [phone] Encounter Details Date Type Department Care Team (Late st Contact Info) Description 08/03/2019 Scanned Document [facility] Neurosurgery [address] [phone] Social History Tobacco Use Types Packs/Day Years [...] on filedocumented in this encounter Care Teams Health Care Analyst Relationship Specialty Start Date End Date Aston Yañez MD [address] [place] [address] PCP - General Endocrinology 07/31/19 Brett Mackenzie MD [address] [place] [address] Psychiatry, General 10/01/18 documented as of this encounter
--- OUTSIDE RECORDS SUMMARY | 2025-01-12 13:57 | XMS_ITS | Encounter Summary ---
Author Organization [facility] Address [address] [place] [address] Care Team Providers Care Finish Mender Name Role Phone Brett Mackenzie MD Unavailable [phone] Aston Yañez MD Primary Care Provider [phone] Encounter Details Date Type Department Care Team (Late st Contact Info) Description 06/24/2020 Scanned Document [facility] Neurosurgery [address] [phone] Social History Tobacco Use Types Packs/Day Years [...] on filedocumented in this encounter Care Teams Finish Mender Relationship Specialty Start Date End Date Aston Yañez MD [address] [place] [address] [place] [address] PCP - General Endocrinology 07/31/19 Brett Mackenzie MD [address] [place] [address] Psychiatry, General 10/01/18 documented as of this encounter
--- OUTSIDE RECORDS SUMMARY | 2025-01-12 13:57 | XMS_ITS | Clinical Summary ---
Author Organization [facility] Address [address] [place] [address] Care Team Providers Care Carbon Sequestration Plant Engineer Name Role Phone Brett Mackenzie MD Unavailable [phone] Aston Yañez MD Primary Care Provider Allergies Active Allergy Reactions Criticality Noted Date [...] this topic Medical Devices Implanted Type Area Lens Mounter Device Identifier Shelf Expiration Date Model / Serial / Lot [id number] System Spinal Fixation 55mm 7mm Ifuse Implant System 3ang - Sn/A Implanted:Qty: 1 on 08/05/2019 by Osvaldo Coleman MD at [facility] [employer] 01/09/2024 [id number]-90 / N/A / [id number] System Spinal Fixation 45mm 7mm Ifuse Implant System 3ang - Sn/A Implanted:Qty: 1 on 08/05/2019 by Osvaldo Coleman MD at [facility] [employer] 04/10/2024 7045M-90 / N/A / [id number]-[id number] System Spinal Fixation 45mm 7mm Ifuse Implant System 3ang - Sn/A Implanted:Qty: 1 on 08/05/2019 by Osvaldo Coleman MD at [facility] [employer] 04/10/2024 [id number]-90 / N/A / [id number] Advance Directives * Full Code (Latest Code Status on File) Date Activated Date Inactivated Comments 08/05/2019 10:54 AM * Full Code Date Activated Date Inactivated Comments 08/05/2019 8:02 AM 08/05/2019 10:54 AM Care Teams Carbon Sequestration Plant Engineer Relationship Specialty Start Date End Date Aston Yañez MD [address] [place] [address] [phone] PCP - General Endocrinology 07/31/19 Brett Mackenzie MD [address] [place] [address] Psychiatry, General 10/01/18
--- OUTSIDE RECORDS SUMMARY | 2025-01-12 13:57 | XMS_ITS | Encounter Summary ---
Author Organization [facility] Address [address] [place] [address] Care Team Providers Care Supervisor Title Name Role Phone Brett Mackenzie MD Unavailable [phone] Aston Yañez MD Primary Care Provider [phone] Encounter Details Date Type Department Care Team (Late st Contact Info) Description 08/03/2019 Scanned Document [facility] Neurosurgery [address] [phone] Neurosurgery, Scan Social History Tobacco Use Types [...] filedocumented in this encounter Care Teams Supervisor Title Relationship Specialty Start Date End Date Aston Yañez MD [address] [place] [address] PCP - General Endocrinology 07/31/19 Brett Mackenzie MD [address] [place] [address] Psychiatry, General 10/01/18 documented as of this encounter
--- OUTSIDE RECORDS SUMMARY | 2025-01-12 13:57 | XMS_ITS | Encounter Summary ---
Author Organization [facility] Address [address] [place] [address] Care Team Providers Care Environmental Construction Engineer Name Role Phone Brett Mackenzie MD Primary Care Provider [phone] Brett Mackenzie MD Unavailable [phone] Aston Yañez MD Primary Care Provider [phone] Encounter Details Date Type Department Care Team (Late st Contact Info) Description 02/16/[address] [facility] Neurosurgery [place] 35 [facility] 5 [place] [address] Osvaldo Coleman MD 35 [facility] 5 [place] [address] Social History Tobacco Use Types Packs/Day Years Used Date Smoking Tobacco: Former Sex and Gender Information Value Date Recorded Sex Assigned at Not on file Gender Identity Not on file Sexual Orientation Not on file documented as of this encounter Plan of Treatment Not on file documented as of this encounter Visit Diagnoses Not on filedocumented in this encounter Care Teams Environmental Construction Engineer Relationship Specialty Start Date End Date Brett Mackenzie MD [address] [place] [address] [phone] PCP - General General Medicine 10/01/18 07/30/19 Aston Yañez MD [address] [place] [address] [phone] PCP - General Endocrinology 07/31/19 Brett Mackenzie MD [address] [place] [address] Psychiatry, General 10/01/18 documented as of this encounter
--- OUTSIDE RECORDS SUMMARY | 2025-01-12 13:57 | XMS_ITS | Encounter Summary ---
Author Organization [facility] Address [address] [place] [address] Care Team Providers Care Lunch Counter Manager Name Role Phone Brett Mackenzie MD Unavailable [phone] Aston Yañez MD Primary Care Provider [phone] Encounter Details Date Type Department Care Team (Late st Contact Info) Description 08/03/2019 Scanned Document [facility] Neurosurgery [address] [phone] Neurosurgery, Scan Social History Tobacco Use Types [...] on filedocumented in this encounter Care Teams Lunch Counter Manager Relationship Specialty Start Date End Date Aston Yañez MD [address] [place] [address] PCP - General Endocrinology 07/31/19 Brett Mackenzie MD [address] [place] [address] Psychiatry, General 10/01/18 documented as of this encounter
--- OUTSIDE RECORDS SUMMARY | 2025-01-12 13:57 | XMS_ITS | Encounter Summary ---
Author Organization [facility] Address [address] [place] [address] Care Team Providers Care Radio Machinist Name Role Phone Brett Mackenzie MD Unavailable [phone] Aston Yañez MD Primary Care Provider [phone] Encounter Details Date Type Department Care Team (Late st Contact Info) Description 08/05/2020 Scanned Document [facility] Neurosurgery [address] [phone] Social History Tobacco Use Types [...] filedocumented in this encounter Care Teams Radio Machinist Relationship Specialty Start Date End Date Aston Yañez MD [address] [place] [address] PCP - General Endocrinology 07/31/19 Brett Mackenzie MD [address] [place] [address] Psychiatry, General 10/01/18 documented as of this encounter
--- OUTSIDE RECORDS SUMMARY | 2025-01-12 13:57 | XMS_ITS | Encounter Summary ---
Author Organization [facility] Address [address] [place] [address] Care Team Providers Care Assembler Type Bar And Segment Name Role Phone Brett Mackenzie MD Primary Care Provider [phone] Brett Mackenzie MD Unavailable [phone] Aston Yañez MD Primary Care Provider [phone] Encounter Details Date Type Department Care Team (Late st Contact Info) Description 11/26/2018 Scanned Document [facility] Neurosurgery [place] 35 [facility] 5 [place] [address] Osvaldo Coleman MD 35 [facility] 5 [place] [address] Social History Tobacco Use Types Packs/Day Years Used Date Smoking Tobacco: Never Assessed Sex and Gender Information Value Date Recorded Sex Assigned at Not on file Gender Identity Not on file Sexual Orientation Not on file documented as of this encounter Plan of Treatment Not on file documented as of this encounter Visit Diagnoses Not on filedocumented in this encounter Care Teams Assembler Type Bar And Segment Relationship Specialty Start Date End Date Brett Mackenzie MD [address] [place] [address] PCP - General General Medicine 10/01/18 07/30/19 Aston Yañez MD [address] [place] [address] PCP - General Endocrinology 07/31/19 Brett Mackenzie MD [address] [place] [address] Psychiatry, General 10/01/18 documented as of this encounter
--- OUTSIDE RECORDS SUMMARY | 2025-01-12 13:57 | XMS_ITS | Encounter Summary ---
Author Organization [facility] Address [address] [place] [address] Care Team Providers Care Track Coach Name Role Phone Brett Mackenzie MD Primary Care Provider [phone] Brett Mackenzie MD Unavailable [phone] Aston Yañez MD Primary Care Provider [phone] Encounter Details Date Type Department Care Team (Late st Contact Info) Description 03/25/2019 Scanned Document [facility] Neurosurgery [place] [address] [phone] [place], [place] [address] [address] Social History Tobacco Use Types Packs/Day Years [...] on filedocumented in this encounter Care Teams Track Coach Relationship Specialty Start Date End Date Brett Mackenzie MD [address] [place] [address] [phone] PCP - General General Medicine 10/01/18 07/30/19 Aston Yañez MD [address] [place] [address] [phone] PCP - General Endocrinology 07/31/19 Brett Mackenzie MD [address] [place] [address] Psychiatry, General 10/01/18 documented as of this encounter
--- OUTSIDE RECORDS SUMMARY | 2025-01-12 13:57 | XMS_ITS | Encounter Summary ---
Author Organization [facility] Address [address] [place] [address] Care Team Providers Care Food Science Professor Name Role Phone Brett Mackenzie MD Unavailable [phone] Aston Yañez MD Primary Care Provider [phone] Encounter Details Date Type Department Care Team (Late st Contact Info) Description 12/29/2019 Scanned Document [facility] Neurosurgery [address] [phone] Social History Tobacco Use Types Packs/Day Years [...] on filedocumented in this encounter Care Teams Food Science Professor Relationship Specialty Start Date End Date Aston Yañez MD [address] [place] [address] PCP - General Endocrinology 07/31/19 Brett Mackenzie MD [address] [place] [address] Psychiatry, General 10/01/18 documented as of this encounter
--- OUTSIDE RECORDS SUMMARY | 2025-01-12 13:57 | XMS_ITS | Encounter Summary ---
Author Organization [facility] Address [address] [place] [address] Care Team Providers Care County Health Officer Name Role Phone Brett Mackenzie MD Primary Care Provider [phone] Brett Mackenzie MD Unavailable [phone] Aston Yañez MD Primary Care Provider [phone] Encounter Details Date Type Department Care Team (Late st Contact Info) Description 11/26/[address] [facility] Neurosurgery [place] 35 [facility] 5 [place] [address] Osvaldo Coleman MD 35 [facility] 5 [place] [address] Social History Tobacco Use Types Packs/Day Years Used Date Smoking Tobacco: Never Assessed Sex and Gender Information Value Date Recorded Sex Assigned at Not on file Gender Identity Not on file Sexual Orientation Not on file documented as of this encounter Plan of Treatment Not on file documented as of this encounter Visit Diagnoses Not on filedocumented in this encounter Care Teams County Health Officer Relationship Specialty Start Date End Date Brett Mackenzie MD [address] [place] [address] PCP - General General Medicine 10/01/18 07/30/19 Aston Yañez MD [address] [place] [address] PCP - General Endocrinology 07/31/19 Brett Mackenzie MD [address] [place] [address] Psychiatry, General 10/01/18 documented as of this encounter
--- OUTSIDE RECORDS SUMMARY | 2025-01-12 13:57 | XMS_ITS | Encounter Summary ---
Author Organization [facility] Address [address] [place] [address] Care Team Providers Care Assembly Room Supervisor Name Role Phone Brett Mackenzie MD Unavailable [phone] Aston Yañez MD Primary Care Provider [phone] Encounter Details Date Type Department Care Team (Late st Contact Info) Description 10/07/2019 Scanned Document [facility] Neurosurgery [address] [phone] Social History Tobacco Use Types Packs/Day Years [...] on filedocumented in this encounter Care Teams Assembly Room Supervisor Relationship Specialty Start Date End Date Aston Yañez MD [address] [place] [address] PCP - General Endocrinology 07/31/19 Brett Mackenzie MD [address] [place] [address] Psychiatry, General 10/01/18 documented as of this encounter
--- OUTSIDE RECORDS SUMMARY | 2025-01-12 13:57 | XMS_ITS | Encounter Summary ---
Author Organization [facility] Address [address] [place] [address] Care Team Providers Care Mechanical Test Engineer Name Role Phone Brett Mackenzie MD Unavailable [phone] Aston Yañez MD Primary Care Provider [phone] Encounter Details Date Type Department Care Team (Late st Contact Info) Description 07/31/2019 Scanned Document [facility] Neurosurgery [address] [phone] Social History Tobacco Use Types Packs/Day Years [...] on filedocumented in this encounter Care Teams Mechanical Test Engineer Relationship Specialty Start Date End Date Aston Yañez MD [address] [place], [place] [address] [address] PCP - General Endocrinology 07/31/19 Brett Mackenzie MD [address] [place] [address] Psychiatry, General 10/01/18 documented as of this encounter
[2025-01-12 14:12] LABS: Free T4 (Free Thyroxine) 0.83 ng/dL (0.71-1.85)
[2025-01-12 14:27] LABS: Alanine Aminotransferase 23 U/L (0-40); Albumin Level 3.9 g/dL (3.5-5.0); Anion Gap 10 (12-20); Aspartate Amino Transferase 25 U/L (5-37); Bilirubin Total 0.5 mg/dL (0.0-1.0); Blood Urea Nitrogen 17 mg/dL (9-16); Calcium 8.9 mg/dL (8.4-10.2); Carbon Dioxide 28 mmol/L (22-29); Chloride 106 mmol/L (96-108); Cholesterol 180 mg/dL (<200); Estimated Glomerular Filt Rate > 60; Glucose Fasting 90 mg/dL (60-99); HDL Cholesterol 60 mg/dL (>40); LDL Cholesterol Calculated 104 mg/dL (<100); Potassium 4.1 mmol/L (3.3-5.1); Sodium 140 mmol/L (135-145); Total Protein 6.7 g/dL (6.5-8.0); Triglycerides 82 mg/dL (<150)
[2025-01-12 14:49] LABS: TSH reflex Free T4 5.22 uIU/mL (0.32-4.0); Thyroid Stimulating Hormone 5.22 uIU/mL (0.32-4.0)
[2025-01-12 17:21] LABS: Alkaline Phosphatase 70 U/L (39-117)
[2025-01-18 18:58] LABS: Thyroid Peroxidase Antibodies 2 IU/mL (<9)
== END 2025-01-12 11:17 | disposition home or self-care (01) ==
LOC: HO.HMGCX 11:16
PROVIDERS: PCP Nurse Practitioner Family; Referring Provider Nurse Practitioner Adult Health; Visit Provider Nurse Practitioner Family
DX: Z00.00 Encounter for general adult medical examination without abnormal findings (principal); R79.89 Other specified abnormal findings of blood chemistry; M25.511 Pain in right shoulder; M54.2 Cervicalgia
CPT/HCPCS: 36415; 72040; 73030; 80053; 80061; 81003; 84439; 84443; 85025; 86376

== ENCOUNTER → 2025-01-12 11:22 | Outpatient (BNV) | payer OTHER, SELFPAY | PROVIDERS: PCP Nurse Practitioner Family; Referring Provider Nurse Practitioner Adult Health; Visit Provider Radiology Diagnostic Radiology | DX: M47.892 Other spondylosis, cervical region (principal); M19.011 Primary osteoarthritis, right shoulder | CPT/HCPCS: 72040; 73030 ==

== ENCOUNTER 2025-01-14 07:11 | Outpatient (AMB) | payer OTHER, SELFPAY ==
--- NOTE | 2025-01-14 06:03 | MHC.OFFVIS ---
Vital Signs 01/14/25 07:29 Height 5 ft 5 in Weight 170 lb 13.732 oz BMI 28.4 BP 122/56 L Blood Pressure Location Rt brachial Position Sitting Pulse 59 Pulse Source Pulse Oximeter Pulse Oximetry (%) 95 Oxygen Delivery Method Room Air Intake Visit Reasons: T1DM Intake Note: Patient presents today to re-establish treatment for Type 1 Diabetes Mellitus: Last Diabetic eye exam was on: 08/12/2024, [facility]. Last Podiatry exam was on: Patient does not see a Christmas Tree Farmer Most recent HbA1c: 7.4% Random Glucose- 284 mg/dL Liability Claims Manager Required: No Accompanied by: Self / Same As Patient Allergies latex Adverse Reaction (Mild, Verified 01/14/25 07:44) skin bubbles codeine [Codeine] Adverse Reaction (Unknown, Verified 01/14/25 07:44) HEADACHE Medication List - Last Reconciled 01/14/25 by Cathy Engle NP acetone (urine) test (Ketone Urine Test strips) As directed p.r.n. illness or glucose over 250 atorvastatin 20 mg (2 x 10 mg) PO DAILY 30 days blood sugar diagnostic (FreeStyle Lite Strips) test blood sugar 4 times per day blood-glucose sensor (FreeStyle Gwendolyn 2 Plus Sensor device) As directed for 30 days blood-glucose transmitter ([employer] G6 Transmitter device) USE DIRECTED Humalog U-100 Insulin (insulin lispro) 70 units (0.7 mL) subcut DAILY 30 days NS insulin glargine (Lantus Solostar U-100 Insulin) 30 units subcut QAM insulin syringe-needle U-100 As directed four times a day prn pump failure lancets (FreeStyle Lancets) As directed four times a day omeprazole 20 mg PO DAILY pen needle, diabetic (BD Pamela 2nd Gen Pen Needle) once daily prn pump failure tramadol 50 mg PO DAILY 20 days HPI Comments Details: 59 YO M with is seen in f/u for T1DM. Hemoglobin A1c 01/14/25 7.4% 10/14/2024 6.7%. Previous 04/09/2024 7%. Initially diagnosed with T1DM at age 5 when he presented with illness Was initially started on treatment with insulin. Went on Tslim-2 pump 04/2023 Back up for pump failure: Lantus 30 units plus usual dose of humalog Currently being managed with T-slim pump with cotrol IQ Recently switched over to a freestyle 2+ and having some issues with connection to pump. Pump settings Basal rate(s) (units/hour) : 12 AM to 12 AM? 1.2 units / hr Bolus setting Insulin Carbohydrate Ratio (s) 12 AM to 12 AM 1:9.0 new 1:8 Correction Factor / Sensitivity Factor 12 AM to 12 AM? 1:25 Active Insulin Time:? 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 Does not see podiatry. No nephropathy, Not on PENNIE/ARB. 01/12 eGFR>60 02/2024 microalbumin 28 Has HLD,hasn't restarted on statin due for LDL advised to wait for 6 weeks Denies history of CAD. hx of CVA hemmoraghic 06/16/2010 Diet/Carb counting: Enters carbs into pump Denies prior episodes of DKA. Has had prior severe episodes of hypoglycemia requiring help or hospitalization yrs ago Was on chronic steroid in the past for back Under increased stress with pending divorce Hypothyroidism: tsh slight elevated 03/23, recent repeat: see labs below. Pending thyroid antibodies. Will await thyroid antibody testing and start patient on Levothyroxine once results are available. He will recheck his labs 6 weeks after starting medication. [facility] Medical History (Updated 01/14/25 @ 09:22 by Cathy Engle NP) Hypothyroidism Stroke Hyperlipemia Fusion of joint Diabetes Back injury Surgical History History of surgery History of shoulder surgery Family History Father Diabetes Brother Diabetes Other Mental health disorder Social History Household Members: Spouse and Family Household Members Other:: , grandchild Housing: Condominium Alcohol intake: current Alcohol intake frequency: holidays/special occasions only Alcohol type: beer Patient Tobacco Use Status: Former Tobacco user Tobacco use type: Cigarette Years Smoked: since age 16 e-Cigarette/Vaping Use: Never Used Second Hand Smoke Exposure: No Substance Use Type: Marijuana Current occupational status: employed 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 Absence of acromegalic features. Neck exam reveals nl size thyroid about 15 gms. No thyroid nodules palpable. Heart S1 S2, Reg R/R. No M/R G. Skin exam reveals absence of vitiligo or acanthosis nigricans. No edema Declined foot exam today. Reports no issues with feet. Results AMB Hemoglobin A1c AMB Hemoglobin A1c 7.4 % Last Edit by NE Garcia on 01/14/25 07:50 Results Reviewed Results Reviewed: Laboratory Last Values Glucose (Clinic) 284 mg/dL (60-115) H 01/14/25 07:41 Hgb A1c (Clinic) 7.4 % (4.0-6.0) H 01/14/25 07:44 Laboratory Tests 03/19/24 01/12/25 06:34 11:21 TSH 4.09 H 5.22 H Free T4 0.83 Assessment & Plan Assessment & Plan (1) Type 1 diabetes: Code(s): E10.9 - Type 1 diabetes mellitus without complications Category: Medical Plan: This 59-year-old white male with a history of type 1 diabetes being treated with with excellent improved glycemic control and known microvascular or macrovascular complication of retinopathy and CVA on a T slim pump. 01/14/25 7.4% 10/14/2024 6.7% hemoglobin A1c. insulin to carb ratio adjusted to give more premeal carbohydrates. The patient had an opportunity to ask questions regarding treatment plan. The patient expressed understanding and agreement with the above treatment plan. The patient is aware they should contact our office by phone for worsening glucose readings or for any low blood sugars which may warrant a change in diabetes medication. Compliance is encouraged with medications and any followup testing/consults which may have been ordered. (2) Hypothyroidism: Code(s): E03.9 - Hypothyroidism, unspecified Category: Medical Plan: Will await results and then start on 1.6 mcg/kg Levothyroxine 125 mcg. Recheck labs in 6 weeks. Orders: Orders Thyroid Stimulating Hormone 6 Weeks R7 - Other specified abnormal findings of blood chemistry Free T4 (Free Thyroxine) 6 Weeks R7 - Other specified abnormal findings of blood chemistry AMB Hemoglobin A1c Today E10.9 - Type 1 diabetes mellitus without complications, Z13.9 - Encounter for screening, unspecified Medications: Changed From atorvastatin 10 mg PO DAILY 30 days 30 tabs 11RF To atorvastatin 20 mg (2 x 10 mg) PO DAILY 30 days 60 tabs 11RF Discontinued blood-glucose,milk receiver tank truck,cont (Dexcom G6 Youth Leader) Discontinued Reason: Doctor's Order As directed 1 ea 0RF blood-glucose sensor (Dexcom G6 Sensor device) Discontinued Reason: Doctor's Order USE DIRECTED FOR CONTINUOUS BLOOD GLUCOSE MONITORING CHANGE EVERY 10 DAYS 3 ea 0RF blood-glucose sensor (Dexcom G7 Sensor device) Discontinued Reason: Doctor's Order continous use for 10 days 3 ea 11RF Patient Instructions: Take 15 carb carbohydrate grams to treat a low sugar (3-4 glucose tablets, half a glass of juice or 15 carbohydrate grams of soft candy such as gummie snacks). Recheck your sugar in 15 minutes and re-treat again with 15 carbohydrate grams if low or still with symptoms. Do not drive a car or operate machinery if you do not know what your blood sugar is, if it is low or in excess of 300. Troubleshooting after starting new pod or inserting new insulin set: Occlusion, adhesive tape sensitivity, redness Check BG 2 hours after site change Safety information: Importance of a backup plan, for manual injections, proper prescriptions and emergency supplies ketone strips, and rules for testing for ketones Check your feet daily looking for any signs of infection, drainage, redness, ulceration and seek medical attention if this occurs. Break in shoes gradually and do not wear open-toed shoes or walk stocking footed or barefooted.. Coding Level of Care Code Est Pt Level 4 (03286) Complex EM visit Add On G2211 Diagnoses Type 1 diabetes E10.9 Hypothyroidism E03.9 Time Spent (min) 30 Comment Reviewing labs/provider notes, glucose sensor/pump reports, face to face, chart doc
--- OUTSIDE RECORDS SUMMARY | 2025-01-14 07:13 | XMS_ITS | Encounter Summary ---
Author Organization [facility] Address [address] [place] [address] Care Team Providers Care Face Burler Name Role Phone Brett Mackenzie MD Unavailable [phone] Aston Yañez MD Primary Care Provider [phone] Encounter Details Date Type Department Care Team (Late st Contact Info) Description 03/11/2020 Scanned Document [facility] Neurosurgery [address] [phone] Social History Tobacco Use Types Packs/Day Years Used Date Smoking Tobacco: Former Cigarettes Q uit: 06/16/2010 Smokeless Tobacco: Never Alcohol Use Standard Drinks/Week Comments Yes 0 (1 standard drink = 0.6 oz pur e alcohol) rarely Sex and Gender Information Value Date Recorded Sex Assigned at Not on file Legal Sex Male 7:09 PM EST Gender Identity Not on file Sexual Orientation [...] on filedocumented in this encounter Care Teams Face Burler Relationship Specialty Start Date End Date Aston Yañez MD [address] [place] [address] [place] [address] PCP - General Endocrinology 07/31/19 Brett Mackenzie MD [address] [place] [address] Psychiatry, General 10/01/18 documented as of this encounter
--- OUTSIDE RECORDS SUMMARY | 2025-01-14 07:13 | XMS_ITS | Encounter Summary ---
Author Organization [facility] Address [address] [place] [address] Care Team Providers Care Medical Radiation Therapist Name Role Phone Brett Mackenzie MD Unavailable [phone] Aston Yañez MD Primary Care Provider [phone] Encounter Details Date Type Department Care Team (Late st Contact Info) Description 03/15/[address] [facility] Neurosurgery [address] [phone] Social History Tobacco Use Types Packs/Day Years [...] on filedocumented in this encounter Care Teams Medical Radiation Therapist Relationship Specialty Start Date End Date Aston Yañez MD [address] [place] [address] [place] [address] PCP - General Endocrinology 07/31/19 Brett Mackenzie MD [address] [place] [address] Psychiatry, General 10/01/18 documented as of this encounter
--- OUTSIDE RECORDS SUMMARY | 2025-01-14 07:14 | XMS_ITS | Encounter Summary ---
Author Organization [facility] Address [address] [place] [address] Care Team Providers Care Senior Wealth Advisor Name Role Phone Brett Mackenzie MD Unavailable [phone] Aston Yañez MD Primary Care Provider [phone] Encounter Details Date Type Department Care Team (Late st Contact Info) Description 04/29/2020 Scanned Document [facility] Neurosurgery [address] [phone] Social History Tobacco Use Types [...] filedocumented in this encounter Care Teams Senior Wealth Advisor Relationship Specialty Start Date End Date Aston Yañez MD [address] [place] [address] [place] [address] PCP - General Endocrinology 07/31/19 Brett Mackenzie MD [address] [place] [address] Psychiatry, General 10/01/18 documented as of this encounter
--- OUTSIDE RECORDS SUMMARY | 2025-01-14 07:14 | XMS_ITS | Encounter Summary ---
Author Organization [facility] Address [address] [place] [address] Care Team Providers Care Sinker Winder Name Role Phone Brett Mackenzie MD Primary Care Provider [phone] Brett Mackenzie MD Unavailable [phone] Aston Yañez MD Primary Care Provider Encounter Details Date Type Department Care Team (Late st Contact Info) Description 07/06/2019 Scanned Document [facility] Neurosurgery [address] [phone] Social History Tobacco Use Types [...] on filedocumented in this encounter Care Teams Sinker Winder Relationship Specialty Start Date End Date Brett Mackenzie MD [address] [place] [address] PCP - General General Medicine 10/01/18 07/30/19 Aston Yañez MD [address] [place] [address] PCP - General Endocrinology 07/31/19 Brett Mackenzie MD [address] [place] [address] Psychiatry, General 10/01/18 documented as of this encounter
--- OUTSIDE RECORDS SUMMARY | 2025-01-14 07:14 | XMS_ITS | Encounter Summary ---
Author Organization [facility] Address [address] [place] [address] Care Team Providers Care Ham Smoker Name Role Phone Brett Mackenzie MD Unavailable [phone] Aston Yañez MD Primary Care Provider [phone] Encounter Details Date Type Department Care Team (Late st Contact Info) Description 10/07/2019 Scanned Document [facility] Neurosurgery [address] [phone] Social History Tobacco Use Types Packs/Day Years [...] on filedocumented in this encounter Care Teams Ham Smoker Relationship Specialty Start Date End Date Aston Yañez MD [address] [place], [place] [address], [place] [address] PCP - General Endocrinology 07/31/19 Brett Mackenzie MD [address] [place] [address] Psychiatry, General 10/01/18 documented as of this encounter
--- OUTSIDE RECORDS SUMMARY | 2025-01-14 07:14 | XMS_ITS | Encounter Summary ---
Author Organization [facility] Address [address] [place] [address] Care Team Providers Care Bag Turner Name Role Phone Brett Mackenzie MD Unavailable [phone] Aston Yañez MD Primary Care Provider [phone] Encounter Details Date Type Department Care Team (Late st Contact Info) Description 01/07/2020 Scanned Document [facility] Neurosurgery [address] [phone] Social History Tobacco Use Types Packs/Day Years [...] on filedocumented in this encounter Care Teams Bag Turner Relationship Specialty Start Date End Date Aston Yañez MD [address] [place], [place] [address] [address] PCP - General Endocrinology 07/31/19 Brett Mackenzie MD [address] [place] [address] Psychiatry, General 10/01/18 documented as of this encounter
--- OUTSIDE RECORDS SUMMARY | 2025-01-14 07:14 | XMS_ITS | Encounter Summary ---
Author Organization [facility] Address [address] [place] [address] Care Team Providers Care Hospice Liaison Name Role Phone Brett Mackenzie MD Primary Care Provider [phone] Brett Mackenzie MD Unavailable [phone] Aston Yañez MD Primary Care Provider [phone] Encounter Details Date Type Department Care Team (Late st Contact Info) Description 04/15/2019 Scanned Document [facility] Neurosurgery [address] [phone] Social History Tobacco Use Types [...] on filedocumented in this encounter Care Teams Hospice Liaison Relationship Specialty Start Date End Date Brett Mackenzie MD [address] [place] [address] PCP - General General Medicine 10/01/18 07/30/19 Aston Yañez MD [address] [place] [address] PCP - General Endocrinology 07/31/19 Brett Mackenzie MD [address] [place] [address] Psychiatry, General 10/01/18 documented as of this encounter
--- OUTSIDE RECORDS SUMMARY | 2025-01-14 07:14 | XMS_ITS | Encounter Summary ---
Author Organization [facility] Address [address] [place] [address] Care Team Providers Care Gemologist Name Role Phone Brett Mackenzie MD Unavailable [phone] Aston Yañez MD Primary Care Provider [phone] Encounter Details Date Type Department Care Team (Late st Contact Info) Description 02/25/2020 Scanned Document [facility] Neurosurgery [address] [phone] Social History Tobacco Use Types Packs/Day Years [...] on filedocumented in this encounter Care Teams Gemologist Relationship Specialty Start Date End Date Aston Yañez MD [address] [place] [address] [place] [address] PCP - General Endocrinology 07/31/19 Brett Mackenzie MD [address] [place] [address] Psychiatry, General 10/01/18 documented as of this encounter
--- OUTSIDE RECORDS SUMMARY | 2025-01-14 07:14 | XMS_ITS | Encounter Summary ---
Author Organization [facility] Address [address] [place] [address] Care Team Providers Care Mold Blower Name Role Phone Brett Mackenzie MD Primary Care Provider [phone] Brett Mackenzie MD Unavailable [phone] Aston Yañez MD Primary Care Provider [phone] Encounter Details Date Type Department Care Team (Late st Contact Info) Description 02/16/[address] [facility] Neurosurgery [place] 35 [facility] 5 [place] [address] Osvaldo Coleman MD 35 [facility] 5 [place] [address] Social History Tobacco Use Types Packs/Day Years [...] on filedocumented in this encounter Care Teams Mold Blower Relationship Specialty Start Date End Date Brett Mackenzie MD [address] [place] [address] PCP - General General Medicine 10/01/18 07/30/19 Aston Yañez MD [address] [place] [address] PCP - General Endocrinology 07/31/19 Brett Mackenzie MD [address] [place] [address] Psychiatry, General 10/01/18 documented as of this encounter
--- OUTSIDE RECORDS SUMMARY | 2025-01-14 07:14 | XMS_ITS | Encounter Summary ---
Author Organization [facility] Address [address] [place] [address] Care Team Providers Care Foam Gun Operator Name Role Phone Brett Mackenzie MD Primary Care Provider [phone] Brett Mackenzie MD Unavailable [phone] Aston Yañez MD Primary Care Provider [phone] Encounter Details Date Type Department Care Team (Late st Contact Info) Description 11/26/2018 Scanned Document [facility] Neurosurgery [place] 35 [facility] 5 [place] [address] Osvaldo Coleman MD 35 [facility] 5 [place] [address] Social History Tobacco Use Types Packs/Day Years [...] on filedocumented in this encounter Care Teams Foam Gun Operator Relationship Specialty Start Date End Date Brett Mackenzie MD [address] [place] [address] PCP - General General Medicine 10/01/18 07/30/19 Aston Yañez MD [address] [place] [address] PCP - General Endocrinology 07/31/19 Brett Mackenzie MD [address] [place] [address] Psychiatry, General 10/01/18 documented as of this encounter
--- OUTSIDE RECORDS SUMMARY | 2025-01-14 07:14 | XMS_ITS | Encounter Summary ---
Author Organization [facility] Address [address] [place] [address] Care Team Providers Care Top Lift Nailer Name Role Phone Brett Mackenzie MD Unavailable [phone] Aston Yañez MD Primary Care Provider [phone] Encounter Details Date Type Department Care Team (Late st Contact Info) Description 07/31/2019 Scanned Document [facility] Neurosurgery [address] [phone] Social History Tobacco Use Types Packs/Day Years [...] on filedocumented in this encounter Care Teams Top Lift Nailer Relationship Specialty Start Date End Date Aston Yañez MD [address] [place] [address] PCP - General Endocrinology 07/31/19 Brett Mackenzie MD [address] [place] [address] Psychiatry, General 10/01/18 documented as of this encounter
--- OUTSIDE RECORDS SUMMARY | 2025-01-14 07:14 | XMS_ITS | Encounter Summary ---
Author Organization [facility] Address [address] [place] [address] Care Team Providers Care Baggagemaster Name Role Phone Brett Mackenzie MD Unavailable [phone] Aston Yañez MD Primary Care Provider [phone] Encounter Details Date Type Department Care Team (Late st Contact Info) Description 03/24/2020 Scanned Document [facility] Neurosurgery [address] [phone] Social History Tobacco Use Types Packs/Day Years [...] on filedocumented in this encounter Care Teams Baggagemaster Relationship Specialty Start Date End Date Aston Yañez MD [address] [place] [address] [place] [address] PCP - General Endocrinology 07/31/19 Brett Mackenzie MD [address] [place] [address] Psychiatry, General 10/01/18 documented as of this encounter
--- OUTSIDE RECORDS SUMMARY | 2025-01-14 07:14 | XMS_ITS | Encounter Summary ---
Author Organization [facility] Address [address] [place] [address] Care Team Providers Care Coal Mine Inspector Name Role Phone Brett Mackenzie MD Primary Care Provider [phone] Brett Mackenzie MD Unavailable [phone] Aston Yañez MD Primary Care Provider [phone] Encounter Details Date Type Department Care Team (Late st Contact Info) Description 03/25/2019 Scanned Document [facility] Neurosurgery [place] [address] [phone] [place], [place] [address] [address] Social History Tobacco Use Types Packs/Day Years [...] on filedocumented in this encounter Care Teams Coal Mine Inspector Relationship Specialty Start Date End Date Brett Mackenzie MD [address] [place] [address] PCP - General General Medicine 10/01/18 07/30/19 Aston Yañez MD [address] [place] [address] PCP - General Endocrinology 07/31/19 Brett Mackenzie MD [address] [place] [address] Psychiatry, General 10/01/18 documented as of this encounter
--- OUTSIDE RECORDS SUMMARY | 2025-01-14 07:14 | XMS_ITS | Encounter Summary ---
Author Organization [facility] Address [address] [place] [address] Care Team Providers Care Paleologist Name Role Phone Brett Mackenzie MD Unavailable [phone] Aston Yañez MD Primary Care Provider [phone] Encounter Details Date Type Department Care Team (Late st Contact Info) Description 08/05/2020 Scanned Document [facility] Neurosurgery [address] [phone] Social History Tobacco Use Types [...] on filedocumented in this encounter Care Teams Paleologist Relationship Specialty Start Date End Date Aston Yañez MD [address] [place] [address] [address] PCP - General Endocrinology 07/31/19 Brett Mackenzie MD [address] [place] [address] Psychiatry, General 10/01/18 documented as of this encounter
--- OUTSIDE RECORDS SUMMARY | 2025-01-14 07:14 | XMS_ITS | Encounter Summary ---
Author Organization [facility] Address [address] [place] [address] Care Team Providers Care Waiter And Cashier Name Role Phone Brett Mackenzie MD Unavailable [phone] Aston Yañez MD Primary Care Provider [phone] Encounter Details Date Type Department Care Team (Late st Contact Info) Description 12/29/2019 Scanned Document [facility] Neurosurgery [address] [phone] Social History Tobacco Use Types Packs/Day Years [...] on filedocumented in this encounter Care Teams Waiter And Cashier Relationship Specialty Start Date End Date Aston Yañez MD [address] [place], [place] [address] [address] PCP - General Endocrinology 07/31/19 Brett Mackenzie MD [address] [place] [address] Psychiatry, General 10/01/18 documented as of this encounter
--- OUTSIDE RECORDS SUMMARY | 2025-01-14 07:14 | XMS_ITS | Encounter Summary ---
Author Organization [facility] Address [address] [place] [address] Care Team Providers Care Molasses Coloring Operator Name Role Phone Brett Mackenzie MD Unavailable [phone] Aston Yañez MD Primary Care Provider [phone] Encounter Details Date Type Department Care Team (Late st Contact Info) Description 08/03/2019 Scanned Document [facility] Neurosurgery [address] [phone] Neurosurgery, Scan Social History Tobacco Use Types [...] on filedocumented in this encounter Care Teams Molasses Coloring Operator Relationship Specialty Start Date End Date Aston Yañez MD [address] [place] [address] PCP - General Endocrinology 07/31/19 Brett Mackenzie MD [address] [place] [address] Psychiatry, General 10/01/18 documented as of this encounter
--- OUTSIDE RECORDS SUMMARY | 2025-01-14 07:14 | XMS_ITS | Clinical Summary ---
Author Organization [facility] Address [address] [place] [address] Care Team Providers Care Raw Shellfish Preparer Name Role Phone Brett Mackenzie MD Unavailable [phone] Aston Yañez MD Primary Care Provider [phone] Allergies Active Allergy Reactions Criticality Noted Date Comments Codeine Other (See Comments) 04/29/2018 headche Latex Other (See Comments) High 08/05/2019 blisters Medications FLUoxetine (PROzac) 40 MG capsule TK 1 C PO D 0 8 Active LANTUS SOLOSTAR 100 UNIT/ML pen injection ADM 36 UNI SC D UTD 1 8 Active insulin lispro (HumaLOG KWIKPEN) 100 UNIT/ML pen injection Inject 14 Units under the skin 3 (three) times a day before meals. Active multivitamin (multivitamin) Tab tablet Take 1 tablet by mouth daily. Active fluticasone (FloNASE) 50 mcg/spray nasal spray SHAKE LQ AND U 1 SPR IEN QD PRN 1 9 Active acetaminophen (TYLENOL) 325 MG tabletIndication s:Sacroiliac joint dysfunction of left side Take 3 tablets (975 mg total) by mouth 4 times daily (every 6 hours) as needed (fever greater than 101.5). 90 tablet 9 Active senna-docusate (SENNA-S) 8.6-50 MGIndications:Sa croiliac joint dysfunction of left side Take 2 tablets by mouth nightly. 60 tablet 9 Active B-D ULTRAFINE III SHORT PEN 31G X 8 MM Misc USE 1 NEEDLE QID 0 9 Active methocarbamol (ROBAXIN) 750 MG tabletIndication s:Sacroiliac joint dysfunction of left side Take 1 tablet (750 mg total) by mouth 4 (four) times a day as needed for muscle spasms. 60 tablet 9 Active traMADol (ULTRAM) 50 MG tabletIndication s:Sacroiliac joint dysfunction of left side Take 1 tablet (50 mg total) by mouth 3 times daily (every 8 hours) as needed for moderate pain or severe pain. 40 tablet 9 Active gabapentin (NEURONTIN) 100 MG capsule take 2 capsules by mouth at bedtime for 10 days 0 Active iohexol (Omnipaque) 300 mg/mL Inject 2 mL into the joint Once before discharge. 0 Active B Complex Vitamins (VITAMIN B COMPLEX PO) Take by mouth. Active SUPPLY DME MISCIndications: Sacroiliitis Tens Unit 1 Device 0 Active loratadine (CLARITIN) 10 MG tablet Take 10 mg by mouth Once before discharge. Active FreeStyle Lancets lancet 0 Active Glucagon Emergency 1 MG injection 0 Active Active Problems Problem Noted Date Diagnosed Date Sacroiliac joint dysfunction of left side 2018 Spinal stenosis, lumbar bisi on, without neurogenic claudication 12/08/2018 Sacroiliitis 11/06/2018 Immunizations Immunization Administration Dates Next Due Influenza Inactivated/Split Preservative [...] this topic Medical Devices Implanted Type Area Glove Tagger Device Identifier Shelf Expiration Date Model / Serial / Lot [id number] System Spinal Fixation 55mm 7mm Ifuse Implant System 3ang - Sn/A Implanted:Qty: 1 on 08/05/2019 by Osvaldo Coleman MD at [facility] [employer] 01/09/2024 [id number]-90 / N/A / [id number] System Spinal Fixation 45mm 7mm Ifuse Implant System 3ang - Sn/A Implanted:Qty: 1 on 08/05/2019 by Osvaldo Coleman MD at [facility] [employer] [employer] 04/10/2024 [id number]-90 / N/A / [id number] System Spinal Fixation 45mm 7mm Ifuse Implant System 3ang - Sn/A Implanted:Qty: 1 on 08/05/2019 by Osvaldo Coleman MD at [facility] [employer] [employer] 04/10/2024 [id number]-90 / N/A / [id number] Insurance [facility] [employer] PAL [id number] Advance Directives * Full Code (Latest Code Status on File) Date Activated Date Inactivated Comments 08/05/2019 10:54 AM * Full Code Date Activated Date Inactivated Comments 08/05/2019 8:02 AM 08/05/2019 10:54 AM Care Teams Raw Shellfish Preparer Relationship Specialty Start Date End Date Aston Yañez MD [address] [place] [address] [id number] PCP - General Endocrinology 07/31/19 Brett Mackenzie MD [address] [place] [address] Psychiatry, General 10/01/18
--- OUTSIDE RECORDS SUMMARY | 2025-01-14 07:14 | XMS_ITS | Encounter Summary ---
Author Organization [facility] Address [address] [place] [address] Care Team Providers Care Component Inspector Name Role Phone Brett Mackenzie MD Primary Care Provider [phone] Brett Mackenzie MD Unavailable [phone] Aston Yañez MD Primary Care Provider Encounter Details Date Type Department Care Team (Late st Contact Info) Description 11/26/2018 Scanned Document [facility] Neurosurgery [place] 35 [facility] 5 [place] [address] Osvaldo Coleman MD 35 [facility] 5 [place] [address] Social History Tobacco Use Types Packs/Day Years [...] on filedocumented in this encounter Care Teams Component Inspector Relationship Specialty Start Date End Date Brett Mackenzie MD [address] [place] [address] PCP - General General Medicine 10/01/18 07/30/19 Aston Yañez MD [address] [place] [address] PCP - General Endocrinology 07/31/19 Brett Mackenzie MD [address] [place] [address] Psychiatry, General 10/01/18 documented as of this encounter
--- OUTSIDE RECORDS SUMMARY | 2025-01-14 07:14 | XMS_ITS | Encounter Summary ---
Author Organization [facility] Address [address] [place] [address] Care Team Providers Care Organic Extractions Technician Name Role Phone Brett Mackenzie MD Unavailable [phone] Aston Yañez MD Primary Care Provider [phone] Encounter Details Date Type Department Care Team (Late st Contact Info) Description 12/18/2019 Scanned Document [facility] Neurosurgery [address] [phone] Social History Tobacco Use Types Packs/Day Years [...] on filedocumented in this encounter Care Teams Organic Extractions Technician Relationship Specialty Start Date End Date Aston Yañez MD [address] [place], [place] [address] [address] PCP - General Endocrinology 07/31/19 Brett Mackenzie MD [address] [place] [address] Psychiatry, General 10/01/18 documented as of this encounter
--- OUTSIDE RECORDS SUMMARY | 2025-01-14 07:14 | XMS_ITS | Encounter Summary ---
Author Organization [facility] Address [address] [place] [address] Care Team Providers Care Manager Talent Management Name Role Phone Brett Mackenzie MD Unavailable [phone] Aston Yañez MD Primary Care Provider [phone] Encounter Details Date Type Department Care Team (Late st Contact Info) Description 08/03/2019 Scanned Document [facility] Neurosurgery [address] [phone] Neurosurgery, Scan Social History Tobacco Use Types [...] filedocumented in this encounter Care Teams Manager Talent Management Relationship Specialty Start Date End Date Aston Yañez MD [address] [place] [address] PCP - General Endocrinology 07/31/19 Brett Mackenzie MD [address] [place] [address] Psychiatry, General 10/01/18 documented as of this encounter
--- OUTSIDE RECORDS SUMMARY | 2025-01-14 07:14 | XMS_ITS | Encounter Summary ---
Author Organization [facility] Address [address] [place] [address] Care Team Providers Care Child Care Cook Name Role Phone Brett Mackenzie MD Unavailable Aston Yañez MD Primary Care Provider [phone] Encounter Details Date Type Department Care Team (Late st Contact Info) Description 06/24/2020 Scanned Document [facility] Neurosurgery [address] [phone] Social History Tobacco Use Types Packs/Day Years [...] on filedocumented in this encounter Care Teams Child Care Cook Relationship Specialty Start Date End Date Aston Yañez MD [address] [place] [address] [place] [address] PCP - General Endocrinology 07/31/19 Brett Mackenzie MD [address] [place] [address] Psychiatry, General 10/01/18 documented as of this encounter
--- OUTSIDE RECORDS SUMMARY | 2025-01-14 07:14 | XMS_ITS | Encounter Summary ---
Author Organization [facility] Address [address] [place] [address] Care Team Providers Care Delivery Driver Assistant Name Role Phone Brett Mackenzie MD Unavailable [phone] Aston Yañez MD Primary Care Provider [phone] Encounter Details Date Type Department Care Team (Late st Contact Info) Description 03/22/2020 Scanned Document [facility] Neurosurgery [address] [phone] Social History Tobacco Use Types Packs/Day Years [...] on filedocumented in this encounter Care Teams Delivery Driver Assistant Relationship Specialty Start Date End Date Aston Yañez MD [address] [place] [address] [place] [address] PCP - General Endocrinology 07/31/19 Brett Mackenzie MD [address] [place] [address] Psychiatry, General 10/01/18 documented as of this encounter
--- OUTSIDE RECORDS SUMMARY | 2025-01-14 07:14 | XMS_ITS | Encounter Summary ---
Author Organization [facility] Address [address] [place] [address] Care Team Providers Care Experimental Machinist Name Role Phone Brett Mackenzie MD Primary Care Provider [phone] Brett Mackenzie MD Unavailable [phone] Aston Yañez MD Primary Care Provider [phone] Encounter Details Date Type Department Care Team (Late st Contact Info) Description 04/20/2019 Scanned Document [facility] Neurosurgery [place] 35 [facility] 5 [place] [phone] Osvaldo Coleman MD 35 [facility] 5 [place] [address] Social History Tobacco Use Types Packs/Day Years [...] on filedocumented in this encounter Care Teams Experimental Machinist Relationship Specialty Start Date End Date Brett Mackenzie MD [address] [place] [address] PCP - General General Medicine 10/01/18 07/30/19 Aston Yañez MD [address] [place] [address] PCP - General Endocrinology 07/31/19 Brett Mackenzie MD [address] [place] [address] Psychiatry, General 10/01/18 documented as of this encounter
--- OUTSIDE RECORDS SUMMARY | 2025-01-14 07:14 | XMS_ITS | Encounter Summary ---
Author Organization [facility] Address [address] [place] [address] Care Team Providers Care Radiator Repairer Name Role Phone Brett Mackenzie MD Primary Care Provider [phone] Brett Mackenzie MD Unavailable [phone] Aston Yañez MD Primary Care Provider [phone] Encounter Details Date Type Department Care Team (Late st Contact Info) Description 07/06/2019 Prep for Surgery [facility] Neurosurgery [address] [phone] Lizett Mensah PA [address] [address] Social History Tobacco Use Types Packs/Day Years [...] on filedocumented in this encounter Care Teams Radiator Repairer Relationship Specialty Start Date End Date Brett Mackenzie MD [address] [place] [address] PCP - General General Medicine 10/01/18 07/30/19 Aston Yañez MD [address] [place] [address] PCP - General Endocrinology 07/31/19 Brett Mackenzie MD [address] [place] [address] Psychiatry, General 10/01/18 documented as of this encounter
--- OUTSIDE RECORDS SUMMARY | 2025-01-14 07:14 | XMS_ITS | Encounter Summary ---
Author Organization [facility] Address [address] [place] [address] Care Team Providers Care Market Manager Name Role Phone Brett Mackenzie MD Unavailable [phone] Aston Yañez MD Primary Care Provider [phone] Encounter Details Date Type Department Care Team (Late st Contact Info) Description 12/29/2019 Scanned Document [facility] Neurosurgery [address] [phone] Social History Tobacco Use Types Packs/Day Years [...] on filedocumented in this encounter Care Teams Market Manager Relationship Specialty Start Date End Date Aston Yañez MD [address] [place], [place] [address], [place] [address] PCP - General Endocrinology 07/31/19 Brett Mackenzie MD [address] [place] [address] Psychiatry, General 10/01/18 documented as of this encounter
--- OUTSIDE RECORDS SUMMARY | 2025-01-14 07:14 | XMS_ITS | Encounter Summary ---
Author Organization [facility] Address [address] [place] [address] Care Team Providers Care Fire Support Man Name Role Phone Brett Mackenzie MD Unavailable [phone] Aston Yañez MD Primary Care Provider [phone] Encounter Details Date Type Department Care Team (Late st Contact Info) Description 03/17/2020 Scanned Document [facility] Neurosurgery [address] [phone] Social History Tobacco Use Types Packs/Day Years [...] on filedocumented in this encounter Care Teams Fire Support Man Relationship Specialty Start Date End Date Aston Yañez MD [address] [place] [address] [place] [address] PCP - General Endocrinology 07/31/19 Brett Mackenzie MD [address] [place] [address] Psychiatry, General 10/01/18 documented as of this encounter
--- OUTSIDE RECORDS SUMMARY | 2025-01-14 07:14 | XMS_ITS | Encounter Summary ---
Author Organization [facility] Address [address] [place] [address] Care Team Providers Care Cleaning Laborer Name Role Phone Brett Mackenzie MD Unavailable [phone] Aston Yañez MD Primary Care Provider [phone] Encounter Details Date Type Department Care Team (Late st Contact Info) Description 04/28/2020 Scanned Document [facility] Neurosurgery [address] [phone] Social History Tobacco Use Types Packs/Day Years [...] on filedocumented in this encounter Care Teams Cleaning Laborer Relationship Specialty Start Date End Date Aston Yañez MD [address] [place] [address] [place] [address] PCP - General Endocrinology 07/31/19 Brett Mackenzie MD [address] [place] [address] Psychiatry, General 10/01/18 documented as of this encounter
--- OUTSIDE RECORDS SUMMARY | 2025-01-14 07:15 | XMS_ITS | Encounter Summary ---
Author Organization [facility] Address [address] [place] [address] Care Team Providers Care Consumer Affairs Director Name Role Phone Brett Mackenzie MD Unavailable [phone] Aston Yañez MD Primary Care Provider [phone] Encounter Details Date Type Department Care Team (Late st Contact Info) Description 07/31/2019 Scanned Document [facility] Neurosurgery [address] [phone] Social History Tobacco Use Types Packs/Day Years [...] on filedocumented in this encounter Care Teams Consumer Affairs Director Relationship Specialty Start Date End Date Aston Yañez MD [address] [place] [address] PCP - General Endocrinology 07/31/19 Brett Mackenzie MD [address] [place] [address] Psychiatry, General 10/01/18 documented as of this encounter
--- OUTSIDE RECORDS SUMMARY | 2025-01-14 07:15 | XMS_ITS | Encounter Summary ---
Author Organization [facility] Address [address] [place] [address] Care Team Providers Care Title Insurance Sales Representative Name Role Phone Brett Mackenzie MD Unavailable [phone] Aston Yañez MD Primary Care Provider [phone] Encounter Details Date Type Department Care Team (Late st Contact Info) Description 08/03/2019 Scanned Document [facility] Neurosurgery [address] [phone] Social History Tobacco Use Types [...] on filedocumented in this encounter Care Teams Title Insurance Sales Representative Relationship Specialty Start Date End Date Aston Yañez MD [address] [place] [address] [address] PCP - General Endocrinology 07/31/19 Brett Mackenzie MD [address] [place] [address] Psychiatry, General 10/01/18 documented as of this encounter
[2025-01-14 07:29] VITALS: BP 122/56; PULSE 59; O2SAT 95; BMI 28.4
[2025-01-14 07:45] LABS: Glucose, Whole Blood 284 mg/dL (60-115)
== END 2025-01-14 08:21 | disposition home or self-care (01) ==
LOC: HO.ENCR 07:11
PROVIDERS: PCP Nurse Practitioner Family; Visit Provider Nurse Practitioner Adult Health
DX: Z13.9 Encounter for screening, unspecified (principal); E10.9 Type 1 diabetes mellitus without complications; E03.9 Hypothyroidism, unspecified
CPT/HCPCS: 99214; G2211

== ENCOUNTER → 2025-01-14 07:11 | Outpatient (BNVA) | payer OTHER, SELFPAY | PROVIDERS: PCP Nurse Practitioner Family; Visit Provider Nurse Practitioner Adult Health | DX: E10.9 Type 1 diabetes mellitus without complications (principal); E03.9 Hypothyroidism, unspecified; R79.89 Other specified abnormal findings of blood chemistry | CPT/HCPCS: 82947; 83036; 99212 ==

== ENCOUNTER 2025-02-04 07:25 | Outpatient (AMB) | payer OTHER, SELFPAY ==
--- NOTE | 2025-02-04 07:22 | MHC.PC.OV ---
Intake Visit Reasons: Discuss shoulder issues/options Allergies latex Adverse Reaction (Mild, Verified 01/14/25 07:44) skin bubbles codeine [Codeine] Adverse Reaction (Unknown, Verified 01/14/25 07:44) HEADACHE Tobacco use date assessed: 10/19/24 Dental Screening Dental Screen Date: 10/19/24 HPI Discuss shoulder issues/options HPI Details History of Present Illness The patient is a 59-year-old male presenting with chronic right shoulder pain. This pain is attributed to moderate osteoarthritis of the AC joint, as indicated by a recent X-ray. There is also a probable presence of rotator cuff calcifications. The shoulder pain is persistent and significantly impacts the patient's daily activities. Although physical therapy was suggested, the patient prefers an orthopedic referral and desires clarity and management strategies from a specialist. Symptom management currently involves tramadol, and the patient is cautious about adhering to dosing instructions due to the limitations on operating vehicles while taking the medication. Review of Systems - Musculoskeletal: Reports ongoing right shoulder pain, persistent in nature. - General: Denies any alleviating factors. - Neurological: Denies any symptoms related to tramadol other than impaired ability to drive. Plan I have placed an orthopedic referral to assess and manage shoulder pain attributed to osteoarthritis of the AC joint and probable rotator cuff calcifications. The patient is advised to continue using tramadol for pain relief, ensuring adherence to prescribed dosages to avoid impaired driving and other side effects. Physical therapy discussion will continue, although the patient wishes to consult orthopedics before proceeding with PT. The emphasis on medication adherence and non-sharing instructions was reiterated. Discussion Notes During the consultation, I discussed with the patient the implications of his moderate osteoarthritis detectable in the AC joint and the significance of the probable rotator cuff calcifications found in his X-ray. I emphasized the importance of specialized orthopedic evaluation for a comprehensive understanding of his condition and collaborative development of a management strategy. The suitability and limitations of tramadol for symptomatic pain relief were explored, ensuring the patient understood the consequent impact on daily activities such as driving. I acknowledged the patient?s preference for orthopedic consultation over immediate physical therapy initiation while also ensuring that the need for potential PT remains part of ongoing discussions. Clear guidance on medication usage and adherence was provided, and the patient was encouraged to proceed with the referral steps promptly. Patient Instructions - Follow the referral process to consult with an computer technical support specialist. - Take tramadol as prescribed for pain management; do not share with others. - Avoid driving or operating vehicles while under the influence of tramadol. - Keep a log of pain levels and any changes to discuss during your orthopedic appointment. - Be open to discussing physical therapy options after orthopedic evaluation. - Report any new symptoms or concerns as they arise. [facility] Medical History (Updated 01/14/25 @ 09:22 by Cathy Engle NP) Hypothyroidism Stroke Hyperlipemia Fusion of joint Diabetes Back injury Surgical History History of surgery History of shoulder surgery Family History Father Diabetes Brother Diabetes Other Mental health disorder Social History Household Members: Spouse and Family Household Members Other:: , grandchild Housing: Condominium Alcohol intake: current Alcohol intake frequency: holidays/special occasions only Alcohol type: beer Patient Tobacco Use Status: Former Tobacco user Tobacco use type: Cigarette Years Smoked: since age 16 e-Cigarette/Vaping Use: Never Used Second Hand Smoke Exposure: No Substance Use Type: Marijuana Current occupational status: employed 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 Travis Booth, Hattie Patel, Be Hernández and colleagues, with an educational camryn from [employer]. Physical exam (Primary Care) Tobacco/Smoking Status: Tobacco use Status Tobacco use date assessed 10/19/24 10/19/24 09:17 Patient Tobacco Use Status Former Tobacco user 10/19/24 09:17 Tobacco use type Cigarette 10/19/24 09:17 e-Cigarette/Vaping Use Never Used 10/19/24 09:17 Thrive Assessment: Date of Thrive Assessment Date Thrive assessed 10/19/24 10/19/24 09:17 Telehealth Telehealth Telehealth Platform: [facility] Location of provider rendering services: practice address Location of patient: address on file Patient Identification confirmed using: Name, : Yes Telehealth method: video Patient verbally consented to treatment: Yes Patient verbally consented to billing insurance company: Yes Patient informed of any privacy concerns related to visit: Yes Minutes spent on Phone/Video with Pt.: 12 Coding Level of Care Code Tele Est Pt Level 3 (92038) Diagnoses Right shoulder pain M25.511 Assessment & Plan Assessment & Plan (1) Right shoulder pain: Code(s): M25.511 - Pain in right shoulder Category: Medical Plan . Orders: Referrals Orthopedics Referral M25.511 - Pain in right shoulder Medications: Refilled tramadol 50 mg PO DAILY 20 days 20 tabs 0RF
--- OUTSIDE RECORDS SUMMARY | 2025-02-04 07:27 | XMS_ITS | Encounter Summary ---
Author Organization [facility] Address [address] [place] [address] Care Team Providers Care Cook Specialty Name Role Phone Brett Mackenzie MD Unavailable [phone] Aston Yañez MD Primary Care Provider [phone] Encounter Details Date Type Department Care Team (Late st Contact Info) Description 03/15/2020 Scanned Document [facility] Neurosurgery [address] [phone] Social History Tobacco Use Types Packs/Day Years [...] on filedocumented in this encounter Care Teams Cook Specialty Relationship Specialty Start Date End Date Aston Yañez MD [address] [place] [address] [place] [address] PCP - General Endocrinology 07/31/19 Brett Mackenzie MD [address] [place] [address] Psychiatry, General 10/01/18 documented as of this encounter
--- OUTSIDE RECORDS SUMMARY | 2025-02-04 07:27 | XMS_ITS | Encounter Summary ---
Author Organization [facility] Address [address] [place] [address] Care Team Providers Care Field Service Specialist Name Role Phone Brett Mackenzie MD Unavailable Aston Yañez MD Primary Care Provider [phone] Encounter Details Date Type Department Care Team (Late st Contact Info) Description 03/17/2020 Scanned Document [facility] Neurosurgery [address] [phone] Social History Tobacco Use Types Packs/Day Years [...] on filedocumented in this encounter Care Teams Field Service Specialist Relationship Specialty Start Date End Date Aston Yañez MD [address] [place] [address] [place] [address] PCP - General Endocrinology 07/31/19 Brett Mackenzie MD [address] [place] [address] Psychiatry, General 10/01/18 documented as of this encounter
--- OUTSIDE RECORDS SUMMARY | 2025-02-04 07:27 | XMS_ITS | Encounter Summary ---
Author Organization [facility] Address [address] [place] [address] Care Team Providers Care Bellhop Captain Name Role Phone Brett Mackenzie MD Unavailable [phone] Aston Yañez MD Primary Care Provider [phone] Encounter Details Date Type Department Care Team (Late st Contact Info) Description 03/22/2020 Scanned Document [facility] Neurosurgery [address] [phone] Social History Tobacco Use Types Packs/Day Years [...] on filedocumented in this encounter Care Teams Bellhop Captain Relationship Specialty Start Date End Date Aston Yañez MD [address] [place] [address] [place] [address] PCP - General Endocrinology 07/31/19 Brett Mackenzie MD [address] [place] [address] Psychiatry, General 10/01/18 documented as of this encounter
--- OUTSIDE RECORDS SUMMARY | 2025-02-04 07:27 | XMS_ITS | Encounter Summary ---
Author Organization [facility] Address [address] [place] [address] Care Team Providers Care Metal Control Worker Name Role Phone Brett Mackenzie MD Unavailable [phone] Aston Yañez MD Primary Care Provider [phone] Encounter Details Date Type Department Care Team (Late st Contact Info) Description 03/24/2020 Scanned Document [facility] Neurosurgery [address] [phone] Social History Tobacco Use Types Packs/Day Years [...] on filedocumented in this encounter Care Teams Metal Control Worker Relationship Specialty Start Date End Date Aston Yañez MD [address] [place] [address] [place] [address] PCP - General Endocrinology 07/31/19 Brett Mackenzie MD [address] [place] [address] Psychiatry, General 10/01/18 documented as of this encounter
--- OUTSIDE RECORDS SUMMARY | 2025-02-04 07:27 | XMS_ITS | Encounter Summary ---
Author Organization [facility] Address [address] [place] [address] Care Team Providers Care Keyliner Name Role Phone Brett Mackenzie MD Unavailable [phone] Aston Yañez MD Primary Care Provider [phone] Encounter Details Date Type Department Care Team (Late st Contact Info) Description 04/28/2020 Scanned Document [facility] Neurosurgery [address] [phone] Social History Tobacco Use Types Packs/Day Years [...] on filedocumented in this encounter Care Teams Keyliner Relationship Specialty Start Date End Date Aston Yañez MD [address] [place] [address] [place] [address] PCP - General Endocrinology 07/31/19 Brett Mackenzie MD [address] [place] [address] Psychiatry, General 10/01/18 documented as of this encounter
--- OUTSIDE RECORDS SUMMARY | 2025-02-04 07:27 | XMS_ITS | Encounter Summary ---
Author Organization [facility] Address [address] [place] [address] Care Team Providers Care Greens Planter Name Role Phone Brett Mackenzie MD Unavailable [phone] Aston Yañez MD Primary Care Provider [phone] Encounter Details Date Type Department Care Team (Late st Contact Info) Description 02/25/2020 Scanned Document [facility] Neurosurgery [address] [phone] Social History Tobacco Use Types Packs/Day Years [...] on filedocumented in this encounter Care Teams Greens Planter Relationship Specialty Start Date End Date Aston Yañez MD [address] [place] [address] [place] [address] PCP - General Endocrinology 07/31/19 Brett Mackenzie MD [address] [place] [address] Psychiatry, General 10/01/18 documented as of this encounter
--- OUTSIDE RECORDS SUMMARY | 2025-02-04 07:27 | XMS_ITS | Encounter Summary ---
Author Organization [facility] Address [address] [place] [address] Care Team Providers Care Compo Conveyor Operator Name Role Phone Brett Mackenzie MD Primary Care Provider [phone] Brett Mackenzie MD Unavailable [phone] Aston Yañez MD Primary Care Provider [phone] Encounter Details Date Type Department Care Team (Late st Contact Info) Description 07/06/2019 Scanned Document [facility] Neurosurgery [address] [phone] Social History Tobacco Use Types [...] on filedocumented in this encounter Care Teams Compo Conveyor Operator Relationship Specialty Start Date End Date Brett Mackenzie MD [address] [place] [address] PCP - General General Medicine 10/01/18 07/30/19 Aston Yañez MD [address] [place] [address] PCP - General Endocrinology 07/31/19 Brett Mackenzie MD [address] [place] [address] Psychiatry, General 10/01/18 documented as of this encounter
--- OUTSIDE RECORDS SUMMARY | 2025-02-04 07:27 | XMS_ITS | Encounter Summary ---
Author Organization [facility] Address [address] [place] [address] Care Team Providers Care Decision Science Analyst Name Role Phone Brett Mackenzie MD Primary Care Provider [phone] Brett Mackenzie MD Unavailable Aston Yañez MD Primary Care Provider [phone] Encounter Details Date Type Department Care Team (Late st Contact Info) Description 04/15/2019 Scanned Document [facility] Neurosurgery [address] [phone] Social History Tobacco Use Types [...] on filedocumented in this encounter Care Teams Decision Science Analyst Relationship Specialty Start Date End Date Brett Mackenzie MD [address] [place] [address] PCP - General General Medicine 10/01/18 07/30/19 Aston Yañez MD [address] [place] [address] PCP - General Endocrinology 07/31/19 Brett Mackenzie MD [address] [place] [address] Psychiatry, General 10/01/18 documented as of this encounter
--- OUTSIDE RECORDS SUMMARY | 2025-02-04 07:27 | XMS_ITS | Encounter Summary ---
Author Organization [facility] Address [address] [place] [address] Care Team Providers Care Fish Dressing Machine Feeder Name Role Phone Brett Mackenzie MD Unavailable [phone] Aston Yañez MD Primary Care Provider [phone] Encounter Details Date Type Department Care Team (Late st Contact Info) Description 04/29/2020 Scanned Document [facility] Neurosurgery [address] [phone] Social History Tobacco Use Types [...] on filedocumented in this encounter Care Teams Fish Dressing Machine Feeder Relationship Specialty Start Date End Date Aston Yañez MD [address] [place] [address] [place] [address] PCP - General Endocrinology 07/31/19 Brett Mackenzie MD [address] [place] [address] Psychiatry, General 10/01/18 documented as of this encounter
--- OUTSIDE RECORDS SUMMARY | 2025-02-04 07:27 | XMS_ITS | Encounter Summary ---
Author Organization [facility] Address [address] [place] [address] Care Team Providers Care Warp Spinner Name Role Phone Brett Mackenzie MD Unavailable [phone] Aston Yañez MD Primary Care Provider [phone] Encounter Details Date Type Department Care Team (Late st Contact Info) Description 03/11/2020 Scanned Document [facility] Neurosurgery [address] [phone] Social History Tobacco Use Types Packs/Day Years [...] on filedocumented in this encounter Care Teams Warp Spinner Relationship Specialty Start Date End Date Aston Yañez MD [address] [place] [address] [place] [address] PCP - General Endocrinology 07/31/19 Brett Mackenzie MD [address] [place] [address] Psychiatry, General 10/01/18 documented as of this encounter
--- OUTSIDE RECORDS SUMMARY | 2025-02-04 07:28 | XMS_ITS | Encounter Summary ---
Author Organization [facility] Address [address] [place] [address] Care Team Providers Care Food Service Assistant Name Role Phone Brett Mackenzie MD Unavailable Aston Yañez MD Primary Care Provider [phone] Encounter Details Date Type Department Care Team (Late st Contact Info) Description 07/31/2019 Scanned Document [facility] Neurosurgery [address] [phone] Social History Tobacco Use Types Packs/Day Years [...] filedocumented in this encounter Care Teams Food Service Assistant Relationship Specialty Start Date End Date Aston Yañez MD [address] [place] [address] PCP - General Endocrinology 07/31/19 Brett Mackenzie MD [address] [place] [address] Psychiatry, General 10/01/18 documented as of this encounter
--- OUTSIDE RECORDS SUMMARY | 2025-02-04 07:28 | XMS_ITS | Encounter Summary ---
Author Organization [facility] Address [address] [place] [address] Care Team Providers Care Principal Strategist Name Role Phone Brett Mackenzie MD Primary Care Provider [phone] Brett Mackenzie MD Unavailable [phone] Aston Yañze MD Primary Care Provider [phone] Encounter Details Date Type Department Care Team (Late st Contact Info) Description 07/06/2019 Prep for Surgery [facility] Neurosurgery [address] [phone] Lizett Mensah PA [address] [address] Social History Tobacco Use Types Packs/Day Years [...] on filedocumented in this encounter Care Teams Principal Strategist Relationship Specialty Start Date End Date Brett Mackenzie MD [address] [place] [address] PCP - General General Medicine 10/01/18 07/30/19 Aston Yañez MD [address] [place] [address] PCP - General Endocrinology 07/31/19 Brett Mackenzie MD [address] [place] [address] Psychiatry, General 10/01/18 documented as of this encounter
--- OUTSIDE RECORDS SUMMARY | 2025-02-04 07:28 | XMS_ITS | Encounter Summary ---
Author Organization [facility] Address [address] [place] [address] Care Team Providers Care Equipment Tech Name Role Phone Brett Mackenzie MD Unavailable [phone] Aston Yañez MD Primary Care Provider [phone] Encounter Details Date Type Department Care Team (Late st Contact Info) Description 12/29/2019 Scanned Document [facility] Neurosurgery [address] [phone] Social History Tobacco Use Types Packs/Day Years [...] on filedocumented in this encounter Care Teams Equipment Tech Relationship Specialty Start Date End Date Aston Yañez MD [address] [place], [place] [address] [address] PCP - General Endocrinology 07/31/19 Brett Mackenzie MD [address] [place] [address] Psychiatry, General 10/01/18 documented as of this encounter
--- OUTSIDE RECORDS SUMMARY | 2025-02-04 07:28 | XMS_ITS | Clinical Summary ---
Author Organization [facility] Address [address] [place] [address] Care Team Providers Care Truck Bench Mechanic Name Role Phone Brett Mackenzie MD Unavailable [phone] Aston Yañez MD Primary Care Provider [phone] Allergies Active Allergy Reactions Criticality Noted Date [...] (1 of 3 - 19+ 3-dose series) 03/1985 Colonoscopy 2011 Pneumococcal Vaccines 50+ (1 of 1 - PCV) 2016 Zoster (Shingles) Vaccine (1 of 2) 2016 COVID-19 Vaccine ( - 2023- season) 2024 Influenza Vaccine 04/30/2025 Medical Devices Implanted Type Area Capacitor Repairer Device Identifier Shelf Expiration Date Model / Serial / Lot [id number] System Spinal Fixation 55mm 7mm Ifuse Implant System 3ang - Sn/A Implanted:Qty: 1 on 08/05/2019 by Osvaldo Coleman MD at [facility] [employer] 01/09/2024 [id number]-90 / N/A / [id number] System Spinal Fixation 45mm 7mm Ifuse Implant System 3ang - Sn/A Implanted:Qty: 1 on 08/05/2019 by Osvaldo Coleman MD at [facility] [employer] 04/10/2024 [id number]-90 / N/A / [id number] System Spinal Fixation 45mm 7mm Ifuse Implant System 3ang - Sn/A Implanted:Qty: 1 on 08/05/2019 by Osvaldo Coleman MD at [facility] [employer] 04/10/2024 [id number]-90 / N/A / [id number] Insurance [facility] [employer] JULIUS PAL [id number] Advance Directives * Full Code (Latest Code Status on File) Date Activated Date Inactivated Comments 08/05/2019 10:54 AM * Full Code Date Activated Date Inactivated Comments 08/05/2019 8:02 AM 08/05/2019 10:54 AM Care Teams Truck Bench Mechanic Relationship Specialty Start Date End Date Aston Yañez MD [address] [place] [address] 7102420 PCP - General Endocrinology 07/31/19 Brett Mackenzie MD [address] [place] [address] Psychiatry, General 10/01/18
--- OUTSIDE RECORDS SUMMARY | 2025-02-04 07:28 | XMS_ITS | Encounter Summary ---
Author Organization [facility] Address [address] [place] [address] Care Team Providers Care Loading Unit Operator Powder Charging Name Role Phone Brett Mackenzie MD Primary Care Provider [phone] Brett Mackenzie MD Unavailable [phone] Aston Yañez MD Primary Care Provider [phone] Encounter Details Date Type Department Care Team (Late st Contact Info) Description 04/20/2019 Scanned Document [facility] Neurosurgery [place] 35 [facility] 5 [place] [phone] Osvaldo Coleman MD 35 [facility] 5 [place] [address] Social History Tobacco Use Types Packs/Day Years [...] on filedocumented in this encounter Care Teams Loading Unit Operator Powder Charging Relationship Specialty Start Date End Date Brett Mackenzie MD [address] [place] [address] PCP - General General Medicine 10/01/18 07/30/19 Aston Yañez MD [address] [place] [address] PCP - General Endocrinology 07/31/19 Brett Mackenzie MD [address] [place] [address] Psychiatry, General 10/01/18 documented as of this encounter
--- OUTSIDE RECORDS SUMMARY | 2025-02-04 07:28 | XMS_ITS | Encounter Summary ---
Author Organization [facility] Address [address] [place] [address] Care Team Providers Care Contractor General Engineering Name Role Phone Brett Mackenzie MD Primary Care Provider [phone] Brett Mackenzie MD Unavailable [phone] Aston Yañez MD Primary Care Provider [phone] Encounter Details Date Type Department Care Team (Late st Contact Info) Description 11/26/2018 Scanned Document [facility] Neurosurgery [place] 35 [facility] 5 [place] [address] Osvaldo Coleman MD 35 [facility] 5 [place] [address] Social History Tobacco Use Types Packs/Day Years [...] on filedocumented in this encounter Care Teams Contractor General Engineering Relationship Specialty Start Date End Date Brett Mackenzie MD [address] [place] [address] PCP - General General Medicine 10/01/18 07/30/19 Aston Yañez MD [address] [place] [address] PCP - General Endocrinology 07/31/19 Brett Mackenzie MD [address] [place] [address] Psychiatry, General 10/01/18 documented as of this encounter
--- OUTSIDE RECORDS SUMMARY | 2025-02-04 07:28 | XMS_ITS | Encounter Summary ---
Author Organization [facility] Address [address] [place] [address] Care Team Providers Care Music Executive Name Role Phone Brett Mackenzie MD Unavailable [phone] Aston Yañez MD Primary Care Provider [phone] Encounter Details Date Type Department Care Team (Late st Contact Info) Description 06/24/2020 Scanned Document [facility] Neurosurgery [address] [phone] Social History Tobacco Use Types Packs/Day Years [...] on filedocumented in this encounter Care Teams Music Executive Relationship Specialty Start Date End Date Aston Yañez MD [address] [place] [address] [place] [address] PCP - General Endocrinology 07/31/19 Brett Mackenzie MD [address] [place] [address] Psychiatry, General 10/01/18 documented as of this encounter
--- OUTSIDE RECORDS SUMMARY | 2025-02-04 07:28 | XMS_ITS | Encounter Summary ---
Author Organization [facility] Address [address] [place] [address] Care Team Providers Care Manufacturing Analyst Name Role Phone Brett Mackenzie MD Unavailable [phone] Aston Yañez MD Primary Care Provider [phone] Encounter Details Date Type Department Care Team (Late st Contact Info) Description 08/05/2020 Scanned Document [facility] Neurosurgery [address] [phone] Social History Tobacco Use Types [...] filedocumented in this encounter Care Teams Manufacturing Analyst Relationship Specialty Start Date End Date Aston Yañez MD [address] [place], [place] [address], [place] [address] PCP - General Endocrinology 07/31/19 Brett Mackenzie MD [address] [place] [address] Psychiatry, General 10/01/18 documented as of this encounter
--- OUTSIDE RECORDS SUMMARY | 2025-02-04 07:28 | XMS_ITS | Encounter Summary ---
Author Organization [facility] Address [address] [place] [address] Care Team Providers Care Inside B2B Sales Name Role Phone Brett Mackenzie MD Primary Care Provider [phone] Brett Mackenzie MD Unavailable [phone] Aston Yañez MD Primary Care Provider [phone] Encounter Details Date Type Department Care Team (Late st Contact Info) Description 11/26/2018 Scanned Document [facility] Neurosurgery [place] 35 [facility] 5 [place] [address] Osvaldo Coleman MD 35 [facility] 5 [place] [address] Social History Tobacco Use Types Packs/Day Years [...] on filedocumented in this encounter Care Teams Inside B2B Sales Relationship Specialty Start Date End Date Brett Mackenzie MD [address] [place] [address] PCP - General General Medicine 10/01/18 07/30/19 Aston Yñaez MD [address] [place] [address] PCP - General Endocrinology 07/31/19 Brett Mackenzie MD [address] [place] [address] Psychiatry, General 10/01/18 documented as of this encounter
--- OUTSIDE RECORDS SUMMARY | 2025-02-04 07:28 | XMS_ITS | Encounter Summary ---
Author Organization [facility] Address [address] [place] [address] Care Team Providers Care Bariatric Coordinator Name Role Phone Brett Mackenzie MD Unavailable [phone] Aston Yañez MD Primary Care Provider [phone] Encounter Details Date Type Department Care Team (Late st Contact Info) Description 08/03/2019 Scanned Document [facility] Neurosurgery [address] [phone] Social History Tobacco Use Types [...] on filedocumented in this encounter Care Teams Bariatric Coordinator Relationship Specialty Start Date End Date Aston Yañez MD [address] [place], [place] [address] [address] PCP - General Endocrinology 07/31/19 Brett Mackenzie MD [address] [place] [address] Psychiatry, General 10/01/18 documented as of this encounter
--- OUTSIDE RECORDS SUMMARY | 2025-02-04 07:28 | XMS_ITS | Encounter Summary ---
Author Organization [facility] Address [address] [place] [address] Care Team Providers Care Paper Tube Machine Operator Name Role Phone Brett Mackenzie MD Unavailable [phone] Aston Yañez MD Primary Care Provider [phone] Encounter Details Date Type Department Care Team (Late st Contact Info) Description 07/31/2019 Scanned Document [facility] Neurosurgery [address] [phone] Social History Tobacco Use Types Packs/Day Years [...] on filedocumented in this encounter Care Teams Paper Tube Machine Operator Relationship Specialty Start Date End Date Aston Yañez MD [address] [place] [address] PCP - General Endocrinology 07/31/19 Brett Mackenzie MD [address] [place] [address] Psychiatry, General 10/01/18 documented as of this encounter
--- OUTSIDE RECORDS SUMMARY | 2025-02-04 07:28 | XMS_ITS | Encounter Summary ---
Author Organization [facility] Address [address] [place] [address] Care Team Providers Care Toilet And Laundry Soap Supervisor Name Role Phone Brett Mackenzie MD Primary Care Provider [phone] Brett Mackenzie MD Unavailable [phone] Aston Yañez MD Primary Care Provider [phone] Encounter Details Date Type Department Care Team (Late st Contact Info) Description 02/16/2019 Scanned Document [facility] Neurosurgery [place] 35 [facility] 5 [place] [address] Osvaldo Coleman MD 35 [facility] 5 [place] [address] Social History Tobacco Use Types Packs/Day Years [...] on filedocumented in this encounter Care Teams Toilet And Laundry Soap Supervisor Relationship Specialty Start Date End Date Brett Mackenzie MD [address] [place] [address] PCP - General General Medicine 10/01/18 07/30/19 Aston Yañez MD [address] [place] [address] PCP - General Endocrinology 07/31/19 Brett Mackenzie MD [address] [place] [address] Psychiatry, General 10/01/18 documented as of this encounter
--- OUTSIDE RECORDS SUMMARY | 2025-02-04 07:28 | XMS_ITS | Encounter Summary ---
Author Organization [facility] Address [address] [place] [address] Care Team Providers Care Food Server Name Role Phone Brett Mackenzie MD Unavailable [phone] Aston Yañez MD Primary Care Provider [phone] Encounter Details Date Type Department Care Team (Late st Contact Info) Description 12/18/2019 Scanned Document [facility] Neurosurgery [address] [phone] Social History Tobacco Use Types Packs/Day Years [...] filedocumented in this encounter Care Teams Food Server Relationship Specialty Start Date End Date Aston Yañez MD [address] [place] [address] [address] PCP - General Endocrinology 07/31/19 Brett Mackenzie MD [address] [place] [address] Psychiatry, General 10/01/18 documented as of this encounter
--- OUTSIDE RECORDS SUMMARY | 2025-02-04 07:28 | XMS_ITS | Encounter Summary ---
Author Organization [facility] Address [address] [place] [address] Care Team Providers Care Chemical Laboratory Tester Name Role Phone Brtet Mackenzie MD Unavailable [phone] Aston Yañez MD Primary Care Provider [phone] Encounter Details Date Type Department Care Team (Late st Contact Info) Description 08/03/2019 Scanned Document [facility] Neurosurgery [address] [phone] Neurosurgery, Scan Social History Tobacco Use Types [...] on filedocumented in this encounter Care Teams Chemical Laboratory Tester Relationship Specialty Start Date End Date Aston Yañez MD [address] [place] [address] PCP - General Endocrinology 07/31/19 Brett Mackenzie MD [address] [place] [address] Psychiatry, General 10/01/18 documented as of this encounter
--- OUTSIDE RECORDS SUMMARY | 2025-02-04 07:28 | XMS_ITS | Encounter Summary ---
Author Organization [facility] Address [address] [place] [address] Care Team Providers Care Agriculture Sales Account Manager Name Role Phone Brett Mackenzie MD Unavailable [phone] Aston Yañez MD Primary Care Provider [phone] Encounter Details Date Type Department Care Team (Late st Contact Info) Description 12/29/2019 Scanned Document [facility] Neurosurgery [address] [phone] Social History Tobacco Use Types Packs/Day Years [...] on filedocumented in this encounter Care Teams Agriculture Sales Account Manager Relationship Specialty Start Date End Date Aston Yañez MD [address] [place], [place] [address], [place] [address] PCP - General Endocrinology 07/31/19 Brett Mackenzie MD [address] [place] [address] Psychiatry, General 10/01/18 documented as of this encounter
--- OUTSIDE RECORDS SUMMARY | 2025-02-04 07:28 | XMS_ITS | Encounter Summary ---
Author Organization [facility] Address [address] [place] [address] Care Team Providers Care Statistical Engineer Name Role Phone Brett Mackenzie MD Unavailable [phone] Aston Yañez MD Primary Care Provider [phone] Encounter Details Date Type Department Care Team (Late st Contact Info) Description 10/07/[address] [facility] Neurosurgery [address] [phone] Social History Tobacco Use Types Packs/Day Years [...] on filedocumented in this encounter Care Teams Statistical Engineer Relationship Specialty Start Date End Date Aston Yañez MD [address] [place], [place] [address] [address] PCP - General Endocrinology 07/31/19 Brett Mackenzie MD [address] [place] [address] Psychiatry, General 10/01/18 documented as of this encounter
--- OUTSIDE RECORDS SUMMARY | 2025-02-04 07:28 | XMS_ITS | Encounter Summary ---
Author Organization [facility] Address [address] [place] [address] Care Team Providers Care Coding Consultant Name Role Phone Brett Mackenzie MD Unavailable [phone] Aston Yañez MD Primary Care Provider [phone] Encounter Details Date Type Department Care Team (Late st Contact Info) Description 01/07/2020 Scanned Document [facility] Neurosurgery [address] [phone] Social History Tobacco Use Types [...] on filedocumented in this encounter Care Teams Coding Consultant Relationship Specialty Start Date End Date Aston Yañez MD [address] [place], [place] [address], [place] [address] PCP - General Endocrinology 07/31/19 Brett Mackenzie MD [address] [place] [address] Psychiatry, General 10/01/18 documented as of this encounter
--- OUTSIDE RECORDS SUMMARY | 2025-02-04 07:28 | XMS_ITS | Encounter Summary ---
Author Organization [facility] Address [address] [place] [address] Care Team Providers Care Mobile Home Technician Name Role Phone Brett Mackenzie MD Unavailable [phone] Aston Yañez MD Primary Care Provider [phone] Encounter Details Date Type Department Care Team (Late st Contact Info) Description 08/03/2019 Scanned Document [facility] Neurosurgery [address] [phone] Neurosurgery, Scan Social History Tobacco Use Types [...] on filedocumented in this encounter Care Teams Mobile Home Technician Relationship Specialty Start Date End Date Aston Yañez MD [address] [place] [address] PCP - General Endocrinology 07/31/19 Brett Mackenzie MD [address] [place] [address] Psychiatry, General 10/01/18 documented as of this encounter
--- OUTSIDE RECORDS SUMMARY | 2025-02-04 07:28 | XMS_ITS | Encounter Summary ---
Author Organization [facility] Address [address] [place] [address] Care Team Providers Care Purchasing Contracting Clerk Name Role Phone Brett Mackenzie MD Primary Care Provider [phone] Brett Mackenzie MD Unavailable [phone] Aston Yañez MD Primary Care Provider [phone] Encounter Details Date Type Department Care Team (Late st Contact Info) Description 03/25/2019 Scanned Document [facility] Neurosurgery [place] [address] [phone] [place], [place] [address] [address] Social History Tobacco Use Types Packs/Day Years [...] on filedocumented in this encounter Care Teams Purchasing Contracting Clerk Relationship Specialty Start Date End Date Brett Mackenzie MD [address] [place] [address] PCP - General General Medicine 10/01/18 07/30/19 Aston Yañez MD [address] [place] [address] PCP - General Endocrinology 07/31/19 Brett Mackenzie MD [address] [place] [address] Psychiatry, General 10/01/18 documented as of this encounter
== END 2025-02-04 08:35 | disposition home or self-care (01) ==
LOC: HO.HMCC 07:25
PROVIDERS: PCP Nurse Practitioner Family; Visit Provider Nurse Practitioner Family
DX: M25.511 Pain in right shoulder (principal)

== ENCOUNTER → 2025-02-04 07:25 | Outpatient (BNVA) | payer OTHER, SELFPAY | PROVIDERS: PCP Nurse Practitioner Family; Visit Provider Nurse Practitioner Family | DX: Z13.89 Encounter for screening for other disorder (principal); M25.511 Pain in right shoulder ==

== ENCOUNTER 2025-03-16 07:14 | Outpatient (AMB) | payer OTHER, SELFPAY ==
--- OUTSIDE RECORDS SUMMARY | 2025-03-16 07:16 | XMS_ITS | Encounter Summary ---
Author Organization [facility] Address [address] [place] [address] Care Team Providers Care Sole Stainer Name Role Phone Brett Mackenzie MD Unavailable [phone] Aston Yañez MD Primary Care Provider [phone] Encounter Details Date Type Department Care Team (Late st Contact Info) Description 03/15/2020 Scanned Document [facility] Neurosurgery [address] [phone] Social History Tobacco Use Types Packs/Day Years [...] on filedocumented in this encounter Care Teams Sole Stainer Relationship Specialty Start Date End Date Aston Yañez MD [address] [place] [address] [place] [address] PCP - General Endocrinology 07/31/19 Brett Mackenzie MD [address] [place] [address] Psychiatry, General 10/01/18 documented as of this encounter
--- NOTE | 2025-03-16 07:17 | A.OFFVIS_ITS ---
Vital Signs 03/16/25 07:53 Weight 171 lb 6 oz BP 128/68 Blood Pressure Location Lt brachial Position Sitting Pulse 68 Intake Visit Reasons: T1DM Allergies latex Adverse Reaction (Mild, Verified 01/14/25 07:44) skin bubbles codeine [Codeine] Adverse Reaction (Unknown, Verified 01/14/25 07:44) HEADACHE Medication List - Last Reconciled 03/16/25 by Cathy Engle NP acetone (urine) test (Ketone Urine Test strips) As directed p.r.n. illness or glucose over 250 atorvastatin 20 mg (2 x 10 mg) PO DAILY 30 days blood sugar diagnostic (FreeStyle Lite Strips) test blood sugar 4 times per day prn sensor failure blood-glucose meter (FreeStyle Lite Meter kit) As directed for use with lancets blood-glucose sensor (FreeStyle Gwendolyn 2 Plus Sensor device) As directed for 30 days Humalog U-100 Insulin (insulin lispro) 70 units (0.7 mL) subcut DAILY 30 days NS insulin glargine (Lantus Solostar U-100 Insulin) 30 units subcut QAM insulin syringe-needle U-100 As directed four times a day prn pump failure lancets (FreeStyle Lancets) As directed four times a day prn sensor failure dispense as 33 gauge if avail levothyroxine 125 mcg PO DAILY 90 days omeprazole 20 mg PO DAILY pen needle, diabetic (BD Pamela 2nd Gen Pen Needle) once daily prn pump failure tramadol 50 mg PO DAILY 20 days HPI Comments Details: 60 YO M with is seen in f/u for T1DM. He was last seen 01/14/25 at which time his insulin to carb ratio was lowered to give him more pre-prandial insulin. He has been having some overnight lows in his been shutting his pump off at night going up to over 300 on a regular basis. He had not contacted our office to inform us that this was happening. Hemoglobin A1c 01/14/25 7.4% 10/14/2024 6.7%. Previous 04/09/2024 7%. Initially diagnosed with T1DM at age 5 when he presented with illness Was initially started on treatment with insulin. Went on Tslim-2 pump 04/2023 Back up for pump failure: Lantus 30 units plus usual dose of humalog Currently being managed with T-slim pump with cotrol IQ Recently switched over to a freestyle 2+ and having some issues with connection to pump. He has had if he will sensors pulled out early and he was advised he can contact the company when this occurs. Pump settings Basal rate(s) (units/hour) : 12 AM to 12 AM? 1.2 units / hr new 1.1 Bolus setting Insulin Carbohydrate Ratio (s) 12 AM to 12 AM 1:8.0 new 1:9 Correction Factor / Sensitivity Factor 12 AM to 12 AM? 1:25 new 1:27 Active Insulin Time:? 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 Does not see podiatry. Has mild intermittent tenderness over left Achilles. No nephropathy, Not on PENNIE/ARB. 01/12/25 eGFR>60 02/2024 microalbumin 28 Has HLD,hasn't restarted on statin due for LDL previous ldl over 100 when thyroid not treated Denies history of CAD. hx of CVA hemmoraghic 06/16/2010 Diet/Carb counting: Does not enter all carbs carbs into pump, Denies prior episodes of DKA. Has had prior severe episodes of hypoglycemia requiring help or hospitalization yrs ago Was on chronic steroid in the past for back Under increased stress with pending divorce Hypothyroidism: diagnosed 2023 needs repeat thyroid testing. [facility] Medical History (Updated 01/14/25 @ 09:22 by Cathy Engle NP) Hypothyroidism Stroke Hyperlipemia Fusion of joint Diabetes Back injury Surgical History History of surgery History of shoulder surgery Family History Father Diabetes Brother Diabetes Other Mental health disorder Social History Household Members: Spouse and Family Household Members Other:: , grandchild [facility] Alcohol intake: current Alcohol intake frequency: holidays/special occasions only Alcohol type: beer Patient Tobacco Use Status: Former Tobacco user Tobacco use type: Cigarette Years Smoked: since age 16 e-Cigarette/Vaping Use: Never Used Second Hand Smoke Exposure: No Substance Use Type: Marijuana Current occupational status: employed 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 Absence of acromegalic features. Neck exam reveals nl size thyroid about 15 gms. No thyroid nodules palpable. Heart S1 S2, Reg R/R. No M/R G. Skin exam reveals absence of vitiligo or acanthosis nigricans. No edema. Foot exam deferred patient declined and reports no open areas. Office Procedures Glucose Monitoring Details Details: see [facility] [id number] - Glucose monitoring, continuous-physician I&R Procedure code (CPT) selection complete Assessment & Plan Assessment & Plan (1) Type 1 diabetes: Code(s): E10.9 - Type 1 diabetes mellitus without complications Category: Medical Plan: Type 1 diabetic with previously treated retinopathy with laser now stable retinopathy on a tandem insulin pump. He was counseled that in between visits if his sugars are running low or he is not hitting targets of less than 182 hours after meals that he should contact our office and schedule an appointment. He was advised he can call [employer] for replacement sensors if it fails or falls off early. He does not have a backup glucometer test strips and lancets and these were sent today along with ketone test strips. The patient had an opportunity to ask questions regarding treatment plan. The patient expressed understanding and agreement with the above treatment plan. The patient is aware they should contact our office by phone for worsening glucose readings or for any low blood sugars which may warrant a change in diabetes medication. Compliance is encouraged with medications and any followup testing/consults which may have been ordered. (2) Hypothyroidism: Code(s): E03.9 - Hypothyroidism, unspecified Category: Medical Plan: Continue levothyroxine on an empty stomach. Recheck TSH free T4 lab orders have been placed. Orders: Orders AMB Glucose Monitoring Today E10.9 - Type 1 diabetes mellitus without complications Thyroid Stimulating Hormone Today E10.9 - Type 1 diabetes mellitus without comp lications, R79.89 - Other specified abnormal findings of blood chemistry Free T4 (Free Thyroxine) Today E10.9 - Type 1 diabetes mellitus without complications, R79.89 - Other specified abnormal findings of blood chemistry Hemoglobin A1c Today E10.9 - Type 1 diabetes mellitus without complications, R79.89 - Other specified abnormal findings of blood chemistry Lipid Panel Today E78.5 - Hyperlipidemia, unspecified Medications: New blood-glucose meter (FreeStyle Lite Meter kit) As directed for use with lancets 1 ea 0RF Changed From lancets (FreeStyle Lancets) As directed four times a day To lancets (FreeStyle Lancets) As directed four times a day prn sensor failure dispense as 33 gauge if avail 100 ea 0RF From blood sugar diagnostic (FreeStyle Lite Strips) test blood sugar 4 times per day 100 ea 3RF E10.9 - Type 1 diabetes mellitus without complications To blood sugar diagnostic (FreeStyle Lite Strips) test blood sugar 4 times per day prn sensor failure 100 ea 3RF E10.9 - Type 1 diabetes mellitus without complications Refilled acetone (urine) test (Ketone Urine Test strips) As directed p.r.n. illness or glucose over 250 25 ea 1RF Discontinued blood-glucose transmitter (Dexcom G6 Transmitter device) Discontinued Reason: Doctor's Order USE DIRECTED 1 ea 5RF Patient Instructions: Symptoms of DKA (diabetic ketoacidosis): early: frequent urination, dry mouth, fatigue, feeling ill, severe symptoms: ketones in the urine, abdominal pain, na usea, vomiting and weakness. It is important to hydrate with sugar free liquids every 15-30 minutes and bring the sugars down to normal levels. If you are moderate or severe with ketones or unable to bring glucose to less than 200, go to the emergency room. Written handout given on DKA treatment. Troubleshooting after starting new pod or inserting new insulin set: Occlusion, adhesive tape sensitivity, redness Check BG 2 hours after site change Safety information: Importance of a backup plan, for manual injections, proper prescriptions and emergency supplies ketone strips, and rules for testing for ketones He was counseled to have backup supplies at his work site in the event that his pump tubing is torn out or having any issues. The patient was counseled to achieve a target A1C of 7% (154 avg). Fasting blood sugars should be 90-130 in the morning and less than 180 two hours after meals. Reviewed the relationship between poor diabetic control and the development of complications. Check your feet daily looking for any signs of infection, drainage, redness, ulceration and seek medical attention if this occurs. Break in shoes gradually and do not wear open-toed shoes or walk stocking footed or barefooted. Coding Level of Care Code Est Pt Level 4 (22546) Complex EM visit Add On G2211 Diagnoses Type 1 diabetes E10.9 Hypothyroidism E03.9 CPT Codes Details - CPT: 41415 - Glucose monitoring, continuous-physician I&R ([id number]) Time Spent (min) 30 Comment Reviewing labs/provider notes, glucose sensor/pump reports, face to face, chart doc
[2025-03-16 07:53] VITALS: BP 128/68; PULSE 68
== END 2025-03-16 07:53 | disposition home or self-care (01) ==
LOC: HO.ENCR 07:15
PROVIDERS: PCP Nurse Practitioner Family; Visit Provider Nurse Practitioner Adult Health
DX: E10.9 Type 1 diabetes mellitus without complications (principal); E03.9 Hypothyroidism, unspecified
CPT/HCPCS: 95251; 99214; G2211

== ENCOUNTER → 2025-03-16 07:14 | Outpatient (BNVA) | payer OTHER, SELFPAY | PROVIDERS: PCP Nurse Practitioner Family; Visit Provider Nurse Practitioner Adult Health | DX: E10.9 Type 1 diabetes mellitus without complications (principal); E03.9 Hypothyroidism, unspecified | CPT/HCPCS: 99212 ==

== ENCOUNTER 2025-03-29 14:40 | Outpatient (AMB) | payer OTHER, SELFPAY ==
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
--- OUTSIDE RECORDS SUMMARY | 2025-03-29 15:12 | XMS_ITS | Encounter Summary ---
Author Organization [facility] Address [address] [place] [address] Care Team Providers Care Microwave Radio Technician Name Role Phone Brett Mackenzie MD Unavailable [phone] Aston Yañez MD Primary Care Provider [phone] Encounter Details Date Type Department Care Team (Late st Contact Info) Description 03/15/2020 Scanned Document [facility] Neurosurgery [address] [phone] Social History Tobacco Use Types Packs/Day Years [...] on filedocumented in this encounter Care Teams Microwave Radio Technician Relationship Specialty Start Date End Date Aston Yañez MD [address] [place] [address] [place] [address] PCP - General Endocrinology 07/31/19 Brett Mackenzie MD [address] [place] [address] Psychiatry, General 10/01/18 documented as of this encounter
== END 2025-03-29 15:29 | disposition home or self-care (01) ==
LOC: HO.HOS 14:41
PROVIDERS: PCP Nurse Practitioner Family; Visit Provider Physician Assistant
DX: M75.31 Calcific tendinitis of right shoulder (principal); M75.21 Bicipital tendinitis, right shoulder
CPT/HCPCS: 20610; 99213

== ENCOUNTER → 2025-03-29 14:40 | Outpatient (BNVA) | payer OTHER, SELFPAY | PROVIDERS: PCP Nurse Practitioner Family; Visit Provider Physician Assistant | DX: M25.511 Pain in right shoulder (principal); M75.31 Calcific tendinitis of right shoulder; M75.21 Bicipital tendinitis, right shoulder | CPT/HCPCS: 20610; 99212; J1010; J2003 ==

== ENCOUNTER 2025-04-29 06:05 | Inpatient (IN) | payer OTHER, SELFPAY ==
[2025-04-29] VITALS (9 sets, daily range): BP systolic 135–196; BP diastolic 55–84; PULSE 72–91; RESP 16–20; TEMP 36.3–37.1; O2SAT 94–100; BMI 27.3; BMI 28.6
--- NOTE | ~2025-04-29 | CT_ITS ---
EXAMINATION: CT ABDOMEN AND PELVIS WITH CONTRAST CLINICAL INFORMATION: Lower abdominal pain, hematochezia, DLP: 453 mGY*cm COMPARISON: There were 03/19/2022 TECHNIQUE: Multidetector volumetric images were obtained from the superior aspect of the liver through the pubic symphysis following administration 85 mL of Omnipaque 350 intravenous contrast. Sagittal and coronal reformatted images were obtained on the technologist's workstation. Oral contrast: No This CT examination was performed using dose optimization techniques as appropriate, variously including the following: *Automated exposure control *Adjustment of mA and/or kV according to patient size (this includes techniques or standardized protocols for targeted exams where dose is matched to indication/reason for exam; i.e. extremities or head) *Use of iterative reconstruction technique FINDINGS: LUNG BASES: The visualized lung bases are unremarkable. LIVER, GALLBLADDER, AND BILIARY TREE: The liver is normal in size, shape, and attenuation. No focal hepatic lesion or biliary ductal dilatation is present. The gallbladder is unremarkable with no evidence of radiopaque gallstones, gallbladder wall thickening, or obvious pericholecystic inflammatory changes. PANCREAS: Unremarkable. SPLEEN: Unremarkable. ADRENAL GLANDS: Unremarkable. KIDNEYS AND URETERS: There is a 4 x 2 mm calcification in the upper left kidney and a second smaller 1 x 3 mm calcification just lateral to the aforementioned. There is a third rounded calcification in the mid left kidney 2 mm in diameter. There is are two 1 mm punctate calcifications in the lower pole. No evidence of stones are evident in the right kidney. No stones are seen in the ureters. Again seen are a few hypodensities in the renal parenchyma too small to characterize, likely benign simple cysts and small angiomyolipomas. BLADDER: Unremarkable. GASTROINTESTINAL TRACT: GE junction and stomach are unremarkable. Duodenum is unremarkable. The appendix is within normal limits. There is thickening of the wall of the colon is otherwise unremarkable. Transverse colon and adjacent stranding of the mesentery with prominent vascularity. ABDOMINAL WALL: No significant hernia is appreciated. LYMPH NODES: Normal. VASCULAR: Moderate vessel calcification is present. PELVIC VISCERA: Unremarkable. OSSEOUS STRUCTURES: The left SI joint has been surgically fused with 3 pins. There is mild degeneration of the right SI joint. There is degenerative disc disease and facet osteoarthritis in the lower lumbar spine. There is mild degenerative change involving the hip joint with osteophytes. There is heterotopic ossification versus calcification deep to the posterior facet of the left greater trochanter within the gemellus muscle. CT/CT abdomen pelvis w IV con IMPRESSION: Colitis: There is edema and mucosal thickening with mild hypervascularity and fat stranding involving the transverse colon. This could be related to infection, ischemia, inflammatory bowel disease, or less likely neoplasm. Nephrolithiasis, left kidney. Possible calcific tendinitis involving gemellus, left hip. Fleischner guidelines were followed. Electronically signed by: Gonsalo Monroy MD 04/29/2025 10:09 AM EDT
[2025-04-29 06:23] LABS: Glucose, Whole Blood 196 mg/dL (60-115)
--- OUTSIDE RECORDS SUMMARY | 2025-04-29 06:34 | XMS_ITS | Clinical Summary ---
Author Organization [facility] Address [address] [place] [address] Phone Care Team Providers Care Job Interviewer Name Role Phone Mariano Smith NP Primary Care Provider + Allergies Active Allergy Reactions Criticality Noted Date Comments Codeine Headaches 04/29/2018 Latex Other (See Comments) High 08/05/2019 blisters Medications multivitamins with minerals- folic acid-lycopene (MEN'S ONE-A-DAY) 400-20-300 mcg Tab Take 1 tablet by mouth daily. Active insulin glargine (LANTUS, BASAGLAR) 100 unit/mL (3 mL) InPn injection pen Inject 36 Units under the skin nightly. Active insulin lispro (HUMALOG) 100 unit/mL InPn injection pen Inject 12-14 Units under the skin 3 (three) times a day with meals. Active Medication-Free Text Take 150 mg by mouth daily. cbd Active FLUoxetine (PROZAC) 40 MG capsule Take 40 mg by mouth daily. Active b complex vitamins capsule Take 1 capsule by mouth daily. Active fluticasone propionate (FLONASE) 50 mcg/actuation nasal spray 1 spray by Nasal route daily as needed. Active loratadine (CLARITIN) 10 mg tablet Take 10 mg by mouth daily as needed for allergies. Active lancets Misc 06/08/2020 Active glucagon 1 mg SolR 06/07/2020 Active Active Problems Problem Noted Date Diagnosed Date Lumbar facet arthropathy 04/13/2022 Bulge of lumbar disc without myelopathy 01/03/20 19 Lumbar radiculopathy 01/02/2019 Sacroiliitis, not elsewhere classified 9 Social History Tobacco Use Types Packs/Day Years Used Date Smoking Tobacco: Former Smokeless Tobacco: Never Education Answer Date Recorded Are you interested in more education? Not on herman e 01/25/2023 Are you concerned about learning? Not on file 01/25/2023 No 01/25/2023 No 01/25/2023 Digital Access Answer Date Recorded No 02/23/2023 No 02/23/2023 No 02/23/2023 Reliable internet access at home? Not on file 02/23/2023 Device with a working camera? Not on file Sex and Gender Information Value Date Recorded Sex Assigned at Not on file Legal Sex Male 10:33 PM EDT Gender Identity Not on file Sexual Orientation Not on file Last Filed Vital Signs Vital Sign Reading Time Taken Comments Blood Pressure 128/66 09/13/2021 9:22 AM EST Pulse 66 07/27/2020 8:19 AM EDT Temperature 36.6 C (97.8 F) 09/08/2020 8:49 AM EST Respiratory Rate - - Oxygen Saturation 98% 04/29/2018 9:18 AM EDT Inhaled Oxygen Concentration - - Weight 75.8 kg (167 lb) 09/13/2021 9:22 AM EST Height 162.1 cm (5' 3.8 ) 09/13/2021 9:22 AM EST Body Mass Index 28.85 09/13/2021 9:22 AM EST Plan of Treatment Health Maintenance Due Date Last Done Comments LIPID PANEL 1966 DEPRESSION SCREENING 1978 SMOKING Hx and SMOKELESS TOBACCO SCREENING 1979 HEPATITIS C SCREENING 1984 HIV ONE-TIME SCREENING (18-6 5 YEARS) 1984 COLOGUARD 2011 COLONOSCOPY 2011 COLORECTAL CANCER SCREENING 2011 FIT TEST 2011 FOBT 2011 SIGMOIDOSCOPY 2011 VIRTUAL COLONOSCOPY 2011 ZOSTER VACCINES (1 of 2) 2016 PNEUMOCOCCAL VACCINES (50+ years) (2 of 2 - PCV) 07/13/2022 07/13/2021, 04/10/2007 Adult Td,Tdap Booster 12/15/2023 12/14/2013 , 07/13/2008 COVID-19 VACCINE (3 - 2023-2 5 season) 2024 06/19/2021, 05/11/2021 HEPATITIS A VACCINES Aged Out No long er eligible based on patient's age to complete this topic HIB VACCINES Aged Out No longer eligi ble based on patient's age to complete this topic MENINGOCOCCAL VACCINES (ACWY) Aged Out No longer eligible based on patient's age to complete this topic MENINGOCOCCAL VACCINES (B) Aged Out N o longer eligible based on patient's age to complete this topic Medical Devices Not on file [place] [place] [address] NET FULL Member Subscriber Plan / Payer (Ef fective 2022-Present) Name:Jolly Ureña Relation to Subscriber:Self Name:Jolly Ureña Payer ID:Not on file Group ID:Not on file Type:Medicaid Address: [place] [id number] [facility] Address: [place] [address] [facility] NET FULL Member Subscriber Plan / Payer (Ef fective 2022-Present) Name:Jolly Ureña Relation to Subscriber:Self Name:Jolly Ureña Payer ID:Not on file Group ID:Not on file Type:Medicaid Address: [id number] Member Subscriber Plan / Payer (Ef fective 2022-Present) Name:Jolly Ureña Relation to Subscriber:Self Name:Jolly Ureña Payer ID:Not on file Group ID:Not on file Type:Medicaid Address: [address] Member Subscriber Plan / Payer (Ef fective 2022-Present) Name:Jolly Ureña Relation to Subscriber:Self Name:Jolly Ureña Payer ID:Not on file Group ID:Not on file Type:Medicaid Address: [address] FULL Member Subscriber Plan / Payer (Ef fective 2022-Present) Name:Jolly Ureña Relation to Subscriber:Self Name:Jolly Ureña Payer ID:Not on file Group ID:Not on file Type:Medicaid Address: [address] Member Subscriber Plan / Payer (Ef fective 2022-Present) Name:Jolly Ureña Josue Relation to Subscriber:Self Name:Jolly Ureña Josue Payer ID:Not on file Group ID:Not on file Type:Medicaid Address: [address] Member Subscriber Plan / Payer ( fective 2022-) Name:Pablo Jolly P Relation to Subscriber:Self Name:Jolly Ureña Josue Payer ID:Not on file Group ID:Not on file Type:Medicaid Address: [address] [employer]AF[employer] NET FULL Member Subscriber Plan / Payer (Ef fective 2022-Present) Name:Jolly Ureña Relation to Subscriber:Self Name:Jolly Ureña Payer ID:Not on file Group ID:Not on file Type:Medicaid Address: [address] HEALTH SAFETY NET FULL Member Subscriber Plan / Payer (Ef fective 2022-Present) Name:Jolly Ureña Relation to Subscriber:Self Name:Jolly Ureña Payer ID:Not on file Group ID:Not on file Type:Medicaid Address: [address] [employer] Care Teams Job Interviewer Relationship Specialty Start Date End Date Mariano Smith NP [address] [facility] [place] [id number] [email or web address] PCP - General Family Medicine 02/03/21 Additional Source Comments The information contained in this document represents components of the legal health record. It is not the complete legal health record.[facility]
--- OUTSIDE RECORDS SUMMARY | 2025-04-29 06:34 | XMS_ITS | Encounter Summary ---
Author Organization [facility] Address [address] [place] [address] Care Team Providers Care Net Sql Developer Name Role Phone Brett Mackenzie MD Primary Care Provider [phone] Brett Mackenzie MD Unavailable [phone] Aston Yañez MD Primary Care Provider [phone] Encounter Details Date Type Department Care Team (Late st Contact Info) Description 04/15/2019 Scanned Document [facility] Neurosurgery [address] [id number] Social History Tobacco Use Types [...] on filedocumented in this encounter Care Teams Net Sql Developer Relationship Specialty Start Date End Date Brett Mackenzie MD [address] [place] [id number] PCP - General General Medicine 10/01/18 07/30/19 Atson Yañez MD [address] [place] [id number] PCP - General Endocrinology 07/31/19 Brett Mackenzie MD [address] [place] [address] Psychiatry, General 10/01/18 documented as of this encounter
[2025-04-29 06:36] LABS: MANUAL DIFF FLAG NO
[2025-04-29 06:58] LABS: Alanine Aminotransferase 25 U/L (0-40); Albumin Level 3.9 g/dL (3.5-5.0); Alkaline Phosphatase 96 U/L (39-117); Anion Gap 17 (12-20); Aspartate Amino Transferase 30 U/L (5-37); Blood Urea Nitrogen 21 mg/dL (9-16); Calcium 9.0 mg/dL (8.4-10.2); Carbon Dioxide 25 mmol/L (22-29); Chloride 101 mmol/L (96-108); Creatinine Clr Calc Pharmacy 73.1; Estimated Glomerular Filt Rate > 60; Potassium 4.3 mmol/L (3.3-5.1); Sodium 139 mmol/L (135-145); Total Protein 6.8 g/dL (6.5-8.0)
[2025-04-29 07:11] LABS: Hematocrit 37.2 % (42.0-52.0); Hemoglobin 13.3 g/dl (14.0-18.0); Imm Gran Abs Auto 0.09 X10*3/uL (0.00-0.03); Imm Gran Pct Auto 0.5 % (0.0-0.4); Lymphocytes Absolute Auto 1.4 X10*3/uL (1.2-4.9); Mean Corpuscular HGB Conc 35.8 g/dl (31.0-36.0); Mean Corpuscular Hemoglobin 33.4 pg (27.0-33.0); Mean Corpuscular Volume 93.5 fL (80.0-98.0); NRBC Abs Auto 0.000 X10*3/uL (0.0-0.012); NRBC Pct Auto 0.0 /100WBC (0.0-0.2); Platelet Count 266 X10*3/uL (160-400); Red Blood Count 3.98 X10*6/uL (4.60-5.80); White Blood Count 17.4 X10*3/uL (4.8-10.8)
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
[2025-04-29 08:18] LABS: Lipase 32 U/L (8-78); Magnesium 1.9 mg/dL (1.6-2.6)
[2025-04-29] MEDS: iohexoL 350 MG/ML 100 ML INFUS..BTL IV (09:47)
[2025-04-29 09:49] LABS: OBS Int Ctl Valid YES; OBS1 POSITIVE (NEGATIVE)
[2025-04-29 10:27] LABS: Hematocrit 43.1 % (42.0-52.0); Hemoglobin 15.0 g/dl (14.0-18.0); INTERNATIONAL NORM RATIO 1.0 (0.9-1.1); Prothrombin Time 11.9 SEC (10.9-12.4)
[2025-04-29 10:33] LABS: Partial Thromboplastin Time 23.8 SEC (26.7-34.1)
--- NOTE | 2025-04-29 12:49 | PC.NURSE ---
Pt reports moderate pain relief after Dilaudid gv per orders; pt remains NPO at this time; pt has shut off his insulin pump secondary to NPO status; awaiting dispo at this time; vss; pt denies N/V at this time
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
[2025-04-29] MEDS: metroNIDAZOLE/NS 500 MG/100 ML PIGGYBACK 100 MG IV ×2 (13:18→20:50)
--- NOTE | 2025-04-29 14:31 | PHA.MEDREC ---
Addendum entered by Johnny Anthony RPh 04/29/25 14:54: Reviewed by [facility] Original Note: Pharmacy Consult ? Medication Reconciliation Pharmacy has completed the medication reconciliation.Spoke to patient. Patient confirmed no longer taking omeprazole 20mg, or tramadol 50mg. patient confirmed taking humalog 70 units via Tslim pump (currently not utilizing pump as of right now), lantus only as needed when insulin pump fails 32units. medications last taken the 04/27/25 except for insulin that was taken last night
--- NOTE | 2025-04-29 15:11 | PM.GICN ---
History of Present Illness Data of Consult Service Date: 04/29/25 Requesting physician: Kaden Villareal Primary Care Provider: Unknown Physician HPI 60 YM with DM, osteoarthritis, hld, [place] [facility] [place] with nausea vomiting and diarrhea. Pt reports he was kayaking and developed sunburn on both lower extremities 5 days prior to presentation. Patient states over the last 2 days he has developed nausea, vomiting and bloody stools. Patient states that yesterday he vomited 3 times Vomitus was yellow green with spots of blood. Patient states that he had 1 dark brown diarrheal stool yesterday containing dark blood. He states he has not eaten anything over the past 2 days. Pt notes lower abdominal pain and points to his left lower quadrant and suprapubic area when asked to localize the pain. He states the pain is a constant, dull ache is if he was punched in the gut, pain is greater than 10/10. Patient denies a history of peptic ulcer disease or GI bleeding in the past. Pt reports having a Cologuard test 6 months ago which was negative. Patient denies smoking or ETOH abuse. He admits to taking marijuana gummies for chronic back pain 1 to 2 times a week. FAMILY HISTORY: positive for GERD and patient denies known history of colon polyps or GI malignancy The patient does have chronic back problems and he states that he takes Aleve 220 mg 3 pills once a day prior to starting work to help with his back pain. Labs in the ED showed leukocytosis, positive guaiac. H & H was stable. 04/29/[address] SCAN SHOWED: Colitis: There is edema and mucosal thickening with mild hypervascularity and fat stranding involving the transverse colon. This could be related to infection, ischemia, inflammatory bowel disease, or less likely neoplasm. Nephrolithiasis, left kidney. Possible calcific tendinitis involving gemellus, left hip. Review of Systems Review of Systems: Yes all other systems are reviewed and are negative [facility] Past Medical History Medical History Hypothyroidism Stroke Hyperlipemia Fusion of joint Diabetes Back injury Family History Family History Father Diabetes Brother Diabetes Other Mental health disorder Surgical History Surgical History History of surgery History of shoulder surgery Social History Social History Household Members: Spouse and Family Household Members Other:: , grandchild Housing: Condominium Alcohol intake: current Alcohol intake frequency: holidays/special occasions only Alcohol type: beer Patient Tobacco Use Status: Former Tobacco user Tobacco use type: Cigarette Years Smoked: since age 16 Smoked in Last 30 Days: No e-Cigarette/Vaping Use: Never Used Second Hand Smoke Exposure: No Use of substances other than those prescribed or required for medical reasons: No Substance Use Type: Marijuana Advance Directives: No Advance Directives Information Provided: Yes Do you have a plan to hurt others: No Plan Nutrition Risks: No Nutritional Risk Current occupational status: employed 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 Cognitive needs: No Hearing needs: No Vision needs: No Meds Allergies Allergy/AdvReac Type Severity Reaction Status Date / Time latex AdvReac Mild skin Verified 04/29/25 06:15 bubbles codeine (Codeine) AdvReac Unknown HEADACHE Verified 04/29/25 06:15 Active Medications: Current Medications Acetaminophen (Acetaminophen 325 Mg Tablet) 650 mg PO Q6H PRN PRN Reason: Pain, Mild 1-3,fever,headache Bacitracin (Bacitracin Oint 14 Gm Tube) 1 appl TOPICAL BID [facility]; Protocol Calcium Carbonate (Calcium Carbonate 750 Mg Tab.Chew) 750 mg PO Q4H PRN PRN Reason: Heartburn Ceftriaxone Sodium (Ceftriaxone Sodium 1 Gm Vial) 1 gm IVPUSH Q24H [facility] Last Admin: 04/29/25 13:18 Dose: 1 gm Dextrose (Dextrose 50 % 25 Gm/50 Ml Syringe) 25 gm IVPUSH Q15M PRN; Protocol PRN Reason: per Hypoglycemia Standing Ord. Glucose (Glucose Gel 15 Gm Gel..Gram.) 15 gm PO Q15M PRN; Protocol PRN Reason: per Hypoglycemia Standing Ord. Hydromorphone HCl (Hydromorphone Hcl 2 Mg/Ml Vial) 1 mg IVPUSH Q4H PRN; Protocol PRN Reason: Pain, Severe (Pain Scale 7-10) Metronidazole (Flagyl) 500 mg in 100 mls @ 100 mls/hr IV Q8H [facility] Last Infusion: 04/29/25 14:51 Dose: Infused Insulin Human Lispro (Insulin Lispro 100 Unit/Ml 3 Ml Vial) 0 unit SUBCUT QIDACHS [facility]; Protocol Levothyroxine Sodium (Levothyroxine Sodium 125 Mcg Tablet) 125 mcg PO DAILY@0600 [facility] Magnesium Hydroxide (Milk Of Magnesia 30 Ml Oral.Susp) 30 ml PO DAILY PRN PRN Reason: Constipation Melatonin (Melatonin 3 Mg Tablet) 6 mg PO BEDTIME PRN PRN Reason: Insomnia Pantoprazole Sodium (Pantoprazole Sodium 40 Mg/10 Ml Vial) 40 mg IVPUSH BID@0630,1630 [facility] Sodium Chloride (0.9 % Sodium Chloride Flush 3 Ml Syringe) 3 ml IVFLUSH QSHIFT [facility] Home Medications ?Medication ?Instructions ?Recorded ?Confirmed ?Last Taken ?Type insulin glargine 100 unit/mL (3 32 unit subcut DAILY PRN In case 04/29/25 04/29/25 Unknown History mL) subcutaneous pen (Lantus of pump failure Solostar U-100 Insulin) levothyroxine 125 mcg tablet 125 mcg PO DAILY@0600 04/29/25 04/29/25 04/27/25 History Physical Exam Vital Signs: Vital Signs: Last Vital Signs Temp 98.0 F 04/29/25 12:00 Pulse 72 04/29/25 12:00 Resp 20 04/29/25 12:00 BP 151/62 H 04/29/25 12:00 Pulse Ox 95 04/29/25 12:00 O2 Del Method Room Air 04/29/25 12:00 BMI result Body Mass Index 27.3 Const: General: no acute distress Nutritional Appearance: overweight Orientation/consciousness: patient oriented x3 HEENT: Head: Yes normal to inspection Ears: hearing grossly normal bilaterally Eyes: Sclerae: sclerae normal Pupils: Equal, round and reactive pupils present Neck: Neck: Yes normal visual inspection Chest: Chest palpation & inspection: normal inspection of the chest Resp: Effort & Inspection: normal respiratory effort Auscultation: clear to auscultation bilaterally Cardio: Palpation: normal PMI Rate: regular rate Rhythm: regular rhythm Heart sounds: S1 normal heart sound present, S2 normal heart sound present and no murmurs GI: Palpation (GI): Soft to palpation, Tenderness to palpation present (GI) (Mild lower abdominal tenderness without rebound) and No hepatosplenomegaly present Auscultation: normal bowel sounds Rectal Exam - Male: Yes deferred Skin: General skin exam: no rashes or lesions noted Neuro: General: patient oriented x3, gait normal and moves all extremities Cranial nerves: Yes Equal, round and reactive pupils present Psych: Appearance: grossly normal Mental Status: mental status grossly normal Results Labs 04/29/25 10:12 04/29/25 06:31 Labs: Short CBC 04/29/25 04/29/25 Range/Units 06:31 10:12 WBC 17.4 H (4.8-10.8) X10*3/uL Hgb 13.3 L 15.0 (14.0-18.0) g/dl Hct 37.2 L 43.1 (42.0-52.0) % Plt Count 266 (160-400) X10*3/uL BMP 04/29/25 06:31 Sodium 139 Potassium 4.3 Chloride 101 Carbon Dioxide 25 BUN 21 H Creatinine 0.99 Calcium 9.0 Cardiac Enzymes 04/29/25 Range/Units 06:31 Total Creatine Kinase 65 (38-174) U/L Liver Function 04/29/25 Range/Units 06:31 Total Bilirubin 0.9 (0.0-1.0) mg/dL Direct Bilirubin 0.3 (0.0-0.5) mg/dL AST 30 (5-37) U/L ALT 25 (0-40) U/L Alkaline Phosphatase 96 (39-117) U/L Albumin 3.9 (3.5-5.0) g/dL Assessment and Plan (1) Colitis: Status: Acute (2) Acute lower gastrointestinal bleeding: Status: Acute (3) Hematemesis: Status: Acute Plan 60 YM with DM, osteoarthritis, hld, [place] [facility] [place] with nausea vomiting and diarrhea. Pt reports he was kayaking and developed sunburn on both lower extremities 5 days prior to presentation. Patient denies a history of peptic ulcer disease or GI bleeding in the past. Pt reports having a Cologuard test 6 months ago which was negative. Patient denies smoking or ETOH abuse. He admits to taking marijuana gummies for chronic back pain 1 to 2 times a week. The patient does have chronic back problems and he states that he takes Aleve 220 mg 3 pills once a day prior to starting work to help with his back pain. Labs in the ED showed leukocytosis, positive guaiac. H & H was stable. 04/29/[address] SCAN SHOWED: Colitis: There is edema and mucosal thickening with mild hypervascularity and fat stranding involving the transverse colon. This could be related to infection, ischemia, inflammatory bowel disease, or less likely neoplasm. Episode of hematemsis is likely due to PUD, erosive esophagitis or Kristal-Whitehead tear. Mucosal thickening of the transverse colon likely due to infectious or ischemic colitis related to dehydration - IBD would be less likely given acute onset of symptoms RECOMMENDATIONS: 1. Agree with IV PPI, antiemetics and antibiotics 2. Clear liquid diet and GoLYTELY prep today 3. Further evaluation with upper endoscopy and left-sided colonoscopy - scheduled on 04/30/[address] Chisholm Both procedures and potential complications including bleeding, perforation, reaction to anesthetic and aspiration were reviewed with the patient. Procedures Date of Service Date of Service: 04/29/25
--- NOTE | 2025-04-29 16:16 | PC.NURSE ---
Pt tolerating PO clear fluids at this time; pt medicated for returning abdominal and leg pain
[2025-04-29 16:54] LABS: Glucose, Whole Blood 176 mg/dL (60-115)
[2025-04-29] MEDS: 0.9 % Sodium Chloride Flush 3 ML SYRINGE IVFLUSH ×2 (17:49→21:11)
--- NOTE | 2025-04-29 18:37 | MHC.EDTECH ---
Patient given clear liquid tray
[2025-04-29 20:58] LABS: Glucose, Whole Blood 184 mg/dL (60-115)
[2025-04-29] MEDS: PEG 3350/Na Sulf,Bicarb,Cl/KCL 4,000 ML SOLN.RECON 4000 ML PO (21:09)
[2025-04-30] VITALS (9 sets, daily range): BP systolic 113–169; BP diastolic 40–72; PULSE 68–99; RESP 12–19; TEMP 36.1–37.1; O2SAT 95–100
--- NOTE | 2025-04-30 03:11 | HO.SKINPHOTO ---
Location: lt leg Category: sunburn/blister Stage: Length: Width: Depth: cm Location: rt leg Category: sunburn/blisters Stage: Length: Width: Depth: cm Location: Category: Stage: Length: Width: Depth: cm Location: Category: Stage: Length: Width: Depth: cm Location: Category: Stage: Length: Width: Depth: cm Location: Category: Stage: Length: Width: Depth: cm
[2025-04-30] MEDS: metroNIDAZOLE/NS 500 MG/100 ML PIGGYBACK 100 MG IV ×3 (05:36→20:24)
[2025-04-30 06:26] LABS: Hematocrit 39.6 % (42.0-52.0); Hemoglobin 13.7 g/dl (14.0-18.0); Mean Corpuscular HGB Conc 34.6 g/dl (31.0-36.0); Mean Corpuscular Hemoglobin 33.3 pg (27.0-33.0); Mean Corpuscular Volume 96.1 fL (80.0-98.0); NRBC Abs Auto 0.000 X10*3/uL (0.0-0.012); NRBC Pct Auto 0.0 /100WBC (0.0-0.2); Platelet Count 222 X10*3/uL (160-400); Red Blood Count 4.12 X10*6/uL (4.60-5.80); White Blood Count 17.0 X10*3/uL (4.8-10.8)
[2025-04-30 06:43] LABS: Anion Gap 15 (12-20); Blood Urea Nitrogen 19 mg/dL (9-16); Calcium 8.0 mg/dL (8.4-10.2); Carbon Dioxide 27 mmol/L (22-29); Chloride 100 mmol/L (96-108); Creatinine Clr Calc Pharmacy 86.0; Estimated Glomerular Filt Rate > 60; Magnesium 1.9 mg/dL (1.6-2.6); Potassium 4.8 mmol/L (3.3-5.1); Sodium 137 mmol/L (135-145)
[2025-04-30 07:18] LABS: Glucose, Whole Blood 298 mg/dL (60-115)
[2025-04-30] MEDS: 0.9 % Sodium Chloride Flush 3 ML SYRINGE IVFLUSH ×2 (07:59→16:40)
--- NOTE | 2025-04-30 09:24 | MHC.SHP ---
Pre-Procedural Eval Section A - 24 Hr Update-Section A only Date of Service: 04/30/25 The patient is an INPATIENT: Yes The patient has been examined within 24 hours of the surgical procedure. The History & Physical has been completed within 30 days and I have reviewed it.: Yes Section B - Complete if H&P > 30 days Chief Complaint: blood in stool Allergies: Allergies Allergy/AdvReac Type Severity Reaction Status Date / Time latex AdvReac Mild skin Verified 04/29/25 06:15 bubbles codeine (Codeine) AdvReac Unknown HEADACHE Verified 04/29/25 06:15 Plan Diagnosis/Plan: Unchanged I have reviewed the history and physical and performed a pertinent physical examination on my patient. No changes have occurred unless specified. Time Spent With Patient Time: Total time managing care of this patient today ____ minutes.
--- NOTE | 2025-04-30 09:41 | MHC.CM.PN ---
MALE 60 DX GIB LIVES W PARENTS INDEPENDENT ALL FUNCTIONAL MOBILITY NO DME SCOPE SCHEDULED THIS AM [facility] SELF CARE PRIVATE TRANSPORT
--- NOTE | 2025-04-30 09:45 | HO.PM.IMPN ---
Subjective Subjective Date of Service: 04/30/25 Interval History: leg pain, no further hematemesis or brbpr Physical Exam Vital Signs: Vital Signs: Last Vital Signs Temp 98.3 F 04/30/25 07:44 Pulse 99 04/30/25 07:44 Resp 18 04/30/25 07:44 BP 115/57 L 04/30/25 07:44 Pulse Ox 95 04/30/25 07:44 O2 Del Method Room Air 04/30/25 07:44 O2 Flow Rate 98 04/29/25 15:41 BMI result Body Mass Index 28.6 Const: General: no acute distress Nutritional Appearance: overweight Orientation/consciousness: patient oriented x3 HEENT: Head: Yes normal to inspection Ears: hearing grossly normal bilaterally Eyes: Sclerae: sclerae normal Pupils: Equal, round and reactive pupils present Neck: Neck: Yes normal visual inspection Chest: Chest palpation & inspection: normal inspection of the chest Resp: Effort & Inspection: normal respiratory effort Auscultation: clear to auscultation bilaterally Cardio: Palpation: normal PMI Rate: regular rate Rhythm: regular rhythm Heart sounds: S1 normal heart sound present, S2 normal heart sound present and no murmurs GI: Palpation (GI): Soft to palpation, Tenderness to palpation present (GI) (Mild lower abdominal tenderness without rebound) and No hepatosplenomegaly present Auscultation: normal bowel sounds Rectal Exam - Male: Yes deferred Skin: General skin exam: no rashes or lesions noted Neuro: General: patient oriented x3, gait normal and moves all extremities Cranial nerves: Yes Equal, round and reactive pupils present Psych: Appearance: grossly normal Mental Status: mental status grossly normal Objective Data Active Medications Acetaminophen (Acetaminophen 325 Mg Tablet) 650 mg PO Q6H PRN PRN Reason: Pain, Mild 1-3,fever,headache Last Admin: 04/29/25 17:56 Dose: 650 mg Documented By: TRUDY Bacitracin (Bacitracin Oint 14 Gm Tube) 1 appl TOPICAL BID [facility]; Protocol Last Admin: 04/30/25 08:04 Dose: Not Given Documented By: ROBERT Non-Admin Reason: Med Not Available Calcium Carbonate (Calcium Carbonate 750 Mg Tab.Chew) 750 mg PO Q4H PRN PRN Reason: Heartburn Ceftriaxone Sodium (Ceftriaxone Sodium 1 Gm Vial) 1 gm IVPUSH Q24H [facility] Last Admin: 04/29/25 13:18 Dose: 1 gm Documented By: TRUDY Dextrose (Dextrose 50 % 25 Gm/50 Ml Syringe) 25 gm IVPUSH Q15M PRN; Protocol PRN Reason: per Hypoglycemia Standing Ord. Glucose (Glucose Gel 15 Gm Gel..Gram.) 15 gm PO Q15M PRN; Protocol PRN Reason: per Hypoglycemia Standing Ord. Hydromorphone HCl (Hydromorphone Hcl 2 Mg/Ml Vial) 1 mg IVPUSH Q4H PRN; Protocol PRN Reason: Pain, Severe (Pain Scale 7-10) Last Admin: 04/30/25 04:17 Dose: 1 mg Documented By: DANG Metronidazole (Flagyl) 500 mg in 100 mls @ 100 mls/hr IV Q8H [facility] Last Infusion: 04/30/25 06:42 Dose: Infused Documented By: DANG Insulin Human Lispro (Insulin Lispro 100 Unit/Ml 3 Ml Vial) 0 unit SUBCUT QIDACHS [facility]; Protocol Last Admin: 04/30/25 07:57 Dose: 6 unit Documented By: ROBERT Levothyroxine Sodium (Levothyroxine Sodium 125 Mcg Tablet) 125 mcg PO DAILY@0600 [facility] Last Admin: 04/30/25 05:36 Dose: 125 mcg Documented By: DANG Magnesium Hydroxide (Milk Of Magnesia 30 Ml Oral.Susp) 30 ml PO DAILY PRN PRN Reason: Constipation Melatonin (Melatonin 3 Mg Tablet) 6 mg PO BEDTIME PRN PRN Reason: Insomnia Pantoprazole Sodium (Pantoprazole Sodium 40 Mg/10 Ml Vial) 40 mg IVPUSH BID@0630,1630 [facility] Last Admin: 04/30/25 05:33 Dose: 40 mg Documented By: DANG Sodium Chloride (0.9 % Sodium Chloride Flush 3 Ml Syringe) 3 ml IVFLUSH QSHIFT [facility] Last Admin: 04/30/25 07:59 Dose: 3 ml Documented By: ROBERT Labs 04/30/25 06:17 04/30/25 06:17 Labs: Laboratory Results - last 24 hr 04/29/25 04/29/25 04/29/25 09:44 10:12 16:50 MCV MCH MCHC RDW Plt Count MPV Absolute Nucleated RBC Nucleated RBC % (auto) PT 11.9 INR 1.0 APTT 23.8 L Anion Gap Estim Creat Clear Calc Estimated GFR POC Glucose 176 H Random Glucose Calcium Magnesium Stool Occult Blood POSITIVE Blood Type O Positive Antibody Screen NEGATIVE 04/29/25 04/30/25 04/30/25 20:55 06:17 07:12 MCV 96.1 MCH 33.3 H MCHC 34.6 RDW 12.5 Plt Count 222 MPV 9.5 Absolute Nucleated RBC 0.000 Nucleated RBC % (auto) 0.0 PT INR APTT Anion Gap 15 Estim Creat Clear Calc 86.0 Estimated GFR > 60 POC Glucose 184 H 298 H Random Glucose 313 H Calcium 8.0 L D Magnesium 1.9 Stool Occult Blood Blood Type Antibody Screen Assessment and Plan (1) Type 1 diabetes: Status: Acute Plan 60M PMH DM type I, osteoarthritis, hld, presented with nausea vomiting and diarrhea and blood in stool Acute colitis Story consistent with ischemic colitis ceftriaxone and Flagyl, monitor hemoglobin, clear liquid, sigmoidoscopy GI Nausea vomiting and hematemesis Possible Kristal-Whitehead Possible peptic ulcer disease the patient reports no NSAID use in the last 2 weeks Continue PPI, plan for EGD Diabetes type 1 Normally uses insulin pump but is currently empty, will cover with insulin sliding scale Hyperlipidemia will hold statin for now Lower extremity sunburns topical bacitracin, pain control, wound care dvt prophylaxis - pharmaceutical contraindicated due to GI bleed, Mechanical contraindicated due to sunburns, early ambulation full code reason for continued hospitalization:work up gi bleed Quality Stroke Does the patient have a stroke diagnosis?: No VTE Prior VTE?: No VTE Risk Level:: Medical - moderate - high VTE Device Contraindication: Treatment Not Tolerated VTE Drug Contraindication: Treatment Not Tolerated
[2025-04-30 10:18] LABS: Glucose, Whole Blood 265 mg/dL (60-115)
[2025-04-30] MEDS: Lactated Ringers 1,000 ML 80 ML IVCONT ×2 (10:45→12:27)
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
--- NOTE | 2025-04-30 11:28 | P.OPN-COLO_ITS ---
Colonoscopy Operative Note Operative Note Date of Service: 04/30/25 Narrative: Procedure: Upper endoscopy and colonoscopy Indication: Hematemesis, hematochezia, colitis Endoscopist: Jennifer Chisholm MD Anesthesia Provider: Dr Jones Winslow Anesthesia type: MAC Instrument: [id number] and [id number] EGD Procedure:?? The procedure, indications, preparation and potential complications were reviewed with the patient, who indicated understanding and gave written informed consent to proceed. The endoscope was introduced through the mouth, and advanced to the 2nd part of the duodenum. The mucosa was carefully examined on slow withdrawal of the endoscope. The patient tolerated the procedure well. There were no immediate complications.? EGD Findings:? * Esophagus:? Normal esophageal mucosa was noted. The Z-line was at 40 cm. * Stomach:? Normal gastric mucosa. Retroflexion was performed in the cardia. * Duodenum:? Erythema and edema of the duodenal bulb and first portion of the duodenum was noted. Cold forceps biopsies were taken for histology. Colonoscopy Procedure:? The patient was then turned for the colonoscopy. A digital rectal exam was performed which was normal. A distal attachment cap was affixed to the tip of the scope and the colonoscope was then inserted through the anus and advanced through the colon and advanced to the cecum at 75 cm and terminal ileum.? Appendiceal orifice and ileocecal valve were identified. Mucosa was carefully examined under high definition white light as the instrument was slowly withdrawn in a retrograde panoramic fashion. Retroflexion was performed in rectum. The procedure was not difficult. The quality of the prep was BBPS: 2+2+2 = adequate Withdrawal time 12 minutes Limitations: No limitations Findings: Mucosa: Diffuse erythema with ulceration and eschar formation from 50 to 60 cm and then again from 30 to 40 cm was noted in the colon involving at least 60% of the circumference. Appearance was consistent with colon ischemia. Cold forceps biopsies were taken for histology. Protruding lesions: * Medium internal hemorrhoids without stigmata of recent bleeding. Impression: 1. Normal esophagus 2. Normal stomach 3. Duodenitis (biopsy) 4. Severe colitis in transverse colon r/o ischemia (biopsy) 5. Internal hemorrhoids Recommendations:?? * Follow-up path results * Avoid NSAIDs * LDH and lactate ordered for risk stratification * Surgery consultation * Serial abdominal exams * Cont Abx and LR * Repeat colonoscopy in 8 weeks to ensure healing
--- NOTE | 2025-04-30 12:05 | PC.NURSE ---
Patient returned to unit from Procedure via stretcher, patient slid to bed via 2 RNs due to pain in legs making it difficult for patient to ambulate. No IV fluids infusing upon arrival to unit. Call thomas within reach, patient verbalizes understanding to ring for assistance, fall precautions in place.
[2025-04-30 12:46] LABS: Glucose, Whole Blood 197 mg/dL (60-115)
[2025-04-30] MEDS: oxyCODONE HCl Immed Release 5 MG TABLET PO ×2 (12:48→20:53)
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
[2025-04-30 16:14] LABS: Glucose, Whole Blood 190 mg/dL (60-115)
--- NOTE | 2025-04-30 17:13 | HO.SKINPHOTO ---
Location: Right lower leg Location: Left Lower Leg Dressing changed and applied Xeroform, Gauze 4X4 over xeroform and gauze wrap. Blisters remain intact. MD Villareal aware this morning of BLE and intact Blisters and visualized patient legs at bedside earlier this morning. Legs elevated on pillow for swelling. Wound Nurse Consult in place.
[2025-04-30 18:36] LABS: Glucose, Whole Blood 265 mg/dL (60-115)
--- NOTE | 2025-04-30 18:43 | PC.NURSE ---
Patient used call thomas to each nurse. Patient reported that he felt like his blood sugar was high, POC checked. Provider notified of patient's blood sugar, patient reported he would take 6 units of insulin at home. Provider placed one time dose of insulin.
[2025-04-30 20:23] LABS: Glucose, Whole Blood 303 mg/dL (60-115)
[2025-05-01] MEDS: Lactated Ringers 1,000 ML 80 ML IVCONT ×2 (02:06→15:06)
[2025-05-01 03:29] VITALS: BP 137/63; PULSE 76; RESP 18; TEMP 36.1; O2SAT 95
[2025-05-01] MEDS: metroNIDAZOLE/NS 500 MG/100 ML PIGGYBACK 100 MG IV ×3 (05:35→21:02)
[2025-05-01] MEDS: oxyCODONE HCl Immed Release 5 MG TABLET PO (05:45)
[2025-05-01 06:39] LABS: Hematocrit 36.9 % (42.0-52.0); Hemoglobin 13.1 g/dl (14.0-18.0); Mean Corpuscular HGB Conc 35.5 g/dl (31.0-36.0); Mean Corpuscular Hemoglobin 33.6 pg (27.0-33.0); Mean Corpuscular Volume 94.6 fL (80.0-98.0); NRBC Abs Auto 0.000 X10*3/uL (0.0-0.012); NRBC Pct Auto 0.0 /100WBC (0.0-0.2); Platelet Count 225 X10*3/uL (160-400); Red Blood Count 3.90 X10*6/uL (4.60-5.80); White Blood Count 12.3 X10*3/uL (4.8-10.8)
[2025-05-01 06:52] LABS: Anion Gap 13 (12-20); Blood Urea Nitrogen 12 mg/dL (9-16); Calcium 8.1 mg/dL (8.4-10.2); Carbon Dioxide 28 mmol/L (22-29); Chloride 101 mmol/L (96-108); Creatinine Clr Calc Pharmacy 89.1; Estimated Glomerular Filt Rate > 60; Potassium 4.4 mmol/L (3.3-5.1); Sodium 138 mmol/L (135-145)
--- NOTE | 2025-05-01 07:16 | PM.PNGS ---
Subjective Subjective Date of Service: 05/01/25 Interval history: Complains of mild abdominal pain in the epigastrium and across the upper abdomen. Denies any bowel movement or bleeding. Tolerating clear liquid diet. Physical Exam Vital Signs: Vital Signs: Last Vital Signs Temp 97.0 F 05/01/25 03:29 Pulse 76 05/01/25 03:29 Resp 18 05/01/25 03:29 BP 137/63 05/01/25 03:29 Pulse Ox 95 05/01/25 03:29 O2 Del Method Room Air 05/01/25 03:29 O2 Flow Rate 98 04/29/25 15:41 BMI result Body Mass Index 28.6 Const: General: no acute distress Nutritional Appearance: well nourished Orientation/consciousness: patient oriented x3 Limitations: no limitations Resp: Effort & Inspection: normal respiratory effort GI: Other: Soft, nondistended, mild tenderness in the upper abdomen without rebound, guarding or rigidity. Neuro: General: patient oriented x3 Extrem: Other: Lower extremity skin sunburn Objective Data Active Medications Acetaminophen (Acetaminophen 325 Mg Tablet) 650 mg PO Q6H PRN PRN Reason: Pain, Mild 1-3,fever,headache Last Admin: 04/30/25 12:19 Dose: 650 mg Documented By: ROBERT Bacitracin (Bacitracin Oint 14 Gm Tube) 1 appl TOPICAL BID [facility]; Protocol Last Admin: 04/30/25 20:56 Dose: Not Given Documented By: DAIANA Non-Admin Reason: not available, notified pharmacy Calcium Carbonate (Calcium Carbonate 750 Mg Tab.Chew) 750 mg PO Q4H PRN PRN Reason: Heartburn Ceftriaxone Sodium (Ceftriaxone Sodium 1 Gm Vial) 1 gm IVPUSH Q24H [facility] Last Admin: 04/30/25 12:29 Dose: 1 gm Documented By: ROBERT Dextrose (Dextrose 50 % 25 Gm/50 Ml Syringe) 25 gm IVPUSH Q15M PRN; Protocol PRN Reason: per Hypoglycemia Standing Ord. Glucose (Glucose Gel 15 Gm Gel..Gram.) 15 gm PO Q15M PRN; Protocol PRN Reason: per Hypoglycemia Standing Ord. Hydromorphone HCl (Hydromorphone Hcl 2 Mg/Ml Vial) 1 mg IVPUSH Q4H PRN; Protocol PRN Reason: Pain, Severe (Pain Scale 7-10) Last Admin: 04/30/25 04:17 Dose: 1 mg Documented By: DANG Metronidazole (Flagyl) 500 mg in 100 mls @ 100 mls/hr IV Q8H [facility] Last Infusion: 05/01/25 07:05 Dose: Infused Documented By: LISA Lactated Ringer's (Lr) 1,000 mls @ 80 mls/hr IVCONT .[id number] [facility] Last Admin: 05/01/25 02:06 Dose: 80 mls/hr Documented By: DAIANA Insulin Human Lispro (Insulin Lispro 100 Unit/Ml 3 Ml Vial) 0 unit SUBCUT QIDACHS [facility]; Protocol Last Admin: 04/30/25 20:52 Dose: 8 unit Documented By: DAIANA Levothyroxine Sodium (Levothyroxine Sodium 125 Mcg Tablet) 125 mcg PO DAILY@0600 [facility] Last Admin: 05/01/25 05:33 Dose: 125 mcg Documented By: DAIANA Magnesium Hydroxide (Milk Of Magnesia 30 Ml Oral.Susp) 30 ml PO DAILY PRN PRN Reason: Constipation Melatonin (Melatonin 3 Mg Tablet) 6 mg PO BEDTIME PRN PRN Reason: Insomnia Naloxone HCl (Naloxone Hcl 0.4 Mg/Ml Vial) 0.04 mg IVPUSH Q5M PRN PRN Reason: Excessive sedation or RR < 8 Oxycodone HCl (Oxycodone Hcl Immed Release 5 Mg Tablet) 5 mg PO Q6H PRN PRN Reason: Pain, Moderate(Pain Scale 4-6) Last Admin: 05/01/25 05:45 Dose: 5 mg Documented By: DAIANA Pantoprazole Sodium (Pantoprazole Sodium 40 Mg/10 Ml Vial) 40 mg IVPUSH BID@0630,1630 [facility] Last Admin: 05/01/25 05:36 Dose: 40 mg Documented By: DAIANA Sodium Chloride (0.9 % Sodium Chloride Flush 3 Ml Syringe) [facility] Last Admin: 04/30/25 23:07 Dose: Not Given Documented By: DAIANA Non-Admin Reason: IV Running Labs 05/01/25 06:08 05/01/25 06:08 Labs: Laboratory Results - last 24 hr 04/30/25 04/30/25 04/30/25 07:12 10:15 11:49 MCV MCH MCHC RDW Plt Count MPV Absolute Nucleated RBC Nucleated RBC % (auto) Anion Gap Estim Creat Clear Calc Estimated GFR POC Glucose 298 H 265 H Random Glucose Lactic Acid 1.6 Calcium Lactate Dehydrogenase 170 04/30/25 04/30/25 04/30/25 12:40 16:10 18:32 MCV MCH MCHC RDW Plt Count MPV Absolute Nucleated RBC Nucleated RBC % (auto) Anion Gap Estim Creat Clear Calc Estimated GFR POC Glucose 197 H 190 H 265 H Random Glucose Lactic Acid Calcium Lactate Dehydrogenase 04/30/25 05/01/25 20:18 06:08 MCV 94.6 MCH 33.6 H MCHC 35.5 RDW 12.0 Plt Count 225 MPV 9.8 Absolute Nucleated RBC 0.000 Nucleated RBC % (auto) 0.0 Anion Gap 13 Estim Creat Clear Calc 89.1 Estimated GFR > 60 POC Glucose 303 H Random Glucose 203 H Lactic Acid Calcium 8.1 L Lactate Dehydrogenase Procedures Date of Service Date of Service: 05/01/25 Progress Note: A&P Assessment and plan (1) Colitis: Status: Acute Plan 60-year-old male patient with colitis involving the transverse colon possibly related to a low-flow state/dehydration Recommend supportive care, IV hydration No surgical intervention anticipated. Time Spent With Patient Time: Total time managing care of this patient today ____ minutes. Quality Stroke Does the patient have a stroke diagnosis?: No VTE Prior VTE?: No VTE Risk Level:: Medical - moderate - high VTE Device Contraindication: Treatment Not Tolerated VTE Drug Contraindication: Treatment Not Tolerated
[2025-05-01 07:25] LABS: Glucose, Whole Blood 223 mg/dL (60-115)
[2025-05-01 07:42] VITALS: BP 140/65; PULSE 79; RESP 17; TEMP 36.4; O2SAT 94
--- NOTE | 2025-05-01 09:07 | HO.PM.IMPN ---
Subjective Subjective Date of Service: 05/01/25 Interval History: abd discomfort Physical Exam Vital Signs: Vital Signs: Last Vital Signs Temp 97.6 F 05/01/25 07:42 Pulse 79 05/01/25 07:42 Resp 17 05/01/25 07:42 BP 140/65 H 05/01/25 07:42 Pulse Ox 94 05/01/25 07:42 O2 Del Method Room Air 05/01/25 07:42 O2 Flow Rate 98 04/29/25 15:41 BMI result Body Mass Index 28.6 Const: General: no acute distress Nutritional Appearance: well nourished Orientation/consciousness: patient oriented x3 Limitations: no limitations Resp: Effort & Inspection: normal respiratory effort GI: Other: Soft, nondistended, mild tenderness in the upper abdomen without rebound, guarding or rigidity. Neuro: General: patient oriented x3 Extrem: Other: Lower extremity skin sunburn Objective Data Active Medications Acetaminophen (Acetaminophen 325 Mg Tablet) 650 mg PO Q6H PRN PRN Reason: Pain, Mild 1-3,fever,headache Last Admin: 04/30/25 12:19 Dose: 650 mg Documented By: ROBERT Bacitracin (Bacitracin Oint 14 Gm Tube) 1 appl TOPICAL BID [facility]; Protocol Last Admin: 04/30/25 20:56 Dose: Not Given Documented By: DAIANA Non-Admin Reason: not available, notified pharmacy Calcium Carbonate (Calcium Carbonate 750 Mg Tab.Chew) 750 mg PO Q4H PRN PRN Reason: Heartburn Ceftriaxone Sodium (Ceftriaxone Sodium 1 Gm Vial) 1 gm IVPUSH Q24H [facility] Last Admin: 04/30/25 12:29 Dose: 1 gm Documented By: ROBERT Dextrose (Dextrose 50 % 25 Gm/50 Ml Syringe) 25 gm IVPUSH Q15M PRN; Protocol PRN Reason: per Hypoglycemia Standing Ord. Glucose (Glucose Gel 15 Gm Gel..Gram.) 15 gm PO Q15M PRN; Protocol PRN Reason: per Hypoglycemia Standing Ord. Hydromorphone HCl (Hydromorphone Hcl 2 Mg/Ml Vial) 1 mg IVPUSH Q4H PRN; Protocol PRN Reason: Pain, Severe (Pain Scale 7-10) Last Admin: 04/30/25 04:17 Dose: 1 mg Documented By: DANG Metronidazole (Flagyl) 500 mg in 100 mls @ 100 mls/hr IV Q8H [facility] Last Infusion: 05/01/25 07:05 Dose: Infused Documented By: LISA Lactated Ringer's (Lr) 1,000 mls @ 80 mls/hr IVCONT .[id number] [facility] Last Admin: 05/01/25 02:06 Dose: 80 mls/hr Documented By: DAIANA Insulin Human Lispro (Insulin Lispro 100 Unit/Ml 3 Ml Vial) 0 unit SUBCUT QIDACHS [facility]; Protocol Last Admin: 05/01/25 07:36 Dose: 1 unit Documented By: LISA Levothyroxine Sodium (Levothyroxine Sodium 125 Mcg Tablet) 125 mcg PO DAILY@0600 [facility] Last Admin: 05/01/25 05:33 Dose: 125 mcg Documented By: DAIANA Magnesium Hydroxide (Milk Of Magnesia 30 Ml Oral.Susp) 30 ml PO DAILY PRN PRN Reason: Constipation Melatonin (Melatonin 3 Mg Tablet) 6 mg PO BEDTIME PRN PRN Reason: Insomnia Naloxone HCl (Naloxone Hcl 0.4 Mg/Ml Vial) 0.04 mg IVPUSH Q5M PRN PRN Reason: Excessive sedation or RR < 8 Oxycodone HCl (Oxycodone Hcl Immed Release 5 Mg Tablet) 5 mg PO Q6H PRN PRN Reason: Pain, Moderate(Pain Scale 4-6) Last Admin: 05/01/25 05:45 Dose: 5 mg Documented By: DAIANA Pantoprazole Sodium (Pantoprazole Sodium 40 Mg/10 Ml Vial) 40 mg IVPUSH BID@0630,1630 [facility] Last Admin: 05/01/25 05:36 Dose: 40 mg Documented By: DAIANA Sodium Chloride (0.9 % Sodium Chloride Flush 3 Ml Syringe) 3 ml IVFLUSH QSHIFT [facility] Last Admin: 04/30/25 23:07 Dose: Not Given Documented By: DAIANA Non-Admin Reason: IV Running Labs 05/01/25 06:08 05/01/25 06:08 Labs: Laboratory Results - last 24 hr 04/30/25 04/30/25 04/30/25 10:15 11:49 12:40 MCV MCH MCHC RDW Plt Count MPV Absolute Nucleated RBC Nucleated RBC % (auto) Anion Gap Estim Creat Clear Calc Estimated GFR POC Glucose 265 H 197 H Random Glucose Lactic Acid 1.6 Calcium Lactate Dehydrogenase 170 04/30/25 04/30/25 04/30/25 16:10 18:32 20:18 MCV MCH MCHC RDW Plt Count MPV Absolute Nucleated RBC Nucleated RBC % (auto) Anion Gap Estim Creat Clear Calc Estimated GFR POC Glucose 190 H 265 H 303 H Random Glucose Lactic Acid Calcium Lactate Dehydrogenase 05/01/25 05/01/25 06:08 07:17 MCV 94.6 MCH 33.6 H MCHC 35.5 RDW 12.0 Plt Count 225 MPV 9.8 Absolute Nucleated RBC 0.000 Nucleated RBC % (auto) 0.0 Anion Gap 13 Estim Creat Clear Calc 89.1 Estimated GFR > 60 POC Glucose 223 H Random Glucose 203 H Lactic Acid Calcium 8.1 L Lactate Dehydrogenase Assessment and Plan (1) Type 1 diabetes: Status: Acute Plan 60M PMH DM type I, osteoarthritis, hld, presented with nausea vomiting and diarrhea and blood in stool Acute colitis colonoscopy with ischemic colitis ceftriaxone and Flagyl, monitor hemoglobin, clear liquid, surgery appreciated - no intervention expected, repeat colonoscopy in 8 weeks Nausea vomiting and hematemesis resolved Continue PPI, egd with duodenitis, biopsies taken, avoid nsaids Diabetes type 1 Normally uses insulin pump but is currently empty, will cover with insulin sliding scale Hyperlipidemia will hold statin for now Lower extremity sunburns topical bacitracin, pain control, wound care dvt prophylaxis - pharmaceutical contraindicated due to GI bleed, Mechanical contraindicated due to sunburns, early ambulation full code reason for continued hospitalization:work up gi bleed Quality Stroke Does the patient have a stroke diagnosis?: No VTE Prior VTE?: No VTE Risk Level:: Medical - moderate - high VTE Device Contraindication: Treatment Not Tolerated VTE Drug Contraindication: Treatment Not Tolerated
--- NOTE | 2025-05-01 09:59 | P.PNGI_ITS ---
Subjective Subjective Date of Service: 05/01/25 Interval History: 60 y/o M p/w hematemesis and hematochezia found to have ischemic colitis of transverse colon on colo 04/30. Reports abdominal discomfort is better. Has been tolerating clear liquids without any worsening of abdominal pain, nausea or diarrhea. In fact has not passed bowel movement since colonoscopy yesterday. No fevers or chills. Critical Care Time (minutes): 0 Physical Exam 2 Exam: Exam: No acute distress Abdomen soft, nontender, nondistended Vital Signs: Vital Signs: Last Vital Signs Temp 97.6 F 05/01/25 07:42 Pulse 79 05/01/25 07:42 Resp 17 05/01/25 07:42 BP 140/65 H 05/01/25 07:42 Pulse Ox 94 05/01/25 07:42 O2 Del Method Room Air 05/01/25 07:42 O2 Flow Rate 98 04/29/25 15:41 BMI result Body Mass Index 28.6 Objective Data Labs 05/01/25 06:08 05/01/25 06:08 Labs: Laboratory Results - last 24 hr 04/30/25 04/30/25 04/30/25 10:15 11:49 12:40 WBC RBC Hgb Hct MCV MCH MCHC RDW Plt Count MPV Absolute Nucleated RBC Nucleated RBC % (auto) Sodium Potassium Chloride Carbon Dioxide Anion Gap BUN Creatinine Estim Creat Clear Calc Estimated GFR POC Glucose 265 H 197 H Random Glucose Lactic Acid 1.6 Calcium Lactate Dehydrogenase 170 04/30/25 04/30/25 04/30/25 16:10 18:32 20:18 WBC RBC Hgb Hct MCV MCH MCHC RDW Plt Count MPV Absolute Nucleated RBC Nucleated RBC % (auto) Sodium Potassium Chloride Carbon Dioxide Anion Gap BUN Creatinine Estim Creat Clear Calc Estimated GFR POC Glucose 190 H 265 H 303 H Random Glucose Lactic Acid Calcium Lactate Dehydrogenase 05/01/25 05/01/25 06:08 07:17 WBC 12.3 H RBC 3.90 L Hgb 13.1 L Hct 36.9 L MCV 94.6 MCH 33.6 H MCHC 35.5 RDW 12.0 Plt Count 225 MPV 9.8 Absolute Nucleated RBC 0.000 Nucleated RBC % (auto) 0.0 Sodium 138 Potassium 4.4 Chloride 101 Carbon Dioxide 28 Anion Gap 13 BUN 12 Creatinine 0.83 Estim Creat Clear Calc 89.1 Estimated GFR > 60 POC Glucose 223 H Random Glucose 203 H Lactic Acid Calcium 8.1 L Lactate Dehydrogenase Procedures Date of Service Date of Service: 05/01/25 Progress Note: A&P Assessment and plan (1) Colitis: Status: Acute (2) Acute lower gastrointestinal bleeding: Status: Acute Plan Patient with transverse colon colitis likely secondary to colon ischemia. Pathology pending. Abdominal exam is benign. Appreciate surgery consultation and evaluation. Can advance diet tomorrow if abdominal exam remains benign. Time Spent With Patient Time: Total time managing care of this patient today ____ minutes. Quality Stroke Does the patient have a stroke diagnosis?: No VTE Prior VTE?: No VTE Risk Level:: Medical - moderate - high VTE Device Contraindication: Treatment Not Tolerated VTE Drug Contraindication: Treatment Not Tolerated
--- NOTE | 2025-05-01 10:03 | HO.POSTANES ---
Post Anesthesia Evaluation Post Anesthesia Evaluation Date of Service: 05/01/25 Vital Signs: Vital Signs Temp Pulse Resp BP Pulse Ox O2 Del Method 05/01/25 07:42 97.6 F 79 17 140/65 H 94 Room Air 05/01/25 03:29 97.0 F 76 18 137/63 95 Room Air Anesthesia: TIVA Mental Status: Awake Pain Control: Satisfactory (mild abd discomfort) Nausea/Vomiting: None Hydration: Adequate Anesthesia-Related Issues: No Anes. Related Issues
[2025-05-01] MEDS: 0.9 % Sodium Chloride Flush 3 ML SYRINGE IVFLUSH (10:07)
[2025-05-01 11:03] LABS: Glucose, Whole Blood 265 mg/dL (60-115)
[2025-05-01 15:15] VITALS: BP 133/61; PULSE 61; RESP 17; TEMP 36.4; O2SAT 96
[2025-05-01 16:17] LABS: Glucose, Whole Blood 218 mg/dL (60-115)
[2025-05-01 19:48] VITALS: BP 150/65; PULSE 67; RESP 18; TEMP 36.3; O2SAT 98
[2025-05-01 20:42] LABS: Glucose, Whole Blood 283 mg/dL (60-115)
[2025-05-02 04:00] VITALS: BP 138/65; PULSE 62; RESP 18; TEMP 36.1; O2SAT 96
[2025-05-02] MEDS: Lactated Ringers 1,000 ML 80 ML IVCONT (04:08)
[2025-05-02] MEDS: metroNIDAZOLE/NS 500 MG/100 ML PIGGYBACK 100 MG IV ×3 (04:45→19:48)
[2025-05-02 06:49] LABS: Anion Gap 12 (12-20); Blood Urea Nitrogen 12 mg/dL (9-16); Calcium 8.3 mg/dL (8.4-10.2); Carbon Dioxide 28 mmol/L (22-29); Chloride 102 mmol/L (96-108); Creatinine Clr Calc Pharmacy 104.1; Estimated Glomerular Filt Rate > 60; Potassium 4.6 mmol/L (3.3-5.1); Sodium 137 mmol/L (135-145)
[2025-05-02 07:03] LABS: Hematocrit 37.1 % (42.0-52.0); Hemoglobin 13.3 g/dl (14.0-18.0); Mean Corpuscular HGB Conc 35.8 g/dl (31.0-36.0); Mean Corpuscular Hemoglobin 33.3 pg (27.0-33.0); Mean Corpuscular Volume 93.0 fL (80.0-98.0); NRBC Abs Auto 0.000 X10*3/uL (0.0-0.012); NRBC Pct Auto 0.0 /100WBC (0.0-0.2); Platelet Count 249 X10*3/uL (160-400); Red Blood Count 3.99 X10*6/uL (4.60-5.80); White Blood Count 9.5 X10*3/uL (4.8-10.8)
[2025-05-02 07:34] LABS: Glucose, Whole Blood 234 mg/dL (60-115)
[2025-05-02 07:37] VITALS: BP 142/64; PULSE 71; RESP 18; TEMP 36.6; O2SAT 95
--- NOTE | 2025-05-02 07:57 | P.PNGI_ITS ---
Subjective Subjective Date of Service: 05/02/25 Interval History: Seen at bedside. Reports was able to tolerate full liquid diet, although it did seem to make his discomfort slightly worse, and therefore hesitant to progress to regular diet today. Passed a bowel movement which did not appear bloody to him. Critical Care Time (minutes): 0 Physical Exam 2 Exam: Exam: No acute distress Abdomen soft, nontender, nondistended Vital Signs: Vital Signs: Last Vital Signs Temp 97.9 F 05/02/25 07:37 Pulse 71 05/02/25 07:37 Resp 18 05/02/25 07:37 BP 142/64 H 05/02/25 07:37 Pulse Ox 95 05/02/25 07:37 O2 Del Method Room Air 05/02/25 07:37 O2 Flow Rate 98 04/29/25 15:41 BMI result Body Mass Index 28.6 Objective Data Labs 05/02/25 05:51 05/02/25 05:51 Labs: Laboratory Results - last 24 hr 05/01/25 05/01/25 05/01/25 11:00 16:12 20:37 WBC RBC Hgb Hct MCV MCH MCHC RDW Plt Count MPV Absolute Nucleated RBC Nucleated RBC % (auto) Sodium Potassium Chloride Carbon Dioxide Anion Gap BUN Creatinine Estim Creat Clear Calc Estimated GFR POC Glucose 265 H 218 H 283 H Random Glucose Calcium 05/02/25 05/02/25 05:51 07:24 WBC 9.5 RBC 3.99 L Hgb 13.3 L Hct 37.1 L MCV 93.0 MCH 33.3 H MCHC 35.8 RDW 11.9 Plt Count 249 MPV 9.7 Absolute Nucleated RBC 0.000 Nucleated RBC % (auto) 0.0 Sodium 137 Potassium 4.6 Chloride 102 Carbon Dioxide 28 Anion Gap 12 BUN 12 Creatinine 0.71 Estim Creat Clear Calc 104.1 Estimated GFR > 60 POC Glucose 234 H Random Glucose 274 H Calcium 8.3 L Procedures Date of Service Date of Service: 05/02/25 Progress Note: A&P Assessment and plan (1) Colitis: Status: Acute (2) Acute lower gastrointestinal bleeding: Status: Acute Plan Patient with transverse colon colitis likely secondary to colon ischemia. Pathology pending. Abdominal exam is benign. Continue full liquid diet today. Advance later today or tomorrow as tolerated by patient. Consider repeat CT with contrast if patient unable to progress diet. Serial abdominal exams. Time Spent With Patient Time: Total time managing care of this patient today ____ minutes. Quality Stroke Does the patient have a stroke diagnosis?: No VTE Prior VTE?: No VTE Risk Level:: Medical - moderate - high VTE Device Contraindication: Treatment Not Tolerated VTE Drug Contraindication: Treatment Not Tolerated
--- NOTE | 2025-05-02 08:37 | P.PNIM_ITS ---
Subjective Subjective Date of Service: 05/02/25 Interval History: abd discomfort Physical Exam 2 Vital Signs: Vital Signs: Last Vital Signs Temp 97.9 F 05/02/25 07:37 Pulse 71 05/02/25 07:37 Resp 18 05/02/25 07:37 BP 142/64 H 05/02/25 07:37 Pulse Ox 95 05/02/25 07:37 O2 Del Method Room Air 05/02/25 07:37 O2 Flow Rate 98 04/29/25 15:41 BMI result Body Mass Index 28.6 Const: General: no acute distress Nutritional Appearance: well nourished Orientation/consciousness: patient oriented x3 Limitations: no limitations Resp: Effort & Inspection: normal respiratory effort GI: Other: Soft, nondistended, mild tenderness in the upper abdomen without rebound, guarding or rigidity. Neuro: General: patient oriented x3 Extrem: Other: Lower extremity skin sunburn Objective Data Active Medications Acetaminophen (Acetaminophen 325 Mg Tablet) 650 mg PO Q6H PRN PRN Reason: Pain, Mild 1-3,fever,headache Last Admin: 04/30/25 12:19 Dose: 650 mg Documented By: ROBERT Bacitracin (Bacitracin Oint 14 Gm Tube) 1 appl TOPICAL BID [facility]; Protocol Last Admin: 05/01/25 21:53 Dose: Not Given Documented By: TAYLOR Non-Admin Reason: Patient Refused Calcium Carbonate (Calcium Carbonate 750 Mg Tab.Chew) 750 mg PO Q4H PRN PRN Reason: Heartburn Ceftriaxone Sodium (Ceftriaxone Sodium 1 Gm Vial) 1 gm IVPUSH Q24H [facility] Last Admin: 05/01/25 12:55 Dose: 1 gm Documented By: LISA Dextrose (Dextrose 50 % 25 Gm/50 Ml Syringe) 25 gm IVPUSH Q15M PRN; Protocol PRN Reason: per Hypoglycemia Standing Ord. Glucose (Glucose Gel 15 Gm Gel..Gram.) 15 gm PO Q15M PRN; Protocol PRN Reason: per Hypoglycemia Standing Ord. Hydromorphone HCl (Hydromorphone Hcl 2 Mg/Ml Vial) 1 mg IVPUSH Q4H PRN; Protocol PRN Reason: Pain, Severe (Pain Scale 7-10) Last Admin: 05/02/25 03:32 Dose: 1 mg Documented By: TAYLOR Metronidazole (Flagyl) 500 mg in 100 mls @ 100 mls/hr IV Q8H [facility] Last Infusion: 05/02/25 05:48 Dose: Infused Documented By: TAYLOR Lactated Ringer's (Lr) 1,000 mls @ 80 mls/hr IVCONT .[id number] [facility] Last Infusion: 05/02/25 05:49 Dose: 80 mls/hr Documented By: TAYLOR Insulin Human Lispro (Insulin Lispro 100 Unit/Ml 3 Ml Vial) 0 unit SUBCUT QIDACHS [facility]; Protocol Last Admin: 05/02/25 07:41 Dose: 4 unit Documented By: LISA Levothyroxine Sodium (Levothyroxine Sodium 125 Mcg Tablet) 125 mcg PO DAILY@0600 [facility] Last Admin: 05/02/25 05:45 Dose: 125 mcg Documented By: TAYLOR Magnesium Hydroxide (Milk Of Magnesia 30 Ml Oral.Susp) 30 ml PO DAILY PRN PRN Reason: Constipation Melatonin (Melatonin 3 Mg Tablet) 6 mg PO BEDTIME PRN PRN Reason: Insomnia Naloxone HCl (Naloxone Hcl 0.4 Mg/Ml Vial) 0.04 mg IVPUSH Q5M PRN PRN Reason: Excessive sedation or RR < 8 Oxycodone HCl (Oxycodone Hcl Immed Release 5 Mg Tablet) 5 mg PO Q6H PRN PRN Reason: Pain, Moderate(Pain Scale 4-6) Last Admin: 05/01/25 05:45 Dose: 5 mg Documented By: DAIANA Pantoprazole Sodium (Pantoprazole Sodium 40 Mg/10 Ml Vial) 40 mg IVPUSH BID@0630,1630 [facility] Last Admin: 05/02/25 05:46 Dose: 40 mg Documented By: TAYLOR Sodium Chloride (0.9 % Sodium Chloride Flush 3 Ml Syringe) 3 ml IVFLUSH QSHIFT [facility] Last Admin: 05/02/25 07:45 Dose: Not Given Documented By: LISA Non-Admin Reason: IV Running Labs 05/02/25 05:51 05/02/25 05:51 Labs: Laboratory Results - last 24 hr 05/01/25 05/01/25 05/01/25 11:00 16:12 20:37 MCV MCH MCHC RDW Plt Count MPV Absolute Nucleated RBC Nucleated RBC % (auto) Anion Gap Estim Creat Clear Calc Estimated GFR POC Glucose 265 H 218 H 283 H Random Glucose Calcium 05/02/25 05/02/25 05:51 07:24 MCV 93.0 MCH 33.3 H MCHC 35.8 RDW 11.9 Plt Count 249 MPV 9.7 Absolute Nucleated RBC 0.000 Nucleated RBC % (auto) 0.0 Anion Gap 12 Estim Creat Clear Calc 104.1 Estimated GFR > 60 POC Glucose 234 H Random Glucose 274 H Calcium 8.3 L Assessment and Plan (1) Type 1 diabetes: Status: Acute Plan 60M PMH DM type I, osteoarthritis, hld, presented with nausea vomiting and diarrhea and blood in stool Acute colitis colonoscopy with ischemic colitis ceftriaxone and Flagyl, monitor hemoglobin, advance to solids, surgery appreciated - no intervention expected, repeat colonoscopy in 8 weeks Nausea vomiting and hematemesis resolved Continue PPI, egd with duodenitis, biopsies taken, avoid nsaids Diabetes type 1 Normally uses insulin pump but is currently empty, will cover with insulin sliding scale Hyperlipidemia will hold statin for now Lower extremity sunburns topical bacitracin, pain control, wound care dvt prophylaxis - pharmaceutical contraindicated due to GI bleed, Mechanical contraindicated due to sunburns, early ambulation full code reason for continued hospitalization:advancing diet Quality Stroke Does the patient have a stroke diagnosis?: No VTE Prior VTE?: No VTE Risk Level:: Medical - moderate - high VTE Device Contraindication: Treatment Not Tolerated VTE Drug Contraindication: Treatment Not Tolerated
[2025-05-02 11:24] LABS: Glucose, Whole Blood 357 mg/dL (60-115)
[2025-05-02 15:38] VITALS: BP 154/67; PULSE 64; RESP 16; TEMP 36.6; O2SAT 94
[2025-05-02 16:17] LABS: Glucose, Whole Blood 213 mg/dL (60-115)
[2025-05-02] MEDS: 0.9 % Sodium Chloride Flush 3 ML SYRINGE IVFLUSH (16:35)
[2025-05-02] MEDS: oxyCODONE HCl Immed Release 5 MG TABLET PO (19:47)
[2025-05-02 19:59] VITALS: BP 151/68; PULSE 67; RESP 18; TEMP 36.7; O2SAT 95
[2025-05-02 20:32] LABS: Glucose, Whole Blood 271 mg/dL (60-115)
[2025-05-02] MEDS: Insulin Glargine,Hum.rec.anlog 100 UNIT/ML 10 ML VIAL 15 UNIT SUBCUT (20:51)
[2025-05-03 04:00] VITALS: BP 119/56; PULSE 57; RESP 18; TEMP 36.4; O2SAT 96
[2025-05-03] MEDS: metroNIDAZOLE/NS 500 MG/100 ML PIGGYBACK 100 MG IV ×2 (05:31→13:31)
[2025-05-03 07:23] LABS: Hematocrit 38.8 % (42.0-52.0); Hemoglobin 13.9 g/dl (14.0-18.0); Mean Corpuscular HGB Conc 35.8 g/dl (31.0-36.0); Mean Corpuscular Hemoglobin 33.5 pg (27.0-33.0); Mean Corpuscular Volume 93.5 fL (80.0-98.0); NRBC Abs Auto 0.000 X10*3/uL (0.0-0.012); NRBC Pct Auto 0.0 /100WBC (0.0-0.2); Platelet Count 284 X10*3/uL (160-400); Red Blood Count 4.15 X10*6/uL (4.60-5.80); White Blood Count 9.1 X10*3/uL (4.8-10.8)
[2025-05-03 07:30] LABS: Anion Gap 9 (12-20); Blood Urea Nitrogen 10 mg/dL (9-16); Calcium 8.5 mg/dL (8.4-10.2); Carbon Dioxide 32 mmol/L (22-29); Chloride 103 mmol/L (96-108); Creatinine Clr Calc Pharmacy 94.8; Estimated Glomerular Filt Rate > 60; Magnesium 1.8 mg/dL (1.6-2.6); Potassium 4.0 mmol/L (3.3-5.1); Sodium 140 mmol/L (135-145)
[2025-05-03 07:41] LABS: Glucose, Whole Blood 143 mg/dL (60-115)
[2025-05-03 07:52] VITALS: BP 136/62; PULSE 59; RESP 18; TEMP 36.3; O2SAT 95
[2025-05-03] MEDS: 0.9 % Sodium Chloride Flush 3 ML SYRINGE IVFLUSH (08:26)
--- NOTE | 2025-05-03 08:51 | HO.PM.IMPN ---
Subjective Subjective Date of Service: 05/03/25 Interval History: improved, wants to try solids Physical Exam Vital Signs: Vital Signs: Last Vital Signs Temp 97.4 F 05/03/25 07:52 Pulse 59 05/03/25 07:52 Resp 18 05/03/25 07:52 BP 136/62 05/03/25 07:52 Pulse Ox 95 05/03/25 07:52 O2 Del Method Room Air 05/03/25 07:52 O2 Flow Rate 98 04/29/25 15:41 BMI result Body Mass Index 28.6 Const: General: no acute distress Nutritional Appearance: well nourished Orientation/consciousness: patient oriented x3 Limitations: no limitations Resp: Effort & Inspection: normal respiratory effort GI: Other: Soft, nondistended, mild tenderness in the upper abdomen without rebound, guarding or rigidity. Neuro: General: patient oriented x3 Extrem: Other: Lower extremity skin sunburn Objective Data Active Medications Acetaminophen (Acetaminophen 325 Mg Tablet) 650 mg PO Q6H PRN PRN Reason: Pain, Mild 1-3,fever,headache Last Admin: 04/30/25 12:19 Dose: 650 mg Documented By: ROBERT Bacitracin (Bacitracin Oint 14 Gm Tube) 1 appl TOPICAL BID WILFRED; Protocol Last Admin: 05/02/25 19:52 Dose: Not Given Documented By: AMINATA Non-Admin Reason: dsg change just done Calcium Carbonate (Calcium Carbonate 750 Mg Tab.Chew) 750 mg PO Q4H PRN PRN Reason: Heartburn Ceftriaxone Sodium (Ceftriaxone Sodium 1 Gm Vial) 1 gm IVPUSH Q24H REPLACED BY [facility] Last Admin: 05/02/25 12:51 Dose: 1 gm Documented By: LISA Dextrose (Dextrose 50 % 25 Gm/50 Ml Syringe) 25 gm IVPUSH Q15M PRN; Protocol PRN Reason: per Hypoglycemia Standing Ord. Glucose (Glucose Gel 15 Gm Gel..Gram.) 15 gm PO Q15M PRN; Protocol PRN Reason: per Hypoglycemia Standing Ord. Hydromorphone HCl (Hydromorphone Hcl 2 Mg/Ml Vial) 1 mg IVPUSH Q4H PRN; Protocol PRN Reason: Pain, Severe (Pain Scale 7-10) Last Admin: 05/02/25 20:50 Dose: 1 mg Documented By: AMINATA Metronidazole (Flagyl) 500 mg in 100 mls @ 100 mls/hr IV Q8H REPLACED BY [facility] Last Infusion: 05/03/25 06:37 Dose: Infused Documented By: AMINATA Insulin Glargine (Insulin Glargine,Hum.Rec.Anlog 100 Unit/Ml 10 Ml Vial) 15 unit SUBCUT BEDTIME REPLACED BY [facility] Last Admin: 05/02/25 20:51 Dose: 15 unit Documented By: AMINATA Insulin Human Lispro (Insulin Lispro 100 Unit/Ml 3 Ml Vial) 0 unit SUBCUT QIDAS REPLACED BY [facility]; Protocol Last Admin: 05/03/25 08:27 Dose: Not Given Documented By: ROBERT Non-Admin Reason: No Insulin Coverage Insulin Human Lispro (Insulin Lispro 100 Unit/Ml 3 Ml Vial) 5 unit SUBCUT QIDAS REPLACED BY [facility] Levothyroxine Sodium (Levothyroxine Sodium 125 Mcg Tablet) 125 mcg PO DAILY@0600 REPLACED BY [facility] Last Admin: 05/03/25 05:31 Dose: 125 mcg Documented By: AMINATA Magnesium Hydroxide (Milk Of Magnesia 30 Ml Oral.Susp) 30 ml PO DAILY PRN PRN Reason: Constipation Melatonin (Melatonin 3 Mg Tablet) 6 mg PO BEDTIME PRN PRN Reason: Insomnia Naloxone HCl (Naloxone Hcl 0.4 Mg/Ml Vial) 0.04 mg IVPUSH Q5M PRN PRN Reason: Excessive sedation or RR < 8 Oxycodone HCl (Oxycodone Hcl Immed Release 5 Mg Tablet) 5 mg PO Q6H PRN PRN Reason: Pain, Moderate(Pain Scale 4-6) Last Admin: 05/02/25 19:47 Dose: 5 mg Sodium Chloride (0.9 % Sodium Chloride Flush 3 Ml Syringe) 3 ml IVFLUSH QSHIFT REPLACED BY [facility] Last Admin: 05/03/25 08:26 Dose: 3 ml Documented By: ROBERT Labs 05/03/25 06:33 05/03/25 06:33 Labs: Laboratory Results - last 24 hr 05/02/25 05/02/25 05/02/25 11:21 16:14 20:26 MCV MCH MCHC RDW Plt Count MPV Absolute Nucleated RBC Nucleated RBC % (auto) Anion Gap Estim Creat Clear Calc Estimated GFR POC Glucose 357 H* 213 H 271 H Random Glucose Calcium Magnesium 05/03/25 05/03/25 06:33 07:33 MCV 93.5 MCH 33.5 H MCHC 35.8 RDW 11.9 Plt Count 284 MPV 9.7 Absolute Nucleated RBC 0.000 Nucleated RBC % (auto) 0.0 Anion Gap 9 L Estim Creat Clear Calc 94.8 Estimated GFR > 60 POC Glucose 143 H Random Glucose 138 H Calcium 8.5 Magnesium 1.8 Assessment and Plan (1) Type 1 diabetes: Status: Acute Plan 60M PMH DM type I, osteoarthritis, hld, presented with nausea vomiting and diarrhea and blood in stool Acute colitis colonoscopy with ischemic colitis ceftriaxone and Flagyl, monitor hemoglobin, advance to solids, surgery appreciated - no intervention expected, repeat colonoscopy in 8 weeks advancing to solids today Nausea vomiting and hematemesis resolved Continue PPI, egd with duodenitis, biopsies taken, avoid nsaids Diabetes type 1 Normally uses insulin pump but is currently empty, will cover with insulin sliding scale Hyperlipidemia will hold statin for now Lower extremity sunburns topical bacitracin, pain control, wound care dvt prophylaxis - pharmaceutical contraindicated due to GI bleed, Mechanical contraindicated due to sunburns, early ambulation full code reason for continued hospitalization:advancing diet Quality Stroke Does the patient have a stroke diagnosis?: No VTE Prior VTE?: No VTE Risk Level:: Medical - moderate - high VTE Device Contraindication: Treatment Not Tolerated VTE Drug Contraindication: Treatment Not Tolerated
--- NOTE | 2025-05-03 08:55 | P.DS_ITS ---
DS: Providers Provider Date of Service: 05/03/25 Date of admission: 04/29/25 12:37 Date of discharge: 05/03/25 Primary care physician: Unknown Physician Consults: 04/29/25 12:42 Consult to Gastroenterology Routine Consulting Provider: Antonette Guillory Reason for consultation: brbpr 04/29/25 20:37 Consult to Wound Care Routine Reason for consultation: scottie leg sunburn/blister 04/30/25 11:41 Consult to General Surgery Routine Consulting Provider: [facility] General Surgeons Reason for consultation: ischemic colitis DS: Diagnosis Discharge Diagnosis (1) Type 1 diabetes: Status: Acute DS: Summary Hospital Course Hospital Course: from initial hpi: 60M PMH DM, osteoarthritis, hld, presented with nausea vomiting and diarrhea. About 5 days prior to presentation patient was kayaking and got to beer sunburn on bilateral lower extremities. Few days later started to have nausea vomiting and diarrhea with left lower quadrant abdominal pain started to notice bright red blood in stool and some streaks of blood in vomit. In ED noted to have leukocytosis, positive guaiac, colitis of the transverse colon. hospital course: Patient was admitted for acute colitis, colonoscopy revealed ischemic colitis in the transverse colon. Was treated with ceftriaxone Flagyl, hemoglobin remained stable, hematochezia resolved, was slowly advanced to solids and tolerated. Was seen by surgery recommended no acute intervention. We will follow up with GI for pathology results and repeat colonoscopy in 8 weeks. For nausea and vomiting with hematemesis likely due to duodenitis seen on EGD, biopsies were taken should be followed up outpatient recommended to avoid NSAIDs, was continued on PPI and symptoms resolved. For type 1 diabetes was covered with basal bolus insulin, should continue insulin pump at home. For hyperlipidemia can continue with statin. For lower extremity sunburns was given topical bacitracin and pain control, should avoid sun exposure until healed and then use plenty of sunscreen. Time Attestation Discharge Coordination Time (in mins): 34 Quality: Safe Use of Opioids Does Pt have an Active Cancer Diagnosis on the Problem List?: No Quality: Stroke Does the patient have a stroke diagnosis?: No Physical Exam Vital Signs: Vital Signs: Last Vital Signs Temp 97.4 F 05/03/25 07:52 Pulse 59 05/03/25 07:52 Resp 18 05/03/25 07:52 BP 136/62 05/03/25 07:52 Pulse Ox 95 05/03/25 07:52 O2 Del Method Room Air 05/03/25 07:52 O2 Flow Rate 98 04/29/25 15:41 BMI result Body Mass Index 28.6 Const: General: no acute distress Nutritional Appearance: well nourished Orientation/consciousness: patient oriented x3 Limitations: no limitations Resp: Effort & Inspection: normal respiratory effort GI: Other: Soft, nondistended, mild tenderness in the upper abdomen without rebound, guarding or rigidity. Neuro: General: patient oriented x3 Extrem: Other: Lower extremity skin sunburn DS: Data Data Completed and Pending Pending studies at discharge: Pending at discharge 04/30/25 11:18 Surgical [PTH] Routine Labs on day of discharge: Laboratory Results - last 24 hr 05/02/25 05/02/25 05/02/25 11:21 16:14 20:26 WBC RBC Hgb Hct MCV MCH MCHC RDW Plt Count MPV Absolute Nucleated RBC Nucleated RBC % (auto) Sodium Potassium Chloride Carbon Dioxide Anion Gap BUN Creatinine Estim Creat Clear Calc Estimated GFR POC Glucose 357 H* 213 H 271 H Random Glucose Calcium Magnesium 05/03/25 05/03/25 06:33 07:33 WBC 9.1 RBC 4.15 L Hgb 13.9 L Hct 38.8 L MCV 93.5 MCH 33.5 H MCHC 35.8 RDW 11.9 Plt Count 284 MPV 9.7 Absolute Nucleated RBC 0.000 Nucleated RBC % (auto) 0.0 Sodium 140 Potassium 4.0 Chloride 103 Carbon Dioxide 32 H Anion Gap 9 L BUN 10 Creatinine 0.78 Estim Creat Clear Calc 94.8 Estimated GFR > 60 POC Glucose 143 H Random Glucose 138 H Calcium 8.5 Magnesium 1.8 Discharge Plan Discharge Anticipated Discharge Date/Time: 05/03/25 08:52 Patient Disposition: Home, Self-Care Discharge Diagnosis: inschemic colitis Referrals: Antonette Guillory MD [Physician, Gastroenterology] - 1 Week Physician,Chintan J [Primary Care Provider, Medical] - 1 Week Discharge Medications: New bacitracin 500 unit/gram Ointment 1 appl topical BID Qty: 28 0RF Protocol: Apply to: Apply to: legs cefuroxime axetil 500 mg tablet 500 mg PO BID Qty: 10 0RF metronidazole 500 mg tablet 500 mg PO BID Qty: 10 0RF Continued (DME) FreeStyle Lite Strips Strip See Rx Instructions .Route Qty: 100 3RF Rx Instructions: test blood sugar 4 times per day prn sensor failure insulin lispro [Humalog U-100 Insulin] 100 unit/mL solution 70 unit subcut DAILY 30 Days Qty: 30 11RF Rx Instructions: continous via pump via Tslim pump atorvastatin [Lipitor] 20 mg tablet 20 mg PO BEDTIME Qty: 30 8RF (DME) FreeStyle Gwendolyn 2 Plus Sensor Device See Rx Instructions .Route Qty: 2 6RF Rx Instructions: As directed for 30 days (DME) lancets [FreeStyle Lancets] 28 gauge misc See Rx Instructions .Route Qty: 100 3RF Rx Instructions: As directed four times a day prn sensor failure dispense as 33 gauge if avail levothyroxine 125 mcg tablet 125 mcg PO DAILY@0600 insulin glargine [Lantus Solostar U-100 Insulin] 100 unit/mL (3 mL) insulin pen 32 unit subcut DAILY PRN (Reason: In case of pump failure) Rx Instructions: Inject only case of pump failure (DME) insulin syringe-needle U-100 0.3 mL 31 gauge x 5/16 syringe See Rx Instructions .ROUTE QID Qty: 100 0RF Rx Instructions: As directed four times a day prn pump failure (DME) pen needle, diabetic [BD Pamela 2nd Gen Pen Needle] 32 gauge x 5/32 needle See Rx Instructions .ROUTE .MEDSUPPLY Qty: 50 6RF Rx Instructions: once daily prn pump failure (DME) Ketone Urine Test Strip See Rx Instructions .ROUTE .MEDSUPPLY Qty: 25 1RF Rx Instructions: As directed p.r.n. illness or glucose over 250 (DME) blood-glucose meter [FreeStyle Lite Meter] Kit See Rx Instructions .ROUTE .MEDSUPPLY Qty: 1 0RF Rx Instructions: As directed for use with lancets Diet: Advance to usual diet Activity on Discharge: As tolerated Stand Alone Forms: Patient Portal Discharge page Print Language: Danish Care Plan Goals: Recovery Health Concerns: Sunburns and ischemic colitis Plan of Treatment: Continue topical treatment for sunburn, avoid sun exposure until healed and then use sunscreen Continue 5 more days of cefuroxime and Flagyl, follow up with Gastroenterology Assessment: See above
[2025-05-03 09:59] LABS: Glucose, Whole Blood 375 mg/dL (60-115)
--- NOTE | 2025-05-03 11:22 | HO.SKINPHOTO ---
Location: BLE Dressing changed. no blisters present. Ointment per MAR, xerforom, gauze, gauze wrap applied.
[2025-05-03 11:42] LABS: Glucose, Whole Blood 291 mg/dL (60-115)
--- NOTE | 2025-05-03 14:47 | MHC.CM.PN ---
PER MD ROUNDS, PT WILL DC HOME TODAY IF HE IS ABLE TO EAT PT WILL ARRANGE TRANSPORT
[2025-05-03 15:18] VITALS: BP 136/69; PULSE 74; RESP 18; TEMP 36.4; O2SAT 98
== END 2025-05-03 16:30 | disposition home or self-care (01) | DRG 246 ==
LOC: HO.ED 12:42 → HO.EDOVER 12:48 → HO.S3 19:13
PROVIDERS: Internal Medicine; Admitting Provider Internal Medicine; Emergency Provider Emergency Medicine Emergency Medical Services; Visit Provider Internal Medicine
PROC: 0DJ08ZZ Inspection of Upper Intestinal Tract, Via Natural or Artificial Opening Endoscopic (ICD-10-PCS; CPT 43235; principal; 2025-04-30 11:20)
PROC: 0DJD8ZZ Inspection of Lower Intestinal Tract, Via Natural or Artificial Opening Endoscopic (ICD-10-PCS; CPT 45330; 2025-04-30 11:20)
DX: K55.9 Vascular disorder of intestine, unspecified (principal); E03.9 Hypothyroidism, unspecified; E86.0 Dehydration; E10.9 Type 1 diabetes mellitus without complications; L55.1 Sunburn of second degree; Z79.890 Hormone replacement therapy; Z87.891 Personal history of nicotine dependence; Z79.899 Other long term (current) drug therapy
CPT/HCPCS: 36415; 74177; 80048; 80053; 82248; 82272; 82550; 82947; 83605; 83615; 83690; 83735; 85014; 85018; 85025; 85027; 85610; 85730; 86850; 86900; 86901; 88305; 99285; J0696; J1171; J1836; J2003; J2270; J2405; J2470; J2704; J7120; Q9967

== ENCOUNTER → 2025-04-29 09:26 | Outpatient (BNV) | payer OTHER, SELFPAY | PROVIDERS: Emergency Provider Emergency Medicine Emergency Medical Services; Visit Provider Radiology Diagnostic Radiology | DX: K52.89 Other specified noninfective gastroenteritis and colitis (principal) | CPT/HCPCS: 74177 ==

== ENCOUNTER → 2025-04-29 12:37 | Outpatient (BNV) | payer OTHER, SELFPAY | PROVIDERS: Admitting Provider Internal Medicine; Emergency Provider Emergency Medicine Emergency Medical Services; Visit Provider Physician Assistant Surgical | DX: K52.9 Noninfective gastroenteritis and colitis, unspecified (principal) | CPT/HCPCS: 99222; 99232 ==

== ENCOUNTER → 2025-04-29 12:37 | Outpatient (BNV) | payer OTHER, SELFPAY | PROVIDERS: Admitting Provider Internal Medicine; Emergency Provider Emergency Medicine Emergency Medical Services; Visit Provider Internal Medicine | DX: K52.9 Noninfective gastroenteritis and colitis, unspecified (principal); R11.2 Nausea with vomiting, unspecified; E10.9 Type 1 diabetes mellitus without complications | CPT/HCPCS: 99223; 99232; 99239; 99499 ==

== ENCOUNTER → 2025-04-29 12:37 | Outpatient (BNV) | payer OTHER, SELFPAY | PROVIDERS: Admitting Provider Internal Medicine; Emergency Provider Emergency Medicine Emergency Medical Services; Visit Provider Internal Medicine Gastroenterology | DX: K29.80 Duodenitis without bleeding (principal); K52.9 Noninfective gastroenteritis and colitis, unspecified; K92.2 Gastrointestinal hemorrhage, unspecified | CPT/HCPCS: 43239; 45380; 99222; 99232 ==

== ENCOUNTER 2025-06-29 07:10 | Outpatient (AMB) | payer OTHER, SELFPAY ==
--- OUTSIDE RECORDS SUMMARY | 2025-06-29 07:13 | XMS_ITS | Encounter Summary ---
Author Organization [facility] Address [address] [place] [address] Care Team Providers Care Tube Trailer Filler Name Role Phone Brett Mackenzie MD Unavailable [phone] Aston Yañez MD Primary Care Provider Encounter Details Date Type Department Care Team (Late st Contact Info) Description 04/29/2020 Scanned Document [facility] Neurosurgery [address] [phone] Social History Tobacco Use Types [...] on filedocumented in this encounter Care Teams Tube Trailer Filler Relationship Specialty Start Date End Date Aston Yañez MD [address] [place] [address] [place] [address] PCP - General Endocrinology 07/31/19 Brett Mackenzie MD [address] [place] [address] Psychiatry, General 10/01/18 documented as of this encounter
--- OUTSIDE RECORDS SUMMARY | 2025-06-29 07:13 | XMS_ITS | Encounter Summary ---
Author Organization [facility] Address [address] [place] [address] Care Team Providers Care Review Trainer Name Role Phone Brett Mackenzie MD Unavailable [phone] Aston Yañez MD Primary Care Provider [phone] Encounter Details Date Type Department Care Team (Late st Contact Info) Description 12/29/2019 Scanned Document [facility] Neurosurgery [address] [phone] Social History Tobacco Use Types Packs/Day Years [...] on filedocumented in this encounter Care Teams Review Trainer Relationship Specialty Start Date End Date Aston Yañez MD [address] [place] [address] [address] PCP - General Endocrinology 07/31/19 Brett Mackenzie MD [address] [place] [address] Psychiatry, General 10/01/18 documented as of this encounter
--- OUTSIDE RECORDS SUMMARY | 2025-06-29 07:13 | XMS_ITS | Encounter Summary ---
Author Organization [facility] Address [address] [place] [address] Care Team Providers Care Operations Scheduler Name Role Phone Brett Mackenzie MD Unavailable [phone] Aston Yañez MD Primary Care Provider [phone] Encounter Details Date Type Department Care Team (Late st Contact Info) Description 10/07/[address] [facility] [place] Neurosurgery [address] [phone] Social History Tobacco Use Types Packs/Day Years [...] on filedocumented in this encounter Care Teams Operations Scheduler Relationship Specialty Start Date End Date Aston Yañez MD [address] [place], [place] [address] [address] PCP - General Endocrinology 07/31/19 Brett Mackenzie MD [address] [place] [address] Psychiatry, General 10/01/18 documented as of this encounter
--- OUTSIDE RECORDS SUMMARY | 2025-06-29 07:13 | XMS_ITS | Encounter Summary ---
Author Organization [facility] Address [address] [place] [address] Care Team Providers Care Automobile Upholsterer Name Role Phone Brett Mackenzie MD Unavailable [phone] Aston Yañez MD Primary Care Provider [phone] Encounter Details Date Type Department Care Team (Late st Contact Info) Description 04/28/[address] [facility] Neurosurgery [address] [phone] Social History Tobacco Use Types Packs/Day Years [...] on filedocumented in this encounter Care Teams Automobile Upholsterer Relationship Specialty Start Date End Date Aston Yañez MD [address] [place] [address] [place] [address] PCP - General Endocrinology 07/31/19 Brett Mackenzie MD [address] [place] [address] Psychiatry, General 10/01/18 documented as of this encounter
--- OUTSIDE RECORDS SUMMARY | 2025-06-29 07:13 | XMS_ITS | Encounter Summary ---
Author Organization [facility] Address [address] [place] [address] Care Team Providers Care Cytologist Name Role Phone Brett Mackenzie MD Unavailable [phone] Aston Yañez MD Primary Care Provider [phone] Encounter Details Date Type Department Care Team (Late st Contact Info) Description 06/24/2020 Scanned Document [facility] Neurosurgery [address] [phone] Social History Tobacco Use Types Packs/Day Years [...] on filedocumented in this encounter Care Teams Cytologist Relationship Specialty Start Date End Date Aston Yañez MD [address] [place] [address] [place] [address] PCP - General Endocrinology 07/31/19 Brett Mackenzie MD [address] [place] [address] Psychiatry, General 10/01/18 documented as of this encounter
--- OUTSIDE RECORDS SUMMARY | 2025-06-29 07:13 | XMS_ITS | Encounter Summary ---
Author Organization [facility] Address [address] [facility] [address] [place] [address] Phone Care Team Providers Care Speech Assistant Name Role Phone Aston Yañez MD Primary Care Provider Unavail Aston Ruiz MD Primary Care Provider Unavail Mariano Holliday NP Primary Care Provider + Reason for Referral * Physical Therapy (Routine) - Closed Specialty Diagnoses / Procedures Referred By Contac t Referred To Contact Physical Therapy Diagnoses Encounter for rehabilitation Osvaldo Coleman MD [address] [place] [address] Phone: tel: fax: [facility] [address] [place] [address] Phone: tel: Referral ID Status Reason Start Date Expiration Date Visits Re quested Visits Authorized [id number] Closed 09/01/2019 12/13/2019 16 16 Encounter Details Date Type Department Care Team (Latest Contact Info) Description 09/01/2019 Transcribe Orders [facility] [address] [place] [address] Unknown, Unknown, Encounter for rehabilitation (Primary Dx) Social History Tobacco Use Types Packs/Day Years Used Date Smoking Tobacco: Former Smokeless Tobacco: Never Sex and Gender Information Value Date Recorded Sex Assigned at Not on file Legal Sex Male 10:33 PM EDT Gender Identity Not on file Sexual Orientation Not on file documented as of this encounter Plan of Treatment Not on file documented as of this encounter Procedures Procedure Name Priority Date/Time Associated Diagnosis Comments AMB REFERRAL TO [facility] PHYSICAL THERAPY Routine 10/06/2019 9:24 AM EST Encounter for rehabilitation documented in this encounter Results * Ambulatory referral to [facility] Physical Therapy (10/06/2019 9:24 AM EST) us Osvaldo Coleman MD AMB [facility] REFERRALS Di l Result documented in this encounter Visit Diagnoses Diagnosis Encounter for rehabilitation- Primary documented in this encounter Care Teams Speech Assistant Relationship Specialty Start Date End Date Aston Yañez MD PCP - General Endocrinology 05/18/18 01/17/21 Aston Yañez MD PCP - General Endocrinology 01/18/21 02/02/21 Mariano Smith NP [address] [place] [address] [place] [address] PCP - General Family Medicine 02/03/21 documented as of this encounter Additional Source Comments The information contained in this document represents components of the legal health record. It is not the complete legal health record.[facility]
--- OUTSIDE RECORDS SUMMARY | 2025-06-29 07:13 | XMS_ITS | Encounter Summary ---
Author Organization [facility] Address [address] [place] [address] Care Team Providers Care Prosthetic Makeup Designer Name Role Phone Brett Mackenzie MD Unavailable [phone] Aston Yañez MD Primary Care Provider [phone] Encounter Details Date Type Department Care Team (Late st Contact Info) Description 07/31/2019 Scanned Document [facility] Neurosurgery [address] [phone] Social History Tobacco Use Types Packs/Day Years [...] on filedocumented in this encounter Care Teams Prosthetic Makeup Designer Relationship Specialty Start Date End Date Aston Yañez MD [address] [place] [address] PCP - General Endocrinology 07/31/19 Brett Mackenzie MD [address] [place] [address] Psychiatry, General 10/01/18 documented as of this encounter
--- OUTSIDE RECORDS SUMMARY | 2025-06-29 07:13 | XMS_ITS | Clinical Summary ---
Author Organization [facility] Address [address] [facility] [address] [place] [address] Phone Care Team Providers Care Auto Brake Technician Name Role Phone Mariano Smith NP Primary [...] HEPATITIS C SCREENING 1984 HIV ONE-TIME SCREENING (18-65 YEARS) 1984 COLOGUARD 2011 COLONOSCOPY 2011 COLORECTAL CANCER SCREENING 2011 FIT TEST 2011 FOBT 2011 SIGMOIDOSCOPY 2011 VIRTUAL COLONOSCOPY 2011 ZOSTER VACCINES (1 of 2) 2016 PNEUMOCOCCAL VACCINES (50+ years) (2 of 2 - PCV) 07/13/2022 07/13/2021, 04/10/2007 Adult Td,Tdap Booster 12/15/2023 12/14/2013, 008 INFLUENZA VACCINE (#1) 2025 6, 08/12/2015, 08/12/2014, Additional history exists COVID-19 VACCINE (3 - 2024- season) 2025 06/19/2021, 05/11/2021 HEPATITIS A VACCINES Aged Out [...] topic Medical Devices Not on file [place] [address] [address] NET FULL Member Subscriber Plan / Payer (Ef fective 2022-Present) Name:Jolly Shah Relation to Subscriber:Self Name:Jolly Shah Payer ID:Not on file Group ID:Not on file Type:Medicaid Address: [address] FULL Member Subscriber Plan / Payer ( fective 2022-Present) Name:Jolly Shah Relation to Subscriber:Self Name:Jolly Shah Payer ID:Not on file Group ID:Not on file Type:Medicaid Address: [address] FULL Member Subscriber Plan / Payer ( fective 2022-Present) Name:Jolly Shah Josue Relation to Subscriber:Self Name:Jolly Shah Josue Payer ID:Not on file Group ID:Not on file Type:Medicaid Address: [address] [facility] FULL Member Subscriber Plan / Payer (Ef fective 2022-Present) Name:MaryannJolly coulter Josue Relation to Subscriber:Self Name:Jolly Shah Josue Payer ID:Not on file Group ID:Not on file Type:Medicaid Address: [address] [facility] FULL Member Subscriber Plan / Payer (Ef fective 2022-Present) Name:Jolly Shah Relation to Subscriber:Self Name:Jolly Shah Payer ID:Not on file Group ID:Not on file Type:Medicaid Address: [address] [facility] NET FULL Member Subscriber Plan / Payer (Ef fective 2022-Present) Name:Jolly Shah Relation to Subscriber:Self Name:Jolly Shah Payer ID:Not on file Group ID:Not on file Type:Medicaid Address: [address] Member Subscriber Plan / Payer (Ef fective 2022-Present) Name:Jolly Shah Relation to Subscriber:Self Name:Jolly Shah Payer ID:Not on file Group ID:Not on file Type:Medicaid Address: [address] FULL Member Subscriber Plan / Payer (Ef fective 2022-) Name:Jolly Shah Relation to Subscriber:Self Name:Jolly Shah Payer ID:Not on file Group ID:Not on file Type:Medicaid Address: [address] [employer] Care Teams Auto Brake Technician Relationship Specialty Start Date End Date Mariano Smith NP [address] [place] [address] PCP - General Family Medicine 02/03/21 Additional Source Comments The information contained in this document represents components of the legal health record. It is not the complete legal health record.[facility]
--- OUTSIDE RECORDS SUMMARY | 2025-06-29 07:13 | XMS_ITS | Encounter Summary ---
Author Organization [facility] Address [address] [place] [address] Care Team Providers Care Gravel Truck Driver Name Role Phone Brett Mackenzie MD Unavailable [phone] Aston Yañez MD Primary Care Provider [phone] Encounter Details Date Type Department Care Team (Late st Contact Info) Description 07/31/2019 Scanned Document [facility] Neurosurgery [address] [phone] Social History Tobacco Use Types Packs/Day Years [...] on filedocumented in this encounter Care Teams Gravel Truck Driver Relationship Specialty Start Date End Date Aston Yañez MD [address] [place] [address] PCP - General Endocrinology 07/31/19 Brett Mackenzie MD [address] [place] [address] Psychiatry, General 10/01/18 documented as of this encounter
--- OUTSIDE RECORDS SUMMARY | 2025-06-29 07:13 | XMS_ITS | Encounter Summary ---
Author Organization [facility] Address [address] [place] [address] Care Team Providers Care Senior Enterprise Architect Name Role Phone Brett Mackenzie MD Unavailable [phone] Aston Yañez MD Primary Care Provider [phone] Encounter Details Date Type Department Care Team (Late st Contact Info) Description 08/05/2020 Scanned Document [facility] Neurosurgery [address] [phone] Social History Tobacco Use Types [...] filedocumented in this encounter Care Teams Senior Enterprise Architect Relationship Specialty Start Date End Date Aston Yañez MD [address] [place] [address] [address] PCP - General Endocrinology 07/31/19 Brett Mackenzie MD [address] [place] [address] Psychiatry, General 10/01/18 documented as of this encounter
--- OUTSIDE RECORDS SUMMARY | 2025-06-29 07:13 | XMS_ITS | Encounter Summary ---
Author Organization [facility] Address [address] [place] [address] Care Team Providers Care Poultry Dresser Name Role Phone Brett Mackenzie MD Unavailable [phone] Aston Yañez MD Primary Care Provider [phone] Encounter Details Date Type Department Care Team (Late st Contact Info) Description 12/18/2019 Scanned Document [facility] Neurosurgery [address] [phone] Social History Tobacco Use Types Packs/Day Years [...] on filedocumented in this encounter Care Teams Poultry Dresser Relationship Specialty Start Date End Date Aston Yañez MD [address] [place] [address] [address] PCP - General Endocrinology 07/31/19 Brett Mackenzie MD [address] [place] [address] Psychiatry, General 10/01/18 documented as of this encounter
--- OUTSIDE RECORDS SUMMARY | 2025-06-29 07:13 | XMS_ITS | Encounter Summary ---
Author Organization [facility] Address [address] [place] [address] Care Team Providers Care Community Fundraiser Name Role Phone Brett Mackenzie MD Primary Care Provider [phone] Brett Mackenzie MD Unavailable [phone] Aston Yañez MD Primary Care Provider [phone] Encounter Details Date Type Department Care Team (Late st Contact Info) Description 11/26/2018 Scanned Document [facility] Neurosurgery [place] 35 [facility] 5 [place] [address] Osvaldo Coleman MD 35 [facility] 5 [place] [address] Social History Tobacco Use Types Packs/Day Years [...] on filedocumented in this encounter Care Teams Community Fundraiser Relationship Specialty Start Date End Date Brett Mackenzie MD [address] [place] [address] PCP - General General Medicine 10/01/18 07/30/19 Aston Yañez MD [address] [place] [address] PCP - General Endocrinology 07/31/19 Brett Mackenzie MD [address] [place] [address] Psychiatry, General 10/01/18 documented as of this encounter
--- OUTSIDE RECORDS SUMMARY | 2025-06-29 07:13 | XMS_ITS | Encounter Summary ---
Author Organization [facility] Address [address] [place] [address] Care Team Providers Care Intern Architect Name Role Phone Brett Mackenzie MD Primary Care Provider [phone] Brett Mackenzie MD Unavailable [phone] Aston Yañez MD Primary Care Provider [phone] Encounter Details Date Type Department Care Team (Late st Contact Info) Description 02/16/2019 Scanned Document [facility] Neurosurgery [place] 35 [facility] 5 [place] [address] Osvaldo Coleman MD 35 [facility] 5 [place] [address] Social History Tobacco Use Types Packs/Day Years [...] on filedocumented in this encounter Care Teams Intern Architect Relationship Specialty Start Date End Date Brett Mackenzie MD [address] [place] [address] PCP - General General Medicine 10/01/18 07/30/19 Aston Yañez MD [address] [place] [address] PCP - General Endocrinology 07/31/19 Brett Mackenzie MD [address] [place] [address] Psychiatry, General 10/01/18 documented as of this encounter
--- OUTSIDE RECORDS SUMMARY | 2025-06-29 07:13 | XMS_ITS | Encounter Summary ---
Author Organization [facility] Address [address] [place] [address] Care Team Providers Care Signal Tower Director Name Role Phone Brett Mackenzie MD Primary Care Provider [phone] Brett Mackenzie MD Unavailable [phone] Aston Yañez MD Primary Care Provider [phone] Encounter Details Date Type Department Care Team (Late st Contact Info) Description 04/20/2019 Scanned Document [facility] Neurosurgery [place] 35 [facility] 5 [place] [phone] Osvaldo Coleman MD 35 [facility] 5 [place] [address] Social History Tobacco Use Types Packs/Day Years [...] on filedocumented in this encounter Care Teams Signal Tower Director Relationship Specialty Start Date End Date Brett Mackenzie MD [address] [place] [address] PCP - General General Medicine 10/01/18 07/30/19 Aston Yañez MD [address] [place] [address] PCP - General Endocrinology 07/31/19 Brett Mackenzie MD [address] [place] [address] Psychiatry, General 10/01/18 documented as of this encounter
--- OUTSIDE RECORDS SUMMARY | 2025-06-29 07:13 | XMS_ITS | Encounter Summary ---
Author Organization [facility] Address [address] [facility] [address] [place] [address] Phone Care Team Providers Care Wireless Cellular Technician Name Role Phone Aston Yañez MD Primary Care Provider Unavail Aston Ruiz MD Primary Care Provider Unavail Mariano Holliday NP Primary Care Provider + Reason for Referral * Physical Therapy (Routine) - Closed Specialty Diagnoses / Procedures Referred By Conttito t Referred To Contact Physical Therapy Diagnoses Encounter for rehabilitation Ladan Feliz PA [address] [place] [address] Phone: tel: fax: [address] [address] Phone: tel: Referral ID Status Reason Start Date Expiration Date Visits Re quested Visits Authorized [id number] Closed 10/30/2019 01/04/2020 9 9 Encounter Details Date Type Department Care Team (Latest Contact Info) Description 10/30/2019 Transcribe Orders [facility] [address] [place] [address] Ladan Feliz PA [address] [place] [address] Encounter for rehabilitation (Primary Dx) Social History Tobacco Use Types Packs/Day Years Used Date Smoking Tobacco: Former Smokeless Tobacco: Never Sex and Gender Information Value Date Recorded Sex Assigned at Not on file Legal Sex Male 10:33 PM EDT Gender Identity Not on file Sexual Orientation Not on file documented as of this encounter Plan of Treatment Scheduled Referrals Name Type Priority Associated Diagnoses Orde r Schedule Ambulatory referral to [facility] Physical Therapy Outpatient Referral Routine Encounter for rehabilitation Ordered: 10/30/2019 documented as of this encounter Visit Diagnoses Diagnosis Encounter for rehabilitation- Primary documented in this encounter Care Teams Wireless Cellular Technician Relationship Specialty Start Date End Date Aston Yañez MD PCP - General Endocrinology 05/18/18 01/17/21 Aston Yañez MD PCP - General Endocrinology 01/18/21 02/02/21 Mariano Smith NP [address] [place] [address] [place] [address] PCP - General Family Medicine 02/03/21 documented as of this encounter Additional Source Comments The information contained in this document represents components of the legal health record. It is not the complete legal health record.[facility]
--- OUTSIDE RECORDS SUMMARY | 2025-06-29 07:13 | XMS_ITS | Clinical Summary ---
Author Organization [facility] Address [address] [place] [address] Care Team Providers Care Sports Umpire Name Role Phone Brett Mackenzie MD Unavailable [phone] Aston Yañez MD Primary Care Provider [...] 71 12/07/2019 8:55 AM EDT Temperature 37.2 C (98.9 F) 08/07/2019 9:15 AM EST Respiratory Rate 16 08/07/2019 9:15 AM EST [...] Vaccine (1 of 2) 2016 Influenza Vaccine 04/30/2025 COVID-19 Vaccine ( - season) 2025 Medical Devices Implanted Type Area Victims Advocate Clerk/Specialist Device Identifier Shelf Expiration Date Model / Serial / Lot [id number]-90 System Spinal Fixation 55mm 7mm Ifuse Implant System 3ang - Sn/A Implanted:Qty: 1 on 08/05/2019 by Osvaldo Coleman MD at [facility] [employer] [employer] 01/09/2024 [id number]-90 / N/A / [id number] System Spinal Fixation 45mm 7mm Ifuse Implant System 3ang - Sn/A Implanted:Qty: 1 on 08/05/2019 by Osvaldo Coleman MD at [facility] [employer] 04/10/2024 7045M-90 / N/A / [id number] System Spinal Fixation 45mm 7mm Ifuse Implant System 3ang - Sn/A Implanted:Qty: 1 on 08/05/2019 by Osvaldo Coleman MD at [facility] [employer] 04/10/2024 7045M-90 / N/A / [id number] Insurance [facility] WORKER'S COMP JULIUS [id number] Advance Directives * Full Code (Latest Code Status on File) Date Activated Date Inactivated Comments 08/05/2019 10:54 AM * Full Code Date Activated Date Inactivated Comments 08/05/2019 8:02 AM 08/05/2019 10:54 AM Care Teams Sports Umpire Relationship Specialty Start Date End Date Aston Yañez MD [address] [place] [address] [id number] PCP - General Endocrinology 07/31/19 Brett Mackenzie MD [address] [place] [address] Psychiatry, General 10/01/18
--- OUTSIDE RECORDS SUMMARY | 2025-06-29 07:13 | XMS_ITS | Encounter Summary ---
Author Organization [facility] Address [address] [place] [address] Care Team Providers Care Laborer Livestock Name Role Phone Brett Mackenzie MD Unavailable [phone] Aston Yañez MD Primary Care Provider [phone] Encounter Details Date Type Department Care Team (Late st Contact Info) Description 12/29/2019 Scanned Document [facility] Neurosurgery [address] [phone] Social History Tobacco Use Types Packs/Day Years [...] on filedocumented in this encounter Care Teams Laborer Livestock Relationship Specialty Start Date End Date Aston Yañez MD [address] [place], [place] [address], [place] [address] PCP - General Endocrinology 07/31/19 Brett Mackenzie MD [address] [place] [address] Psychiatry, General 10/01/18 documented as of this encounter
--- OUTSIDE RECORDS SUMMARY | 2025-06-29 07:13 | XMS_ITS | Encounter Summary ---
Author Organization [facility] Address [address] [place] [address] Care Team Providers Care Oracle Financial Application Developer Name Role Phone Brett Mackenzie MD Unavailable [phone] Aston Yañez MD Primary Care Provider [phone] Encounter Details Date Type Department Care Team (Late st Contact Info) Description 02/25/2020 Scanned Document [facility] Neurosurgery [address] [phone] Social History Tobacco Use Types Packs/Day Years [...] on filedocumented in this encounter Care Teams Oracle Financial Application Developer Relationship Specialty Start Date End Date Aston Yañez MD [address] [place] [address] [place] [address] PCP - General Endocrinology 07/31/19 Brett Mackenzie MD [address] [place] [address] Psychiatry, General 10/01/18 documented as of this encounter
--- OUTSIDE RECORDS SUMMARY | 2025-06-29 07:13 | XMS_ITS | Encounter Summary ---
Author Organization [facility] Address [address] [place] [address] Care Team Providers Care Full Time Babysitter Name Role Phone Brett Mackenzie MD Unavailable [phone] Aston Yañez MD Primary Care Provider [phone] Encounter Details Date Type Department Care Team (Late st Contact Info) Description 03/17/2020 Scanned Document [facility] Neurosurgery [address] [phone] Social History Tobacco Use Types Packs/Day Years [...] on filedocumented in this encounter Care Teams Full Time Babysitter Relationship Specialty Start Date End Date Aston Yañez MD [address] [place] [address] [place] [address] PCP - General Endocrinology 07/31/19 Brett Mackenzie MD [address] [place] [address] Psychiatry, General 10/01/18 documented as of this encounter
--- OUTSIDE RECORDS SUMMARY | 2025-06-29 07:13 | XMS_ITS | Encounter Summary ---
Author Organization [facility] Address [address] [place] [address] Care Team Providers Care Reservoir Engineer Name Role Phone Brett Mackenzie MD Primary Care Provider [phone] Brett Mackenzie MD Unavailable [phone] Aston Yañez MD Primary Care Provider [phone] Encounter Details Date Type Department Care Team (Late st Contact Info) Description 07/06/2019 Prep [facility] Neurosurgery [address] [phone] Lizett Mensah PA [address] [address] Social History Tobacco Use Types Packs/Day Years [...] on filedocumented in this encounter Care Teams Reservoir Engineer Relationship Specialty Start Date End Date Brett Mackenzie MD [address] [place] [address] PCP - General General Medicine 10/01/18 07/30/19 Aston Yañez MD [address] [place] [address] PCP - General Endocrinology 07/31/19 Brett Mackenzie MD [address] [place] [address] Psychiatry, General 10/01/18 documented as of this encounter
--- OUTSIDE RECORDS SUMMARY | 2025-06-29 07:13 | XMS_ITS | Encounter Summary ---
Author Organization [facility] Address [address] [place] [address] Care Team Providers Care Loan Consultant Name Role Phone Brett Mackenzie MD Unavailable [phone] Aston Yañez MD Primary Care Provider [phone] Encounter Details Date Type Department Care Team (Late st Contact Info) Description 03/11/2020 Scanned Document [facility] Neurosurgery [address] [phone] Social History Tobacco Use Types Packs/Day Years [...] on filedocumented in this encounter Care Teams Loan Consultant Relationship Specialty Start Date End Date Aston Yañez MD [address] [place] [address] [place] [address] PCP - General Endocrinology 07/31/19 Brett Mackenzie MD [address] [place] [address] Psychiatry, General 10/01/18 documented as of this encounter
--- OUTSIDE RECORDS SUMMARY | 2025-06-29 07:13 | XMS_ITS | Encounter Summary ---
Author Organization [facility] Address [address] [place] [address] Care Team Providers Care Manager Respiratory Care Name Role Phone Brett Mackenzie MD Unavailable [phone] Aston Yañez MD Primary Care Provider [phone] Encounter Details Date Type Department Care Team (Late st Contact Info) Description 03/22/2020 Scanned Document [facility] Neurosurgery [address] [phone] Social History Tobacco Use Types Packs/Day Years [...] filedocumented in this encounter Care Teams Manager Respiratory Care Relationship Specialty Start Date End Date Aston Yañez MD [address] [place] [address] [place] [address] PCP - General Endocrinology 07/31/19 Brett Mackenzie MD [address] [place] [address] Psychiatry, General 10/01/18 documented as of this encounter
--- OUTSIDE RECORDS SUMMARY | 2025-06-29 07:13 | XMS_ITS | Encounter Summary ---
Author Organization [facility] Address [address] [place] [address] Care Team Providers Care Stations Superintendent Name Role Phone Brett Mackenzie MD Primary Care Provider [phone] Brett Mackenzie MD Unavailable [phone] Aston Yañez MD Primary Care Provider [phone] Encounter Details Date Type Department Care Team (Late st Contact Info) Description 11/26/2018 Scanned Document [facility] Neurosurgery [place] 35 [facility] 5 [place] [address] Osvaldo Coleman MD 35 [facility] 5 [place] [address] Social History Tobacco Use Types Packs/Day Years [...] on filedocumented in this encounter Care Teams Stations Superintendent Relationship Specialty Start Date End Date Brett Mackenzie MD [address] [place] [address] PCP - General General Medicine 10/01/18 07/30/19 Aston Yañez MD [address] [place] [address] PCP - General Endocrinology 07/31/19 Brett Mackenzie MD [address] [place] [address] Psychiatry, General 10/01/18 documented as of this encounter
--- OUTSIDE RECORDS SUMMARY | 2025-06-29 07:13 | XMS_ITS | Encounter Summary ---
Author Organization [facility] Address [address] [place] [address] Care Team Providers Care Geothermal Operations Manager Name Role Phone Brett Mackenzie MD Unavailable [phone] Aston Yañez MD Primary Care Provider [phone] Encounter Details Date Type Department Care Team (Late st Contact Info) Description 08/03/2019 Scanned Document [facility] Neurosurgery [address] [phone] Neurosurgery, Scan Social History Tobacco Use Types [...] on filedocumented in this encounter Care Teams Geothermal Operations Manager Relationship Specialty Start Date End Date Aston Yañez MD [address] [place] [address] PCP - General Endocrinology 07/31/19 Brett Mackenzie MD [address] [place] [address] Psychiatry, General 10/01/18 documented as of this encounter
--- OUTSIDE RECORDS SUMMARY | 2025-06-29 07:13 | XMS_ITS | Encounter Summary ---
Author Organization [facility] Address [address] [place] [address] Care Team Providers Care Vice President Medical Affairs Name Role Phone Brett Mackenzie MD Unavailable [phone] Aston Yañez MD Primary Care Provider [phone] Encounter Details Date Type Department Care Team (Late st Contact Info) Description 03/24/2020 Scanned Document [facility] Neurosurgery [address] [phone] Social History Tobacco Use Types Packs/Day Years [...] on filedocumented in this encounter Care Teams Vice President Medical Affairs Relationship Specialty Start Date End Date Aston Yañez MD [address] [place] [address] [place] [address] PCP - General Endocrinology 07/31/19 Brett Mackenzie MD [address] [place] [address] Psychiatry, General 10/01/18 documented as of this encounter
--- OUTSIDE RECORDS SUMMARY | 2025-06-29 07:13 | XMS_ITS | Encounter Summary ---
Author Organization [facility] Address [address] [place] [address] Care Team Providers Care Hat Mender Name Role Phone Brett Mackenzie MD Unavailable [phone] Aston Yañez MD Primary Care Provider [phone] Encounter Details Date Type Department Care Team (Late st Contact Info) Description 03/15/2020 Scanned Document [facility] Neurosurgery [address] [phone] Social History Tobacco Use Types Packs/Day Years [...] on filedocumented in this encounter Care Teams Hat Mender Relationship Specialty Start Date End Date Aston Yañez MD [address] [place] [address] [place] [address] PCP - General Endocrinology 07/31/19 Brett Mackenzie MD [address] [place] [address] Psychiatry, General 10/01/18 documented as of this encounter
--- OUTSIDE RECORDS SUMMARY | 2025-06-29 07:13 | XMS_ITS | Encounter Summary ---
Author Organization [facility] Address [address] [place] [address] Care Team Providers Care Leather Coater Name Role Phone Brett Mackenzie MD Primary Care Provider Brett Mackenzie MD Unavailable [phone] Aston Yañez MD Primary Care Provider [phone] Encounter Details Date Type Department Care Team (Late st Contact Info) Description 03/25/2019 Scanned Document [facility] Neurosurgery [place] [address] [phone] [place], [place] [address] [address] Social History Tobacco Use Types Packs/Day Years [...] on filedocumented in this encounter Care Teams Leather Coater Relationship Specialty Start Date End Date Brett Mackenzie MD [address] [place] [address] PCP - General General Medicine 10/01/18 07/30/19 Aston Yañez MD [address] [place] [address] PCP - General Endocrinology 07/31/19 Brett Makcenzie MD [address] [place] [address] Psychiatry, General 10/01/18 documented as of this encounter
--- OUTSIDE RECORDS SUMMARY | 2025-06-29 07:13 | XMS_ITS | Encounter Summary ---
Author Organization [facility] Address [address] [place] [address] Care Team Providers Care Eeler Name Role Phone Brett Mackenzie MD Unavailable [phone] Aston Yañez MD Primary Care Provider [phone] Encounter Details Date Type Department Care Team (Late st Contact Info) Description 08/03/2019 Scanned Document [facility] Neurosurgery [address] [phone] Social History Tobacco Use Types [...] on filedocumented in this encounter Care Teams Eeler Relationship Specialty Start Date End Date Aston Yañez MD [address] [place], [place] [address], [place] [address] PCP - General Endocrinology 07/31/19 Brett Mackenzie MD [address] [place] [address] Psychiatry, General 10/01/18 documented as of this encounter
--- OUTSIDE RECORDS SUMMARY | 2025-06-29 07:13 | XMS_ITS | Encounter Summary ---
Author Organization [facility] Address [address] [place] [address] Care Team Providers Care Adult Parole Officer Name Role Phone Brett Mackenzie MD Primary Care Provider [phone] Brett Mackenzie MD Unavailable [phone] Aston Yañez MD Primary Care Provider [phone] Encounter Details Date Type Department Care Team (Late st Contact Info) Description 04/15/2019 Scanned Document [facility] Neurosurgery [address] [phone] Social History Tobacco Use Types [...] on filedocumented in this encounter Care Teams Adult Parole Officer Relationship Specialty Start Date End Date Brett Mackenzie MD [address] [place] [address] PCP - General General Medicine 10/01/18 07/30/19 Aston Yañez MD [address] [place] [address] PCP - General Endocrinology 07/31/19 Brett Mackenzie MD [address] [place] [address] Psychiatry, General 10/01/18 documented as of this encounter
--- OUTSIDE RECORDS SUMMARY | 2025-06-29 07:13 | XMS_ITS | Encounter Summary ---
Author Organization [facility] Address [address] [place] [address] Care Team Providers Care Senior Trial Attorney Name Role Phone Brett Mackenzie MD Unavailable [phone] Aston Yañez MD Primary Care Provider [phone] Encounter Details Date Type Department Care Team (Late st Contact Info) Description 08/03/2019 Scanned Document [facility] Neurosurgery [address] [phone] Neurosurgery, Scan Social History Tobacco Use Types [...] filedocumented in this encounter Care Teams Senior Trial Attorney Relationship Specialty Start Date End Date Aston Yañez MD [address] [place] [address] PCP - General Endocrinology 07/31/19 Brett Mackenize MD [address] [place] [address] Psychiatry, General 10/01/18 documented as of this encounter
--- OUTSIDE RECORDS SUMMARY | 2025-06-29 07:13 | XMS_ITS | Encounter Summary ---
Author Organization [facility] Address [address] [place] [address] Care Team Providers Care Early Intervention School Psychologist Name Role Phone Brett Mackenzie MD Unavailable [phone] Aston Yañez MD Primary Care Provider [phone] Encounter Details Date Type Department Care Team (Late st Contact Info) Description 01/07/2020 Scanned Document [facility] Neurosurgery [address] [phone] Social History Tobacco Use Types Packs/Day Years [...] on filedocumented in this encounter Care Teams Early Intervention School Psychologist Relationship Specialty Start Date End Date Aston Yañez MD [address] [place], [place] [address], [place] [address] PCP - General Endocrinology 07/31/19 Brett Mackenzie MD [address] [place] [address] Psychiatry, General 10/01/18 documented as of this encounter
--- OUTSIDE RECORDS SUMMARY | 2025-06-29 07:13 | XMS_ITS | Encounter Summary ---
Author Organization [facility] Address [address] [place] [address] Care Team Providers Care Delivery Driver Name Role Phone Brett Mackenzie MD Primary Care Provider [phone] Brett Mackenzie MD Unavailable [phone] Aston Yañez MD Primary Care Provider [phone] Encounter Details Date Type Department Care Team (Late st Contact Info) Description 07/06/2019 Scanned Document [facility] Neurosurgery [address] [phone] Social History Tobacco Use Types [...] in this encounter Care Teams Delivery Driver Relationship Specialty Start Date End Date Brett Mackenzie MD [address] [place] [address] PCP - General General Medicine 10/01/18 07/30/19 Aston Yañez MD [address] [place] [address] PCP - General Endocrinology 07/31/19 Brett Mackenzie MD [address] [place] [address] Psychiatry, General 10/01/18 documented as of this encounter
--- NOTE | 2025-06-29 07:53 | A.OFFVIS_ITS ---
Vital Signs 3 06/29/25 07:54 Height 5 ft 4 in Weight 163 lb 2.273 oz BMI 28.0 BP 124/54 L Blood Pressure Location Lt brachial Position Sitting Pulse 61 Pulse Source Pulse Oximeter Pulse Oximetry (%) 99 Oxygen Delivery Method Room Air Intake Visit Reasons: T1DM Intake Note: Patient present today for Type 1 Diabetes Mellitus Last Diabetic eye exam: Last exam was done on 07/2024. Last Podiatry Visit: Doesn't have one Random Glucose: 143 mg/dl HgA1C: 7.7% Manager Call Center Required: No Accompanied by: Self / Same As Patient Allergies latex Adverse Reaction (Mild, Verified 06/29/25 08:00) skin bubbles codeine (Codeine) Adverse Reaction (Unknown, Verified 06/29/25 08:00) HEADACHE Medication List - Last Reconciled 06/29/25 by Fabiana Fernandez MD acetone (urine) test (Ketone Urine Test strips) As directed p.r.n. illness or glucose over 250 atorvastatin (Lipitor) 20 mg PO BEDTIME bacitracin 1 appl See Protocol topical BID blood sugar diagnostic (FreeStyle Lite Strips) test blood sugar 4 times per day prn sensor failure blood-glucose meter (FreeStyle Lite Meter kit) As directed for use with lancets blood-glucose sensor (FreeStyle Gwendolyn 2 Plus Sensor device) As directed for 30 days cefuroxime axetil 500 mg PO BID Humalog U-100 Insulin (insulin lispro) 70 units (0.7 mL) subcut DAILY 30 days NS insulin glargine (Lantus Solostar U-100 Insulin) 32 units subcut DAILY PRN insulin syringe-needle U-100 As directed four times a day prn pump failure lancets (FreeStyle Lancets) As directed four times a day prn sensor failure dispense as 33 gauge if avail levothyroxine 125 mcg PO DAILY@0600 metronidazole 500 mg PO BID pen needle, diabetic (BD Pamela 2nd Gen Pen Needle) once daily prn pump failure HPI Comments Details: 60 YO M with is seen in f/u for T1DM. Last seen February 2025 but Cathy Ferrari APRN. Hemoglobin A1c 06/29/25 7.7% 01/14/25 7.4% 10/14/2024 6.7%. 04/09/2024 7%. History of diabetes Initially diagnosed with T1DM at age 5 when he presented with illness Was initially started on treatment with insulin. Went on Tslim-2 pump 04/2023 Back up for pump failure: Lantus 30 units plus usual dose of humalog Currently being managed with T-slim pump with a freestyle Gwendolyn 2+ with cotrol IQ with the Humalog U 100 Recently switched over to a freestyle 2+ and having some issues with connection to pump. He has had if he will sensors pulled out early and he was advised he can contact the company when this occurs. Tandem T slim insulin pump with freestyle Gwendolyn 2+ with Humalog U 100, data downloaded from June 16 to 06/12/2025 Average glucose 192 mg/dL Time CGM in you 79% Coefficient of variation 45% G NV 7.9% Within target range 42% High 27% Very high 26% Low 4.8% Very low 0.9% Interpretation: Overnight hypoglycemia noted. Not acting carbs consistently, has hypoglycemia during the day following hyperglycemia, sometimes he is overriding the correction and giving himself extra resulting in hypoglycemia I am. Control IQ active 91% Insulin summary Average daily dose: 74.93 units Basal 38.45 units, 51% Bolus 36.48 units, 49% Average daily carbs 85 g Pump settings Basal rate(s) (units/hour) : 12 AM 1.9 u/hr 5 AM? 1.1 units / hr Bolus setting Insulin Carbohydrate Ratio (s) 12 AM to 12 AM 1:9 Correction Factor / Sensitivity Factor 12 AM to 12 AM? 1:27 Active Insulin Time:? 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 Does not see podiatry. Has mild intermittent tenderness over left Achilles. No nephropathy, Not on PENNIE/ARB. 05/24 eGFR>60 02/2024 microalbumin 28 Has HLD, on atorvastatin 20 mg daily, LDL 104 mg per mg/dL February 2024 Denies history of CAD. hx of CVA hemmoraghic 06/16/2010 Diet/Carb counting: Does not enter all carbs carbs into pump, Denies prior episodes of DKA. Has had prior severe episodes of hypoglycemia requiring help or hospitalization yrs ago Was on chronic steroid in the past for back Hypothyroidism: diagnosed 2023, levothyroxine 125 mcg daily needs repeat thyroid testing. Physical exam General: sitting comfortably in no acute distress HEENT: normocephalic/atraumatic, Cardiac: normal heart sounds Pulm: normal breath sounds B/L, no added breath sounds Abd: not distended, no tenderness Extremities: no edema, no signs of myxedema Foot exam: intact sensation to monofilament, intact pulses, intact vibration Laboratory Tests 03/19/24 01/12/25 04/29/25 06:34 11:21 06:31 Hgb Hct Plt Count Creatinine Estimated GFR AST 30 ALT 25 Triglycerides 82 LDL Cholesterol, Calc 113 H 104 H Cholesterol 180 HDL Cholesterol 60 TSH 5.22 H Free T4 0.83 Urine Microalbumin 28.0 Microalb/Creat Ratio 12.5 Thyroid Peroxidase Ab 2 05/03/25 06:33 Hgb 13.9 L Hct 38.8 L Plt Count 284 Creatinine 0.78 Estimated GFR > 60 AST ALT Triglycerides LDL Cholesterol, Calc Cholesterol HDL Cholesterol TSH Free T4 Urine Microalbumin Microalb/Creat Ratio Thyroid Peroxidase Ab ON LICENSE OF [facility] Medical History (Updated 06/29/25 @ 08:38 by Fabiana Fernandez MD) Insulin pump in place Hypothyroidism Stroke Hyperlipemia Fusion of joint Diabetes Back injury Surgical History (Updated 04/30/25 @ 10:05 by Wagner Muñoz RN) History of carpal tunnel surgery of right wrist History of surgery History of shoulder surgery Family History Father Diabetes Brother Diabetes Other Mental health disorder Social History Household Members: Family Household Members Other:: , grandchild Housing: House Are you a primary caregivers non medical to a significant other at home: No Do you presently have visiting nurse or other home services: No Alcohol intake: current Alcohol intake frequency: does not drink Alcohol type: beer Patient Tobacco Use Status: Former Tobacco user Tobacco use type: Cigarette Years Smoked: since age 16 e-Cigarette/Vaping Use: Never Used Second Hand Smoke Exposure: No Substance Use Type: Marijuana service: No Current occupational status: employed 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 Cognitive needs: No Hearing needs: No Vision needs: No Physical Exam Vital Signs: Last Vital Signs Pulse 61 06/29/25 07:54 BP 124/54 L 06/29/25 07:54 Pulse Ox 99 06/29/25 07:54 Oxygen Delivery Method Room Air 06/29/25 07:54 BMI result Body Mass Index 28.0 Office Procedures Glucose Monitoring Details Details: See HPI 37888 - Glucose monitoring, continuous-physician I&R Procedure code (CPT) selection complete Results AMB Hemoglobin A1c 2 AMB Hemoglobin A1c 7.7 % Last Edit by NE Garcia on 06/29/25 08:24 Results Reviewed Results Reviewed: Laboratory Last Values Glucose (Clinic) 143 mg/dL (60-115) H 06/29/25 08:02 Assessment & Plan Assessment & Plan (1) Type 1 diabetes: Code(s): E10.9 - Type 1 diabetes mellitus without complications Category: Medical Qualifiers: Diabetes mellitus complication detail: with diabetic retinopathy D iabetes mellitus complication status: with ophthalmic complications Diabetes mellitus macular edema: without macular edema Diabetic retinopathy severity: w ith unspecified retinopathy severity Laterality: bilateral Qualified Code(s): E10.319 - Type 1 diabetes mellitus with unspecified diabetic retinopathy without macular edema Plan: 60-year-old male with type 1 diabetes mellitus with retinopathy on a tandem insulin pump with freestyle Gwendolyn 2+ with the Humalog U 100. A1c POC 06/29/2025 worsened to 7.7% from 7.4% in December 2024. Freestyle Gwendolyn 2+ data downloaded which shows he is having overnight hypoglycemia. He is also having hypoglycemia following hyperglycemia mostly because he is overriding his corrections. I told him to let the pump give him the bolus as he might have some active insulin on board that he does not know about and over correcting is resulting in those hypoglycemia as. Plan: -pump settings changed today in bold Basal rate(s) (units/hour) : 12 AM 1.9 to 1.7 u/hr 5 AM? 1.1 units / hr Bolus setting Insulin Carbohydrate Ratio (s) 12 AM to 12 AM 1:9 Correction Factor / Sensitivity Factor 12 AM to 12 AM? 1:27 Active Insulin Time:? 5 hours Target(s): 12 AM to 5AM 140mg/dL 5am to 12am 110 -he will be due for annual labs soon, ordered today -he can not verify whether his last eye visit was in July but he thinks he follows yearly, has a history of retinopathy -does not see industrial relations commissioner, denies symptoms of neuropathy, refused foot exam today, because of time spent wearing his shoes, said would be willing to do it next time The patient had an opportunity to ask questions regarding treatment plan. The patient expressed understanding and agreement with the above treatment plan. The patient is aware they should contact our office by phone for worsening glucose readings or for any low blood sugars which may warrant a change in diabetes medication. Compliance is encouraged with medications and any followup testing/consults which may have been ordered. 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 I will check his TSH and free T4. I asked him to do blood work today, he thinks he will try to do it tomorrow. Once we have results, I will resend his prescription. Plan: -do TSH and free T4 as soon as possible -we will plan to continue levothyroxine 125 mcg daily (3) Insulin pump in place: Code(s): Z96.41 - Presence of insulin pump (external) (internal) Category: Medical Plan: Backup failure plan: To inject 30 units of Lantus and usual doses of short- acting insulin Prescribed nasal Baqsimi spray Has urine ketone strips Has backup insulin and syringes and pen needles Plan I spent 30 minutes in reviewing the record, seeing the patient and documenting in the medical record. Orders: Orders 2 Lipid Panel Today E03.9 - Hypothyroidism, unspecified, E10.9 - Type 1 diabetes mellitus without complications Free T4 (Free Thyroxine) Today E03.9 - Hypothyroidism, unspecified, E10.9 - Type 1 diabetes mellitus without complications Aspartate Amino Transferase Today E03.9 - Hypothyroidism, unspecified, E10.9 - Type 1 diabetes mellitus without complications AMB Glucose Monitoring Today E10.59 - Type 1 diabetes mellitus with other circulatory complications AMB Hemoglobin A1c Today E10.9 - Type 1 diabetes mellitus without complications, Z13.9 - Encounter for screening, unspecified Microalbumin, Random (w Creat) Today E03.9 - Hypothyroidism, unspecified, E10.9 - Type 1 diabetes mellitus without complications Thyroid Stimulating Hormone Today E03.9 - Hypothyroidism, unspecified, E10.9 - Type 1 diabetes mellitus without complications Creatinine Today E03.9 - Hypothyroidism, unspecified, E10.9 - Type 1 diabetes mellitus without complications Alanine Aminotransferase Today E03.9 - Hypothyroidism, unspecified, E10.9 - Type 1 diabetes mellitus without complications Complete Blood Count no Diff Today E03.9 - Hypothyroidism, unspecified, E10.9 - Type 1 diabetes mellitus without complications Medications: New 2 glucagon 3 mg/actuation (Baqsimi) 3 mg intranasal ONCE 1 ea 1RF E10.9 - Type 1 diabetes mellitus without complications Patient Instructions: do blood work fasting and urine test sometime this week , we will reach out with results Follow up in [facility] Coding Level of Care Code Est Pt Level 4 (24881) Diagnoses Type 1 diabetes mellitus with retinopathy of both eyes without macular edema, unspecified retinopathy severity E10.319 Diabetes mellitus complication detail: with diabetic retinopathy Diabetes mellitus complication status: with ophthalmic complications Diabetes mellitus macular edema: without macular edema Diabetic retinopathy severity: with unspecified retinopathy severity Laterality: bilateral 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
[2025-06-29 07:54] VITALS: BP 124/54; PULSE 61; O2SAT 99; BMI 28.0
[2025-06-29 08:07] LABS: Glucose, Whole Blood 143 mg/dL (60-115)
== END 2025-06-29 08:26 | disposition home or self-care (01) ==
LOC: HO.ENCR 07:11
PROVIDERS: Visit Provider Student in an Organized Health Care Education/Training Program
DX: E10.319 Type 1 diabetes mellitus with unspecified diabetic retinopathy without macular edema (principal); E06.3 Autoimmune thyroiditis; Z96.41 Presence of insulin pump (external) (internal); Z13.9 Encounter for screening, unspecified; E10.9 Type 1 diabetes mellitus without complications
CPT/HCPCS: 95251; 99214

== ENCOUNTER → 2025-06-29 07:10 | Outpatient (BNVA) | payer OTHER, SELFPAY | PROVIDERS: Visit Provider Student in an Organized Health Care Education/Training Program | DX: E10.319 Type 1 diabetes mellitus with unspecified diabetic retinopathy without macular edema (principal); Z96.41 Presence of insulin pump (external) (internal) | CPT/HCPCS: 82947; 83036; 99212 ==

== ENCOUNTER 2025-08-06 07:03 | Outpatient (REF) | payer OTHER, SELFPAY ==
--- OUTSIDE RECORDS SUMMARY | 2025-08-06 07:07 | XMS_ITS | Encounter Summary ---
Author Organization [facility] Address [address] [place] [address] Care Team Providers Care Dynamite Packing Machine Operator Name Role Phone Brett Mackenzie MD Primary Care Provider [phone] Brett Mackenzie MD Unavailable [phone] Aston Yañez MD Primary Care Provider [phone] Encounter Details Date Type Department Care Team (Late st Contact Info) Description 11/26/2018 Scanned Document [facility] Neurosurgery [place] [address] [facility] 5 [place] [address] Osvaldo Coleman MD 35 [facility] 5 [place] [address] Social History Tobacco Use Types Packs/Day Years [...] on filedocumented in this encounter Care Teams Dynamite Packing Machine Operator Relationship Specialty Start Date End Date Brett Mackenzie MD [address] [place] [address] PCP - General General Medicine 10/01/18 07/30/19 Aston Yañez MD [address] [place] [address] PCP - General Endocrinology 07/31/19 Brett Mackenzie MD [address] [place] [address] Psychiatry, General 10/01/18 documented as of this encounter
--- OUTSIDE RECORDS SUMMARY | 2025-08-06 07:07 | XMS_ITS | Encounter Summary ---
Author Organization [facility] Address [address] [place] [address] Care Team Providers Care Category Analyst Name Role Phone Brett Mackenzie MD Unavailable [phone] Aston Yañez MD Primary Care Provider [phone] Encounter Details Date Type Department Care Team (Late st Contact Info) Description 03/17/2020 Scanned Document [facility] Neurosurgery [address] [phone] Social History Tobacco Use Types Packs/Day Years [...] on filedocumented in this encounter Care Teams Category Analyst Relationship Specialty Start Date End Date Aston Yañez MD [address] [place] [address] [place] [address] PCP - General Endocrinology 07/31/19 Brett Mackenzie MD [address] [place] [address] Psychiatry, General 10/01/18 documented as of this encounter
--- OUTSIDE RECORDS SUMMARY | 2025-08-06 07:07 | XMS_ITS | Encounter Summary ---
Author Organization [facility] Address [address] [place] [address] Care Team Providers Care Fur Blowing Machine Attendant Name Role Phone Brett Mackenzie MD Primary Care Provider Brett Mackenzie MD Unavailable [phone] Aston Yañez MD Primary Care Provider [phone] Encounter Details Date Type Department Care Team (Late st Contact Info) Description 07/06/2019 Scanned Document [facility] Neurosurgery [address] [phone] Social History Tobacco Use Types [...] filedocumented in this encounter Care Teams Fur Blowing Machine Attendant Relationship Specialty Start Date End Date Brett Mackenzie MD [address] [place] [address] PCP - General General Medicine 10/01/18 07/30/19 Aston Yañez MD [address] [place] [address] PCP - General Endocrinology 07/31/19 Brett Mackenzie MD [address] [place] [address] Psychiatry, General 10/01/18 documented as of this encounter
--- OUTSIDE RECORDS SUMMARY | 2025-08-06 07:07 | XMS_ITS | Clinical Summary ---
Author Organization [facility] Address [address] [facility] [address] [place] [address] Phone Care Team Providers Care Forest Examiner Name Role Phone Mariano Smith NP Primary [...] (3 - 2024- season) 2025 06/19/2021, 05/11/2021 RSV VACCINE (1 - 1-dose 75+ series) 2041 HEPATITIS A VACCINES Aged Out No long [...] topic Medical Devices Not on file Insurance Member Subscriber Plan / Payer (Ef fective 2022-Present) Name:Jolly Shah Relation to Subscriber:Self Name:Jolly Shah Payer ID:Not on file Group ID:Not on file Type:Medicaid Address: [address] Member Subscriber Plan / Payer (Ef fective 2022-Present) Name:NicholasJolly hoff Josue Relation to Subscriber:Self Name:Jolly Shah Josue Payer ID:Not on file Group ID:Not on file Type:Medicaid Address: [address] Member Subscriber Plan / Payer (Ef fective 2022-Present) Name:Jolly Shah Relation to Subscriber:Self Name:Adelita Jolly P Payer ID:Not on file Group ID:Not on file Type:Medicaid Address: [address] Member Subscriber Plan / Payer (Ef fective 2022-Present) Name:Jolly Shah Relation to Subscriber:Self Name:Jolly Shah Payer ID:Not on file Group ID:Not on file Type:Medicaid Address: [address] HEALTH SAFETY NET FULL Member Subscriber Plan / Payer (Ef fective 2022-Present) Name:Jolly Shah Relation to Subscriber:Self Name:Jolly Shah Payer ID:Not on file Group ID:Not on file Type:Medicaid Address: [address] HEALTH SAFETY NET FULL Member Subscriber Plan / Payer (Ef fective 2022-Present) Name:Jolly Shah Relation to Subscriber:Self Name:Jolly Shah Payer ID:Not on file Group ID:Not on file Type:Medicaid Address: [address] FULL Member Subscriber Plan / Payer (Ef fective 2022-Present) Name:Jolly Shah Relation to Subscriber:Self Name:Jolly Shah Payer ID:Not on file Group ID:Not on file Type:Medicaid Address: [address] FULL Member Subscriber Plan / Payer (Ef fective 2022-Present) Name:Jolly Shah Relation to Subscriber:Self Name:oJlly Shah Payer ID:Not on file Group ID:Not on file Type:Medicaid Address: [address] [employer] Care Teams Forest Examiner Relationship Specialty Start Date End Date Mariano Smith NP [address] [place] [address] PCP - General Family Medicine 02/03/21 Additional Source Comments The information contained in this document represents components of the legal health record. It is not the complete legal health record.[facility]
--- OUTSIDE RECORDS SUMMARY | 2025-08-06 07:07 | XMS_ITS | Encounter Summary ---
Author Organization [facility] Address [address] [place] [address] Care Team Providers Care Business Operations Director Name Role Phone Brett Mackenzie MD Primary Care Provider [phone] Brett Mackenzie MD Unavailable [phone] Aston Yañez MD Primary Care Provider [phone] Encounter Details Date Type Department Care Team (Late st Contact Info) Description 02/16/2019 Scanned Document [facility] Neurosurgery [place] [address] [facility] 5 [place] [address] Osvaldo Coleman MD 35 [facility] 5 [place] [address] Social History Tobacco Use Types Packs/Day Years [...] on filedocumented in this encounter Care Teams Business Operations Director Relationship Specialty Start Date End Date Brett Mackenzie MD [address] [place] [address] PCP - General General Medicine 10/01/18 07/30/19 Aston Yañez MD [address] [place] [address] PCP - General Endocrinology 07/31/19 Brett Mackenzie MD [address] [place] [address] Psychiatry, General 10/01/18 documented as of this encounter
--- OUTSIDE RECORDS SUMMARY | 2025-08-06 07:07 | XMS_ITS | Encounter Summary ---
Author Organization [facility] Address [address] [place] [address] Care Team Providers Care Workforce Consultant Name Role Phone Brett Mackenzie MD Primary Care Provider [phone] Brett Mackenzie MD Unavailable [phone] Aston Yañez MD Primary Care Provider [phone] Encounter Details Date Type Department Care Team (Late st Contact Info) Description 04/20/2019 Scanned Document [facility] Neurosurgery [place] 35 [facility] 5 [place] [phone] Osvaldo Coleman MD 35 [facility] 5 [place] [address] Social History Tobacco Use Types Packs/Day Years [...] on filedocumented in this encounter Care Teams Workforce Consultant Relationship Specialty Start Date End Date Brett Mackenzie MD [address] [place] [address] PCP - General General Medicine 10/01/18 07/30/19 Aston Yañez MD [address] [place] [address] PCP - General Endocrinology 07/31/19 Brett Mackenzie MD [address] [place] [address] Psychiatry, General 10/01/18 documented as of this encounter
--- OUTSIDE RECORDS SUMMARY | 2025-08-06 07:07 | XMS_ITS | Encounter Summary ---
Author Organization [facility] Address [address] [place] [address] Care Team Providers Care Manual Qa Tester Name Role Phone Brett Mackenzie MD Unavailable [phone] Aston Yañez MD Primary Care Provider [phone] Encounter Details Date Type Department Care Team (Late st Contact Info) Description 03/24/2020 Scanned Document [facility] Neurosurgery [address] [phone] Social History Tobacco Use Types Packs/Day Years [...] on filedocumented in this encounter Care Teams Manual Qa Tester Relationship Specialty Start Date End Date Aston Yañez MD [address] [place] [address] [place] [address] PCP - General Endocrinology 07/31/19 Brett Mackenzie MD [address] [place] [address] Psychiatry, General 10/01/18 documented as of this encounter
--- OUTSIDE RECORDS SUMMARY | 2025-08-06 07:07 | XMS_ITS | Encounter Summary ---
Author Organization [facility] Address [address] [facility] [address] [place] [address] Phone Care Team Providers Care Saxophone Assembler Name Role Phone Aston Yañez MD Primary Care Provider Unavail Aston Ruiz MD Primary Care Provider Unavail Mariano Holliday NP Primary Care Provider + Reason for Referral * Physical Therapy (Routine) - Closed Specialty Diagnoses / Procedures Referred By Contac t Referred To Contact Physical Therapy Diagnoses Encounter for rehabilitation Osvaldo Coleman MD [address] [place] [address] Phone: tel: fax: [facility] [address] [place] [address] Phone: tel: Referral ID Status Reason Start Date Expiration Date Visits Re quested Visits Authorized [id number] Closed 09/01/2019 12/13/2019 16 16 Encounter Details Date Type Department Care Team (Latest Contact Info) Description 09/01/2019 Transcribe Orders [facility] [address] [place] [address] Unknown, Unknown, Encounter for rehabilitation (Primary Dx) [...] Date/Time Associated Diagnosis Comments AMB REFERRAL TO [facility] PHYSICAL THERAPY Routine 10/06/2019 9:24 AM EST Encounter for rehabilitation documented in this encounter Results * Ambulatory referral to [facility] Physical Therapy (10/06/2019 9:24 AM EST) us Osvaldo Coleman MD AMB [facility] REFERRALS Di l Result documented in this encounter Visit Diagnoses Diagnosis Encounter for rehabilitation- Primary documented in this encounter Care Teams Saxophone Assembler Relationship Specialty Start Date End Date Aston Yañez MD PCP - General Endocrinology 05/18/18 01/17/21 Aston Yañez MD PCP - General Endocrinology 01/18/21 02/02/21 Mariano Smith NP [address] [place] [address] [place] [address] PCP - General Family Medicine 02/03/21 documented as of this encounter Additional Source Comments The information contained in this document represents components of the legal health record. It is not the complete legal health record.[facility]
--- OUTSIDE RECORDS SUMMARY | 2025-08-06 07:07 | XMS_ITS | Clinical Summary ---
Author Organization [facility] Address [address] [place] [address] Care Team Providers Care Cartography Teacher Name Role Phone Brett Mackenzie MD Unavailable [phone] Aston Yañez MD Primary Care Provider [phone] Allergies Active Allergy Reactions Criticality Noted Date [...] 50+ (1 of 1 - PCV) 2016 RSV Vaccine 50 years and old er and Patients (1 - Risk 50-74 years 1-dose series) 2016 Zoster (Shingles) Vaccine (1 of 2) 2016 Influenza Vaccine 04/30/2025 COVID-19 Vaccine (1 - 2023- season) 2025 Medical Devices Implanted Type Area Package Lift Operator Device Identifier Shelf Expiration Date Model / Serial / Lot [id number]-90 System Spinal Fixation 55mm 7mm Ifuse Implant System 3ang - Sn/A Implanted:Qty: 1 on 08/05/2019 by Osvaldo Coleman MD at [facility] [employer] 01/09/2024 [id number]-90 / N/A / [id number] System Spinal Fixation 45mm 7mm Ifuse Implant System 3ang - Sn/A Implanted:Qty: 1 on 08/05/2019 by Osvaldo Coleman MD at [facility] [employer] 04/10/2024 7045M-90 / N/A / [id number]-90 System Spinal Fixation 45mm 7mm Ifuse Implant System 3ang - Sn/A Implanted:Qty: 1 on 08/05/2019 by Osvaldo Coleman MD at [facility] [employer] 04/10/2024 7045M-90 / N/A / [id number] Insurance [facility] [employer] [id number] Advance Directives * Full Code (Latest Code Status on File) Date Activated Date Inactivated Comments 08/05/2019 10:54 AM * Full Code Date Activated Date Inactivated Comments 08/05/2019 8:02 AM 08/05/2019 10:54 AM Care Teams Cartography Teacher Relationship Specialty Start Date End Date Aston Yañez MD [address] [place] [address] PCP - General Endocrinology 07/31/19 Brett Mackenzie MD [address] [place] [address] Psychiatry, General 10/01/18
--- OUTSIDE RECORDS SUMMARY | 2025-08-06 07:07 | XMS_ITS | Encounter Summary ---
Author Organization [facility] Address [address] [place] [address] Care Team Providers Care Compo Conveyor Operator Name Role Phone Brett Mackenzie MD Unavailable [phone] Aston Yañez MD Primary Care Provider [phone] Encounter Details Date Type Department Care Team (Late st Contact Info) Description 03/11/2020 Scanned Document [facility] Neurosurgery [address] [phone] Social History Tobacco Use Types Packs/Day Years [...] Date End Date Aston Yañez MD [address] [place] [address] [place] [address] PCP - General Endocrinology 07/31/19 Brett Mackenzie MD [address] [place] [address] Psychiatry, General 10/01/18 documented as of this encounter
--- OUTSIDE RECORDS SUMMARY | 2025-08-06 07:07 | XMS_ITS | Encounter Summary ---
Author Organization [facility] Address [address] [place] [address] Care Team Providers Care Panel Saw Operator Name Role Phone Brett Mackenzie MD Unavailable [phone] Aston Yañez MD Primary Care Provider [phone] Encounter Details Date Type Department Care Team (Late st Contact Info) Description 08/05/[address] [facility] [place] Neurosurgery [address] [phone] Social History Tobacco Use Types [...] on filedocumented in this encounter Care Teams Panel Saw Operator Relationship Specialty Start Date End Date Aston Yañez MD [address] [place] [address] [address] PCP - General Endocrinology 07/31/19 Brett Mackenzie MD [address] [place] [address] Psychiatry, General 10/01/18 documented as of this encounter
--- OUTSIDE RECORDS SUMMARY | 2025-08-06 07:07 | XMS_ITS | Encounter Summary ---
Author Organization [facility] Address [address] [place] [address] Care Team Providers Care Gasoline Finisher Name Role Phone Brett Mackenzie MD Primary Care Provider [phone] Brett Mackenzie MD Unavailable [phone] Aston Yañez MD Primary Care Provider [phone] Encounter Details Date Type Department Care Team (Late st Contact Info) Description 11/26/2018 Scanned Document [facility] Neurosurgery [place] [address] [facility] 5 [place] [address] Osvaldo Coleman MD 35 [facility] 5 [place] [address] Social History Tobacco Use Types Packs/Day Years [...] on filedocumented in this encounter Care Teams Gasoline Finisher Relationship Specialty Start Date End Date Brett Mackenzie MD [address] [place] [address] PCP - General General Medicine 10/01/18 07/30/19 Aston Yañez MD [address] [place] [address] PCP - General Endocrinology 07/31/19 Brett Mackenzie MD [address] [place] [address] Psychiatry, General 10/01/18 documented as of this encounter
--- OUTSIDE RECORDS SUMMARY | 2025-08-06 07:07 | XMS_ITS | Encounter Summary ---
Author Organization [facility] Address [address] [place] [address] Care Team Providers Care Printing Press Machine Operator Name Role Phone Brett Mackenzie MD Primary Care Provider [phone] Brett Mackenzie MD Unavailable [phone] Aston Yañez MD Primary Care Provider [phone] Encounter Details Date Type Department Care Team (Late st Contact Info) Description 07/06/2019 Prep for Surgery [facility] Neurosurgery [address] [phone] Lizett Mensah PA [address] [address] Social History Tobacco Use Types Packs/Day Years [...] on filedocumented in this encounter Care Teams Printing Press Machine Operator Relationship Specialty Start Date End Date Brett Mackenzie MD [address] [place] [address] PCP - General General Medicine 10/01/18 07/30/19 Aston Yañez MD [address] [place] [address] PCP - General Endocrinology 07/31/19 Brett Mackenzie MD [address] [place] [address] Psychiatry, General 10/01/18 documented as of this encounter
--- OUTSIDE RECORDS SUMMARY | 2025-08-06 07:07 | XMS_ITS | Encounter Summary ---
Author Organization [facility] Address [address] [place] [address] Care Team Providers Care Associate Merchandiser Name Role Phone Brett Mackenzie MD Unavailable [phone] Aston Yañez MD Primary Care Provider [phone] Encounter Details Date Type Department Care Team (Late st Contact Info) Description 06/24/2020 Scanned Document [facility] Neurosurgery [address] [phone] Social History Tobacco Use Types Packs/Day Years [...] on filedocumented in this encounter Care Teams Associate Merchandiser Relationship Specialty Start Date End Date Aston Yañez MD [address] [place] [address] [place] [address] PCP - General Endocrinology 07/31/19 Brett Mackenzie MD [address] [place] [address] Psychiatry, General 10/01/18 documented as of this encounter
--- OUTSIDE RECORDS SUMMARY | 2025-08-06 07:07 | XMS_ITS | Encounter Summary ---
Author Organization [facility] Address [address] [place] [address] Care Team Providers Care Supervisor Paste Mixing Name Role Phone Brett Mackenzie MD Primary Care Provider [phone] Brett Mackenzie MD Unavailable [phone] Aston Yañez MD Primary Care Provider [phone] Encounter Details Date Type Department Care Team (Late st Contact Info) Description 03/25/2019 Scanned Document [facility] Neurosurgery [place] [address] [phone] [place], [place] [address] [address] Social History Tobacco Use Types Packs/Day Years [...] filedocumented in this encounter Care Teams Supervisor Paste Mixing Relationship Specialty Start Date End Date Brett Mackenzie MD [address] [place] [address] PCP - General General Medicine 10/01/18 07/30/19 Aston Yañez MD [address] [place] [address] PCP - General Endocrinology 07/31/19 Brett Mackenzie MD [address] [place] [address] Psychiatry, General 10/01/18 documented as of this encounter
--- OUTSIDE RECORDS SUMMARY | 2025-08-06 07:07 | XMS_ITS | Encounter Summary ---
Author Organization [facility] Address [address] [place] [address] Care Team Providers Care Rubbish Collector Name Role Phone Brett Mackenzie MD Unavailable [phone] Aston Yañez MD Primary Care Provider [phone] Encounter Details Date Type Department Care Team (Late st Contact Info) Description 03/15/2020 Scanned Document [facility] Neurosurgery [address] [phone] Social History Tobacco Use Types Packs/Day Years [...] on filedocumented in this encounter Care Teams Rubbish Collector Relationship Specialty Start Date End Date Aston Yañez MD [address] [place] [address] [place] [address] PCP - General Endocrinology 07/31/19 Brett Mackenzie MD [address] [place] [address] Psychiatry, General 10/01/18 documented as of this encounter
--- OUTSIDE RECORDS SUMMARY | 2025-08-06 07:07 | XMS_ITS | Encounter Summary ---
Author Organization [facility] Address [address] [facility] [address] [place] [address] Phone Care Team Providers Care Capacity Planning Analyst Name Role Phone Aston Yañez MD Primary Care Provider Unavail Aston Ruiz MD Primary Care Provider Unavail Mariano Holliday NP Primary Care Provider + Reason for Referral * Physical Therapy (Routine) - Closed Specialty Diagnoses / Procedures Referred By Contac t Referred To Contact Physical Therapy Diagnoses Encounter for rehabilitation Ladan Feliz PA [address] [place] [address] Phone: tel: fax: [address] [address] Phone: tel: Referral ID Status Reason Start Date Expiration Date Visits Re quested Visits Authorized [id number] Closed 10/30/2019 01/04/2020 9 9 Encounter Details Date Type Department Care Team (Latest Contact Info) Description 10/30/2019 Transcribe Orders [facility] Rehabilitation Services [address] [place] [address] Ladan Feliz PA [address] [place] [address] Encounter for rehabilitation (Primary Dx) Social History [...] Diagnoses Orde r Schedule Ambulatory referral to [facility] Physical Therapy Outpatient Referral Routine Encounter for rehabilitation Ordered: 10/30/2019 documented as of this encounter Visit Diagnoses Diagnosis Encounter for rehabilitation- Primary documented in this encounter Care Teams Capacity Planning Analyst Relationship Specialty Start Date End Date Aston Yañez MD PCP - General Endocrinology 05/18/18 01/17/21 Aston Yañez MD PCP - General Endocrinology 01/18/21 02/02/21 Mariano Smith NP [address] [place] [address] [place] [address] PCP - General Family Medicine 02/03/21 documented as of this encounter Additional Source Comments The information contained in this document represents components of the legal health record. It is not the complete legal health record.[facility]
--- OUTSIDE RECORDS SUMMARY | 2025-08-06 07:07 | XMS_ITS | Encounter Summary ---
Author Organization [facility] Address [address] [place] [address] Care Team Providers Care High Pressure Kettle Operator Name Role Phone Brett Mackenzie MD Unavailable [phone] Aston Yañez MD Primary Care Provider [phone] Encounter Details Date Type Department Care Team (Late st Contact Info) Description 03/22/2020 Scanned Document [facility] Neurosurgery [address] [phone] Social History Tobacco Use Types Packs/Day Years [...] on filedocumented in this encounter Care Teams High Pressure Kettle Operator Relationship Specialty Start Date End Date Aston Yañez MD [address] [place] [address] [place] [address] PCP - General Endocrinology 07/31/19 Brett Mackenzie MD [address] [place] [address] Psychiatry, General 10/01/18 documented as of this encounter
--- OUTSIDE RECORDS SUMMARY | 2025-08-06 07:07 | XMS_ITS | Encounter Summary ---
Author Organization [facility] Address [address] [place] [address] Care Team Providers Care Clinical Informaticist Name Role Phone Brett Mackenzie MD Unavailable [phone] Aston Yañez MD Primary Care Provider [phone] Encounter Details Date Type Department Care Team (Late st Contact Info) Description 02/25/2020 Scanned Document [facility] Neurosurgery [address] [phone] Social History Tobacco Use Types Packs/Day Years [...] filedocumented in this encounter Care Teams Clinical Informaticist Relationship Specialty Start Date End Date Aston Yañez MD [address] [place] [address] [place] [address] PCP - General Endocrinology 07/31/19 Brett Mackenzie MD [address] [place] [address] Psychiatry, General 10/01/18 documented as of this encounter
--- OUTSIDE RECORDS SUMMARY | 2025-08-06 07:07 | XMS_ITS | Encounter Summary ---
Author Organization [facility] Address [address] [place] [address] Care Team Providers Care Buyer Grain Name Role Phone Brett Mackenzie MD Unavailable [phone] Aston Yañez MD Primary Care Provider [phone] Encounter Details Date Type Department Care Team (Late st Contact Info) Description 07/31/2019 Scanned Document [facility] Neurosurgery [address] [phone] Social History Tobacco Use Types Packs/Day Years [...] on filedocumented in this encounter Care Teams Buyer Grain Relationship Specialty Start Date End Date Aston Yañez MD [address] [place] [address] PCP - General Endocrinology 07/31/19 Brett Mackenzie MD [address] [place] [address] Psychiatry, General 10/01/18 documented as of this encounter
--- OUTSIDE RECORDS SUMMARY | 2025-08-06 07:07 | XMS_ITS | Encounter Summary ---
Author Organization [facility] Address [address] [place] [address] Care Team Providers Care Medical Transcription Supervisor Name Role Phone Brett Mackenzie MD Primary Care Provider Brett Mackenzie MD Unavailable [phone] Aston Yañez MD Primary Care Provider [phone] Encounter Details Date Type Department Care Team (Late st Contact Info) Description 04/15/2019 Scanned Document [facility] Neurosurgery [address] [phone] Social History Tobacco Use Types [...] filedocumented in this encounter Care Teams Medical Transcription Supervisor Relationship Specialty Start Date End Date Brett Mackenzie MD [address] [place] [address] PCP - General General Medicine 10/01/18 07/30/19 Aston Yañez MD [address] [place] [address] PCP - General Endocrinology 07/31/19 Brett Mackenzie MD [address] [place] [address] Psychiatry, General 10/01/18 documented as of this encounter
--- OUTSIDE RECORDS SUMMARY | 2025-08-06 07:08 | XMS_ITS | Encounter Summary ---
Author Organization [facility] Address [address] [place] [address] Care Team Providers Care Supervisor Farm Equipment Maintenance Name Role Phone Brett Mackenzie MD Unavailable [phone] Aston Yañez MD Primary Care Provider [phone] Encounter Details Date Type Department Care Team (Late st Contact Info) Description 04/29/2020 Scanned Document [facility] Neurosurgery [address] [phone] Social History Tobacco Use Types [...] filedocumented in this encounter Care Teams Supervisor Farm Equipment Maintenance Relationship Specialty Start Date End Date Aston Yañez MD [address] [place] [address] [place] [address] PCP - General Endocrinology 07/31/19 Brett Mackenzie MD [address] [place] [address] Psychiatry, General 10/01/18 documented as of this encounter
--- OUTSIDE RECORDS SUMMARY | 2025-08-06 07:08 | XMS_ITS | Encounter Summary ---
Author Organization [facility] Address [address] [place] [address] Care Team Providers Care Training Technician Name Role Phone Brett Mackenzie MD Unavailable [phone] Aston Yañez MD Primary Care Provider [phone] Encounter Details Date Type Department Care Team (Late st Contact Info) Description 01/07/2020 Scanned Document [facility] Neurosurgery [address] [phone] Social History Tobacco Use Types Packs/Day Years [...] on filedocumented in this encounter Care Teams Training Technician Relationship Specialty Start Date End Date Aston Yañez MD [address] [place], [place] [address], [place] [address] PCP - General Endocrinology 07/31/19 Brett Mackenzie MD [address] [place] [address] Psychiatry, General 10/01/18 documented as of this encounter
--- OUTSIDE RECORDS SUMMARY | 2025-08-06 07:08 | XMS_ITS | Encounter Summary ---
Author Organization [facility] Address [address] [place] [address] Care Team Providers Care Bodybuilder Name Role Phone Brett Mackenzie MD Unavailable [phone] Aston Yañez MD Primary Care Provider [phone] Encounter Details Date Type Department Care Team (Late st Contact Info) Description 07/31/2019 Scanned Document [facility] Neurosurgery [address] [phone] Social History Tobacco Use Types Packs/Day Years [...] on filedocumented in this encounter Care Teams Bodybuilder Relationship Specialty Start Date End Date Aston Yañez MD [address] [place] [address] PCP - General Endocrinology 07/31/19 Brett Mackenzie MD [address] [place] [address] Psychiatry, General 10/01/18 documented as of this encounter
--- OUTSIDE RECORDS SUMMARY | 2025-08-06 07:08 | XMS_ITS | Encounter Summary ---
Author Organization [facility] Address [address] [place] [address] Care Team Providers Care Place Change Roof Bolter Name Role Phone Brett Mackenzie MD Unavailable [phone] Aston Yañez MD Primary Care Provider [phone] Encounter Details Date Type Department Care Team (Late st Contact Info) Description 12/18/2019 Scanned Document [facility] Neurosurgery [address] [phone] Social History Tobacco Use Types Packs/Day Years [...] on filedocumented in this encounter Care Teams Place Change Roof Bolter Relationship Specialty Start Date End Date Aston Yañez MD [address] [place], [place] [address], [place] [address] PCP - General Endocrinology 07/31/19 Brett Mackenzie MD [address] [place] [address] Psychiatry, General 10/01/18 documented as of this encounter
--- OUTSIDE RECORDS SUMMARY | 2025-08-06 07:08 | XMS_ITS | Encounter Summary ---
Author Organization [facility] Address [address] [place] [address] Care Team Providers Care Supervisor Accounts Receivable Name Role Phone Brett Mackenzie MD Unavailable [phone] Aston Yañez MD Primary Care Provider [phone] Encounter Details Date Type Department Care Team (Late st Contact Info) Description 12/29/[address] [facility] Neurosurgery [address] [phone] Social History Tobacco Use Types Packs/Day Years [...] filedocumented in this encounter Care Teams Supervisor Accounts Receivable Relationship Specialty Start Date End Date Aston Yañez MD [address] [place], [place] [address], [place] [address] PCP - General Endocrinology 07/31/19 Brett Mackenzie MD [address] [place] [address] Psychiatry, General 10/01/18 documented as of this encounter
--- OUTSIDE RECORDS SUMMARY | 2025-08-06 07:08 | XMS_ITS | Encounter Summary ---
Author Organization [facility] Address [address] [place] [address] Care Team Providers Care Dairy Department Manager Name Role Phone Brett Mackenzie MD Unavailable Aston Yañez MD Primary Care Provider [phone] Encounter Details Date Type Department Care Team (Late st Contact Info) Description 08/03/2019 Scanned Document [facility] Neurosurgery [address] [phone] Neurosurgery, Scan Social History Tobacco Use Types [...] on file documented as of this encounter Functional Status documented as of this encounter Plan of Treatment Not on file documented as of this encounter Visit Diagnoses Not on filedocumented in this encounter Care Teams Dairy Department Manager Relationship Specialty Start Date End Date Aston Yañez MD [address] [place] [address] PCP - General Endocrinology 07/31/19 Brett Mackenzie MD [address] [place] [address] Psychiatry, General 10/01/18 documented as of this encounter
--- OUTSIDE RECORDS SUMMARY | 2025-08-06 07:08 | XMS_ITS | Encounter Summary ---
Author Organization [facility] Address [address] [place] [address] Care Team Providers Care Funeral Home Location Manager Name Role Phone Brett Mackenzie MD Unavailable [phone] Aston Yañez MD Primary Care Provider [phone] Encounter Details Date Type Department Care Team (Late st Contact Info) Description 04/28/[address] [facility] Neurosurgery [address] [phone] Social History Tobacco Use Types Packs/Day Years [...] on filedocumented in this encounter Care Teams Funeral Home Location Manager Relationship Specialty Start Date End Date Aston Yañez MD [address] [place] [address] [place] [address] PCP - General Endocrinology 07/31/19 Brett Mackenzie MD [address] [place] [address] Psychiatry, General 10/01/18 documented as of this encounter
--- OUTSIDE RECORDS SUMMARY | 2025-08-06 07:08 | XMS_ITS | Encounter Summary ---
Author Organization [facility] Address [address] [place] [address] Care Team Providers Care Charting Clerk Name Role Phone Brett Mackenzie MD Unavailable [phone] Aston Yañez MD Primary Care Provider [phone] Encounter Details Date Type Department Care Team (Late st Contact Info) Description 12/29/2019 Scanned Document [facility] Neurosurgery [address] [phone] Social History Tobacco Use Types Packs/Day Years [...] on filedocumented in this encounter Care Teams Charting Clerk Relationship Specialty Start Date End Date Aston Yañez MD [address] [place], [place] [address] [address] PCP - General Endocrinology 07/31/19 Brett Mackenzie MD [address] [place] [address] Psychiatry, General 10/01/18 documented as of this encounter
--- OUTSIDE RECORDS SUMMARY | 2025-08-06 07:08 | XMS_ITS | Encounter Summary ---
Author Organization [facility] Address [address] [place] [address] Care Team Providers Care Career Manager Name Role Phone Brett Mackenzie MD Unavailable [phone] Aston Yañez MD Primary Care Provider [phone] Encounter Details Date Type Department Care Team (Late st Contact Info) Description 08/03/2019 Scanned Document [facility] Neurosurgery [address] [phone] Social History Tobacco Use Types [...] on filedocumented in this encounter Care Teams Career Manager Relationship Specialty Start Date End Date Aston Yañez MD [address] [place] [address] PCP - General Endocrinology 07/31/19 Brett Mackenzie MD [address] [place] [address] Psychiatry, General 10/01/18 documented as of this encounter
--- OUTSIDE RECORDS SUMMARY | 2025-08-06 07:08 | XMS_ITS | Encounter Summary ---
Author Organization [facility] Address [address] [place] [address] Care Team Providers Care Production Specialist Name Role Phone Brett Mackenzie MD Unavailable [phone] Aston Yañez MD Primary Care Provider [phone] Encounter Details Date Type Department Care Team (Late st Contact Info) Description 10/07/2019 Scanned Document [facility] Neurosurgery [address] [phone] Social History Tobacco Use Types Packs/Day Years [...] on filedocumented in this encounter Care Teams Production Specialist Relationship Specialty Start Date End Date Aston Yañez MD [address] [place], [place] [address] [address] PCP - General Endocrinology 07/31/19 Brett Mackenzie MD [address] [place] [address] Psychiatry, General 10/01/18 documented as of this encounter
--- OUTSIDE RECORDS SUMMARY | 2025-08-06 07:08 | XMS_ITS | Encounter Summary ---
Author Organization [facility] Address [address] [place] [address] Care Team Providers Care Continuous Miner Operator Name Role Phone Brett Mackenzie MD Unavailable [phone] Aston Yañez MD Primary Care Provider [phone] Encounter Details Date Type Department Care Team (Late st Contact Info) Description 08/03/2019 Scanned Document [facility] Neurosurgery [address] [phone] Neurosurgery, Scan Social History Tobacco Use Types [...] on filedocumented in this encounter Care Teams Continuous Miner Operator Relationship Specialty Start Date End Date Aston Yañez MD [address] [place] [address] PCP - General Endocrinology 07/31/19 Brett Mackenzie MD [address] [place] [address] Psychiatry, General 10/01/18 documented as of this encounter
[2025-08-06 10:42] LABS: Hematocrit 43.3 % (42.0-52.0); Hemoglobin 14.9 g/dl (14.0-18.0); Mean Corpuscular HGB Conc 34.4 g/dl (31.0-36.0); Mean Corpuscular Hemoglobin 32.5 pg (27.0-33.0); Mean Corpuscular Volume 94.5 fL (80.0-98.0); NRBC Abs Auto 0.000 X10*3/uL (0.0-0.012); NRBC Pct Auto 0.0 /100WBC (0.0-0.2); Platelet Count 274 X10*3/uL (160-400); Red Blood Count 4.58 X10*6/uL (4.60-5.80); White Blood Count 6.6 X10*3/uL (4.8-10.8)
[2025-08-06 10:50] LABS: Alanine Aminotransferase 39 U/L (0-40); Aspartate Amino Transferase 38 U/L (5-37); Cholesterol 133 mg/dL (<200); Estimated Glomerular Filt Rate > 60; HDL Cholesterol 62 mg/dL (>40); Triglycerides 62 mg/dL (<150)
[2025-08-06 11:13] LABS: Free T4 (Free Thyroxine) 1.08 ng/dL (0.71-1.85); Thyroid Stimulating Hormone 1.78 uIU/mL (0.32-4.0)
[2025-08-06 11:18] LABS: Microalbum/Creatinine Ratio Ur 14.4 ug/mg cr (<30)
== END 2025-08-06 07:04 | disposition home or self-care (01) ==
LOC: HO.HMGCLDS 07:03
PROVIDERS: PCP Nurse Practitioner Family; Visit Provider Student in an Organized Health Care Education/Training Program
DX: E10.9 Type 1 diabetes mellitus without complications (principal); E03.9 Hypothyroidism, unspecified
CPT/HCPCS: 36415; 80061; 82043; 82565; 82570; 84439; 84443; 84450; 84460; 85027

== ENCOUNTER 2025-09-16 07:56 | Outpatient (AMB) | payer OTHER, SELFPAY ==
[2025-09-16 07:59] VITALS: BP 108/42; PULSE 67; O2SAT 98; BMI 29.1
--- NOTE | 2025-09-16 07:59 | MHC.OFFVIS ---
Vital Signs 09/16/25 07:59 Height 5 ft 4 in Weight 169 lb 5.04 oz BMI 29.1 BP 108/42 L Blood Pressure Location Lt brachial Position Sitting Pulse 67 Pulse Source Pulse Oximeter Pulse Oximetry (%) 98 Oxygen Delivery Method Room Air Intake Visit Reasons: T1DM Intake Note: Patient presents today for a follow-up on Type 1 Diabetes Mellitus: Patient last seen by Dr Fabiana Fernandez MD. Last Diabetic eye exam was on: Last exam was in Last Podiatry exam was on: Patient does not see a Registered Dental Assistant Most recent HbA1c: 7.7%, 06/29/2025 Random Glucose- 265 mg/dL Quality Control Director Required: No Accompanied by: Self / Same As Patient Allergies latex Adverse Reaction (Mild, Verified 09/16/25 08:07) skin bubbles codeine (Codeine) Adverse Reaction (Unknown, Verified 09/16/25 08:07) HEADACHE HPI Comments Details: 60 YO M with is seen in f/u for T1DM. Last seen by Dr. Fernandez on 06/29/2025. This is my 1st time seeing this patient Hemoglobin A1c 09/16/25 7,7% 06/29/25 7.7% 01/14/25 7.4% 10/14/2024 6.7%. 04/09/2024 7%. History of diabetes Initially diagnosed with T1DM at age 5 when he presented with illness Was initially started on treatment with insulin. Went on Tslim-2 pump 04/2023 Back up for pump failure: Lantus 30 units plus usual dose of humalog Currently being managed with T-slim pump with a freestyle Gwendolyn 2+ with cotrol IQ with the Humalog U 100 Recently switched over to a freestyle 2+ and having some issues with connection to pump. He has had if he will sensors pulled out early and he was advised he can contact the company when this occurs. CGM/Pump data: Interpretation: Uncontrolled BG due to erratic meal/carb entering pattern. he enters carbs late or not at all sometimes, and sometimes he enters fake carbs to correct hypoglycemia. Also have hypoglycemia without specific patterns, sometimes associated to late carb entering. He does have a very tight control overnight. Pump settings Basal rate(s) (units/hour) : 12 AM 1.9 u/hr 5 AM? 1.1 units / hr Bolus setting Insulin Carbohydrate Ratio (s) 12 AM to 12 AM 1:9 Correction Factor / Sensitivity Factor 12 AM to 12 AM? 1:27 Active Insulin Time:? 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 Does not see podiatry. Has mild intermittent tenderness over left Achilles. No nephropathy, Not on PENNIE/ARB. 05/24 eGFR>60 02/2024 microalbumin 28 Has HLD, on atorvastatin 20 mg daily, LDL 104 mg per mg/dL February 2024 Denies history of CAD. hx of CVA hemmoraghic 06/16/2010 Diet/Carb counting: Does not enter all carbs carbs into pump, Denies prior episodes of DKA. Has had prior severe episodes of hypoglycemia requiring help or hospitalization yrs ago Was on chronic steroid in the past for back Hypothyroidism: diagnosed 2023, levothyroxine 125 mcg daily needs repeat thyroid testing. Interval history 09/16/25: He is not good at carb counting. He enters carbs after meals. Eating patterns are also erratic, he also snack multiple times on the day-not enters carbs He reports that his pump is losing connection with the CGM He feels like the pump is not working for him He would like to try a different Takes levothyrixine 125 mcg at night Physical exam General: sitting comfortably in no acute distress HEENT: normocephalic/atraumatic, Cardiac: normal heart sounds Pulm: normal breath sounds B/L, no added breath sounds Abd: not distended, no tenderness Extremities: no edema Laboratory Tests 06/29/25 09/16/25 08:06 08:10 Glucose (Clinic) 265 H Hgb A1c (Clinic) 7.7 H Laboratory Tests 03/19/24 01/12/25 04/29/25 06:34 11:21 06:31 Hgb Hct Plt Count Creatinine Estimated GFR AST 30 ALT 25 Triglycerides 82 LDL Cholesterol, Calc 113 H 104 H Cholesterol 180 HDL Cholesterol 60 TSH 5.22 H Free T4 0.83 Urine Microalbumin 28.0 Microalb/Creat Ratio 12.5 Thyroid Peroxidase Ab 2 05/03/25 06:33 Hgb 13.9 L Hct 38.8 L Plt Count 284 Creatinine 0.78 Estimated GFR > 60 AST ALT Triglycerides LDL Cholesterol, Calc Cholesterol HDL Cholesterol TSH Free T4 Urine Microalbumin Microalb/Creat Ratio Thyroid Peroxidase Ab [facility] Medical History (Updated 06/29/25 @ 08:38 by Fabiana Fernadnez MD) Insulin pump in place Hypothyroidism Stroke Hyperlipemia Fusion of joint Diabetes Back injury Surgical History History of carpal tunnel surgery of right wrist History of surgery History of shoulder surgery Family History Father Diabetes Brother Diabetes Other Mental health disorder Social History Household Members: Family Household Members Other:: , grandchild Housing: House Are you a primary family member caretaker to a significant other at home: No Do you presently have visiting nurse or other home services: No Alcohol intake: current Alcohol intake frequency: does not drink Alcohol type: beer Patient Tobacco Use Status: Former Tobacco user Tobacco use type: Cigarette Years Smoked: since age 16 e-Cigarette/Vaping Use: Never Used Second Hand Smoke Exposure: No Substance Use Type: Marijuana service: No Current occupational status: employed 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 Cognitive needs: No Hearing needs: No Vision needs: No Office Procedures Glucose Monitoring Details 87420 - Glucose Monitoring, continuous Procedure code (CPT) selection complete Assessment & Plan Assessment & Plan (1) Type 1 diabetes: Code(s): E10.9 - Type 1 diabetes mellitus without complications Category: Medical Qualifiers: Diabetes mellitus complication status: with ophthalmic complications Diabetes mellitus complication detail: with diabetic retinopathy Diabetic retinopathy severity: with unspecified retinopathy severity Diabetes mellitus macular edema: without macular edema Laterality: bilateral Qualified Code(s): E10.319 - Type 1 diabetes mellitus with unspecified diabetic retinopathy without macular edema Plan: 60-year-old male with type 1 diabetes mellitus with retinopathy on a tandem insulin pump with freestyle Gwendolyn 2+ with the Humalog U 100. A1c POC 06/29/2025 worsened to 7.7% from 7.4% in December 2024. Patient is having a very erratic BG throughout the day, he has an erratic meal schedule, forgets to enter carbs or enters them late. He does not think that this pump works with him and he would like to have something simpler/easier to work with him. He will like to discuss possibility of switching pumps if possible, ideally to ilet pump. Plan: -pump settings changed today in bold Basal rate(s) (units/hour) : 12 AM 1.7 to 1.5 u/hr 5 AM? 1.1 units / hr Bolus setting Insulin Carbohydrate Ratio (s) 12 AM to 12 AM 1:9 Correction Factor / Sensitivity Factor 12 AM to 12 AM? 1:27 Active Insulin Time:? 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 I will check his TSH and free T4. I asked him to do blood work today, he thinks he will try to do it tomorrow. Once we have results, I will resend his prescription. Plan: -do TSH and free T4 as soon as possible -we will plan to continue levothyroxine 125 mcg daily (3) Insulin pump in place: Code(s): Z96.41 - Presence of insulin pump (external) (internal) Category: Medical Plan: Backup failure plan: To inject 30 units of Lantus and usual doses of short-acting insulin Prescribed nasal Baqsimi spray Has urine ketone strips Has backup insulin and syringes and pen needles Plan I spent 30 minutes in reviewing the record, seeing the patient and documenting in the medical record. Orders: Orders AMB Glucose Monitoring Today E10.319 - Type 1 diabetes mellitus with unspecified diabetic retinopathy without macular edema, Z96.41 - Presence of insulin pump (external) (internal) Coding Level of Care Code Est Pt Level 4 (91821) Add On Problem Visit Only Diagnoses Type 1 diabetes mellitus with retinopathy of both eyes without macular edema, unspecified retinopathy severity E10.319 Diabetes mellitus complication status: with ophthalmic complications Diabetes mellitus complication detail: with diabetic retinopathy Diabetic retinopathy severity: with unspecified retinopathy severity Diabetes mellitus macular edema: without macular edema Laterality: bilateral 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
--- OUTSIDE RECORDS SUMMARY | 2025-09-16 08:01 | XMS_ITS | Encounter Summary ---
Author Organization [facility] Address [address] [place] [address] Care Team Providers Care Transportation Assistant Name Role Phone Brett Mackenzie MD Primary Care Provider [phone] Brett Mackenzie MD Unavailable [phone] Aston Yañez MD Primary Care Provider [phone] Encounter Details Date Type Department Care Team (Late st Contact Info) Description 11/26/2018 Scanned Document [facility] Neurosurgery [place] [facility] 5 [place] [address] Osvaldo Coleman MD 35 [facility] 5 [place] [address] Social History Tobacco Use Types Packs/Day Years [...] on filedocumented in this encounter Care Teams Transportation Assistant Relationship Specialty Start Date End Date Brett Mackenzie MD [address] [place] [address] PCP - General General Medicine 10/01/18 07/30/19 Aston Yañez MD [address] [place] [address] PCP - General Endocrinology 07/31/19 Brett Mackenzie MD [address] [place] [address] Psychiatry, General 10/01/18 documented as of this encounter
--- OUTSIDE RECORDS SUMMARY | 2025-09-16 08:02 | XMS_ITS | Encounter Summary ---
Author Organization [facility] Address [address] [place] [address] Care Team Providers Care Ground Support Equipment Assembler Name Role Phone Brett Mackenzie MD Unavailable [phone] Aston Yañez MD Primary Care Provider [phone] Encounter Details Date Type Department Care Team (Late st Contact Info) Description 10/07/2019 Scanned Document [facility] Neurosurgery [address] [phone] Social History Tobacco Use Types Packs/Day Years Used Date Smoking Tobacco: Former Cigarettes 0 Q uit: 06/16/2010 Smokeless Tobacco: Never Alcohol [...] on filedocumented in this encounter Care Teams Ground Support Equipment Assembler Relationship Specialty Start Date End Date Aston Yañez MD [address] [place] [address] PCP - General Endocrinology 07/31/19 Brett Mackenzie MD [address] [place] [address] Psychiatry, General 10/01/18 documented as of this encounter
--- OUTSIDE RECORDS SUMMARY | 2025-09-16 08:02 | XMS_ITS | Encounter Summary ---
Author Organization [facility] Address [address] [place] [address] Care Team Providers Care Wastewater Treatment Plant Instructor Name Role Phone Brett Mackenzie MD Unavailable [phone] Aston Yañez MD Primary Care Provider [phone] Encounter Details Date Type Department Care Team (Late st Contact Info) Description 04/29/2020 Scanned Document [facility] Neurosurgery [address] [phone] Social History Tobacco Use Types [...] on filedocumented in this encounter Care Teams Wastewater Treatment Plant Instructor Relationship Specialty Start Date End Date Aston Yañez MD [address] [place] [address] [place] [address] PCP - General Endocrinology 07/31/19 Brett Mackenzie MD [address] [place] [address] Psychiatry, General 10/01/18 documented as of this encounter
--- OUTSIDE RECORDS SUMMARY | 2025-09-16 08:02 | XMS_ITS | Encounter Summary ---
Author Organization [facility] Address [address] [place] [address] Care Team Providers Care Marketing Data Specialist Name Role Phone Brett Mackenzie MD Unavailable [phone] Aston Yañez MD Primary Care Provider [phone] Encounter Details Date Type Department Care Team (Late st Contact Info) Description 01/07/2020 Scanned Document [facility] Neurosurgery [address] [phone] Social History Tobacco Use Types [...] on filedocumented in this encounter Care Teams Marketing Data Specialist Relationship Specialty Start Date End Date Aston Yañez MD [address] [place] [address] PCP - General Endocrinology 07/31/19 Brett Mackenzie MD [address] [place] [address] Psychiatry, General 10/01/18 documented as of this encounter
--- OUTSIDE RECORDS SUMMARY | 2025-09-16 08:02 | XMS_ITS | Encounter Summary ---
Author Organization [facility] Address [address] [place] [address] Care Team Providers Care Rn Documentation Name Role Phone Brett Mackenzie MD Primary Care Provider [phone] Brett Mackenzie MD Unavailable [phone] Aston Yañez MD Primary Care Provider Encounter Details Date Type Department Care Team (Late st Contact Info) Description 11/26/2018 Scanned Document [facility] Neurosurgery [place] 35 [facility] 5 [place] [address] Osvaldo Coleman MD 35 [facility] 5 [place] [address] Social History Tobacco Use Types Packs/Day Years [...] on filedocumented in this encounter Care Teams Rn Documentation Relationship Specialty Start Date End Date Brett Mackenzie MD [address] [place] [address] PCP - General General Medicine 10/01/18 07/30/19 Aston Yañez MD [address] [place] [address] PCP - General Endocrinology 07/31/19 Brett Mackenzie MD [address] [place] [address] Psychiatry, General 10/01/18 documented as of this encounter
--- OUTSIDE RECORDS SUMMARY | 2025-09-16 08:02 | XMS_ITS | Encounter Summary ---
Author Organization [facility] Address [address] [place] [address] Care Team Providers Care Tile And Marble Installer Name Role Phone Brett Mackenzie MD Primary Care Provider [phone] Brett Mackenzie MD Unavailable [phone] Aston Yañez MD Primary Care Provider [phone] Encounter Details Date Type Department Care Team (Late st Contact Info) Description 07/06/2019 Prep for Surgery [facility] Neurosurgery [address] [phone] Lizett Mensah PA [address] [address] Social History Tobacco Use Types Packs/Day Years [...] on filedocumented in this encounter Care Teams Tile And Marble Installer Relationship Specialty Start Date End Date Brett Mackenzie MD [address] [place] [address] PCP - General General Medicine 10/01/18 07/30/19 Aston Yañez MD [address] [place] [address] PCP - General Endocrinology 07/31/19 Brett Mackenzie MD [address] [place] [address] Psychiatry, General 10/01/18 documented as of this encounter
--- OUTSIDE RECORDS SUMMARY | 2025-09-16 08:02 | XMS_ITS | Encounter Summary ---
Author Organization [facility] Address [address] [place] [address] Care Team Providers Care Director Of Category Management Name Role Phone Brett Mackenzie MD Unavailable [phone] Aston Yañez MD Primary Care Provider [phone] Encounter Details Date Type Department Care Team (Late st Contact Info) Description 08/03/2019 Scanned Document [facility] Neurosurgery [address] [phone] Neurosurgery, Scan Social History Tobacco Use Types [...] filedocumented in this encounter Care Teams Director Of Category Management Relationship Specialty Start Date End Date Aston Yañez MD [address] [place] [address] PCP - General Endocrinology 07/31/19 Brett Mackenzie MD [address] [place] [address] Psychiatry, General 10/01/18 documented as of this encounter
--- OUTSIDE RECORDS SUMMARY | 2025-09-16 08:02 | XMS_ITS | Encounter Summary ---
Author Organization [facility] Address [address] [place] [address] Care Team Providers Care Direct Care Specialist Name Role Phone Brett Mackenzie MD Unavailable [phone] Aston Yañez MD Primary Care Provider [phone] Encounter Details Date Type Department Care Team (Late st Contact Info) Description 08/03/2019 Scanned Document [facility] Neurosurgery [address] [phone] Neurosurgery, Scan Social History Tobacco Use Types [...] on filedocumented in this encounter Care Teams Direct Care Specialist Relationship Specialty Start Date End Date Aston Yañez MD [address] [place] [address] PCP - General Endocrinology 07/31/19 Brett Mackenzie MD [address] [place] [address] Psychiatry, General 10/01/18 documented as of this encounter
--- OUTSIDE RECORDS SUMMARY | 2025-09-16 08:02 | XMS_ITS | Encounter Summary ---
Author Organization [facility] Address [address] [place] [address] Care Team Providers Care Tubing Machine Tender Name Role Phone Brett Mackenzie MD Unavailable [phone] Aston Yañez MD Primary Care Provider [phone] Encounter Details Date Type Department Care Team (Late st Contact Info) Description 12/18/2019 Scanned Document [facility] Neurosurgery [address] [phone] Social History Tobacco Use Types [...] on filedocumented in this encounter Care Teams Tubing Machine Tender Relationship Specialty Start Date End Date Aston Yañez MD [address] [place] [address] PCP - General Endocrinology 07/31/19 Brett Mackenzie MD [address] [place] [address] Psychiatry, General 10/01/18 documented as of this encounter
--- OUTSIDE RECORDS SUMMARY | 2025-09-16 08:02 | XMS_ITS | Encounter Summary ---
Author Organization [facility] Address [address] [place] [address] Care Team Providers Care Country Manager Name Role Phone Brett Mackenzie MD Unavailable [phone] Aston Yañez MD Primary Care Provider [phone] Encounter Details Date Type Department Care Team (Late st Contact Info) Description 03/15/2020 Scanned Document [facility] Neurosurgery [address] [phone] Social History Tobacco Use Types [...] on filedocumented in this encounter Care Teams Country Manager Relationship Specialty Start Date End Date Aston Yañez MD [address] [place] [address] [place] [address] PCP - General Endocrinology 07/31/19 Brett Mackenzie MD [address] [place] [address] Psychiatry, General 10/01/18 documented as of this encounter
--- OUTSIDE RECORDS SUMMARY | 2025-09-16 08:02 | XMS_ITS | Encounter Summary ---
Author Organization [facility] Address [address] [place] [address] Care Team Providers Care Stucco Laborer Name Role Phone Brett Mackenzie MD Primary Care Provider [phone] Brett Mackenzie MD Unavailable [phone] Aston Yañez MD Primary Care Provider [phone] Encounter Details Date Type Department Care Team (Late st Contact Info) Description 03/25/[address] [facility] Neurosurgery [place] [address] [phone] [place], [place] [address] [address] Social History Tobacco Use Types Packs/Day Years [...] on filedocumented in this encounter Care Teams Stucco Laborer Relationship Specialty Start Date End Date Brett Mackenzie MD [address] [place] [address] PCP - General General Medicine 10/01/18 07/30/19 Aston Yañez MD [address] [place] [address] PCP - General Endocrinology 07/31/19 Brett Mackenzie MD [address] [place] [address] Psychiatry, General 10/01/18 documented as of this encounter
--- OUTSIDE RECORDS SUMMARY | 2025-09-16 08:02 | XMS_ITS | Encounter Summary ---
Author Organization [facility] Address [address] [place] [address] Care Team Providers Care Experimental Outboard Motors Mechanic Name Role Phone Brett Mackenzie MD Unavailable [phone] Aston Yañez MD Primary Care Provider [phone] Encounter Details Date Type Department Care Team (Late st Contact Info) Description 08/03/2019 Scanned Document [facility] Neurosurgery [address] [phone] Social History Tobacco Use Types [...] filedocumented in this encounter Care Teams Experimental Outboard Motors Mechanic Relationship Specialty Start Date End Date Aston Yañez MD [address] [place] [address] PCP - General Endocrinology 07/31/19 Brett Mackenzie MD [address] [place] [address] Psychiatry, General 10/01/18 documented as of this encounter
--- OUTSIDE RECORDS SUMMARY | 2025-09-16 08:02 | XMS_ITS | Clinical Summary ---
Author Organization [facility] Address [address] [place] [address] Care Team Providers Care Embroiderer Hand Name Role Phone Brett Mackenzie MD Unavailable [phone] Aston Yañez MD Primary Care Provider [phone] Allergies Active Allergy Reactions Criticality Noted Date [...] Influenza Vaccine 04/30/2025 COVID-19 Vaccine (1 - season) 2025 Medical Devices Implanted Type Area Prototype Technician Device Identifier Shelf Expiration Date Model / Serial / Lot [id number]-90 System Spinal Fixation 55mm 7mm Ifuse Implant System 3ang - Sn/A Implanted:Qty: 1 on 08/05/2019 by Osvaldo Coleman MD at [facility] [employer] 01/09/2024 7055M-90 / N/A / [id number] System Spinal Fixation 45mm 7mm Ifuse Implant System 3ang - Sn/A Implanted:Qty: 1 on 08/05/2019 by Osvaldo Coleman MD at [facility] [employer] 04/10/2024 7045M-90 / N/A / [id number] System Spinal Fixation 45mm 7mm Ifuse Implant System 3ang - Sn/A Implanted:Qty: 1 on 08/05/2019 by Osvaldo Coleman MD at [facility] [employer] 04/10/2024 7045M-90 / N/A / [id number] [place] [facility] [employer] [place] [id number] Advance Directives * Full Code (Latest Code Status on File) Date Activated Date Inactivated Comments 08/05/2019 10:54 AM * Full Code Date Activated Date Inactivated Comments 08/05/2019 8:02 AM 08/05/2019 10:54 AM Care Teams Embroiderer Hand Relationship Specialty Start Date End Date Aston Yañez MD [address] [place] [address] PCP - General Endocrinology 07/31/19 Brett Mackenzie MD [address] [place] [address] Psychiatry, General 10/01/18
--- OUTSIDE RECORDS SUMMARY | 2025-09-16 08:02 | XMS_ITS | Encounter Summary ---
Author Organization [facility] Address [address] [place] [address] Care Team Providers Care Soldering Machine Operator Name Role Phone Brett Mackenzie MD Unavailable [phone] Aston Yañez MD Primary Care Provider [phone] Encounter Details Date Type Department Care Team (Late st Contact Info) Description 03/22/2020 Scanned Document [facility] Neurosurgery [address] [phone] Social History Tobacco Use Types Packs/Day Years [...] on filedocumented in this encounter Care Teams Soldering Machine Operator Relationship Specialty Start Date End Date Aston Yañez MD [address] [place] [address] [place] [address] PCP - General Endocrinology 07/31/19 Brett Mackenzie MD [address] [place] [address] Psychiatry, General 10/01/18 documented as of this encounter
--- OUTSIDE RECORDS SUMMARY | 2025-09-16 08:02 | XMS_ITS | Encounter Summary ---
Author Organization [facility] Address [address] [place] [address] Care Team Providers Care Solvent Recoverer Name Role Phone Brett Mackenzie MD Unavailable [phone] Aston Yañez MD Primary Care Provider [phone] Encounter Details Date Type Department Care Team (Late st Contact Info) Description 07/31/2019 Scanned Document [facility] Neurosurgery [address] [phone] Social History Tobacco Use Types Packs/Day Years [...] on filedocumented in this encounter Care Teams Solvent Recoverer Relationship Specialty Start Date End Date Aston Yañez MD [address] [place] [address] PCP - General Endocrinology 07/31/19 Brett Mackenzie MD [address] [place] [address] Psychiatry, General 10/01/18 documented as of this encounter
--- OUTSIDE RECORDS SUMMARY | 2025-09-16 08:02 | XMS_ITS | Encounter Summary ---
Author Organization [facility] Address [address] [place] [address] Care Team Providers Care Pipe Insulator Name Role Phone Brett Mackenzie MD Unavailable [phone] Aston Yañez MD Primary Care Provider [phone] Encounter Details Date Type Department Care Team (Late st Contact Info) Description 08/05/2020 Scanned Document [facility] Neurosurgery [address] [phone] Social History Tobacco Use Types [...] on filedocumented in this encounter Care Teams Pipe Insulator Relationship Specialty Start Date End Date Aston Yañez MD [address] [place] [address] PCP - General Endocrinology 07/31/19 Brett Mackenzie MD [address] [place] [address] Psychiatry, General 10/01/18 documented as of this encounter
--- OUTSIDE RECORDS SUMMARY | 2025-09-16 08:02 | XMS_ITS | Encounter Summary ---
Author Organization [facility] Address [address] [place] [address] Care Team Providers Care Dumpster Operator Name Role Phone Brett Mackenzie MD Primary Care Provider [phone] Brett Mackenzie MD Unavailable [phone] Aston Yañez MD Primary Care Provider [phone] Encounter Details Date Type Department Care Team (Late st Contact Info) Description 04/15/2019 Scanned Document [facility] Neurosurgery [address] [phone] Social History Tobacco Use Types [...] on filedocumented in this encounter Care Teams Dumpster Operator Relationship Specialty Start Date End Date Brett Mackenzie MD [address] [place] [address] PCP - General General Medicine 10/01/18 07/30/19 Aston Yañez MD [address] [place] [address] PCP - General Endocrinology 07/31/19 Brett Mackenzie MD [address] [place] [address] Psychiatry, General 10/01/18 documented as of this encounter
--- OUTSIDE RECORDS SUMMARY | 2025-09-16 08:02 | XMS_ITS | Encounter Summary ---
Author Organization [facility] Address [address] [place] [address] Care Team Providers Care Hand Rigger Name Role Phone Brett Mackenzie MD Unavailable [phone] Aston Yañez MD Primary Care Provider [phone] Encounter Details Date Type Department Care Team (Late st Contact Info) Description 03/11/2020 Scanned Document [facility] Neurosurgery [address] [phone] Social History Tobacco Use Types [...] on filedocumented in this encounter Care Teams Hand Rigger Relationship Specialty Start Date End Date Aston Yañez MD [address] [place] [address] [place] [address] PCP - General Endocrinology 07/31/19 Brett Mackenzie MD [address] [place] [address] Psychiatry, General 10/01/18 documented as of this encounter
--- OUTSIDE RECORDS SUMMARY | 2025-09-16 08:02 | XMS_ITS | Encounter Summary ---
Author Organization [facility] Address [address] [place] [address] Care Team Providers Care Roving Department Supervisor Name Role Phone Brett Mackenzie MD Unavailable [phone] Aston Yañez MD Primary Care Provider Encounter Details Date Type Department Care Team (Late st Contact Info) Description 12/29/2019 Scanned Document [facility] Neurosurgery [address] [phone] Social History Tobacco Use Types [...] on filedocumented in this encounter Care Teams Roving Department Supervisor Relationship Specialty Start Date End Date Aston Yañez MD [address] [place] [address] PCP - General Endocrinology 07/31/19 Brett Mackenzie MD [address] [place] [address] Psychiatry, General 10/01/18 documented as of this encounter
--- OUTSIDE RECORDS SUMMARY | 2025-09-16 08:02 | XMS_ITS | Encounter Summary ---
Author Organization [facility] Address [address] [place] [address] Care Team Providers Care Title I Instructional Assistant Name Role Phone Brett Mackenzie MD Unavailable [phone] Aston Yañez MD Primary Care Provider [phone] Encounter Details Date Type Department Care Team (Late st Contact Info) Description 06/24/2020 Scanned Document [facility] Neurosurgery [address] [phone] Social History Tobacco Use [...] filedocumented in this encounter Care Teams Title I Instructional Assistant Relationship Specialty Start Date End Date Aston Yañez MD [address] [place] [address] [place] [address] PCP - General Endocrinology 07/31/19 Brett Mackenzie MD [address] [place] [address] Psychiatry, General 10/01/18 documented as of this encounter
--- OUTSIDE RECORDS SUMMARY | 2025-09-16 08:02 | XMS_ITS | Encounter Summary ---
Author Organization [facility] Address [address] [place] [address] Care Team Providers Care Middle Stitcher Name Role Phone Brett Mackenzie MD Unavailable [phone] Aston Yañez MD Primary Care Provider [phone] Encounter Details Date Type Department Care Team (Late st Contact Info) Description 02/25/2020 Scanned Document [facility] Neurosurgery [address] [phone] Social History Tobacco Use Types Packs/Day Years [...] on filedocumented in this encounter Care Teams Middle Stitcher Relationship Specialty Start Date End Date Aston Yañez MD [address] [place] [address] [place] [address] PCP - General Endocrinology 07/31/19 Brett Mackenzie MD [address] [place] [address] Psychiatry, General 10/01/18 documented as of this encounter
--- OUTSIDE RECORDS SUMMARY | 2025-09-16 08:02 | XMS_ITS | Encounter Summary ---
Author Organization [facility] Address [address] [place] [address] Care Team Providers Care Bead Forming Machine Operator Name Role Phone Brett Mackenzie MD Unavailable [phone] Aston Yañez MD Primary Care Provider [phone] Encounter Details Date Type Department Care Team (Late st Contact Info) Description 07/31/2019 Scanned Document [facility] Neurosurgery [address] [phone] Social History Tobacco Use Types Packs/Day Years [...] on filedocumented in this encounter Care Teams Bead Forming Machine Operator Relationship Specialty Start Date End Date Aston Yañez MD [address] [place] [address] PCP - General Endocrinology 07/31/19 Brett Mackenzie MD [address] [place] [address] Psychiatry, General 10/01/18 documented as of this encounter
--- OUTSIDE RECORDS SUMMARY | 2025-09-16 08:02 | XMS_ITS | Encounter Summary ---
Author Organization [facility] Address [address] [place] [address] Care Team Providers Care Waste Machine Tender Name Role Phone Brett Mackenzie MD Primary Care Provider [phone] Brett Mackenzie MD Unavailable [phone] Aston Yañez MD Primary Care Provider [phone] Encounter Details Date Type Department Care Team (Late st Contact Info) Description 07/06/2019 Scanned Document [facility] Neurosurgery [address] [phone] Social History Tobacco Use Types [...] on filedocumented in this encounter Care Teams Waste Machine Tender Relationship Specialty Start Date End Date Brett Mackenzie MD [address] [place] [address] PCP - General General Medicine 10/01/18 07/30/19 Aston Yañez MD [address] [place] [address] PCP - General Endocrinology 07/31/19 Brett Mackenzie MD [address] [place] [address] Psychiatry, General 10/01/18 documented as of this encounter
--- OUTSIDE RECORDS SUMMARY | 2025-09-16 08:02 | XMS_ITS | Encounter Summary ---
Author Organization [facility] Address [address] [place] [address] Care Team Providers Care Customer Support Manager Name Role Phone Brett Mackenzie MD Unavailable [phone] Aston Yañez MD Primary Care Provider [phone] Encounter Details Date Type Department Care Team (Late st Contact Info) Description 12/29/2019 Scanned Document [facility] Neurosurgery [address] [phone] Social History Tobacco Use Types [...] on filedocumented in this encounter Care Teams Customer Support Manager Relationship Specialty Start Date End Date Aston Yañez MD [address] [place] [address] PCP - General Endocrinology 07/31/19 Brett Mackenzie MD [address] [place] [address] Psychiatry, General 10/01/18 documented as of this encounter
--- OUTSIDE RECORDS SUMMARY | 2025-09-16 08:02 | XMS_ITS | Encounter Summary ---
Author Organization [facility] Address [address] [place] [address] Care Team Providers Care Deck Mechanic Name Role Phone rBett Mackenzie MD Unavailable [phone] Aston Yañez MD Primary Care Provider [phone] Encounter Details Date Type Department Care Team (Late st Contact Info) Description 03/17/[address] [facility] Neurosurgery [address] [phone] Social History Tobacco Use Types [...] on filedocumented in this encounter Care Teams Deck Mechanic Relationship Specialty Start Date End Date Aston Yañez MD [address] [place] [address] [place] [address] PCP - General Endocrinology 07/31/19 Brett Mackenzie MD [address] [place] [address] Psychiatry, General 10/01/18 documented as of this encounter
--- OUTSIDE RECORDS SUMMARY | 2025-09-16 08:02 | XMS_ITS | Encounter Summary ---
Author Organization [facility] Address [address] [place] [address] Care Team Providers Care Manager Package Name Role Phone Brett Mackenzie MD Primary Care Provider [phone] Brett Mackenzie MD Unavailable [phone] Aston Yañez MD Primary Care Provider [phone] Encounter Details Date Type Department Care Team (Late st Contact Info) Description 04/20/2019 Scanned Document [facility] Neurosurgery [place] [facility] 5 [place] [phone] Osvaldo Coleman MD 35 [facility] 5 [place] [address] Social History Tobacco Use Types Packs/Day Years [...] filedocumented in this encounter Care Teams Manager Package Relationship Specialty Start Date End Date Brett Mackenzie MD [address] [place] [address] PCP - General General Medicine 10/01/18 07/30/19 Aston Yañez MD [address] [place] [address] PCP - General Endocrinology 07/31/19 Brett Mackenzie MD [address] [place] [address] Psychiatry, General 10/01/18 documented as of this encounter
--- OUTSIDE RECORDS SUMMARY | 2025-09-16 08:02 | XMS_ITS | Encounter Summary ---
Author Organization [facility] Address [address] [place] [address] Care Team Providers Care Digestion Operator Name Role Phone Brett Mackenzie MD Unavailable [phone] Aston Yañez MD Primary Care Provider [phone] Encounter Details Date Type Department Care Team (Late st Contact Info) Description 03/24/2020 Scanned Document [facility] Neurosurgery [address] [phone] Social History Tobacco Use Types [...] on filedocumented in this encounter Care Teams Digestion Operator Relationship Specialty Start Date End Date Aston Yañez MD [address] [place] [address] [place] [address] PCP - General Endocrinology 07/31/19 Brett Mackenzie MD [address] [place] [address] Psychiatry, General 10/01/18 documented as of this encounter
--- OUTSIDE RECORDS SUMMARY | 2025-09-16 08:02 | XMS_ITS | Encounter Summary ---
Author Organization [facility] Address [address] [place] [address] Care Team Providers Care Shaft Sinker Name Role Phone Brett Mackenzie MD Unavailable [phone] Aston Yañez MD Primary Care Provider [phone] Encounter Details Date Type Department Care Team (Late st Contact Info) Description 04/28/2020 Scanned Document [facility] Neurosurgery [address] [phone] Social History Tobacco Use Types [...] on filedocumented in this encounter Care Teams Shaft Sinker Relationship Specialty Start Date End Date Aston Yañez MD [address] [place] [address] [place] [address] PCP - General Endocrinology 07/31/19 Brett Mackenzie MD [address] [place] [address] Psychiatry, General 10/01/18 documented as of this encounter
--- OUTSIDE RECORDS SUMMARY | 2025-09-16 08:02 | XMS_ITS | Encounter Summary ---
Author Organization [facility] Address [address] [place] [address] Care Team Providers Care Ring Rolling Machine Operator Name Role Phone Brett Mackenzie MD Primary Care Provider [phone] Brett Mackenzie MD Unavailable [phone] Aston Yañez MD Primary Care Provider [phone] Encounter Details Date Type Department Care Team (Late st Contact Info) Description 02/16/2019 Scanned Document [facility] Neurosurgery [place] [address] [facility] 5 [place] [address] Osvaldo Coleman MD 35 [facility] 5 [place] [address] Social History Tobacco Use Types Packs/Day Years [...] on filedocumented in this encounter Care Teams Ring Rolling Machine Operator Relationship Specialty Start Date End Date Brett Mackenzie MD [address] [place] [address] PCP - General General Medicine 10/01/18 07/30/19 Aston Yañez MD [address] [place] [address] PCP - General Endocrinology 07/31/19 Brett Mackenzie MD [address] [place] [address] Psychiatry, General 10/01/18 documented as of this encounter
[2025-09-16 08:14] LABS: Glucose, Whole Blood 265 mg/dL (60-115)
== END 2025-09-16 08:43 | disposition home or self-care (01) ==
LOC: HO.ENCR 07:57
PROVIDERS: PCP Nurse Practitioner Family; Visit Provider Student in an Organized Health Care Education/Training Program
DX: E10.319 Type 1 diabetes mellitus with unspecified diabetic retinopathy without macular edema (principal); E06.3 Autoimmune thyroiditis; Z96.41 Presence of insulin pump (external) (internal)
CPT/HCPCS: 99214

== ENCOUNTER → 2025-09-16 07:56 | Outpatient (BNVA) | payer OTHER, SELFPAY | PROVIDERS: PCP Nurse Practitioner Family; Visit Provider Student in an Organized Health Care Education/Training Program | DX: E10.319 Type 1 diabetes mellitus with unspecified diabetic retinopathy without macular edema (principal); E06.3 Autoimmune thyroiditis; Z96.41 Presence of insulin pump (external) (internal) | CPT/HCPCS: 82947; 95250; 99212 ==

== ENCOUNTER 2025-09-24 15:57 | Emergency (ER) | payer OTHER, SELFPAY ==
--- NOTE | ~2025-09-24 | XR_ITS ---
CLINICAL HISTORY: pain 4 views right wrist Comparison: None Findings: No fractures or dislocations. No significant arthritic change. 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 No radiopaque foreign body. Impression: 1. Unremarkable right wrist. This document has been electronically signed by: Rob Singh MD on 09/24/2025 17:04:07
--- NOTE | ~2025-09-24 | XR_ITS ---
CLINICAL HISTORY: pain 3 views right hand Comparison: None Findings: No fractures or dislocations. No significant arthritic change. No erosions. No radiopaque foreign body. Impression: 1. Normal right hand. This document has been electronically signed by: Rob Singh MD on 09/24/2025 17:05:05
[2025-09-24 16:33] VITALS: BP 159/67; PULSE 75; RESP 20; TEMP 36.4; O2SAT 96; BMI 29.3
--- NOTE | 2025-09-24 17:48 | ED_ITS ---
HPI - Extremity Problem General Chief complaint: Extremity Injury, Upper Stated complaint: Right hand injury, pain, swelling Time Seen by Provider: 09/24/25 17:38 Source: patient, RN notes reviewed and old records reviewed Mode of arrival: ambulatory History of Present Illness ED Provider: Jacqueline De PA-C HPI Narrative: 60-year-old male with a past medical history CVA, HLD, diabetes, hypothyroid, presenting to the ED complaining of right hand pain and swelling s/p Sanjeev crushing hand at work on Saturday. Denies injury to other area, numbness, tingling, weakness. Related Data Home Medications ?Medication ?Instructions ?Recorded ?Confirmed insulin glargine 100 unit/mL (3 32 unit subcut DAILY P RN In case 04/29/25 06/29/25 mL) subcutaneous pen (Lantus of pump failure Solostar U-100 Insulin) Previous Rx's ?Medication ?Instructions ?Recorded insulin syringe-needle U-100 0.3 #100 ea 10/14/24 mL 31 gauge x 5/16 pen needle, diabetic 32 gauge x #50 ea 10/14/2432 (BD Pamela 2nd Gen Pen Needle) acetone (urine) test (Ketone Urine #25 ea 03/16/25 Test strips) blood-glucose meter (FreeStyle #1 ea 03/16/25 Lite Meter kit) blood sugar diagnostic (FreeStyle #100 ea 03/22/25 Lite Strips) Humalog U-100 Insulin 100 unit/mL 70 unit (0.7 mL) sub cut DAILY 30 04/19/25 subcutaneous solution (insulin days #30 mL lispro) atorvastatin 20 mg tablet (Lipitor) 20 mg PO BEDTIME # 30 tabs 04/19/25 lancets 28 gauge (FreeStyle #100 ea 04/19/25 Lancets) bacitracin 500 unit/gram topical 1 appl topical BID #2 8 grams 05/03/25 ointment cefuroxime axetil 500 mg tablet 500 mg PO BID #10 tabs 05/03/25 metronidazole 500 mg tablet 500 mg PO BID #10 tabs 01/22 glucagon 3 mg/actuation nasal 3 mg intranasal ONCE #1 ea 06/29/25 spray (Baqsimi) levothyroxine 125 mcg tablet 125 mcg PO DAILY@0600 #90 tabs 07/28/25 tramadol 50 mg tablet 50 mg PO DAILY PRN pain #14 tabs 09/04/25 blood-glucose sensor (FreeStyle #2 ea 09/21/25 Gwendolyn 3 Plus Sensor device) Allergies Allergy/AdvReac Type Severity Reaction Status Date / Time latex AdvReac Mild skin Verified 09/24/25 16:36 bubbles codeine (Codeine) AdvReac Unknown HEADACHE Verified 09/24/25 16:36 Review of Systems Review of Systems: Yes all other systems are reviewed and are negative Constitutional: Constitutional: Reports as per [facility] Past Medical History Attestation statement: The following information was validated with the patient. Source: old records reviewed Medical History Insulin pump in place Hypothyroidism Stroke Hyperlipemia Fusion of joint Diabetes Back injury Surgical History History of carpal tunnel surgery of right wrist History of surgery History of shoulder surgery Family History Family History Father Diabetes Brother Diabetes Other Mental health disorder Social History Social History Household Members: Family Household Members Other:: , grandchild Housing: House Are you a primary home health care respiratory therapist to a significant other at home: No Do you presently have visiting nurse or other home services: No Alcohol intake: current Alcohol intake frequency: does not drink Alcohol type: beer Patient Tobacco Use Status: Former Tobacco user Tobacco use type: Cigarette Years Smoked: since age 16 e-Cigarette/Vaping Use: Never Used Second Hand Smoke Exposure: No Substance Use Type: Marijuana Advance Directives: No Advance Directives Information Provided: Yes Do you have a plan to hurt others: No Plan service: No Current occupational status: employed 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 Cognitive needs: No Hearing needs: No Vision needs: No Physical Exam Vital Signs: Vital Signs: Last Vital Signs Temp 97.5 F 09/24/25 18:42 Pulse 75 09/24/25 18:42 Resp 20 09/24/25 18:42 BP 159/67 H 09/24/25 18:42 Pulse Ox 96 09/24/25 18:42 O2 Del Method Room Air 09/24/25 18:42 BMI result Body Mass Index 29.3 Const: General: cooperative, healthy appearing and no acute distress Orientation/consciousness: patient oriented x3 Limitations: no limitations HEENT: Head: Yes normal to inspection and Yes atraumatic Ears: hearing grossly normal bilaterally General nose exam: Normal external nose present Face and sinus: Yes normal facial exam Eyes: General: appearance normal, both eyes and all related structures EOM: EOMs intact bilaterally Neck: Neck: Yes normal visual inspection and Yes no meningeal signs Resp: Effort & Inspection: normal respiratory effort and no respiratory distress Cardio: Rate: regular rate Skin: Rashes: no rashes Wounds: no wounds Neuro: General: patient oriented x3, tone normal and no meningeal signs Cranial nerves: Yes CN's II-XII intact bilaterally Gait exam (Neuro): Normal gait present Extrem: Other: Right hand with appreciable swelling. No erythema/warmth or ecchymosis. + snuffbox tenderness. Full range of mo tion to digits intact with discomfort. Zomznk-[id number] opposition intact. Neurovascularly intact. Course Course Course Narrative: 5:59 PM 09/24/2025 (Jacqueline De PA-C): Hand and wrist x-rays unremarkable. Thumb spica splint applied due to scaphoid tenderness. Recommended close orthopedic follow-up Results discussed with patient including worrisome signs and symptoms and strict return precautions, and when to return to the emergency department. They verbalized understanding and feel safe for discharge at this time. Medical Decision Making Medical Decision Making [facility] Narrative: 60-year-old male with a past medical history CVA, HLD, diabetes, hypothyroid, presenting to the ED complaining of right hand pain and swelling s/p Sanjeev crushing hand at work on Saturday. On exam vital signs stable, NAD, nontoxic appearing, physical exam as noted above. + snuffbox tenderness. Concern for sprain vs fracture. No evidence of septic joint/arthritis. Plan: X-ray Please refer to course for remaining clinical decision making, interpretation of labs/imaging results, and discussions with consultants and/or family members. Differential Diagnosis Differential Diagnoses: The differential diagnosis associated with the presentation includes As above Admission/Observation Consideration of admission/observation: Escalation of care including admission/observation considered Lab Data [facility] Lab Attestation statement: I reviewed the patient's lab results. Independent Interpretation I performed an independent interpretation of an: Plain X-Ray Radiology Impression Discussion of test interpretation with radiology: I have reviewed the radiologist's reading. External Record Review External record reviewed: Inpatient record, Office record, Outpatient record, Prior outpatient labs, Prior outpatient radiology, Primary care record and Outside ED record Tests considered The following testing was considered but not selected: As above Prescription Management I considered prescription management with: Pain Medication Chronic Conditions Patient?s care impacted by: Other Social Determinants Patient?s care significantly limited by Social Determinants of Health including: Other Social Determinant of Health Procedures Orthopedic Splinting/Casting Injury #1: Side: right Upper Extremity Injury Location: wrist and hand Upper Extremity Immobilizer: thumb spica Discharge Plan Discharge Clinical Impression: Hand injury Patient Disposition: Home, Self-Care Instructions: Hand Sprain (ED), Scaphoid Fracture (ED) Additional Instructions: Your x-rays are unremarkable. They do not show any fractures However Wear pain is we are concern there could be a fracture we are not seeing. Please wear splint until you follow-up with the orthopedic hand specialist. Call to make an appointment. Ice and elevate Take Tylenol and ibuprofen If pain persists or worsens/becomes unbearable return to the emergency department Prescriptions: No Action (DME) FreeStyle Lite Strips Strip See Rx Instructions .Route Qty: 100 3RF Rx Instructions: test blood sugar 4 times per day prn sensor failure insulin lispro [Humalog U-100 Insulin] 100 unit/mL solution 70 unit subcut DAILY 30 Days Qty: 30 11RF Rx Instructions: continous via pump via Tslim pump atorvastatin [Lipitor] 20 mg tablet 20 mg PO BEDTIME Qty: 30 8RF (DME) lancets [FreeStyle Lancets] 28 gauge misc See Rx Instructions .Route Qty: 100 3RF Rx Instructions: As directed four times a day prn sensor failure dispense as 33 gauge if avail levothyroxine 125 mcg tablet 125 mcg PO DAILY@0600 Qty: 90 3RF tramadol 50 mg tablet 50 mg PO DAILY PRN (Reason: pain) Qty: 14 0RF (DME) FreeStyle Gwendolyn 3 Plus Sensor Device See Rx Instructions .ROUTE .MEDSUPPLY Qty: 2 4RF Rx Instructions: As directed to be changed every 15 days insulin glargine [Lantus Solostar U-100 Insulin] 100 unit/mL (3 mL) insulin pen 32 unit subcut DAILY PRN (Reason: In case of pump failure) Rx Instructions: Inject only case of pump failure bacitracin 500 unit/gram Ointment 1 appl topical BID Qty: 28 0RF Protocol: Apply to: Apply to: legs cefuroxime axetil 500 mg tablet 500 mg PO BID Qty: 10 0RF metronidazole 500 mg tablet 500 mg PO BID Qty: 10 0RF Baqsimi 3 mg/actuation spray,non-aerosol 3 mg intranasal ONCE Qty: 1 1RF (DME) insulin syringe-needle U-100 0.3 mL 31 gauge x 5/16 syringe See Rx Instructions .ROUTE QID Qty: 100 0RF Rx Instructions: As directed four times a day prn pump failure (DME) pen needle, diabetic [BD Pamela 2nd Gen Pen Needle] 32 gauge x 5/32 needle See Rx Instructions .ROUTE .MEDSUPPLY Qty: 50 6RF Rx Instructions: once daily prn pump failure (DME) Ketone Urine Test Strip See Rx Instructions .ROUTE .MEDSUPPLY Qty: 25 1RF Rx Instructions: As directed p.r.n. illness or glucose over 250 (DME) blood-glucose meter [FreeStyle Lite Meter] Kit See Rx Instructions .ROUTE .MEDSUPPLY Qty: 1 0RF Rx Instructions: As directed for use with lancets Ref[place] [facility] [place]Provider Group] - 1 week Interventions: ED Discharge Assessment Last Done: 09/24/25 18:42 Discharge Date/Time: 09/24/25 18:42 Print Language: Albanian
--- OUTSIDE RECORDS SUMMARY | 2025-09-24 18:08 | XMS_ITS | Encounter Summary ---
Author Organization [facility] Address [address] [place] [address] Care Team Providers Care Agronomy Location Manager Name Role Phone Brett Mackenzie MD Unavailable [phone] Aston Yañez MD Primary Care Provider [phone] Encounter Details Date Type Department Care Team (Late st Contact Info) Description 03/11/2020 Scanned Document [facility] Neurosurgery [address] [phone] Social History Tobacco Use Types [...] on filedocumented in this encounter Care Teams Agronomy Location Manager Relationship Specialty Start Date End Date Aston Yañez MD [address] [place] [address] [place] [address] PCP - General Endocrinology 07/31/19 Brett Mackenzie MD [address] [place] [address] Psychiatry, General 10/01/18 documented as of this encounter
--- OUTSIDE RECORDS SUMMARY | 2025-09-24 18:08 | XMS_ITS | Encounter Summary ---
Author Organization [facility] Address [address] [place] [address] Care Team Providers Care Reclamation Supervisor Name Role Phone Brett Mackenzie MD Primary Care Provider [phone] Brett Mackenzie MD Unavailable Aston Yañez MD Primary Care Provider [phone] Encounter Details Date Type Department Care Team (Late st Contact Info) Description 04/15/2019 Scanned Document [facility] Neurosurgery [address] [phone] Social History Tobacco Use [...] on filedocumented in this encounter Care Teams Reclamation Supervisor Relationship Specialty Start Date End Date Brett Mackenzie MD [address] [place] [address] PCP - General General Medicine 10/01/18 07/30/19 Astno Yañez MD [address] [place] [address] PCP - General Endocrinology 07/31/19 Brett Mackenzie MD [address] [place] [address] Psychiatry, General 10/01/18 documented as of this encounter
--- OUTSIDE RECORDS SUMMARY | 2025-09-24 18:08 | XMS_ITS | Encounter Summary ---
Author Organization [facility] Address [address] [place] [address] Care Team Providers Care Combination Worker Name Role Phone Brett Mackenzie MD Primary Care Provider [phone] Brett Mackenzie MD Unavailable [phone] Aston Yañez MD Primary Care Provider [phone] Encounter Details Date Type Department Care Team (Late st Contact Info) Description 07/06/2019 Prep for Surgery [facility] Neurosurgery [address] [phone] Lizett Mensah PA [address] [address] Social History Tobacco Use Types Packs/Day Years [...] on filedocumented in this encounter Care Teams Combination Worker Relationship Specialty Start Date End Date Brett Mackenzie MD [address] [place] [address] PCP - General General Medicine 10/01/18 07/30/19 Aston Yañez MD [address] [place] [address] PCP - General Endocrinology 07/31/19 Brett Mackenzie MD [address] [place] [address] Psychiatry, General 10/01/18 documented as of this encounter
--- OUTSIDE RECORDS SUMMARY | 2025-09-24 18:08 | XMS_ITS | Encounter Summary ---
Author Organization [facility] Address [address] [facility] [address] [place] [address] Phone Care Team Providers Care Disaster Recovery Analyst Name Role Phone Aston Yañez MD Primary Care Provider Unavail Aston Ruiz MD Primary Care Provider Unavail Mariano Holliday NP Primary Care Provider + Reason for Referral * Physical Therapy (Routine) - Closed Specialty Diagnoses / Procedures Referred By Contac t Referred To Contact Physical Therapy Diagnoses Encounter for rehabilitation Osvaldo Coleman MD [address] [place] [address] Phone: tel: fax: [facility] [address] [place] [address] Phone: tel: Referral ID Status Reason Start Date Expiration Date Visits Re quested Visits Authorized [id number] Closed 09/01/2019 12/13/2019 16 16 Encounter Details Date Type Department Care Team (Latest Contact Info) Description 09/01/2019 Transcribe Orders [facility] [address] [place] [address] Unknown, Unknown, Encounter for rehabilitation (Primary Dx) [...] Date/Time Associated Diagnosis Comments AMB REFERRAL TO [facility] PHYSICAL [facility]ERAP[facility] Routine 10/06/2019 9:24 AM EST Encounter for rehabilitation documented in this encounter Results * Ambulatory referral to [facility] Physical Therapy (10/06/2019 9:24 AM EST) us Osvaldo Coleman MD AMB [facility] REFERRALS Di l Result documented in this encounter Visit Diagnoses Diagnosis Encounter for rehabilitation- Primary documented in this encounter Care Teams Disaster Recovery Analyst Relationship Specialty Start Date End Date Aston Yañez MD PCP - General Endocrinology 05/18/18 01/17/21 Aston Yañez MD PCP - General Endocrinology 01/18/21 02/02/21 Mariano Smith NP [address] [place] [address] [place] [address] PCP - General Family Medicine 02/03/21 documented as of this encounter Additional Source Comments The information contained in this document represents components of the legal health record. It is not the complete legal health record.[facility]
--- OUTSIDE RECORDS SUMMARY | 2025-09-24 18:08 | XMS_ITS | Encounter Summary ---
Author Organization [facility] Address [address] [place] [address] Care Team Providers Care Manufacturing Engineer Paint Name Role Phone Brett Mackenzie MD Unavailable [phone] Aston Yañez MD Primary Care Provider [phone] Encounter Details Date Type Department Care Team (Late st Contact Info) Description 03/24/2020 Scanned Document [facility] Neurosurgery [address] [phone] Social History Tobacco Use Types [...] filedocumented in this encounter Care Teams Manufacturing Engineer Paint Relationship Specialty Start Date End Date Aston Yañez MD [address] [place] [address] [place] [address] PCP - General Endocrinology 07/31/19 Brett Mackenzie MD [address] [place] [address] Psychiatry, General 10/01/18 documented as of this encounter
--- OUTSIDE RECORDS SUMMARY | 2025-09-24 18:08 | XMS_ITS | Encounter Summary ---
Author Organization [facility] Address [address] [place] [address] Care Team Providers Care Pari Mutuel Ticket Cashier Name Role Phone Brett Mackenzie MD Unavailable [phone] Aston Yañez MD Primary Care Provider [phone] Encounter Details Date Type Department Care Team (Late st Contact Info) Description 08/03/2019 Scanned Document [facility] Neurosurgery [address] [phone] Neurosurgery, Scan Social History Tobacco Use Types [...] on filedocumented in this encounter Care Teams Pari Mutuel Ticket Cashier Relationship Specialty Start Date End Date Aston Yañez MD [address] [place] [address] PCP - General Endocrinology 07/31/19 Brett Mackenzie MD [address] [place] [address] Psychiatry, General 10/01/18 documented as of this encounter
--- OUTSIDE RECORDS SUMMARY | 2025-09-24 18:08 | XMS_ITS | Clinical Summary ---
Author Organization [facility] Address [address] [facility] [address] [place] [address] Phone Care Team Providers Care Cotton Picking Machine Operator Name Role Phone Mariano Smith NP Primary [...] topic Medical Devices Not on file Insurance [facility] Address: [place] [address] Member Subscriber Plan / Payer (Ef fective 2022-Present) Name:Jolly Shah Relation to Subscriber:Self Name:Jolly Shah Payer ID:Not on file Group ID:Not on file Type:Medicaid Address: [address] Member Subscriber Plan / Payer (Ef fective 2022-Present) Name:NicholasJolly hoff Josue Relation to Subscriber:Self Name:Jolly Shah Josue Payer ID:Not on file Group ID:Not on file Type:Medicaid Address: [address] Member Subscriber Plan / Payer (Ef fective 2022-Present) Name:Jolly Shah Relation to Subscriber:Self Name:Adelita Jolly P Payer ID:Not on file Group ID:Not on file Type:Medicaid Address: [address] Member Subscriber Plan / Payer (Ef fective 2022-Present) Name:Jolly Shah Relation to Subscriber:Self Name:Jolly Shah Payer ID:Not on file Group ID:Not on file Type:Medicaid Address: [address] HEALTH SAFETY NET FULL Member Subscriber Plan / Payer (Ef fective 2022-Present) Name:Jolly Shah Relation to Subscriber:Self Name:Jolly Shah Payer ID:Not on file Group ID:Not on file Type:Medicaid Address: [address] HEALTH SAFETY NET FULL Member Subscriber Plan / Payer (Ef fective 2022-Present) Name:Jolly Shah Relation to Subscriber:Self Name:Jolly Shah Payer ID:Not on file Group ID:Not on file Type:Medicaid Address: [address] FULL Member Subscriber Plan / Payer (Ef fective 2022-Present) Name:Jolly Shah Relation to Subscriber:Self Name:Jolly Shah Payer ID:Not on file Group ID:Not on file Type:Medicaid Address: [address] FULL Member Subscriber Plan / Payer (Ef fective 2022-Present) Name:Jolly Shah Relation to Subscriber:Self Name:Jolly Shah Payer ID:Not on file Group ID:Not on file Type:Medicaid Address: [address] [employer] Care Teams Cotton Picking Machine Operator Relationship Specialty Start Date End Date Mariano Smith NP [address] [facility] [place] [address] PCP - General Family Medicine 02/03/21 Additional Source Comments The information contained in this document represents components of the legal health record. It is not the complete legal health record.[facility]
--- OUTSIDE RECORDS SUMMARY | 2025-09-24 18:08 | XMS_ITS | Encounter Summary ---
Author Organization [facility] Address [address] [place] [address] Care Team Providers Care Assembler Dc Field Ring Name Role Phone Brett Mackenzie MD Unavailable [phone] Aston Yañez MD Primary Care Provider [phone] Encounter Details Date Type Department Care Team (Late st Contact Info) Description 04/28/2020 Scanned Document [facility] Neurosurgery [address] [phone] Social History Tobacco Use Types [...] filedocumented in this encounter Care Teams Assembler Dc Field Ring Relationship Specialty Start Date End Date Aston Yañez MD [address] [place] [address] [place] [address] PCP - General Endocrinology 07/31/19 Brett Mackenzie MD [address] [place] [address] Psychiatry, General 10/01/18 documented as of this encounter
--- OUTSIDE RECORDS SUMMARY | 2025-09-24 18:08 | XMS_ITS | Encounter Summary ---
Author Organization [facility] Address [address] [place] [address] Care Team Providers Care Sheet Layer Name Role Phone Brett Mackenzie MD Unavailable [phone] Aston Yañez MD Primary Care Provider [phone] Encounter Details Date Type Department Care Team (Late st Contact Info) Description 01/07/2020 Scanned Document [facility] Neurosurgery [address] [phone] Social History Tobacco Use Types [...] on filedocumented in this encounter Care Teams Sheet Layer Relationship Specialty Start Date End Date Aston Yañez MD [address] [place] [address] PCP - General Endocrinology 07/31/19 Brett Mackenzie MD [address] [place] [address] Psychiatry, General 10/01/18 documented as of this encounter
--- OUTSIDE RECORDS SUMMARY | 2025-09-24 18:08 | XMS_ITS | Encounter Summary ---
Author Organization [facility] Address [address] [place] [address] Care Team Providers Care Director Digital Catalogue Name Role Phone Brett Mackenzie MD Unavailable [phone] Aston Yañez MD Primary Care Provider [phone] Encounter Details Date Type Department Care Team (Late st Contact Info) Description 03/15/2020 Scanned Document [facility] Neurosurgery [address] [phone] Social History Tobacco Use Types [...] filedocumented in this encounter Care Teams Director Digital Catalogue Relationship Specialty Start Date End Date Aston Yañez MD [address] [place] [address] [place] [address] PCP - General Endocrinology 07/31/19 Brett Mackenzie MD [address] [place] [address] Psychiatry, General 10/01/18 documented as of this encounter
--- OUTSIDE RECORDS SUMMARY | 2025-09-24 18:08 | XMS_ITS | Encounter Summary ---
Author Organization [facility] Address [address] [place] [address] Care Team Providers Care Pharmacist'S Aide Name Role Phone Brett Mackenzie MD Unavailable [phone] Aston Yañez MD Primary Care Provider [phone] Encounter Details Date Type Department Care Team (Late st Contact Info) Description 07/31/2019 Scanned Document [facility] Neurosurgery [address] [phone] Social History Tobacco Use Types Packs/Day Years [...] on filedocumented in this encounter Care Teams Pharmacist'S Aide Relationship Specialty Start Date End Date Aston Yañez MD [address] [place] [address] PCP - General Endocrinology 07/31/19 Brett Mackenzie MD [address] [place] [address] Psychiatry, General 10/01/18 documented as of this encounter
--- OUTSIDE RECORDS SUMMARY | 2025-09-24 18:08 | XMS_ITS | Encounter Summary ---
Author Organization [facility] Address [address] [place] [address] Care Team Providers Care Forklift Supervisor Name Role Phone Brett Mackenzie MD Primary Care Provider [phone] Brett Mackenzie MD Unavailable [phone] Aston Yañez MD Primary Care Provider [phone] Encounter Details Date Type Department Care Team (Late st Contact Info) Description 11/26/2018 Scanned Document [facility] Neurosurgery [place] 35 [facility] 5 [place] [address] Osvaldo Coleman MD 35 [facility] 5 [place] [address] Social History Tobacco Use Types Packs/Day Years [...] on filedocumented in this encounter Care Teams Forklift Supervisor Relationship Specialty Start Date End Date Brett Mackenzie MD [address] [place] [address] PCP - General General Medicine 10/01/18 07/30/19 Aston Yañez MD [address] [place] [address] PCP - General Endocrinology 07/31/19 Brett Mackenzie MD [address] [place] [address] Psychiatry, General 10/01/18 documented as of this encounter
--- OUTSIDE RECORDS SUMMARY | 2025-09-24 18:08 | XMS_ITS | Encounter Summary ---
Author Organization [facility] Address [address] [place] [address] Care Team Providers Care Applications System Analyst Name Role Phone Brett Mackenzie MD Primary Care Provider [phone] Brett Mackenzie MD Unavailable [phone] Aston Yañez MD Primary Care Provider [phone] Encounter Details Date Type Department Care Team (Late st Contact Info) Description 03/25/2019 Scanned Document [facility] Neurosurgery [place] [address] [phone] [place], [place] [address] [address] Social History Tobacco Use Types Packs/Day Years [...] on filedocumented in this encounter Care Teams Applications System Analyst Relationship Specialty Start Date End Date Brett aMckenzie MD [address] [place] [address] PCP - General General Medicine 10/01/18 07/30/19 Aston Yañez MD [address] [place] [address] PCP - General Endocrinology 07/31/19 Brett Mackenzie MD [address] [place] [address] Psychiatry, General 10/01/18 documented as of this encounter
--- OUTSIDE RECORDS SUMMARY | 2025-09-24 18:08 | XMS_ITS | Encounter Summary ---
Author Organization [facility] Address [address] [place] [address] Care Team Providers Care Drum Stock Clerk Name Role Phone Brett Mackenzie MD Unavailable [phone] Aston Yañez MD Primary Care Provider [phone] Encounter Details Date Type Department Care Team (Late st Contact Info) Description 07/31/2019 Scanned Document [facility] Neurosurgery [address] [phone] Social History Tobacco Use Types Packs/Day Years [...] on filedocumented in this encounter Care Teams Drum Stock Clerk Relationship Specialty Start Date End Date Aston Yañez MD [address] [place] [address] PCP - General Endocrinology 07/31/19 Brett Mackenzie MD [address] [place] [address] Psychiatry, General 10/01/18 documented as of this encounter
--- OUTSIDE RECORDS SUMMARY | 2025-09-24 18:08 | XMS_ITS | Encounter Summary ---
Author Organization [facility] Address [address] [place] [address] Care Team Providers Care Coating Manager Name Role Phone Brett Mackenzie MD Unavailable [phone] Aston Yañez MD Primary Care Provider [phone] Encounter Details Date Type Department Care Team (Late st Contact Info) Description 03/17/2020 Scanned Document [facility] Neurosurgery [address] [phone] Social History Tobacco Use Types [...] on filedocumented in this encounter Care Teams Coating Manager Relationship Specialty Start Date End Date Aston Yañez MD [address] [place] [address] [place] [address] PCP - General Endocrinology 07/31/19 Brett Mackenzie MD [address] [place] [address] Psychiatry, General 10/01/18 documented as of this encounter
--- OUTSIDE RECORDS SUMMARY | 2025-09-24 18:08 | XMS_ITS | Encounter Summary ---
Author Organization [facility] Address [address] [facility] [address] [place] [address] Phone Care Team Providers Care [employer] Special Education Teacher Name Role Phone Aston Yañez MD Primary Care Provider Unavail Aston Ruiz MD Primary Care Provider Unavail Mariano Holliday NP Primary Care Provider + Reason for Referral * Physical Therapy (Routine) - Closed Specialty Diagnoses / Procedures Referred By Conttito t Referred To Contact Physical Therapy Diagnoses Encounter for rehabilitation Ladan Feliz PA [address] [place] [address] Phone: tel: fax: [address] [address] Phone: tel: Referral ID Status Reason Start Date Expiration Date Visits Re quested Visits Authorized [id number] Closed 10/30/2019 01/04/2020 9 9 Encounter Details Date Type Department Care Team (Latest Contact Info) Description 10/30/2019 Transcribe Orders [facility] [place] [address] Ladan Feliz PA [address] [place] [address] Encounter for rehabilitation (Primary Dx) Social History [...] Diagnoses Orde r Schedule Ambulatory referral to [facility] Physical Therapy Outpatient Referral Routine Encounter for rehabilitation Ordered: 10/30/2019 documented as of this encounter Visit Diagnoses Diagnosis Encounter for rehabilitation- Primary documented in this encounter Care Teams [employer] Special Education Teacher Relationship Specialty Start Date End Date Aston Yañez MD PCP - General Endocrinology 05/18/18 01/17/21 Aston Yañez MD PCP - General Endocrinology 01/18/21 02/02/21 Mariano Smith NP [address] [place] [address] [place] [address] PCP - General Family Medicine 02/03/21 documented as of this encounter Additional Source Comments The information contained in this document represents components of the legal health record. It is not the complete legal health record.[facility]
--- OUTSIDE RECORDS SUMMARY | 2025-09-24 18:08 | XMS_ITS | Encounter Summary ---
Author Organization [facility] Address [address] [place] [address] Care Team Providers Care Director Geothermal Operations Name Role Phone Brett Mackenzie MD Unavailable [phone] Aston Yañez MD Primary Care Provider [phone] Encounter Details Date Type Department Care Team (Late st Contact Info) Description 10/07/2019 Scanned Document [facility] Neurosurgery [address] [phone] Social History Tobacco Use [...] filedocumented in this encounter Care Teams Director Geothermal Operations Relationship Specialty Start Date End Date Aston Yañez MD [address] [place] [address] PCP - General Endocrinology 07/31/19 Brett Mackenzie MD [address] [place] [address] Psychiatry, General 10/01/18 documented as of this encounter
--- OUTSIDE RECORDS SUMMARY | 2025-09-24 18:08 | XMS_ITS | Encounter Summary ---
Author Organization [facility] Address [address] [place] [address] Care Team Providers Care Stitch Bonder Machine Operator Helper Name Role Phone Brett Mackenzie MD Primary Care Provider [phone] Brett Mackenzie MD Unavailable [phone] Aston Yañez MD Primary Care Provider [phone] Encounter Details Date Type Department Care Team (Late st Contact Info) Description 07/06/2019 Scanned Document [facility] Neurosurgery [address] [phone] Social History Tobacco Use Types [...] on filedocumented in this encounter Care Teams Stitch Bonder Machine Operator Helper Relationship Specialty Start Date End Date Brett Mackenzie MD [address] [place] [address] PCP - General General Medicine 10/01/18 07/30/19 Aston Yañez MD [address] [place] [address] PCP - General Endocrinology 07/31/19 Brett Mackenzie MD 76 [place] [address] Psychiatry, General 10/01/18 documented as of this encounter
--- OUTSIDE RECORDS SUMMARY | 2025-09-24 18:08 | XMS_ITS | Encounter Summary ---
Author Organization [facility] Address [address] [place] [address] Care Team Providers Care Rn Telephonic Name Role Phone Brett Mackenzie MD Unavailable [phone] Aston Yañez MD Primary Care Provider [phone] Encounter Details Date Type Department Care Team (Late st Contact Info) Description 03/22/2020 Scanned Document [facility] Neurosurgery [address] [phone] Social History Tobacco Use Types Packs/Day Years [...] filedocumented in this encounter Care Teams Rn Telephonic Relationship Specialty Start Date End Date Aston Yañez MD [address] [place] [address] [place] [address] PCP - General Endocrinology 07/31/19 Brett Mackenzie MD [address] [place] [address] Psychiatry, General 10/01/18 documented as of this encounter
--- OUTSIDE RECORDS SUMMARY | 2025-09-24 18:08 | XMS_ITS | Clinical Summary ---
Author Organization [facility] Address [address] [place] [address] Care Team Providers Care Miller Head Wet Process Name Role Phone Brett Mackenzie MD Unavailable [phone] Aston Yañez MD Primary Care Provider [phone] Allergies Active Allergy Reactions Criticality Noted Date [...] season) 2025 Medical Devices Implanted Type Area Stoneworker Device Identifier Shelf Expiration Date Model / Serial / Lot [id number] System Spinal Fixation 55mm 7mm Ifuse Implant System 3ang - Sn/A Implanted:Qty: 1 on 08/05/2019 by Osvaldo Coleman MD at [facility] [employer] [employer] 01/09/2024 [id number]-90 / N/A / [id number] System Spinal Fixation 45mm 7mm Ifuse Implant System 3ang - Sn/A Implanted:Qty: 1 on 08/05/2019 by Osvaldo Coleman MD at [facility] [employer] [employer] 04/10/2024 7045M-90 / N/A / [id number] System Spinal Fixation 45mm 7mm Ifuse Implant System 3ang - Sn/A Implanted:Qty: 1 on 08/05/2019 by Osvaldo Coleman MD at [facility] [employer] [employer] 04/10/2024 7045M-90 / N/A / [id number] Insurance [facility] [employer] [place] [id number] Advance Directives * Full Code (Latest Code Status on File) Date Activated Date Inactivated Comments 08/05/2019 10:54 AM * Full Code Date Activated Date Inactivated Comments 08/05/2019 8:02 AM 08/05/2019 10:54 AM Care Teams Miller Head Wet Process Relationship Specialty Start Date End Date Aston Yañez MD [address] [place] [address] PCP - General Endocrinology 07/31/19 Brett Mackenzie MD [address] [place] [address] Psychiatry, General 10/01/18
--- OUTSIDE RECORDS SUMMARY | 2025-09-24 18:08 | XMS_ITS | Encounter Summary ---
Author Organization [facility] Address [address] [place] [address] Care Team Providers Care Fashion Stylist Name Role Phone Brett Mackenzie MD Unavailable [phone] Aston Yañez MD Primary Care Provider [phone] Encounter Details Date Type Department Care Team (Late st Contact Info) Description 12/18/2019 Scanned Document [facility] Neurosurgery [address] [phone] Social History Tobacco Use Types [...] on filedocumented in this encounter Care Teams Fashion Stylist Relationship Specialty Start Date End Date Aston Yañez MD [address] [place] [address] PCP - General Endocrinology 07/31/19 Brett Mackenzie MD [address] [place] [address] Psychiatry, General 10/01/18 documented as of this encounter
--- OUTSIDE RECORDS SUMMARY | 2025-09-24 18:08 | XMS_ITS | Encounter Summary ---
Author Organization [facility] Address [address] [place] [address] Care Team Providers Care Shipping/Receiving Manager Name Role Phone Brett Mackenzie MD Unavailable [phone] Aston Yañez MD Primary Care Provider [phone] Encounter Details Date Type Department Care Team (Late st Contact Info) Description 08/03/2019 Scanned Document [facility] Neurosurgery [address] [phone] Neurosurgery, [place] Social History Tobacco Use Types [...] on filedocumented in this encounter Care Teams Shipping/Receiving Manager Relationship Specialty Start Date End Date Aston Yañez MD [address] [place] [address] PCP - General Endocrinology 07/31/19 Brett Mackenzie MD [address] [place] [address] Psychiatry, General 10/01/18 documented as of this encounter
--- OUTSIDE RECORDS SUMMARY | 2025-09-24 18:08 | XMS_ITS | Encounter Summary ---
Author Organization [facility] Address [address] [place] [address] Care Team Providers Care Process Engineering Manager Name Role Phone Brett Mackenzie MD Unavailable Aston Yañez MD Primary Care Provider [phone] Encounter Details Date Type Department Care Team (Late st Contact Info) Description 02/25/2020 Scanned Document [facility] Neurosurgery [address] [phone] Social History Tobacco Use Types Packs/Day Years [...] on filedocumented in this encounter Care Teams Process Engineering Manager Relationship Specialty Start Date End Date Aston Yañez MD [address] [place] [address] [place] [address] PCP - General Endocrinology 07/31/19 Brett Mackenzie MD [address] [place] [address] Psychiatry, General 10/01/18 documented as of this encounter
--- OUTSIDE RECORDS SUMMARY | 2025-09-24 18:08 | XMS_ITS | Encounter Summary ---
Author Organization [facility] Address [address] [place] [address] Care Team Providers Care Glove Boarder Name Role Phone Brett Mackenzie MD Unavailable [phone] Aston Yañez MD Primary Care Provider [phone] Encounter Details Date Type Department Care Team (Late st Contact Info) Description 04/29/2020 Scanned Document [facility] Neurosurgery [address] [phone] Social History Tobacco Use Types [...] on filedocumented in this encounter Care Teams Glove Boarder Relationship Specialty Start Date End Date Aston Yañez MD [address] [place] [address] [place] [address] PCP - General Endocrinology 07/31/19 Brett Mackenzie MD [address] [place] [address] Psychiatry, General 10/01/18 documented as of this encounter
--- OUTSIDE RECORDS SUMMARY | 2025-09-24 18:08 | XMS_ITS | Encounter Summary ---
Author Organization [facility] Address [address] [place] [address] Care Team Providers Care Over Short And Damage Clerk Name Role Phone Brett Mackenzie MD Primary Care Provider [phone] Brett Mackenzie MD Unavailable [phone] Aston Yañez MD Primary Care Provider [phone] Encounter Details Date Type Department Care Team (Late st Contact Info) Description 11/26/2018 Scanned Document [facility] Neurosurgery [place] 35 [facility] 5 [place] [address] Osvaldo Coleman MD 35 [facility] 5 [place] [address] Social History Tobacco Use Types Packs/Day Years [...] on filedocumented in this encounter Care Teams Over Short And Damage Clerk Relationship Specialty Start Date End Date Brett Mackenzie MD [address] [place] [address] PCP - General General Medicine 10/01/18 07/30/19 Aston Yañez MD [address] [place] [address] PCP - General Endocrinology 07/31/19 Brett Mackenzie MD [address] [place] [address] Psychiatry, General 10/01/18 documented as of this encounter
--- OUTSIDE RECORDS SUMMARY | 2025-09-24 18:08 | XMS_ITS | Encounter Summary ---
Author Organization [facility] Address [address] [place] [address] Care Team Providers Care Personalized Living Manager Name Role Phone Brett Mackenzie MD Unavailable [phone] Aston Yañez MD Primary Care Provider [phone] Encounter Details Date Type Department Care Team (Late st Contact Info) Description 08/03/2019 Scanned Document [facility] Neurosurgery [address] [phone] Social History Tobacco Use [...] on filedocumented in this encounter Care Teams Personalized Living Manager Relationship Specialty Start Date End Date Aston Yañez MD [address] [place] [address] PCP - General Endocrinology 07/31/19 Brett Mackenzie MD [address] [place] [address] Psychiatry, General 10/01/18 documented as of this encounter
--- OUTSIDE RECORDS SUMMARY | 2025-09-24 18:08 | XMS_ITS | Encounter Summary ---
Author Organization [facility] Address [address] [place] [address] Care Team Providers Care Creamery Worker Name Role Phone Brett Mackenzie MD Primary Care Provider [phone] Brett Mackenzie MD Unavailable [phone] Aston Yañez MD Primary Care Provider [phone] Encounter Details Date Type Department Care Team (Late st Contact Info) Description 04/20/[address] [facility] Neurosurgery [place] 35 [facility] 5 [place] [phone] Osvaldo Coleman MD 35 [facility] 5 [place] [address] Social History Tobacco Use Types Packs/Day Years [...] on filedocumented in this encounter Care Teams Creamery Worker Relationship Specialty Start Date End Date Brett Mackenzie MD [address] [place] [address] PCP - General General Medicine 10/01/18 07/30/19 Aston Yañez MD [address] [place] [address] PCP - General Endocrinology 07/31/19 Brett Mackenzie MD [address] [place] [address] Psychiatry, General 10/01/18 documented as of this encounter
--- OUTSIDE RECORDS SUMMARY | 2025-09-24 18:08 | XMS_ITS | Encounter Summary ---
Author Organization [facility] Address [address] [place] [address] Care Team Providers Care Hr Intern Name Role Phone Brett Mackenzie MD Unavailable Aston Yañez MD Primary Care Provider [phone] Encounter Details Date Type Department Care Team (Late st Contact Info) Description 08/05/2020 Scanned Document [facility] Neurosurgery [address] [phone] Social History Tobacco Use Types [...] on filedocumented in this encounter Care Teams Hr Intern Relationship Specialty Start Date End Date Aston Yañez MD [address] [place] [address] PCP - General Endocrinology 07/31/19 Brett Mackenzie MD [address] [place] [address] Psychiatry, General 10/01/18 documented as of this encounter
--- OUTSIDE RECORDS SUMMARY | 2025-09-24 18:08 | XMS_ITS | Encounter Summary ---
Author Organization [facility] Address [address] [place] [address] Care Team Providers Care Remittance Clerk Name Role Phone Brett Mackenzie MD Unavailable [phone] Aston Yañez MD Primary Care Provider [phone] Encounter Details Date Type Department Care Team (Late st Contact Info) Description 12/29/2019 Scanned Document [facility] Neurosurgery [address] [phone] Social History Tobacco Use Types [...] on filedocumented in this encounter Care Teams Remittance Clerk Relationship Specialty Start Date End Date Aston Yañez MD [address] [place] [address] PCP - General Endocrinology 07/31/19 Brett Mackenzie MD [address] [place] [address] Psychiatry, General 10/01/18 documented as of this encounter
--- OUTSIDE RECORDS SUMMARY | 2025-09-24 18:08 | XMS_ITS | Encounter Summary ---
Author Organization [facility] Address [address] [place] [address] Care Team Providers Care Technical Manager Name Role Phone Brett Mackenzie MD Primary Care Provider [phone] Brett Mackenzie MD Unavailable [phone] Aston Yañez MD Primary Care Provider [phone] Encounter Details Date Type Department Care Team (Late st Contact Info) Description 02/16/[address] [facility] Neurosurgery [place] 35 [facility] 5 [place] [address] Osvaldo Coleman MD 35 [facility] 5 [place] [address] Social History Tobacco Use Types Packs/Day Years [...] on filedocumented in this encounter Care Teams Technical Manager Relationship Specialty Start Date End Date Brett Mackenzie MD [address] [place] [address] PCP - General General Medicine 10/01/18 07/30/19 Aston Yañez MD [address] [place] [address] PCP - General Endocrinology 07/31/19 Brett Mackenzie MD [address] [place] [address] Psychiatry, General 10/01/18 documented as of this encounter
--- OUTSIDE RECORDS SUMMARY | 2025-09-24 18:08 | XMS_ITS | Encounter Summary ---
Author Organization [facility] Address [address] [place] [address] Care Team Providers Care Janitorial Services Supervisor Name Role Phone Brett Mackenzie MD Unavailable [phone] Aston Yañez MD Primary Care Provider [phone] Encounter Details Date Type Department Care Team (Late st Contact Info) Description 06/24/2020 Scanned Document [facility] Neurosurgery [address] [phone] Social History Tobacco Use Types [...] on filedocumented in this encounter Care Teams Janitorial Services Supervisor Relationship Specialty Start Date End Date Aston Yañez MD [address] [place] [address] [place] [address] PCP - General Endocrinology 07/31/19 Brett Mackenzie MD [address] [place] [address] Psychiatry, General 10/01/18 documented as of this encounter
--- OUTSIDE RECORDS SUMMARY | 2025-09-24 18:08 | XMS_ITS | Encounter Summary ---
Author Organization [facility] Address [address] [place] [address] Care Team Providers Care Architecture Instructor Name Role Phone Brett Mackenzie MD Unavailable [phone] Aston Yañez MD Primary Care Provider [phone] Encounter Details Date Type Department Care Team (Late st Contact Info) Description 12/29/2019 Scanned Document [facility] Neurosurgery [address] [phone] Social History Tobacco Use [...] on filedocumented in this encounter Care Teams Architecture Instructor Relationship Specialty Start Date End Date Aston Yañez MD [address] [place] [address] PCP - General Endocrinology 07/31/19 Brett Mackenzie MD [address] [place] [address] Psychiatry, General 10/01/18 documented as of this encounter
[2025-09-24 18:42] VITALS: BP 159/67; PULSE 75; RESP 20; TEMP 36.4; O2SAT 96
== END 2025-09-24 18:42 | disposition home or self-care (01) ==
PROVIDERS: Emergency Provider Emergency Medicine; PCP Nurse Practitioner Family
DX: S69.91XA Unspecified injury of right wrist, hand and finger(s), initial encounter (principal); W31.89XA Contact with other specified machinery, initial encounter; Y93.9 Activity, unspecified; Y92.59 Other trade areas as the place of occurrence of the external cause; Y99.0 Civilian activity done for income or pay; R60.0 Localized edema; M79.641 Pain in right hand; M25.531 Pain in right wrist; E11.9 Type 2 diabetes mellitus without complications; E78.5 Hyperlipidemia, unspecified; Z79.4 Long term (current) use of insulin; Z87.891 Personal history of nicotine dependence
CPT/HCPCS: 29130; 73110; 73130; 99283